=== PATIENT | male | born 1965 | race Caucasian/White ===

== ENCOUNTER → 2022-01-18 | Outpatient (CLI) | payer BC ==
[2022-01-19 09:26] LABS: Anti-Thrombin III Activity 113 % (79-109)
[2022-01-19 10:24] LABS: Protein C (Activity) 133 % (71-138)
== END | disposition home or self-care (01) ==
LOC: LABWHC1 11:45
PROVIDERS: ATTEND Family Medicine
DX: Z00.00 Encounter for general adult medical examination without abnormal findings (principal); I10 Essential (primary) hypertension; Z79.899 Other long term (current) drug therapy
CPT/HCPCS: 36415; 82306; 82607; 82746; 85300; 85303; 85305; 86038; 86225

== ENCOUNTER 2024-06-23 10:46 | Inpatient (IN) | payer OTHER ==
[2024-06-23 11:45] LABS: Basophils # (A) 0.2 k/uL (0-0.2); Basophils % (A) 2 %; Eosinophils # (A) 0.1 k/uL (0-0.7); Eosinophils % (A) 1 %; HCT 35.3 % (39.0-53.0); HGB 12.1 gm/dL (13.0-17.5); Lymphocytes # (A) 0.5 k/uL (1.0-4.8); Lymphocytes % (A) 5 %; MCH 30.5 pg (25.0-35.0); MCHC 34.1 g/dL (31.0-37.0); MCV 89.5 fL (80.0-100.0); Mean Platelet Volume 7.6; Monocytes # (A) 0.5 k/uL (0-1.0); Monocytes % (A) 5 %; Neutrophils # (A) 8.7 k/uL (1.3-7.7); Neutrophils % (A) 86 %; Platelet Count 237 k/uL (150-450); RBC 3.95 m/uL (4.30-5.90); RDW 13.2 % (11.5-15.5); WBC 10.1 k/uL (3.8-10.6)
[2024-06-23] MEDS: KETOROLAC 15 MG/ML 1 ML VIAL IVP STA (11:50)
[2024-06-23] MEDS: HYDROmorphone 0.5 MG/0.5 ML SYRINGE IVP STA (11:51)
[2024-06-23 11:53] LABS: ALT 20 U/L (4-49); AST 29 U/L (17-59); African American GFR (CKD) >90 (>60 ml/min/1.73 sqM); Albumin 3.2 g/dL (3.5-5.0); Alkaline Phosphatase 99 U/L (38-126); Anion Gap 13 mmol/L; Blood Urea Nitrogen 17 mg/dL (9-20); Calcium 8.6 mg/dL (8.4-10.2); Carbon Dioxide 23 mmol/L (22-30); Chloride 97 mmol/L (98-107); Glucose 119 mg/dL (74-99); Magnesium 1.9 mg/dL (1.6-2.3); Non-African American GFR(CKD) >90 (>60 ml/min/1.73 sqM); Potassium 4.3 mmol/L (3.5-5.1); Sodium 133 mmol/L (137-145); Total Bilirubin 0.8 mg/dL (0.2-1.3); Total Protein 5.4 g/dL (6.3-8.2)
--- NOTE | 2024-06-23 11:56 | ED ---
SOB HPI - General Chief Complaint: Shortness of Breath Stated Complaint: SOB Time Seen by Provider: 06/23/24 10:50 Source: patient, EMS, RN notes reviewed Mode of arrival: EMS Limitations: no limitations - History of Present Illness Initial Comments: This is a 59-year-old male who presents to the emergency department for shortness of breath. Patient was discharged from this facility yesterday. He had initially come to the hospital on 06/15 for back pain and was found to have metastatic lesions in his spine causing a pathological fracture. Primary source was thought to be lung cancer. He had surgery here on 06/[address] Vergara. Since the surgery he has been on supplemental oxygen and when he was discharged yesterday he was discharged on home oxygen at 3L. He also continues on doxycycline for suspected tracheobronchitis. States that a couple of days prior to discharge he choked on sausage and is unsure if he may have aspirated. The f inal biopsies are still pending and he is not currently undergoing any cancer treatment, however this is thought to be the most likely diagnosis. Patient states that he continued to have cramping in his lower extremities when he went home yesterday. However when he woke up this morning the pain in his legs got much worse and it took his breath away. States that whenever his leg started hurting he became short of breath. Also states that he started to experience sharp chest pain, prompting him to call EMS. When EMS arrived they advised that when they stood the patient up if he did not have his oxygen on his O2 sats were dropped to the 70s. Patient is taking [place] and Flexeril for his pain, but states that it has not been helpful. MD Complaint: shortness of breath - Related Data Home Medications Medication Instructions Recorded Confirmed HYDROcodone/APAP 7.5-325MG [[place] 1 tab PO BID 06/15/24 06/23/24 7.5-325] Vitamin D3(Unknown Dose) 1 tab PO DAILY 06/15/24 06/23/24 metFORMIN HCL 1,000 mg PO BID 06/15/24 06/23/24 methocarbamoL [Robaxin] 500 mg PO BID 06/15/24 06/23/24 Albuterol Sulfate [Albuterol 1 puff INHALATION RT-Q4H PRN 06/23/24 06/23/24 Sulfate Hfa] Budesonide/Formoterol Fumarate 1 puff INHALATION RT-BID 06/23/24 06/23/24 [Symbicort 160-4.5 Mcg Inhaler] Doxycycline [Vibramycin] 100 mg PO DIRECTED 06/23/24 06/23/24 Sennosides-Docusate Sodium 2 tab PO DAILY PRN 06/23/24 06/23/24 [Senokot-S] Previous Rx's Medication Instructions Recorded Cyclobenzaprine [Flexeril] 10 mg PO TID PRN #30 tab 06/22/24 HYDROcodone/APAP 10-325MG [[place] 1 tab PO Q6HR PRN #28 tab 06/22/24 10-325] Nicotine 21Mg/24Hr Patch [Habitrol] 1 patch TRANSDERM DAILY #30 patch 06/22/24 Tamsulosin [Flomax] 0.4 mg PO BID #60 cap 06/22/24 Allergies Allergy/AdvReac Type Severity Reaction Status Date / Time cephalexin [From Keflex] Allergy Swelling Verified 06/23/24 14:00 cortisone Allergy Swelling Verified 06/23/24 14:00 Influenza Virus Vaccines Allergy Swelling Verified 06/23/24 14:00 Review of Systems ROS Statement: Those systems with pertinent positive or pertinent negative responses have been documented in the HPI. ROS Other: All systems not noted in ROS Statement are negative. Past Medical History Past Medical History: Diabetes Mellitus, Prostate Disorder Additional Past Medical History / Comment(s): Covid 04/2022, developed PE and was on blood thinners, BPH, Dupuytren's contracture History of Any Multi-Drug Resistant Organisms: None Reported Past Surgical History: Hernia Repair Additional Past Surgical History / Comment(s): Back surgery saturday06/19/24 Past Anesthesia/Blood Transfusion Reactions: No Reported Reaction Past Psychological History: No Psychological Hx Reported Smoking Status: Current every day smoker, Former smoker Past Alcohol Use History: Occasional Past Drug Use History: None Reported General Exam Limitations: no limitations General appearance: alert, in no apparent distress Head exam: Present: atraumatic, normocephalic, normal inspection Respiratory exam: Present: wheezes, decreased breath sounds, prolonged expiratory Cardiovascular Exam: Present: regular rate, normal rhythm Neurological exam: Present: alert, oriented X3, CN II-XII intact Psychiatric exam: Present: normal affect, normal mood Skin exam: Present: warm, dry, intact, normal color. Absent: rash Course Vital Signs 06/23/24 06/23/24 06/23/24 10:59 11:37 12:09 Temperature 98.7 F Pulse Rate 95 86 Respiratory 16 18 18 Rate Blood Pressure 130/74 131/85 O2 Sat by Pulse 90 L 95 Oximetry Medical Decision Making - Medical Decision Making This is a 59-year-old male who presents to the emergency department for chest pain and shortness of breath. Was pt. sent in by a medical professional or institution? @ -No Did you speak to anyone other than the patient for history? @ -No Did you review nursing and triage notes? @ -Yes, and I agree, it is accurate with regards to the patient's symptoms. Were old charts reviewed? @ -Discharge summary from 06/22 discussing patient's admission for thoracic spine surgery and suspected lung cancer diagnosis. Differential Diagnosis? @ -Differential Dyspnea: Coronary syndrome, arrhythmia, tamponade, asthma, COPD, pulmonary embolism, pneumonia, pneumothorax, pulmonary effusion, anaphylaxis, diabetic ketoacidosis, flailed chest, pulmonary contusion, diaphragmatic rupture, anemia, neuromuscular, this is not meant to be an all-inclusive list. EKG interpreted by me (3pts min.)? @ -EKG interpreted by me demonstrating the following: Sinus rhythm. Ventricular rate 88 bpm, IN interval 137 ms, QRS duration 79 ms, QTc 401 ms. X-rays interpreted by me (1pt min.)? @ -Chest x-ray obtained. My interpretation identifies pulmonary vascular congestion. CT interpreted by me (1pt min.)? @ -CTA of the chest obtained. My interpretation identifies no evidence of a pulmonary embolus. U/S interpreted by me (1pt. min.)? @ -Duplex ultrasound of the bilateral lower extremities obtained. My interpretation identifies no evidence of a DVT. What testing was considered but not performed? (CT, X-rays, U/S, labs)? Why? @ -None What meds were considered but not given? Why? @ -None Did you discuss the management of the patient with other professionals? @ -Yes, Dr. Donald, who accepts the patient for admission Did you reconcile home meds? @ -Yes Was smoking cessation discussed for >3mins.? @ -No Was critical care preformed (if so, how long)? @ -No Were there social determinants of health that impacted care today? How? (Homelessness, low income, unemployed, alcoholism, drug addiction, transpor tation, low edu. Level, literacy, decrease access to med. care, snf, rehab)? @ -No Was there de-escalation of care discussed even if they declined? (Discuss DNR or withdrawal of care, Hospice)? @ -No What co-morbidities impacted this encounter? (DM, HTN, Smoking, COPD, CAD, Cancer, CVA, Hep., AIDS, mental health diagnosis, sleep apnea, morbid obesity)? @ -Hx of PE, suspected lung cancer Was patient admitted / discharged? @ -Admitted. Lab work demonstrates an elevated D-dimer of 2.86, which is expected given his recent surgery and suspected lung cancer. Lab work otherwise unremarkable. COVID, influenza, and RSV testing negative. Chest x-ray reveals pulmonary vascular congestion with small bilateral pleural effusions. BNP only 527. CTA of the chest obtained revealing interval development of scattered groundglass opacities in the upper lobe, a large right pleural effusion, moderate left pleural effusion, and bibasilar infiltrates. No evidence of a pulmonary embolus is identified. We did also obtain a duplex ultrasound of the bilateral lower extremities given the level of distress in his legs. No evidence of a DVT was identified. Patient was very fixated on the leg pain correlating with his shortness of breath. States that when his pain was controlled his breathing was better. However, he does have notable changes on his CT when compared with prior. Patient subsequently admitted to medicine for further management of the pleural effusions with shortness of breath and suspected lung cancer. Consult placed for pulmonology. Orthopedics consulted as well due to patient being the postoperative period. Case discussed with ED attending Dr. Wood. Undiagnosed new problem with uncertain prognosis? @ -None Drug Therapy requiring intensive monitoring for toxicity (Heparin, Nitro, Insulin, Cardizem)? @ -None Were any procedures done? @ -None Diagnosis/symptom? @ -Bilateral pleural effusions, shortness of breath, lung cancer Acute, or Chronic, or Acute on Chronic? @ -Acute Uncomplicated (without systemic symptoms) or Complicated (systemic symptoms)? @ -Complicated Side effects of treatment? @ -None Exacerbation, Progression, or Severe Exacerbation] @ -Not applicable Poses a threat to life or bodily function? @ -Yes, patient is struggling to function in his current state - Lab Data Result diagrams: 06/23/24 11:29 06/23/24 11:29 Lab Results 06/23/24 06/23/24 06/23/24 Range/Units 11:29 11:29 11:29 WBC 10.1 (3.8-10.6) k/uL RBC 3.95 L (4.30-5.90) m/uL Hgb 12.1 L (13.0-17.5) gm/dL Hct 35.3 L (39.0-53.0) % MCV 89.5 (80.0-100.0) fL MCH 30.5 (25.0-35.0) pg MCHC 34.1 (31.0-37.0) g/dL RDW 13.2 (11.5-15.5) % Plt Count 237 (150-450) k/uL MPV 7.6 Neutrophils % 86 % Lymphocytes % 5 % Monocytes % 5 % Eosinophils % 1 % Basophils % 2 % Neutrophils # 8.7 H (1.3-7.7) k/uL Lymphocytes # 0.5 L (1.0-4.8) k/uL Monocytes # 0.5 (0-1.0) k/uL Eosinophils # 0.1 (0-0.7) k/uL Basophils # 0.2 (0-0.2) k/uL PT 10.8 (10.0-12.5) sec INR 1.0 (<1.2) APTT 24.3 (22.0-30.0) sec D-Dimer 2.86 H (<0.60) mg/L FEU Sodium 133 L (137-145) mmol/L Potassium 4.3 (3.5-5.1) mmol/L Chloride 97 L (98-107) mmol/L Carbon Dioxide 23 (22-30) mmol/L Anion Gap 13 mmol/L BUN 17 (9-20) mg/dL Creatinine 0.66 (0.66-1.25) mg/dL Est GFR (CKD-EPI)AfAm >90 (>60 ml/min/1.73 sqM) Est GFR (CKD-EPI)NonAf >90 (>60 ml/min/1.73 sqM) Glucose 119 H (74-99) mg/dL Plasma Lactic Acid Donal (0.7-2.0) mmol/L Calcium 8.6 (8.4-10.2) mg/dL Magnesium 1.9 (1.6-2.3) mg/dL Total Bilirubin 0.8 (0.2-1.3) mg/dL AST 29 (17-59) U/L ALT 20 (4-49) U/L Alkaline Phosphatase 99 (38-126) U/L Troponin I (0.000-0.034) ng/mL NT-Pro-B Natriuret Pep 527 pg/mL Total Protein 5.4 L (6.3-8.2) g/dL Albumin 3.2 L (3.5-5.0) g/dL Influenza Type A (PCR) (Not Detectd) Influenza Type B (PCR) (Not Detectd) RSV (PCR) (Not Detectd) SARS-CoV-2 (PCR) (Not Detectd) 06/23/24 06/23/24 06/23/24 Range/Units 11:29 11:29 11:34 WBC (3.8-10.6) k/uL RBC (4.30-5.90) m/uL Hgb (13.0-17.5) gm/dL Hct (39.0-53.0) % MCV (80.0-100.0) fL MCH (25.0-35.0) pg MCHC (31.0-37.0) g/dL RDW (11.5-15.5) % Plt Count (150-450) k/uL MPV Neutrophils % % Lymphocytes % % Monocytes % % Eosinophils % % Basophils % % Neutrophils # (1.3-7.7) k/uL Lymphocytes # (1.0-4.8) k/uL Monocytes # (0-1.0) k/uL Eosinophils # (0-0.7) k/uL Basophils # (0-0.2) k/uL PT (10.0-12.5) sec INR (<1.2) APTT (22.0-30.0) sec D-Dimer (<0.60) mg/L FEU Sodium (137-145) mmol/L Potassium (3.5-5.1) mmol/L Chloride (98-107) mmol/L Carbon Dioxide (22-30) mmol/L Anion Gap mmol/L BUN (9-20) mg/dL Creatinine (0.66-1.25) mg/dL Est GFR (CKD-EPI)AfAm (>60 ml/min/1.73 sqM) Est GFR (CKD-EPI)NonAf (>60 ml/min/1.73 sqM) Glucose (74-99) mg/dL Plasma Lactic Acid Donal 1.1 (0.7-2.0) mmol/L Calcium (8.4-10.2) mg/dL Magnesium (1.6-2.3) mg/dL Total Bilirubin (0.2-1.3) mg/dL AST (17-59) U/L ALT (4-49) U/L Alkaline Phosphatase (38-126) U/L Troponin I <0.012 (0.000-0.034) ng/mL NT-Pro-B Natriuret Pep pg/mL Total Protein (6.3-8.2) g/dL Albumin (3.5-5.0) g/dL Influenza Type A (PCR) Not Detected (Not Detectd) Influenza Type B (PCR) Not Detected (Not Detectd) RSV (PCR) Not Detected (Not Detectd) SARS-CoV-2 (PCR) Not Detected (Not Detectd) - Radiology Data Radiology results: report reviewed, image reviewed Disposition Clinical Impression: Bilateral pleural effusion, Shortness of breath, Lung cancer Disposition: ADMITTED IP TO THIS [facility] Referrals: Erick Mancuso MD [Primary Care Provider] - 1-2 days
[2024-06-23 11:58] LABS: Partial Thromboplastin Time 24.3 sec (22.0-30.0); Prothrombin Time 10.8 sec (10.0-12.5)
[2024-06-23 12:02] LABS: NT-Pro-B-Type Natriuretic Pept 527 pg/mL
--- NOTE | 2024-06-23 12:21 | XR ---
EXAMINATION TYPE: XR chest 2V DATE OF EXAM: 06/23/2024 12:11 PM COMPARISON: Chest radiographs from 06/21/2024 TECHNIQUE: XR chest 2V Frontal and lateral views of the chest. CLINICAL INDICATION:Male, 59 years old with history of difficulty breathing; FINDINGS: Lungs/Pleura: Blunting of both costophrenic angles. No focal consolidation or pneumothorax. Pulmonary vascularity: Pulmonary vascular congestion. Heart/mediastinum: Cardiomediastinal silhouette is unremarkable. Musculoskeletal: No acute osseous pathology. Surgical changes from thoracolumbar fixation with security inspector ior skin denilson. IMPRESSION: 1. Pulmonary vascular congestion with small bilateral pleural effusions. 2. Postsurgical changes of the thoracolumbar spine. [facility], , 06/23/2024 12:19 PM
[2024-06-23 12:40] LABS: Influenza A Not Detected (Not Detectd); Influenza B Not Detected (Not Detectd); RSV Not Detected (Not Detectd)
--- NOTE | 2024-06-23 13:37 | CT ---
EXAMINATION TYPE: CT chest angio for PE DATE OF EXAM: 06/23/2024 COMPARISON: 07/15/2024 CLINICAL INDICATION: Male, 59 years old with history of KEYLA, lung cancer, elevated d-dimer; PHH, spin al surgery x 4 days ago, SOB/+dimer, history of PE, SOB or PAIN TECHNIQUE: Ct angiogram of the chest performed with with IV Contrast, patient injected with 60 mL of Isovue 370. MIP images are created and reviewed. 3-D post processing was performed. CT DLP: 330.[address] CTDI: mGy Automated exposure control for dose reduction was used. FINDINGS: There has been interval development of a large right pleural effusion and a moderate left pleural eff usion. There are new partially consolidative lung base infiltrates, right greater than left possibly compressive atelectasis from the pleural effusions with pneumonia not excluded. There is persistent a telectasis in the right middle lobe. There is been interval development of a few scattered ill-defined groundglass opacities in the bilate ral upper lobes consistent with inflammatory process or neoplasm given history of lung cancer. There is diffuse soft tissue thickening around the right hilar vessels but no discrete mass or adenopathy. There are no filling defects within the pulmonary arterial circulation to suggest pulmonary embolism. There is a pathologic fracture of T11 with mild retropulsion. There is postsurgical metallic fusion f rom T9 through L1. There is methylmethacrylate glue in T9, T11, T12 and L1.. IMPRESSION: 1. Interval development of scattered groundglass opacities in the upper lobes, large right pleural ef fusion, moderate left pleural effusion, and bibasilar infiltrates as described above. Findings could be infectious or neoplastic in nature and short-term follow-up is recommended. 2. No evidence of pulmonary embolism. 3. Pathologic compression fracture of T11 and postsurgical changes of fusion in the lower thoracic an d upper lumbar spine as described above. [facility], , 06/23/2024 1:35 PM
--- NOTE | 2024-06-23 13:59 | US ---
EXAMINATION TYPE: US venous doppler duplex LE DATE OF EXAM: 06/23/2024 1:43 PM COMPARISON: NONE CLINICAL INDICATION: Male, 59 years old with history of Leg pain; bilat thigh pain, recent surgery, s mall bilat PEs, Pain TECHNIQUE: The lower extremity deep venous system is examined utilizing real time linear array sonog akbar with graded compression, color doppler sonography, and spectral doppler. SIDE PERFORMED: Bilateral FINDINGS: VESSELS IMAGED: Common Femoral Vein Deep Femoral Vein Greater Saphenous Vein * Femoral Vein Popliteal Vein Small Saphenous Vein * Proximal Calf Veins (* superficial vessels) Right Leg: Negative for DVT, Color Doppler imaging shows patency of the vessels. Spectral waveforms are within normal limits. Left Leg: Negative for DVT, Color Doppler imaging shows patency of the vessels. Spectral waveforms a re within normal limits. rouleaux flow, reversal of flow on spectral doppler IMPRESSION: No visualized deep venous thrombosis of the bilateral lower extremities. [facility], , 06/23/2024 1:56 PM
[2024-06-23] MEDS ORDERED: NALOXONE 0.4 MG/ML 1 ML VIAL IV PRN (14:24)
[2024-06-23] MEDS ORDERED: ACETAMINOPHEN TAB 325 MG TAB PO PRN (14:24)
[2024-06-23] MEDS ORDERED: IPRATROPIUM-ALBUTEROL 3 ML NEB INHALATION PRN (14:26)
[2024-06-23] MEDS ORDERED: SENNOSIDES-DOCUSATE SODIUM 1 EACH TAB PO PRN (14:27)
[2024-06-23] MEDS ORDERED: ALBUTEROL NEBULIZED 2.5 MG/3 ML INHALATION PRN (14:27)
[2024-06-23] MEDS ORDERED: CYCLOBENZAPRINE 10 MG TAB PO PRN (14:27)
[2024-06-23] MEDS: NICOTINE 21MG/24HR PATCH TRANSDERM SCH (15:44)
[2024-06-23] MEDS: IPRATROPIUM-ALBUTEROL 3 ML NEB INHALATION SCH (17:51)
[2024-06-23] MEDS: MORPHINE SULFATE 4 MG/ML SYRINGE IV PRN (18:03)
[2024-06-23] MEDS ORDERED: DEXTROSE 50% SYRINGE 50 ML IVP PRN ×2 (18:20)
--- NOTE | 2024-06-23 18:24 | P.HPIM ---
History of Present Illness H&P Date: 06/23/24 Chief Complaint: Short of breath I am rounding for Erick Mancuso. Patient just discharged from the hospital being in the hospital from June 15 through June 22. That is yesterday Patient initially presented last admission when on May 19 he was pulling a battery from his truck and had intense pain in his mid back. And he was bedridden for nearly 3 days. Subsequently patient went surgical intervention on June 19. He was given doxycycline for acute tracheobronchitis. Time his discharge is doing much better. He did walk over 200 feet on the day of disc harge. Will discharge home with home care. Patient is due to follow-up with Dr. Kennedy from oncology and Dr. CARSON from pulmonary. Patient did have urine retention and dose of Flomax was increased patient declined a [place] catheter. Patient states at home patient thought having increasing cramping in the leg. Also developed increasing shortness of breath. No fever no chills. Finally decided to come in. Appetite is fair. Patient is a smoker but did not smoke upon getting home. Patient sent home with a walker and oxygen as pulse ox is 84%.. Patient is very hard of hearing Review of systems: GEN.: Tired EYES: None HEENT: None NECK: None RESPIRATORY: As above CARDIOVASCULAR: None GASTROINTESTINAL: None GENITOURINARY: None MUSCULOSKELETAL: As above LYMPHATICS: None HEMATOLOGICAL: None PSYCHIATRY: None NEUROLOGICAL: None Social history: Lives alone but her son does check on him. He was discharged home with a walker and oxygen. On examination: VITAL SIGNS: 98.7, 95, 16, 130 x 74, 90% on 3 L GENERAL APPEARANCE: BMI 18.2, reclining in bed, awake HEENT: Normal external appearance of nose and ear. Oral cavity normal. Very hard of hearing EYES: Pupils equal. Conjunctiva normal. NECK: JVD not raised. Mass not palpable. RESPIRATORY: Respiratory effort increased decreased breath sounds CARDIOVASCULAR: First and second sounds normal. No edema. ABDOMEN: Soft. Liver and spleen not palpable. No tenderness. No mass palpable. PSYCHIATRY: Alert and oriented x3. Mood and affect normal. Musculoskeletal: Able to do straight leg raising on both the legs. Was somewhat limited on the right leg. INVESTIGATIONS, reviewed in the clinical context: June 23, 2024: White count 10.1 hemoglobin 12.1 platelets 237 sodium 133 potassium 4.3 creatinine 0.66 Troponin I less than 0.012. proBNP 527 Influenza type A, type B, RSV, SARS-CoV-2: Not detected EKG tracing personally reviewed by me-normal sinus rhythm. Chest CTA: Scattered groundglass opacities upper lobes. Large right pleural effusion moderate left pleural effusion and bibasilar infiltrates.. Negative for PE. Pathological compression fracture of T11 and postsurgical changes of fusion. Chest x-ray film personally reviewed by me-some venous prominence. Right pleural effusion Investigations from last week CT chest thorax with contrast: Right lower lobe neoplasm with mediastinal hilar adenopathy and bone metastatic involving T11 and T12 T11 with compression deformity. Thoracolumbar spine MRI: Moderate right and moderate to severe left foraminal stenosis L5-S1. Several other findings Bone scan whole body: Abnormal focal activity right posterior elements at the lower thoracic spine suggestive of osseous metastatic disease CT abdomen pelvis: Suspicious lesion left axilla T12 throughout T11 vertebral body. Pathological fracture of T11 vertebral body with 50% height loss. Right lower lobe nodule. Cardiomegaly. Gallstones. Assessment plan: -Acute congestive heart failure exacerbation. Patient is developed bilateral pleural effusion right greater than left. IV Lasix 40 mg Q8. Strict I's and O's. Fluid restriction. 2D echocardiogram. -Surgical intervention carried out on June [address] Vergara -T11 pathologic fracture possibly from metastatic disease Postoperative Diagnosis: 1. T11 PATHOLOGICAL BURST FRACTURE WITH SEVERE STENOSIS 2. T12 LYTIC LESION WITH METESTATIC FOCI, C/T/L SPINE 3. SEVERE LOW BACK PAIN AND INABILITY TO AMBULATE 4. LE WEAKNESS 5. COMPLEX MEDICAL PATIENT Procedure(s) Performed: 1. OPEN TREATMENT T11 PATHOLOGICAL BURST FRACTURE 2. T9-L1 POSTEROLATERAL INSTRUMENTED FUSION 3. T9-L1 SEGMENTAL INSTRUMENTATION 4. T10-T12 BILATERAL LAMINECTOMY, FACETECTOMY AND FORAMINOTOMY FOR NEURAL DECOMPRESSION 5. TUMORAL ABLATION T11 AND T12 6. CEMENT AUGMENTATION OF T9, T11, T12 AND L1 VERTEBRAL BODIES 7. USE OF [address] NAVIGATION FOR THE ASSISTANCE IN ACCURATE SCREW PLACEMENT Implants: -RICHAR EVEREST RODS AND SCREWS -RICHAR CEMENT -ALLOGRAFT -Cholelithiasis, asymptomatic -Lung mass with suspected metastatic disease. Oncology following. Biopsy results from T12 pending -BPH, prostatomegaly, with bladder outflow obstruction Flomax increased to twice daily -Recurrent right lower extremity proximal spasms Flexeril 10 mg 3 times daily -Tracheobronchitis from last admission -COPD in a current smoker DuNacho. Symbicort. -Chronic nicotine dependence, cigarette smoker Nicotine patch -Gait dysfunction from above Patient was discharged on walker -Moderate protein calorie malnutrition from decreased oral intake from underlying suspected malignancy Ensure compact 3 times daily -Diabetes mellitus type 2 on oral hypoglycemic Accu-Cheks running bit on the lower side. metformin. Follow sliding scale. -Full code Past Medical History Past Medical History: Diabetes Mellitus, Prostate Disorder Additional Past Medical History / Comment(s): Covid 04/2022, developed PE and was on blood thinners, BPH, Dupuytren's contracture History of Any Multi-Drug Resistant Organisms: None Reported Past Surgical History: Hernia Repair Additional Past Surgical History / Comment(s): Back surgery saturday06/19/24 Past Anesthesia/Blood Transfusion Reactions: No Reported Reaction Past Psychological History: No Psychological Hx Reported Smoking Status: Current every day smoker, Former smoker Past Alcohol Use History: Occasional Past Drug Use History: None Reported Medications and Allergies Home Medications Medication Instructions Recorded Confirmed Type HYDROcodone/APAP 7.5-325MG [[place] 1 tab PO BID 06/15/24 06/23/24 History 7.5-325] Vitamin D3(Unknown Dose) 1 tab PO DAILY 06/15/24 06/23/24 History metFORMIN HCL 1,000 mg PO BID 06/15/24 06/23/24 History methocarbamoL [Robaxin] 500 mg PO BID 06/15/24 06/23/24 History Cyclobenzaprine [Flexeril] 10 mg PO TID PRN #30 tab 06/22/24 06/23/24 Rx HYDROcodone/APAP 10-325MG [[place] 1 tab PO Q6HR PRN #28 tab 06/22/24 06/23/24 Rx 10-325] Nicotine 21Mg/24Hr Patch [Habitrol] 1 patch TRANSDERM DAILY #30 patch 06/22/24 06/23/24 Rx Tamsulosin [Flomax] 0.4 mg PO BID #60 cap 06/22/24 06/23/24 Rx Albuterol Sulfate [Albuterol 1 puff INHALATION RT-Q4H PRN 06/23/24 06/23/24 History Sulfate Hfa] Budesonide/Formoterol Fumarate 1 puff INHALATION RT-BID 06/23/24 06/23/24 History [Symbicort 160-4.5 Mcg Inhaler] Doxycycline [Vibramycin] 100 mg PO DIRECTED 06/23/24 06/23/24 History Sennosides-Docusate Sodium 2 tab PO DAILY PRN 06/23/24 06/23/24 History [Senokot-S] Allergies Allergy/AdvReac Type Severity Reaction Status Date / Time cephalexin [From Keflex] Allergy Swelling Verified 06/23/24 14:00 cortisone Allergy Swelling Verified 06/23/24 14:00 Influenza Virus Vaccines Allergy Swelling Verified 06/23/24 14:00 Physical Exam Vitals: Vital Signs Temp Pulse Resp BP Pulse Ox 06/23/24 15:24 89 16 131/80 95 06/23/24 12:09 86 18 131/85 95 06/23/24 11:37 18 06/23/24 10:59 98.7 F 95 16 130/74 90 L Intake and Output 06/23/24 06/23/24 06/23/24 06:59 14:59 22:59 Other: Weight 54.431 kg Results CBC & Chem 7: 06/23/24 11:29 06/23/24 11:29 Labs: Abnormal Lab Results - Last 24 Hours (Table) 06/23/24 06/23/24 06/23/24 Range/Units 11:29 11:29 11:29 RBC 3.95 L (4.30-5.90) m/uL Hgb 12.1 L (13.0-17.5) gm/dL Hct 35.3 L (39.0-53.0) % Neutrophils # 8.7 H (1.3-7.7) k/uL Lymphocytes # 0.5 L (1.0-4.8) k/uL D-Dimer 2.86 H (<0.60) mg/L FEU Sodium 133 L (137-145) mmol/L Chloride 97 L (98-107) mmol/L Glucose 119 H (74-99) mg/dL Total Protein 5.4 L (6.3-8.2) g/dL Albumin 3.2 L (3.5-5.0) g/dL
[2024-06-23] MEDS: CYCLOBENZAPRINE 10 MG TAB PO SCH (19:47)
[2024-06-23] MEDS: ENOXAPARIN 40 MG/0.4 ML SYRINGE SQ SCH (19:47)
[2024-06-23] MEDS: FUROSEMIDE 10 MG/ML 4 ML VIAL IV SCH (19:47)
[2024-06-23] MEDS: metFORMIN 500 MG TAB PO SCH (20:31)
[2024-06-23] MEDS: HYDROcodone/APAP 10-325MG 1 EACH TAB PO PRN (20:31)
[2024-06-23] MEDS: TAMSULOSIN 0.4 MG CAP.ER.24H PO SCH (20:32)
[2024-06-23] MEDS: DOXYCYCLINE 100 MG CAP PO SCH (20:32)
[2024-06-23] MEDS: HYDROcodone/APAP 7.5-325MG 1 EACH TAB PO SCH (20:32)
[2024-06-23 20:36] LABS: Glucose,Whole Blood 161 mg/dL (70-110)
[2024-06-23] MEDS: INSULIN ASPART (NovoLOG) 100 UNIT/ML VIAL SQ SCH (20:58)
[2024-06-23] MEDS ORDERED: methocarbamoL 500 MG TAB PO SCH (21:00)
[2024-06-23] MEDS: SYMBICORT 160-4.5 MCG INHALER INHALATION SCH (21:11)
[2024-06-23 21:26] LABS: Appearance,Urine Clear (Clear); Bilirubin,Urine Negative (Negative); Blood,Urine Small (Negative); Color,Urine Light Yellow; Glucose,Urine (UA) Negative (Negative); Ketones,Urine 2+ (Negative); Leukocyte Esterase,Urine Negative (Negative); Mucus,Urine Few /hpf; Nitrite,Urine Negative (Negative); PH, Urine 6.5 (5.0-8.0); Protein,Urine Negative (Negative); RBC,Urine 42 /hpf (0-5); Specific Gravity,Urine 1.038 (1.001-1.035); Urobilinogen,Urine <2.0 mg/dL (<2.0); WBC,Urine 4 /hpf (0-5)
[2024-06-23] MEDS: KETOROLAC 15 MG/ML 1 ML VIAL IVP PRN (22:30)
[2024-06-24 05:23] LABS: African American GFR (CKD) >90 (>60 ml/min/1.73 sqM); Anion Gap 8 mmol/L; Blood Urea Nitrogen 19 mg/dL (9-20); Calcium 8.3 mg/dL (8.4-10.2); Carbon Dioxide 32 mmol/L (22-30); Chloride 93 mmol/L (98-107); Glucose 121 mg/dL (74-99); Non-African American GFR(CKD) >90 (>60 ml/min/1.73 sqM); Potassium 4.3 mmol/L (3.5-5.1); Sodium 133 mmol/L (137-145)
--- NOTE | 2024-06-24 05:39 | P.CNPUL ---
History of Present Illness Consult date: 06/24/24 Requesting physician: Jade Christianson Reason for consult: pleural effusion Chief complaint: Shortness of breath, chest pain History of present illness: Patient is a 59-year-old male with past medical history significant for COPD, heavy tobacco use, PE, among other things. His primary care provider is Dr. Erick Mancuso. Of note, patient recently hospitalized on June 15. He was pulling a battery out of his car, and developed severe thoracic level back pain. Abdominal CT demonstrating pathologic fracture of T11 with 50% height loss. Additionally, there was a right lower lobe nodule measuring 2.2 x 1.7 cm. Patient was taken to the OR with Dr. Vergara back on 06/19/2024 and underwent open treatment of T11 pathological burst fracture, tumor ablation of T11 and T12, and stabilization of T9-L1 with posterior-lateral fusion. During this hospitalization, pulmonary was consulted for suspicion of metastatic disease and lung primary. Chest CT did demonstrate a 2.9 cm mass in the posterior right lower lobe highly suspicious for malignancy, trace of small pleural effusion, enlarged subcarinal and right hilar lymph nodes, and previous mentioned osseous lesions. Pathology from thoracic spine surgery still pending. He was discharged home on 06/22/24, and returned to the emergency department less than 24 hours later. States that he developed severe sharp chest pain, and was having trouble catching his breath. This happened while resting in bed. Also, reports "leg spasms". Workup in the emergency department did not show any filling defects consistent with pulmonary embolism. Interval development of bilateral pleural effusions, greater on the right. Few upper lobe groundglass opacities and likely atelectasis. Findings could be infectious versus neoplastic. CBC: WBC count 10.1, hemoglobin 12.1, platelets 237. CMP is unremarkable, electrolytes WDL, creatinine 0.66, glucose 119. Troponin less than 0.012. NT proBNP only 527. Procalcitonin level 0.21. Viral screen negative for influenza, RSV, COVID. Patient currently being evaluated on the medical oncology unit. He is resting comfortably on 3 L/min nasal cannula. Nondistressed. Denies any fever/chills. Denies coughing, sputum production, hemoptysis. Remarks that he choked on breakfast sausage on his previous hospitalization. Chest pain has subsided. Postoperative thoracic level spine, with surgical dressing intact and small shadowing. Reports thoracic level back and leg pain and spasms with movement. Reports bilateral lower extremity weakness. Denies lumbar back pain. Denies saddle anesthesia, loss of bowel or bladder control. Current vital signs: Temperature 98 F, heart rate 94 bpm, blood pressure 111/71 mmHg, nontachypneic, SpO2 reading 98% on 3 L/min nasal cannula. Review of Systems Constitutional: Reports weight loss, Denies chills, Denies fatigue, Denies fever, Denies weight gain Ears, nose, mouth and throat: Denies headache, Denies nasal congestion, Denies nasal discharge, Denies post-nasal drip, Denies sinus pain, Denies sinus pressure, Denies sore throat Cardiovascular: Reports chest pain, Denies leg edema, Denies lightheadedness, Denies orthopnea, Denies palpitations, Denies paroxysmal nocturnal dyspnea, Denies syncope Respiratory: Reports as per HPI Gastrointestinal: Denies abdominal pain, Denies constipation, Denies diarrhea, Denies nausea, Denies vomiting Genitourinary: Denies dysuria Musculoskeletal: Reports muscle cramps, Reports muscle weakness, Denies limitati on of motion Integumentary: Denies rash Neurological: Denies seizures, Denies syncope Psychiatric: Denies anxiety, Denies depression Past Medical History Past Medical History: Diabetes Mellitus, Prostate Disorder Additional Past Medical History / Comment(s): Covid 04/2022, developed PE and was on blood thinners, BPH, Dupuytren's contracture History of Any Multi-Drug Resistant Organisms: None Reported Past Surgical History: Hernia Repair Additional Past Surgical History / Comment(s): Back surgery 06/19/24, Dupuytren's contracture release on R hand Past Anesthesia/Blood Transfusion Reactions: No Reported Reaction Past Psychological History: No Psychological Hx Reported Smoking Status: Former smoker Past Alcohol Use History: Occasional Past Drug Use History: None Reported Medications and Allergies Home Medications Medication Instructions Recorded Confirmed Type HYDROcodone/APAP 7.5-325MG [[place] 1 tab PO BID 06/15/24 06/23/24 History 7.5-325] Vitamin D3(Unknown Dose) 1 tab PO DAILY 06/15/24 06/23/24 History metFORMIN HCL 1,000 mg PO BID 06/15/24 06/23/24 History methocarbamoL [Robaxin] 500 mg PO BID 06/15/24 06/23/24 History Cyclobenzaprine [Flexeril] 10 mg PO TID PRN #30 tab 06/22/24 06/23/24 Rx HYDROcodone/APAP 10-325MG [[place] 1 tab PO Q6HR PRN #28 tab 06/22/24 06/23/24 Rx 10-325] Nicotine 21Mg/24Hr Patch [Habitrol] 1 patch TRANSDERM DAILY #30 patch 06/22/24 06/23/24 Rx Tamsulosin [Flomax] 0.4 mg PO BID #60 cap 06/22/24 06/23/24 Rx Albuterol Sulfate [Albuterol 1 puff INHALATION RT-Q4H PRN 06/23/24 06/23/24 History Sulfate Hfa] Budesonide/Formoterol Fumarate 1 puff INHALATION RT-BID 06/23/24 06/23/24 History [Symbicort 160-4.5 Mcg Inhaler] Doxycycline [Vibramycin] 100 mg PO DIRECTED 06/23/24 06/23/24 History Sennosides-Docusate Sodium 2 tab PO DAILY PRN 06/23/24 06/23/24 History [Senokot-S] Allergies Allergy/AdvReac Type Severity Reaction Status Date / Time cephalexin [From Keflex] Allergy Swelling Verified 06/23/24 14:00 cortisone Allergy Swelling Verified 06/23/24 14:00 Influenza Virus Vaccines Allergy Swelling Verified 06/23/24 14:00 Physical Exam Vitals: Vital Signs Temp Pulse Pulse Resp BP BP Pulse Ox 06/24/24 01:40 98 F 94 16 111/71 98 06/23/24 21:35 97.7 F 98 16 136/79 93 L 06/23/24 21:20 76 18 06/23/24 21:11 74 18 06/23/24 19:41 99 18 135/89 06/23/24 15:24 89 16 131/80 95 06/23/24 12:09 86 18 131/85 95 06/23/24 11:37 18 06/23/24 10:59 98.7 F 95 16 130/74 90 L Intake and Output 06/23/24 06/23/24 06/24/24 14:59 22:59 06:59 Intake Total 240 Balance 240 Intake: Oral 240 Other: Voiding Method Toilet Urinal Weight 54.431 kg 54.431 kg GENERAL EXAM: Alert, 59-year-old male, on 3 L/min nasal cannula, comfortable in no apparent distress. HEAD: Normocephalic and atraumatic EYES: Normal reaction of pupils, equal size. NOSE: Clear with pink turbinates. THROAT: No erythema or exudates. NECK: No masses, no JVD. CHEST: No chest wall deformity. LUNGS: Equal air entry with diminished bibasilar lung sounds. No crackles, wheezes, rhonchi. No conversational dyspnea or accessory muscle use.. CVS: S1 and S2 normal with no audible murmur, regular rhythm. No extra heart sounds ABDOMEN: No hepatosplenomegaly, active bowel sounds, no guarding or rigidity. SPINE: Thoracic level postsurgical dressing intact, with shadowing. SKIN: No rashes CENTRAL NERVOUS SYSTEM: No focal deficits, tone is normal in all 4 extremities. EXTREMITIES: There is no peripheral edema, clubbing, or cyanosis. Peripheral pulses are intact. Results - Laboratory Findings CBC and BMP: 06/23/24 11:29 06/24/24 04:25 PT/INR, D-dimer PT 10.8 sec (10.0-12.5) 06/23/24 11: INR 1.0 (<1.2) 06/23/24 11:29 D-Dimer 2.86 mg/L FEU (<0.60) H 06/23/24 11:29 Abnormal lab findings: Abnormal Labs 06/23/24 06/23/24 06/23/24 11:29 11:29 11:29 RBC 3.95 L Hgb 12.1 L Hct 35.3 L Neutrophils # 8.7 H Lymphocytes # 0.5 L D-Dimer 2.86 H Sodium 133 L Chloride 97 L Glucose 119 H POC Glucose (mg/dL) Total Protein 5.4 L Albumin 3.2 L Ur Specific [place] Urine Ketones Urine Blood Urine RBC Urine Mucus 06/23/24 06/23/24 20:34 20:48 RBC Hgb Hct Neutrophils # Lymphocytes # D-Dimer Sodium Chloride Glucose POC Glucose (mg/dL) 161 H Total Protein Albumin Ur Specific [place] 1.038 H Urine Ketones 2+ H Urine Blood Small H Urine RBC 42 H Urine Mucus Few H - Diagnostic Findings CT scan - chest: image reviewed Assessment and Plan Assessment: Interval development of bilateral pleural effusions, right greater than left Acute hypoxemic respiratory failure, currently on 3 L/min nasal cannula, secondary to above Lung mass measuring 2.9 cm in the posterior right lower lobe highly suspicious for malignancy. There is an 18 mm subcarinal enlarged lymph node and an 18 mm enlarged right hilar lymph node. Also, suspect osseous metastatic disease Pathology burst fracture of T11, status post open treatment of T11 pathological burst fracture, tumor ablation of T11 and T12, stabilization of T9-L1 with po sterior-lateral fusion, T10-T12 bilateral laminectomy, facetectomy and foraminotomy for neural decompression, tumoral ablation T11 and T12, cement augmentation of T9, T11, T12 and L1 1 vertebral bodies. Pathology is still pending Chronic and ongoing tobacco dependence Chronic obstructive pulmonary disease, stable History of pulmonary embolism Diabetes mellitus, type II History of prostate disorder Plan: Patient's medications, labs, chest CTA reviewed No evidence of filling defects consistent with pulmonary embolism. Interval development of bilateral pleural effusions, right greater than left. Associated/compressive atelectasis and upper lobe GGO. Possibility of malignant pleural effusion is not excluded NT proBNP not significantly elevated, 527 Procalcitonin level low at 0.21 Case will be discussed with Dr. Church, Patient may benefit from diagnostic/therapeutic thoracentesis Currently on 3 L/min nasal cannula Pathology from spine biopsy pending If no tissue diagnosis from above, patient may require bronchoscopy with biopsies and EBUS Orthopedic surgery reconsulted We will also continue to follow I have personally seen and examined the patient, performed the documentation and the assessment and plan as written. Number of minutes spent on the visit:20 This is a joint evaluation that was done along with the nurse practitioner. This evaluation was done in 31 minutes. The patient was recent discharge from the hospital to be readmitted for worsening shortness of breath. Comparing the CAT scan of the chest to the 1 done earlier, there is development of bilateral pleural effusion, moderate size on the right. Smaller on the left. There is also some scattered groundglass opacity in the upper lobes and the patient has evidence of mediastinal lymphadenopathy in addition to a right lower lobe opacity and a pathologic fracture of the T11 with mild retropulsion and the patient has postsurgical changes with metal fusion T9-L1. Note that the final pathology is not available yet as the patient is suspected to have metastatic lung cancer. The patient is currently comfortable on 3 L of oxygen by nasal cannula with a pulse ox of 98%. Surgical wound site over the back is dry clean and intact. His electrolytes are all within normal limits. The white cell count is at 10.1 with a hemoglobin 12.1 and a platelet count of 237. Procalcitonin level is at 0.21. The viral screen was negative. Legionella urine antigen was negative. Currently on DuoNeb updrafts, Symbicort and the patient was also given Lasix 40 mg IV every 8 hours. Will obtain ultrasound marking of the right chest. Possible thoracentesis with next 24 to 48 hours. Will continue to follow. Awaiting final pathology. Presentation is consistent with metastatic lung cancer. Mobility is affected and the patient is moving around with the help of a walker. He does have protein calorie malnutrition with ongoing weight loss. Continues to complain of spasms in his lower extremity currently on Flexeril. Time with Patient: Greater than 30
[2024-06-24 07:14] LABS: Glucose,Whole Blood 109 mg/dL (70-110)
[2024-06-24] MEDS: PANTOPRAZOLE 40 MG TABLET PO SCH (08:14)
[2024-06-24] MEDS ORDERED: PANTOPRAZOLE 40 MG/10 ML VIAL IV SCH (09:00)
[2024-06-24] MEDS: CHOLECALCIFEROL 10 MCG (400 IU) TABLET PO SCH (10:06)
--- NOTE | 2024-06-24 11:39 | P.CNOR ---
History of Present Illness - [facility] Consult date: 06/24/24 Consult reason: other (Recent thoracic/lumbar surgery) History of present illness: Patient is a 59-year-old male who is known to our orthopedic service. Patient is postoperative day #5 status post open treatment for T11 fracture, T11/T12 laminectomy and posterior stabilized fusion from T9-L1 due to pathological fractures. Patient was recently discharged home, he reported back to the hospital yesterday due to significant shortness of breath and chest pain. Patient was admitted under internal medicine, he is being followed by both internal medicine and pulmonology at this time. There was high concern for lung cancer with mets at the time of his initial hospitalization, they are waiting biopsy results that were taken during his spine procedure. Our orthopedic team was consulted due to the recent surgery. Patient was evaluated today at bedside, he is resting comfortably in his hospital bed. Patient is having very minimal back pain at this time. While at home he was experiencing some discomfort in the anterior aspect of the bilateral thighs. He seems like it has been positional while in the hospital, when he lies on his sides the pain is relieved. Patient has been utilizing the brace while at home along with a walker for assistance with ambulation. Patient does live alone, he has a son in the area that occasionally checks in on him. Currently has no upper extremity symptoms, this to include hi weakness or numbness or tingling. He denies any loss of sensation in the perineal or genital region. He denies any loss of function of bowel or bladder currently. Review of Systems Constitutional: Reports as per HPI Past Medical History Past Medical History: Diabetes Mellitus, Prostate Disorder Additional Past Medical History / Comment(s): Covid 04/2022, developed PE and was on blood thinners, BPH, Dupuytren's contracture History of Any Multi-Drug Resistant Organisms: None Reported Past Surgical History: Hernia Repair Additional Past Surgical History / Comment(s): Back surgery 06/19/24, Dupuytren's contracture release on R hand Past Anesthesia/Blood Transfusion Reactions: No Reported Reaction Past Psychological History: No Psychological Hx Reported Smoking Status: Former smoker Past Alcohol Use History: Occasional Past Drug Use History: None Reported Medications and Allergies Home Medications Medication Instructions Recorded Confirmed Type HYDROcodone/APAP 7.5-325MG [[place] 1 tab PO BID 06/15/24 06/23/24 History 7.5-325] Vitamin D3(Unknown Dose) 1 tab PO DAILY 06/15/24 06/23/24 History metFORMIN HCL 1,000 mg PO BID 06/15/24 06/23/24 History methocarbamoL [Robaxin] 500 mg PO BID 06/15/24 06/23/24 History Cyclobenzaprine [Flexeril] 10 mg PO TID PRN #30 tab 06/22/24 06/23/24 Rx HYDROcodone/APAP 10-325MG [[place] 1 tab PO Q6HR PRN #28 tab 06/22/24 06/23/24 Rx 10-325] Nicotine 21Mg/24Hr Patch [Habitrol] 1 patch TRANSDERM DAILY #30 patch 06/22/24 06/23/24 Rx Tamsulosin [Flomax] 0.4 mg PO BID #60 cap 06/22/24 06/23/24 Rx Albuterol Sulfate [Albuterol 1 puff INHALATION RT-Q4H PRN 06/23/24 06/23/24 History Sulfate Hfa] Budesonide/Formoterol Fumarate 1 puff INHALATION RT-BID 06/23/24 06/23/24 History [Symbicort 160-4.5 Mcg Inhaler] Doxycycline [Vibramycin] 100 mg PO DIRECTED 06/23/24 06/23/24 History Sennosides-Docusate Sodium 2 tab PO DAILY PRN 06/23/24 06/23/24 History [Senokot-S] Allergies Allergy/AdvReac Type Severity Reaction Status Date / Time cephalexin [From Keflex] Allergy Swelling Verified 06/23/24 14:00 cortisone Allergy Swelling Verified 06/23/24 14:00 Influenza Virus Vaccines Allergy Swelling Verified 06/23/24 14:00 Physical Examination Gen: AOx3, NAD VSS stable at this time Integument: Optifoam dressings were removed today at bedside. Incisions are all well-healing, with good stable position. There is no active drainage, there is no areas of erythema or obvious fluctuance Palpation: Mild tenderness with palpation to the thoracic paraspinal region ROM: Full range of motion in all major muscle groups of the bilateral upper and lower extremities, no focal deficits appreciated Sensory Exam: Senory exam to light touch is intact C5-T1 Senosry exam to light touch is intact L2-S1 Motor: 4/5 strength appreciated bilateral upper extremities with shoulder elevation, shoulder abduction, elbow extension, elbow flexion, wrist extension, wrist flexion, cardiac rn 4/5 strength appreciated bilateral lower extremities with hip flexion, knee extension, knee flexion, plantarflexion, dorsiflexion, EHL, FHL Reflexes: 2/4 in all UE and LE Negative Jason's bilaterally Negative clonus bilaterally Results - Labs Labs: Abnormal Lab Results - Last 24 Hours (Table) 06/23/24 06/23/24 06/23/24 Range/Units 11:29 11:29 11:29 RBC 3.95 L (4.30-5.90) m/uL Hgb 12.1 L (13.0-17.5) gm/dL Hct 35.3 L (39.0-53.0) % Neutrophils # 8.7 H (1.3-7.7) k/uL Lymphocytes # 0.5 L (1.0-4.8) k/uL D-Dimer 2.86 H (<0.60) mg/L FEU Sodium 133 L (137-145) mmol/L Chloride 97 L (98-107) mmol/L Carbon Dioxide (22-30) mmol/L Glucose 119 H (74-99) mg/dL POC Glucose (mg/dL) (70-110) mg/dL Calcium (8.4-10.2) mg/dL Total Protein 5.4 L (6.3-8.2) g/dL Albumin 3.2 L (3.5-5.0) g/dL Ur Specific [place] (1.001-1.035) Urine Ketones (Negative) Urine Blood (Negative) Urine RBC (0-5) /hpf Urine Mucus (None) /hpf 06/23/24 06/23/24 06/24/24 Range/Units 20:34 20:48 04:25 RBC (4.30-5.90) m/uL Hgb (13.0-17.5) gm/dL Hct (39.0-53.0) % Neutrophils # (1.3-7.7) k/uL Lymphocytes # (1.0-4.8) k/uL D-Dimer (<0.60) mg/L FEU Sodium 133 L (137-145) mmol/L Chloride 93 L (98-107) mmol/L Carbon Dioxide 32 H (22-30) mmol/L Glucose 121 H (74-99) mg/dL POC Glucose (mg/dL) 161 H (70-110) mg/dL Calcium 8.3 L (8.4-10.2) mg/dL Total Protein (6.3-8.2) g/dL Albumin (3.5-5.0) g/dL Ur Specific [place] 1.038 H (1.001-1.035) Urine Ketones 2+ H (Negative) Urine Blood Small H (Negative) Urine RBC 42 H (0-5) /hpf Urine Mucus Few H (None) /hpf H & H 06/23/24 Range/Units 11:29 Hgb 12.1 L (13.0-17.5) gm/dL Hct 35.3 L (39.0-53.0) % Coagulation 06/23/24 Range/Units 11:29 INR 1.0 (<1.2) Result Diagrams: 06/23/24 11:29 06/24/24 04:25 Assessment and Plan Assessment: Postoperative day #5 status post open treatment T11 pathological fracture, T10/T12 decompressive laminectomy, T9-L1 posterior stabilized fusion Bilateral pleural effusions Multiple medical comorbidities Plan: Pain control, continue with current medications. Stool softeners have been adjusted to scheduled DVT prophylaxis, patient was started on subcu Lovenox Wound care, monitor surgical dressings. Avoiding Optifoam adhesive dressings at this time to give skin a break. Okay for patient to shower directly over the incisions No bending, lifting or twisting. Depending on how long patient is hospital, would recommend family dropping off his TLSO brace. Patient does not need the brace when ambulating shorter distances with walker while in hospital Encourage incentive spirometer PT/OT Other medical specialty recommendations appreciated Orthopedically patient remained stable at this time, no additional imaging test required at this time. Will be available to evaluate patient if need be, please contact our service does not need further questions. Follow-up will be scheduled for Dr. Vergara in the outpatient setting Time with Patient: Less than 30
[2024-06-24 12:02] LABS: Glucose,Whole Blood 123 mg/dL (70-110)
--- NOTE | 2024-06-24 13:22 | CA ---
Transthoracic Echo Report Name: Dev Phillip Age: 59 Gender: M : 1965 Exam Date: 06/24/2024 11:11 Exam Location: [facility] Ht (in): 68 Wt (lb): 120 Ordering Physician: Bello Donald MD Attending/Referring Phys: Timber Repairer Karime Azar RDCS Procedure CPT: Indications: chf Cardiac Hx: Technical Quality: Good Contrast 1: Total Dose (mL): Contrast 2: Total Dose (mL): MEASUREMENTS (Male / Female) Normal Values 2D ECHO LV Diastolic Diameter PLAX 4.6 cm 4.2 - 5.9 / 3.9 - 5.3 cm LV Systolic Diameter PLAX 3.1 cm IVS Diastolic Thickness 0.8 cm 0.6 - 1.0 / 0.6 - 0.9 cm LVPW Diastolic Thickness 0.7 cm 0.6 - 1.0 / 0.6 - 0.9 cm LV Relative Wall Thickness 0.3 LVOT Diameter 1.8 cm LV Diastolic Volume MOD BP 87.2 cm??? 67 - 155 / 56 - 104 cm??? LV Systolic Volume MOD BP 28.3 cm??? 22 - 58 / 19 - 49 cm??? LV Ejection Fraction MOD BP 67.6 % >= 55 % LV Cardiac Index MOD BP 3487.5 cm???/min???m??? LV Diastolic Volume MOD 4C 82.1 cm??? LV Systolic Volume MOD 4C 25.9 cm??? LV Ejection Fraction MOD 4C 68.4 % LV Cardiac Index MOD 4C 3323.1 cm???/min???m??? LV Diastolic Length 4C 8.5 cm LV Systolic Length 4C 6.9 cm LV Diastolic Volume MOD 2C 84.6 cm??? LV Systolic Volume MOD 2C 29.4 cm??? LV Ejection Fraction MOD 2C 65.2 % LV Cardiac Index MOD 2C 3265.6 cm???/min???m??? LV Diastolic Length 2C 7.7 cm LV Systolic Length 2C 6.6 cm LA Volume 36.3 cm??? 18 - 58 / 22 - 52 cm??? LA Volume Index 22.6 cm???/m??? 16 - 28 cm???/m??? DOPPLER AV Peak Velocity 137.0 cm/s AV Peak Gradient 7.5 mmHg AV Mean Velocity 94.4 cm/s AV Mean Gradient 3.9 mmHg AV Velocity Time Integral 23.0 cm LVOT Peak Velocity 119.4 cm/s LVOT Peak Gradient 5.7 mmHg LVOT Velocity Time Integral 20.4 cm LVOT Stroke Volume 53.3 cm??? LVOT Stroke Volume Index 32.4 ml/m??? LVOT Cardiac Index 3157.7 cm???/min???m??? AV Area Cont Eq vti 2.3 cm??? AV Area Cont Eq pk 2.3 cm??? MV Area PHT 5.5 cm??? Mitral E Point Velocity 65.5 cm/s Mitral A Point Velocity 60.5 cm/s Mitral E to A Ratio 1.1 MV Deceleration Time 137.2 ms TR Peak Velocity 300.5 cm/s TR Peak Gradient 36.1 mmHg Right Atrial Pressure 15.0 mmHg Pulmonary Artery Systolic Pressu 51.1 mmHg Right Ventricular Systolic Press 51.1 mmHg PV Peak Velocity 77.5 cm/s PV Peak Gradient 2.4 mmHg FINDINGS Left Ventricle Left ventricular ejection fraction is estimated at 60-65 %. Left ventricular cavity size normal. Left ventricular wall thickness normal. No obvious regional wall motion abnormalities. Right Ventricle Normal right ventricular size and function. Moderate pulmonary hypertension. Right Atrium Normal right atrial size. Left Atrium Normal left atrial size. Mitral Valve Structurally normal mitral valve. No evidence for mitral valve prolapse. No mitral stenosis. Trace mitral regurgitation. Aortic Valve Trileaflet aortic valve. No aortic valve stenosis or regurgitation. Tricuspid Valve Structurally normal tricuspid valve. No tricuspid stenosis. Mild tricuspid regurgitation. Pulmonic Valve Structurally normal pulmonic valve. No pulmonic stenosis. No pulmonic regurgitation. Pericardium No pericardial effusion. Aorta Normal size aortic root and proximal ascending aorta. CONCLUSIONS Normal biventricular systolic function Moderate pulmonary hypertension. No significant valvular abnormalities noted No pericardial effusion Normal ascending aorta Previewed by: Dr. Vinay Enciso MD (Electronically Signed) Final Date: 24 June 2024 13:21
[2024-06-24 17:30] LABS: Glucose,Whole Blood 144 mg/dL (70-110)
--- NOTE | 2024-06-24 18:09 | P.PN ---
Progress Note - Text Progress Note Date: 06/24/24 Chief Complaint: Short of breath I am rounding for Erick Mancuso. Patient just discharged from the hospital being in the hospital from June 15 through June 22. That is yesterday Patient initially presented last admission when on May 19 he was pulling a battery from his truck and had intense pain in his mid back. And he was bedridden for nearly 3 days. Subsequently patient went surgical intervention on June 19. He was given doxycycline for acute tracheobronchitis. Time his discharge is doing much better. He did walk over 200 feet on the day of discharge. Will discharge home with home care. Patient is due to follow-up with Dr. Kennedy from oncology and Dr. CARSON from pulmonary. Patient did have urine retention and dose of Flomax was increased patient declined a Grimes catheter. Patient states at home patient thought having increasing cramping in the leg. Also developed increasing shortness of breath. No fever no chills. Finally decided to come in. Appetite is fair. Patient is a smoker but did not smoke upon getting home. Patient sent home with a walker and oxygen as pulse ox is 84%.. Patient is very hard of hearing June 24: Laying in bed. Appears comfortable. Does complains of some shortness of breath. Chest ultrasound marked for thoracentesis. Does complain of pain in the right leg with movement of right hip. Seen by Dr. Vergara from orthopedic. Good urine output with IV Lasix 40 mg Q8. Repeat checks x-ray in the morning. Active Medications Acetaminophen (Acetaminophen Tab 325 Mg Tab) 650 mg PO Q6HR PRN PRN Reason: Mild Pain or Fever > 100.5 Hydrocodone Bitart/Acetaminophen (Hydrocodone/Apap 10-325mg 1 Each Tab) 1 each PO Q6HR PRN PRN Reason: Pain Scale 4-10 PO tolerant Last Admin: 06/23/24 20:31 Dose: 1 each Hydrocodone Bitart/Acetaminophen (Hydrocodone/Apap 7.5-325mg 1 Each Tab) 1 each PO BID KRISTEN Last Admin: 06/24/24 08:11 Dose: 1 each Albuterol/Ipratropium (Ipratropium-Albuterol 3 Ml Neb) 3 ml INHALATION RT-Q4H PRN PRN Reason: shortness of breath Albuterol/Ipratropium (Ipratropium-Albuterol 3 Ml Neb) 3 ml INHALATION RT-QID [facility] Last Admin: 06/24/24 15:20 Dose: 3 ml Budesonide/Formoterol Fumarate (Symbicort 160-4.5 Mcg Inhaler) 1 puff INHA LATION RT-BID [facility] Last Admin: 06/24/24 07:28 Dose: 1 puff Cholecalciferol (Cholecalciferol 10 Mcg (400 Iu) Tablet) 10 mcg PO DAILY [facility] Last Admin: 06/24/24 10:06 Dose: 10 mcg Cyclobenzaprine HCl (Cyclobenzaprine 10 Mg Tab) 10 mg PO TID [facility] Last Admin: 06/24/24 16:30 Dose: 10 mg Dextrose/Water (Dextrose 50% Syringe 50 Ml) 25 ml IVP PER PROTOCOL PRN; Protocol PRN Reason: Hypoglycemia Dextrose/Water (Dextrose 50% Syringe 50 Ml) 50 ml IVP PER PROTOCOL PRN; Protocol PRN Reason: Hypoglycemia Doxycycline Monohydrate (Doxycycline 100 Mg Cap) 100 mg PO BID [facility]; Protocol Last Admin: 06/24/24 08:29 Dose: 100 mg Enoxaparin Sodium (Enoxaparin 40 Mg/0.4 Ml Syringe) 40 mg SQ DAILY [facility] Last Admin: 06/24/24 08:12 Dose: 40 mg Furosemide (Furosemide 10 Mg/Ml 4 Ml Vial) 40 mg IV Q8HR [facility] Last Admin: 06/24/24 16:30 Dose: 40 mg Insulin Aspart (Insulin Aspart (Novolog) 100 Unit/Ml Vial) 0 unit SQ ACHS [facility]; Protocol Last Admin: 06/24/24 12:18 Dose: Not Given Ketorolac Tromethamine (Ketorolac 15 Mg/Ml 1 Ml Vial) 15 mg IVP Q6HR PRN PRN Reason: Moderate Pain (Scale 4 to 6) Stop: 06/26/24 14:25 Last Admin: 06/24/24 08:59 Dose: 15 mg Metformin HCl (Metformin 500 Mg Tab) 1,000 mg PO BID-W/MEALS [facility] Last Admin: 06/24/24 16:30 Dose: 1,000 mg Morphine Sulfate (Morphine Sulfate 4 Mg/Ml Syringe) 4 mg IV Q4HR PRN PRN Reason: Severe Pain (Scale 7 to 10) Last Admin: 06/23/24 18:03 Dose: 4 mg Naloxone HCl (Naloxone 0.4 Mg/Ml 1 Ml Vial) 0.2 mg IV Q2M PRN PRN Reason: Opioid Reversal Nicotine (Nicotine 21mg/24hr Patch) 1 patch TRANSDERM DAILY [facility] Last Admin: 06/24/24 08:14 Dose: Not Given Ondansetron HCl (Ondansetron 4 Mg/2 Ml Vial) 4 mg IVP Q8HR PRN PRN Reason: Nausea And Vomiting Pantoprazole Sodium (Pantoprazole 40 Mg Tablet) 40 mg PO DAILY [facility] Last Admin: 06/24/24 08:14 Dose: 40 mg Senna/Docusate Sodium (Sennosides-Docusate Sodium 1 Each Tab) 2 each PO DAILY [facility] Tamsulosin HCl (Tamsulosin 0.4 Mg Cap.Er.24h) 0.4 mg PO BID [facility] Last Admin: 06/24/24 08:18 Dose: 0.4 mg Social history: Lives alone but her son does check on him. He was discharged home with a walker and oxygen. On examination: VITAL SIGNS: 97.7, 68, 17, 125 x 69, 98% on 3 L GENERAL APPEARANCE: BMI 18.2, laying in bed, breathing comfortably e HEENT: Normal external appearance of nose and ear. Oral cavity normal. Very hard of hearing EYES: Pupils equal. Conjunctiva normal. NECK: JVD not raised. Mass not palpable. RESPIRATORY: Respiratory effort normal decreased breath sounds CARDIOVASCULAR: First and second sounds normal. No edema. ABDOMEN: Soft. Liver and spleen not palpable. No tenderness. No mass palpable. PSYCHIATRY: Alert and oriented x3. Mood and affect normal. Musculoskeletal: Able to do straight leg raising on both the legs. Was somewhat limited on the right leg. INVESTIGATIONS, reviewed in the clinical context: 2D echocardiogram: EF 60 to 65%. Moderate pulmonary hypertension. June 24: Sodium 133 potassium 4.3 creatinine 0.86 June 23, 2024: White count 10.1 hemoglobin 12.1 platelets 237 sodium 133 potassium 4.3 creatinine 0.66 Troponin I less than 0.012. proBNP 527 Influenza type A, type B, RSV, SARS-CoV-2: Not detected EKG tracing personally reviewed by me-normal sinus rhythm. Chest CTA: Scattered groundglass opacities upper lobes. Large right pleural effusion moderate left pleural effusion and bibasilar infiltrates.. Negative for PE. Pathological compression fracture of T11 and postsurgical changes of fusion. Chest x-ray film personally reviewed by me-some venous prominence. Right pleural effusion Investigations from last week CT chest thorax with contrast: Right lower lobe neoplasm with mediastinal hilar adenopathy and bone metastatic involving T11 and T12 T11 with compression deformity. Thoracolumbar spine MRI: Moderate right and moderate to severe left foraminal stenosis L5-S1. Several other findings Bone scan whole body: Abnormal focal activity right posterior elements at the lower thoracic spine suggestive of osseous metastatic disease CT abdomen pelvis: Suspicious lesion left axilla T12 throughout T11 vertebral body. Pathological fracture of T11 vertebral body with 50% height loss. Right lower lobe nodule. Cardiomegaly. Gallstones. Assessment plan: -Acute congestive heart failure exacerbation. From s diastolic c dysfunction EF 60 to 65% patient is developed bilateral pleural effusion right greater than left. Decrease IV Lasix 40 mg every 12 strict I's and O's. Fluid restriction. Repeat chest x-ray tomorrow -Surgical intervention carried out on June [address] Vergara -T11 pathologic fracture possibly from metastatic disease Postoperative Diagnosis: 1. T11 PATHOLOGICAL BURST FRACTURE WITH SEVERE STENOSIS 2. T12 LYTIC LESION WITH METESTATIC FOCI, C/T/L SPINE 3. SEVERE LOW BACK PAIN AND INABILITY TO AMBULATE 4. LE WEAKNESS 5. COMPLEX MEDICAL PATIENT Procedure(s) Performed: 1. OPEN TREATMENT T11 PATHOLOGICAL BURST FRACTURE 2. T9-L1 POSTEROLATERAL INSTRUMENTED FUSION 3. T9-L1 SEGMENTAL INSTRUMENTATION 4. T10-T12 BILATERAL LAMINECTOMY, FACETECTOMY AND FORAMINOTOMY FOR NEURAL DECOMPRESSION 5. TUMORAL ABLATION T11 AND T12 6. CEMENT AUGMENTATION OF T9, T11, T12 AND L1 VERTEBRAL BODIES 7. USE OF Downstream NAVIGATION FOR THE ASSISTANCE IN ACCURATE SCREW PLACEMENT Implants: -RICHAR EVEREST RODS AND SCREWS -RICHAR CEMENT -ALLOGRAFT -Cholelithiasis, asymptomatic -Lung mass with suspected metastatic disease. Oncology following. Biopsy results from T12 pending -BPH, prostatomegaly, with bladder outflow obstruction Flomax increased to twice daily -Recurrent right lower extremity proximal spasms Flexeril 10 mg 3 times daily -Tracheobronchitis from last admission -COPD in a current smoker DuoNeb. Symbicort. -Chronic nicotine dependence, cigarette smoker Nicotine patch -Gait dysfunction from above Patient was discharged on walker -Moderate protein calorie malnutrition from decreased oral intake from underlying suspected malignancy Ensure compact 3 times daily -Diabetes mellitus type 2 on oral hypoglycemic Accu-Cheks with sliding scale metformin. -Full code Past Medical History Past Medical History: Diabetes Mellitus, Prostate Disorder Additional Past Medical History / Comment(s): Covid 04/2022, developed PE and was on blood thinners, BPH, Dupuytren's contracture History of Any Multi-Drug Resistant Organisms: None Reported Past Surgical History: Hernia Repair Additional Past Surgical History / Comment(s): Back surgery saturday06/19/24 Past Anesthesia/Blood Transfusion Reactions: No Reported Reaction Past Psychological History: No Psychological Hx Reported Smoking Status: Current every day smoker, Former smoker Past Alcohol Use History: Occasional Past Drug Use History: None Reported
[2024-06-24 20:22] LABS: Glucose,Whole Blood 174 mg/dL (70-110)
--- NOTE | 2024-06-24 21:24 | US ---
EXAMINATION TYPE: US chest DATE OF EXAM: 06/24/2024 COMPARISON: NONE CLINICAL INDICATION: Male, 59 years old with history of Marking fluid rt lung; TECHNIQUE: Grayscale imaging of the chest. Targeted ultrasound of the posterior lower right hemithor ax FINDINGS: EXAM MEASUREMENTS: Right Pleural Effusion pocket size: 2.2 cm Not marked due to not enough fluid before lung tissue Pulmonologists are able to review the images in the patient?s EMR. IMPRESSIONS: 1. Small right pleural effusion [facility], , 06/24/2024 9:22 PM
[2024-06-25 07:36] LABS: Glucose,Whole Blood 123 mg/dL (70-110)
--- NOTE | 2024-06-25 08:19 | XR ---
EXAMINATION TYPE: XR chest 2V DATE OF EXAM: 06/25/2024 7:30 AM COMPARISON: Chest radiographs from 06/23/2024, CTA chest 06/23/2024, ultrasound chest 06/24/2024 TECHNIQUE: XR chest 2V Frontal and lateral views of the chest. CLINICAL INDICATION:Male, 59 years old with history of Follow-up pleural effusion; FINDINGS: Lungs/Pleura: Bilateral interstitial prominence. Trace left and small to moderate right pleural effus ions. Right basilar patchy airspace opacities. No pneumothorax. Heart/mediastinum: Cardiomediastinal silhouette is unremarkable. Musculoskeletal: No acute osseous pathology. 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 IMPRESSION: 1. Similar trace left and increased small to moderate size right pleural effusion with associated at electasis. 2. Diffuse interstitial prominence. Correlate for pulmonary vascular congestion versus atypical infe ction. [facility], , 06/25/2024 8:17 AM
[2024-06-25] MEDS: FUROSEMIDE 10 MG/ML 4 ML VIAL IV SCH (09:27)
[2024-06-25] MEDS: SENNOSIDES-DOCUSATE SODIUM 1 EACH TAB PO SCH (09:51)
[2024-06-25] MEDS: TAMSULOSIN 0.4 MG CAP.ER.24H PO SCH (09:52)
[2024-06-25 12:06] LABS: Glucose,Whole Blood 125 mg/dL (70-110)
[2024-06-25 17:22] LABS: Glucose,Whole Blood 132 mg/dL (70-110)
--- NOTE | 2024-06-25 19:41 | P.PN ---
Subjective Progress Note Date: 06/25/24 Patient is a 59-year-old male with past medical history significant for COPD, heavy tobacco use, PE, among other things. His primary care provider is Dr. Erick Mancuso. Of note, patient recently hospitalized on June 15. He was pulling a battery out of his car, and developed severe thoracic level back pain. Abdominal CT demonstrating pathologic fracture of T11 with 50% height loss. Additionally, there was a right lower lobe nodule measuring 2.2 x 1.7 cm. Patient was taken to the OR with Dr. Vergara back on 06/19/2024 and underwent open treatment of T11 pathological burst fracture, tumor ablation of T11 and T12, and stabilization of T9-L1 with posterior-lateral fusion. During this hos pitalization, pulmonary was consulted for suspicion of metastatic disease and lung primary. Chest CT did demonstrate a 2.9 cm mass in the posterior right lower lobe highly suspicious for malignancy, trace of small pleural effusion, enlarged subcarinal and right hilar lymph nodes, and previous mentioned osseous lesions. Pathology from thoracic spine surgery still pending. He was discharged home on 06/22/24, and returned to the emergency department less than 24 hours later. States that he developed severe sharp chest pain, and was having trouble catching his breath. This happened while resting in bed. Also, reports "leg spasms". Workup in the emergency department did not show any filling defects consistent with pulmonary embolism. Interval development of bilateral pleural effusions, greater on the right. Few upper lobe groundglass opacities and likely atelectasis. Findings could be infectious versus neoplastic. CBC: WBC count 10.1, hemoglobin 12.1, platelets 237. CMP is unrema rkable, electrolytes WDL, creatinine 0.66, glucose 119. Troponin less than 0.012. NT proBNP only 527. Procalcitonin level 0.21. Viral screen negative for influenza, RSV, COVID. Patient currently being evaluated on the medical oncology unit. He is resting comfortably on 3 L/min nasal cannula. Nondistressed. Denies any fever/chills. Denies coughing, sputum production, hemoptysis. Remarks that he choked on breakfast sausage on his previous hospitalization. Chest pain has subsided. Postoperative thoracic level spine, with surgical dressing intact and small shadowing. Reports thoracic level back and leg pain and spasms with movement. Reports bilateral lower extremity weakness. Denies lumbar back pain. Denies saddle anesthesia, loss of bowel or bladder control. Current vital signs: Temperature 98 F, heart rate 94 bpm, blood pressure 111/71 mmHg, nontachypneic, SpO2 reading 98% on 3 L/min nasal cannula. On 06/25/2024, the patient is being seen for a follow-up. Patient is co mfortable. No significant shortness of breath. Pathology from the spine biopsy was consistent with metastatic adenocarcinoma. Noted the patient also has developed bilateral pleural effusion. Ultrasound of the chest with marking was obtained and the pleural fluid on the right was small measuring only 2.2 cm pocket and no markings were done. Clinically, the patient is doing well. He is on 2 L of oxygen by nasal cannula with a pulse ox of 95%. Denies having any chest pain or shortness of breath. Medications remain unchanged. He is currently on Lasix 40 mg IV every 24 hours. He is on DuoNeb nebulized treatments [id number]. He is on Lovenox for DVT prophylaxis. Home medications have been resumed. No new labs are available from today. Objective - Vital Signs Vital signs: Vital Signs Temp 97.8 F 06/25/24 13:36 Pulse 98 06/25/24 13:36 Resp 18 06/25/24 13:36 BP 127/76 06/25/24 13:36 Pulse Ox 97 06/25/24 13:36 FiO2 Intake & Output 06/24/24 06/25/24 06/25/24 18:59 06:59 18:59 Intake Total 480 1320 Balance 480 1320 Weight 55 kg Intake: Oral 480 1320 Other: Voiding Method Toilet Toilet Toilet Urinal Urinal Urinal # Voids 3 3 5 # Bowel Movements 1 1 - Exam GENERAL EXAM: Alert, 59-year-old male, on 3 L/min nasal cannula, comfortable in no apparent distress. HEAD: Normocephalic and atraumatic EYES: Normal reaction of pupils, equal size. NOSE: Clear with pink turbinates. THROAT: No erythema or exudates. NECK: No masses, no JVD. CHEST: No chest wall deformity. LUNGS: Equal air entry with diminished bibasilar lung sounds. No crackles, wheezes, rhonchi. No conversational dyspnea or accessory muscle use.. CVS: S1 and S2 normal with no audible murmur, regular rhythm. No extra heart sounds ABDOMEN: No hepatosplenomegaly, active bowel sounds, no guarding or rigidity. SPINE: Thoracic level postsurgical dressing intact, with shadowing. SKIN: No rashes CENTRAL NERVOUS SYSTEM: No focal deficits, tone is normal in all 4 extremities. EXTREMITIES: There is no peripheral edema, clubbing, or cyanosis. Peripheral pulses are intact. - Labs CBC & Chem 7: 06/23/24 11:29 06/24/24 04:25 Labs: Abnormal Lab Results - Last 24 Hours (Table) 06/24/24 06/24/24 06/25/24 Range/Units 17:27 20:20 07:34 POC Glucose (mg/dL) 144 H 174 H 123 H (70-110) mg/dL 06/25/24 Range/Units 12:05 POC Glucose (mg/dL) 125 H (70-110) mg/dL Microbiology - Last 24 Hours (Table) 06/23/24 15:33 Blood Culture - Preliminary Blood Assessment and Plan Assessment: Metastatic pulm adenocarcinoma with pathologic fracture of T11 spine Bilateral pleural effusion, small, ultrasound the chest was done and the fluid pocket on the right side was smaller 2 cm Acute hypoxemic respiratory failure, currently on 2 L of oxygen by nasal cannula Lung mass measuring 2.9 cm in the posterior right lower lobe highly suspicious for malignancy. There is an 18 mm subcarinal enlarged lymph node and an 18 mm enlarged right hilar lymph node. This is consistent with metastatic pulmonary adenocarcinoma Pathology burst fracture of T11, status post open treatment of T11 pathological burst fracture, tumor ablation of T11 and T12, stabilization of T9-L1 with posterior-lateral fusion, T10-T12 bilateral laminectomy, facetectomy and foraminotomy for neural decompression, tumoral ablation T11 and T12, cement augmentation of T9, T11, T12 and L1 1 vertebral bodies. Pathology is consistent with metastatic adenocarcinoma of the lung Chronic and ongoing tobacco dependence Chronic obstructive pulmonary disease, stable History of pulmonary embolism Diabetes mellitus, type II History of prostate disorder Plan: Right-sided pleural effusion is small and not amenable for thoracentesis at this point Will monitor the right-sided pleural effusion and consider thoracentesis if there is any progression NT proBNP not significantly elevated, 527 Procalcitonin level low at 0.21 Currently on 2 L/min nasal cannula Pathology from spine biopsy is consistent with metastatic adenocarcinoma Orthopedic surgery reconsulted We will also continue to follow c Time with Patient: Greater than 30
--- NOTE | 2024-06-25 20:13 | P.PN ---
Progress Note - Text Progress Note Date: 06/25/24 Chief Complaint: Short of breath I am rounding for Erick Mancuso. Patient just discharged from the hospital being in the hospital from June 15 through June 22. That is yesterday Patient initially presented last admission when on May 19 he was pulling a battery from his truck and had intense pain in his mid back. And he was bedridden for nearly 3 days. Subsequently patient went surgical intervention on June 19. He was given doxycycline for acute tracheobronchitis. Time his discharge is doing much better. He did walk over 200 feet on the day of discharge. Will discharge home with home care. Patient is due to follow-up with Dr. Kennedy from oncology and Dr. CARSON from pulmonary. Patient did have urine retention and dose of Flomax was increased patient declined a Grimes catheter. Patient states at home patient thought having increasing cramping in the leg. Also developed increasing shortness of breath. No fever no chills. Finally decided to come in. Appetite is fair. Patient is a smoker but did not smoke upon getting home. Patient sent home with a walker and oxygen as pulse ox is 84%.. Patient is very hard of hearing June 24: Laying in bed. Appears comfortable. Does complains of some shortness of breath. Chest ultrasound marked for thoracentesis. Does complain of pain in the right leg with movement of right hip. Seen by Dr. Vergara from orthopedic. Good urine output with IV Lasix 40 mg Q8. Repeat checks x-ray in the morning. June 25: Dr. Church reviewed the CAT scan and the ultrasound. Not much fluid. It could be a lung mass. Not enough fluid for thoracentesis. Will DC IV Lasix. Patient's biopsy has come back showing poorly differentiated metastatic pulmonary adenocarcinoma. Patient will follow-up with oncology outpatient. Patient able to get to the bathroom. Also did ambulate. 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 Active Medications Acetaminophen (Acetaminophen Tab 325 Mg Tab) 650 mg PO Q6HR PRN PRN Reason: Mild Pain or Fever > 100.5 Hydrocodone Bitart/Acetaminophen (Hydrocodone/Apap 10-325mg 1 Each Tab) 1 each PO Q6HR PRN PRN Reason: Pain Scale 4-10 PO tolerant Last Admin: 06/23/24 20:31 Dose: 1 each Hydrocodone Bitart/Acetaminophen (Hydrocodone/Apap 7.5-325mg 1 Each Tab) 1 each PO BID [facility] Last Admin: 06/25/24 09:49 Dose: 1 each Albuterol/Ipratropium (Ipratropium-Albuterol 3 Ml Neb) 3 ml INHALATION RT-Q4H PRN PRN Reason: shortness of breath Albuterol/Ipratropium (Ipratropium-Albuterol 3 Ml Neb) 3 ml INHALATION RT-QID [facility] Last Admin: 06/25/24 19:45 Dose: 3 ml Budesonide/Formoterol Fumarate (Symbicort 160-4.5 Mcg Inhaler) 1 puff INHALATION RT-BID [facility] Last Admin: 06/25/24 19:45 Dose: 1 puff Cholecalciferol (Cholecalciferol 10 Mcg (400 Iu) Tablet) 10 mcg PO DAILY [facility] Last Admin: 06/25/24 09:47 Dose: 10 mcg Cyclobenzaprine HCl (Cyclobenzaprine 10 Mg Tab) 10 mg PO TID [facility] Last Admin: 06/25/24 16:41 Dose: 10 mg Dextrose/Water (Dextrose 50% Syringe 50 Ml) 25 ml IVP PER PROTOCOL PRN; Protocol PRN Reason: Hypoglycemia Dextrose/Water (Dextrose 50% Syringe 50 Ml) 50 ml IVP PER PROTOCOL PRN; Protocol PRN Reason: Hypoglycemia Doxycycline Monohydrate (Doxycycline 100 Mg Cap) 100 mg PO BID [facility]; Protocol Last Admin: 06/25/24 09:48 Dose: 100 mg Enoxaparin Sodium (Enoxaparin 40 Mg/0.4 Ml Syringe) 40 mg SQ DAILY [facility] Last Admin: 06/25/24 09:48 Dose: 40 mg Insulin Aspart (Insulin Aspart (Novolog) 100 Unit/Ml Vial) 0 unit SQ ACHS [facility]; Protocol Last Admin: 06/25/24 17:57 Dose: Not Given Ketorolac Tromethamine (Ketorolac 15 Mg/Ml 1 Ml Vial) 15 mg IVP Q6HR PRN PRN Reason: Moderate Pain (Scale 4 to 6) Stop: 06/26/24 14:25 Last Admin: 06/25/24 09:27 Dose: 15 mg Metformin HCl (Metformin 500 Mg Tab) 1,000 mg PO BID-W/MEALS [facility] Last Admin: 06/25/24 16:44 Dose: 1,000 mg Morphine Sulfate (Morphine Sulfate 4 Mg/Ml Syringe) 4 mg IV Q4HR PRN PRN Reason: Severe Pain (Scale 7 to 10) Last Admin: 06/23/24 18:03 Dose: 4 mg Naloxone HCl (Naloxone 0.4 Mg/Ml 1 Ml Vial) 0.2 mg IV Q2M PRN PRN Reason: Opioid Reversal Nicotine (Nicotine 21mg/24hr Patch) 1 patch TRANSDERM DAILY [facility] Last Admin: 06/25/24 09:50 Dose: Not Given Ondansetron HCl (Ondansetron 4 Mg/2 Ml Vial) 4 mg IVP Q8HR PRN PRN Reason: Nausea And Vomiting Pantoprazole Sodium (Pantoprazole 40 Mg Tablet) 40 mg PO DAILY [facility] Last Admin: 06/25/24 09:50 Dose: 40 mg Senna/Docusate Sodium (Sennosides-Docusate Sodium 1 Each Tab) 2 each PO DAILY [facility] Last Admin: 06/25/24 09:51 Dose: 2 each Tamsulosin HCl (Tamsulosin 0.4 Mg Cap.Er.24h) 0.4 mg PO BID [facility] Last Admin: 06/25/24 09:52 Dose: 0.4 mg Social history: Lives alone but her son does check on him. He was discharged home with a walker and oxygen. On examination: VITAL SIGNS: 98.7, 90, 16, 130 x 78, 97% on 2 L GENERAL APPEARANCE: BMI 18.2, laying in bed, breathing comfortably e HEENT: Normal external appearance of nose and ear. Oral cavity normal. Very hard of hearing EYES: Pupils equal. Conjunctiva normal. NECK: JVD not raised. Mass not palpable. RESPIRATORY: Respiratory effort normal decreased breath sound on the right side s CARDIOVASCULAR: First and second sounds normal. No edema. ABDOMEN: Soft. Liver and spleen not palpable. No tenderness. No mass palpable. PSYCHIATRY: Alert and oriented x3. Mood and affect normal. Musculoskeletal: Able to do straight leg raising on both the legs. Was somewhat limited on the right leg. INVESTIGATIONS, reviewed in the clinical context: Bone biopsy: Metastatic poorly differentiated pulmonary adenocarcinoma 2D echocardiogram: EF 60 to 65%. Moderate pulmonary hypertension. June 24: Sodium 133 potassium 4.3 creatinine 0.86 June 23, 2024: White count 10.1 hemoglobin 12.1 platelets 237 sodium 133 potassium 4.3 creatinine 0.66 Troponin I less than 0.012. proBNP 527 Influenza type A, type B, RSV, SARS-CoV-2: Not detected EKG tracing personally reviewed by me-normal sinus rhythm. Chest CTA: Scattered groundglass opacities upper lobes. Large right pleural effusion moderate left pleural effusion and bibasilar infiltrates.. Negative for PE. Pathological compression fracture of T11 and postsurgical changes of fusion. Chest x-ray film personally reviewed by me-some venous prominence. Right pleural effusion Investigations from last week CT chest thorax with contrast: Right lower lobe neoplasm with mediastinal hilar adenopathy and bone metastatic involving T11 and T12 T11 with compression deformity. Thoracolumbar spine MRI: Moderate right and moderate to severe left foraminal stenosis L5-S1. Several other findings Bone scan whole body: Abnormal focal activity right posterior elements at the lower thoracic spine suggestive of osseous metastatic disease CT abdomen pelvis: Suspicious lesion left axilla T12 throughout T11 vertebral body. Pathological fracture of T11 vertebral body with 50% height loss. Right lower lobe nodule. Cardiomegaly. Gallstones. Assessment plan: -Acute congestive heart failure exacerbation. From s diastolic c dysfunction EF 60 to 65% patient is developed bilateral pleural effusion right greater than left. Stable Received IV Lasix. -Surgical intervention carried out on June [address] Vergara -T11 pathologic fracture possibly from metastatic disease Postoperative Diagnosis: 1. T11 PATHOLOGICAL BURST FRACTURE WITH SEVERE STENOSIS 2. T12 LYTIC LESION WITH METESTATIC FOCI, C/T/L SPINE 3. SEVERE LOW BACK PAIN AND INABILITY TO AMBULATE 4. LE WEAKNESS 5. COMPLEX MEDICAL PATIENT Procedure(s) Performed: 1. OPEN TREATMENT T11 PATHOLOGICAL BURST FRACTURE 2. T9-L1 POSTEROLATERAL INSTRUMENTED FUSION 3. T9-L1 SEGMENTAL INSTRUMENTATION 4. T10-T12 BILATERAL LAMINECTOMY, FACETECTOMY AND FORAMINOTOMY FOR NEURAL DECOMPRESSION 5. TUMORAL ABLATION T11 AND T12 6. CEMENT AUGMENTATION OF T9, T11, T12 AND L1 VERTEBRAL BODIES 7. USE OF ONTRAPORT NAVIGATION FOR THE ASSISTANCE IN ACCURATE SCREW PLACEMENT Implants: -RICHAR EVEREST RODS AND SCREWS -RICHAR CEMENT -ALLOGRAFT -Cholelithiasis, asymptomatic -Lung mass with suspected metastatic disease. Oncology following. Biopsy results from T12 showing poorly differentiated metastatic pulmonary a denocarcinoma -BPH, prostatomegaly, with bladder outflow obstruction Flomax increased to twice daily -Recurrent right lower extremity proximal spasms Flexeril 10 mg 3 times daily -Right pleural effusion, small. Not enough for thoracentesis -Tracheobronchitis from last admission -COPD in a current smoker DuNacho. Symbicort. -Chronic nicotine dependence, cigarette smoker Nicotine patch -Gait dysfunction from above Recently discharged on walker -Moderate protein calorie malnutrition from decreased oral intake from underlying suspected malignancy Ensure compact 3 times daily -Diabetes mellitus type 2 on oral hypoglycemic Accu-Cheks with sliding scale metformin. 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 Patient follow-up outpatient with oncology. Past Medical History Past Medical History: Diabetes Mellitus, Prostate Disorder Additional Past Medical History / Comment(s): Covid 04/2022, developed PE and was on blood thinners, BPH, Dupuytren's contracture History of Any Multi-Drug Resistant Organisms: None Reported Past Surgical History: Hernia Repair Additional Past Surgical History / Comment(s): Back surgery saturday06/19/24 Past Anesthesia/Blood Transfusion Reactions: No Reported Reaction Past Psychological History: No Psychological Hx Reported Smoking Status: Current every day smoker, Former smoker Past Alcohol Use History: Occasional Past Drug Use History: None Reported
[2024-06-25 20:18] LABS: Glucose,Whole Blood 161 mg/dL (70-110)
[2024-06-26 06:55] LABS: Glucose,Whole Blood 112 mg/dL (70-110)
[2024-06-26 11:56] LABS: Glucose,Whole Blood 128 mg/dL (70-110)
[2024-06-26] MEDS: ONDANSETRON 4 MG/2 ML VIAL IVP PRN (14:23)
--- NOTE | 2024-06-26 15:36 | MR ---
EXAMINATION TYPE: MR brain wo/w con DATE OF EXAM: 06/26/2024 3:31 PM COMPARISON: None. CLINICAL INDICATION: Male, 59 years old with history of Tumor staging; PHH, Tumor staging TECHNIQUE: Multi planar, multi sequence imaging was performed through the brain including: T1, T2, In version recovery, susceptibility weighted imaging and gradient echo imaging and Diffusion weighted im aging. The patient was then given intravenous contrast and multi planar, T1 fat-saturation images wer e obtained. IV Contrast: 5.5 mL Gadobutrol FINDINGS: T2 shine through in the right parietal region with high DWI and ADC signal. Posterior right skull 12 mm lesion which enhances. No intra-axial enhancing masses The srinivasan-white junctions, ventricular system, basal cisterns appear unremarkable. Diffusion-weighted imaging shows no evidence of restricted diffusion to suggest acute/subacute infarct. Intracranial ar terial flow voids are maintained. Midline structures show no abnormality. Scattered foci of high T2 s ignal intensity are seen within the periventricular white matter. The susceptibility weighted images do not reveal any evidence for micro-hemorrhage. After administration of gadolinium, no abnormal enha ncement is seen. The bone marrow signal is within normal limits. Paranasal sinuses and mastoid air cells: No significant paranasal sinus disease. Visualized orbits: Orbital contents are intact. IMPRESSION: 1. No evidence for for intra-axial mass, there is a right posterior skull lesion suspicious for possi ble metastatic disease. No evidence of intra-axial mass, acute/subacute infarct, or abnormal enhancem ent. 2. Nonspecific white matter changes, likely related to small vessel ischemic disease. [facility], , 06/26/2024 3:34 PM
--- NOTE | 2024-06-26 16:25 | P.PN ---
Subjective Progress Note Date: 06/26/24 Patient is a 59-year-old male with past medical history significant for COPD, heavy tobacco use, PE, among other things. His primary care provider is Dr. Erick Mancuso. Of note, patient recently hospitalized on June 15. He was pulling a battery out of his car, and developed severe thoracic level back pain. Abdominal CT demonstrating pathologic fracture of T11 with 50% height loss. Additionally, there was a right lower lobe nodule measuring 2.2 x 1.7 cm. Patient was taken to the OR with Dr. Vergara back on 06/19/2024 and underwent open treatment of T11 pathological burst fracture, tumor ablation of T11 and T12, and stabilization of T9-L1 with posterior-lateral fusion. During this hos pitalization, pulmonary was consulted for suspicion of metastatic disease and lung primary. Chest CT did demonstrate a 2.9 cm mass in the posterior right lower lobe highly suspicious for malignancy, trace of small pleural effusion, enlarged subcarinal and right hilar lymph nodes, and previous mentioned osseous lesions. Pathology from thoracic spine surgery still pending. He was discharged home on 06/22/24, and returned to the emergency department less than 24 hours later. States that he developed severe sharp chest pain, and was having trouble catching his breath. This happened while resting in bed. Also, reports "leg spasms". Workup in the emergency department did not show any filling defects consistent with pulmonary embolism. Interval development of bilateral pleural effusions, greater on the right. Few upper lobe groundglass opacities and likely atelectasis. Findings could be infectious versus neoplastic. CBC: WBC count 10.1, hemoglobin 12.1, platelets 237. CMP is unrema rkable, electrolytes WDL, creatinine 0.66, glucose 119. Troponin less than 0.012. NT proBNP only 527. Procalcitonin level 0.21. Viral screen negative for influenza, RSV, COVID. Patient currently being evaluated on the medical oncology unit. He is resting comfortably on 3 L/min nasal cannula. Nondistressed. Denies any fever/chills. Denies coughing, sputum production, hemoptysis. Remarks that he choked on breakfast sausage on his previous hospitalization. Chest pain has subsided. Postoperative thoracic level spine, with surgical dressing intact and small shadowing. Reports thoracic level back and leg pain and spasms with movement. Reports bilateral lower extremity weakness. Denies lumbar back pain. Denies saddle anesthesia, loss of bowel or bladder control. Current vital signs: Temperature 98 F, heart rate 94 bpm, blood pressure 111/71 mmHg, nontachypneic, SpO2 reading 98% on 3 L/min nasal cannula. On 06/25/2024, the patient is being seen for a follow-up. Patient is co mfortable. No significant shortness of breath. Pathology from the spine biopsy was consistent with metastatic adenocarcinoma. Noted the patient also has developed bilateral pleural effusion. Ultrasound of the chest with marking was obtained and the pleural fluid on the right was small measuring only 2.2 cm pocket and no markings were done. Clinically, the patient is doing well. He is on 2 L of oxygen by nasal cannula with a pulse ox of 95%. Denies having any chest pain or shortness of breath. Medications remain unchanged. He is currently on Lasix 40 mg IV every 24 hours. He is on DuoNeb nebulized treatments [id number]. He is on Lovenox for DVT prophylaxis. Home medications have been resumed. No new labs are available from today. On 06/26/2024, the patient's condition essentially stable and unchanged. No interval worsening shortness of breath. 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 MRI of the brain was also done and shows no evidence of any GERIATRIC CASE MANAGER metastases. The patient has nonspecific chronic white matter changes. The patient remains on O2 and currently is on 3 L with a pulse ox of 93%. No significant shortness of breath. No new labs are available from today. Pleural effusion was noted on the right and this is small and this needs to be further monitored. Rest of medications remain unchanged. He remains on DuoNeb updrafts. Objective - Vital Signs Vital signs: Vital Signs Temp 99.0 F 06/26/24 12:43 Pulse 109 H 06/26/24 12:43 Resp 16 06/26/24 12:43 BP 135/69 06/26/24 12:43 Pulse Ox 94 L 06/26/24 12:43 FiO2 Intake & Output 06/25/24 06/26/24 06/26/24 18:59 06:59 18:59 Intake Total 1560 240 240 Balance 1560 240 240 Weight 55 kg 54 kg Intake: Oral 1560 240 240 Other: Voiding Method Toilet Toilet Urinal Urinal # Voids 5 3 # Bowel Movements 1 - Exam GENERAL EXAM: Alert, 59-year-old male, on 3 L/min nasal cannula, comfortable in no apparent distress. HEAD: Normocephalic and atraumatic EYES: Normal reaction of pupils, equal size. NOSE: Clear with pink turbinates. THROAT: No erythema or exudates. NECK: No masses, no JVD. CHEST: No chest wall deformity. LUNGS: Equal air entry with diminished bibasilar lung sounds. No crackles, wheezes, rhonchi. No conversational dyspnea or accessory muscle use.. CVS: S1 and S2 normal with no audible murmur, regular rhythm. No extra heart sounds ABDOMEN: No hepatosplenomegaly, active bowel sounds, no guarding or rigidity. SPINE: Thoracic level postsurgical dressing intact, with shadowing. SKIN: No rashes CENTRAL NERVOUS SYSTEM: No focal deficits, tone is normal in all 4 extremities. EXTREMITIES: There is no peripheral edema, clubbing, or cyanosis. Peripheral pulses are intact. - Labs CBC & Chem 7: 06/23/24 11:29 06/24/24 04:25 Labs: Abnormal Lab Results - Last 24 Hours (Table) 06/25/24 06/25/24 06/26/24 Range/Units 17:03 20:14 06:53 POC Glucose (mg/dL) 132 H 161 H 112 H (70-110) mg/dL 06/26/24 Range/Units 11:55 POC Glucose (mg/dL) 128 H (70-110) mg/dL Microbiology - Last 24 Hours (Table) 06/23/24 15:33 Blood Culture - Preliminary Blood Assessment and Plan Assessment: Metastatic pulm adenocarcinoma with pathologic fracture of T11 spine. MRI of the brain was completed and is negative for metastases Bilateral pleural effusion, small, ultrasound the chest was done and the fluid pocket on the right side was smaller 2 cm Acute hypoxemic respiratory failure, currently on 2 L of oxygen by nasal cannula. Oxygenation remained stable and there is no interval worsening shortness of breath Lung mass measuring 2.9 cm in the posterior right lower lobe highly suspicious for malignancy. There is an 18 mm subcarinal enlarged lymph node and an 18 mm enlarged right hilar lymph node. This is consistent with metastatic pulmonary adenocarcinoma Pathology burst fracture of T11, status post open treatment of T11 pathological burst fracture, tumor ablation of T11 and T12, stabilization of T9-L1 with posterior-lateral fusion, T10-T12 bilateral laminectomy, facetectomy and foraminotomy for neural decompression, tumoral ablation T11 and T12, cement augmentation of T9, T11, T12 and L1 1 vertebral bodies. Pathology is consistent with metastatic adenocarcinoma of the lung Chronic and ongoing tobacco dependence Chronic obstructive pulmonary disease, stable History of pulmonary embolism Diabetes mellitus, type II History of prostate disorder Plan: MRI of the brain was negative for mets Right-sided pleural effusion is small and not amenable for thoracentesis at this point. This will be monitored Will monitor the right-sided pleural effusion and consider thoracentesis if there is any progression NT proBNP not significantly elevated, 527 Procalcitonin level low at 0.21 Currently on 2 L/min nasal cannula Pathology from spine biopsy is consistent with metastatic adenocarcinoma Oncology follow-up We will also continue to follow Prognosis remains poor based on above-mentioned comorbidities.
--- NOTE | 2024-06-26 16:36 | P.CONS ---
History of Present Illness - Reason for Consult Consult date: 06/26/24 Metastatic NSCLC, new diagnosis Requesting physician: Bello Donald - Chief Complaint weakness - History of Present Illness From consult dated 06/16 Mr. Phillip is a 59-year-old male we saw in consult 06/16 because of pathological fractures seen on the spine. A RLL lung mass was noted. Patient stated that on May 19 he was pulling the battery out of a car, since then he cannot sit up without lots of pain in the back. His back will spasm. He is also noting some aching in the back of the right arm and the left lateral shoulder. Reported SOB x 1 year. He was diagnosed in the last year with type 2 diabetes. He has had weight loss of about 40lbs pounds in less than a year. He relates most recent weight loss due to his inability to get around because of the pain. He lives alone. He reports smoking since about 13 years old anywhere from a half a pack to greater than 1 pack/day. No other pertinent positives. Chest x-ray repored atelectasis in the right middle lobe causing an elevated right diaphragm CT of the abdomen and pelvis is reported an enlarged prostate, right lower lobe nodule measuring 22 x 17 mm, suspicious lesion in the left aspect of T12 and throughout T11 vertebral bodies. Pathological fracture of T11 with 50% height loss. He had spinal surgery, path was pending when he was DC'd on the . CT of the chest reported 2.9 cm mass right posterior lower lobe, small pleural effusion no other suspicious lung masses. No pneumothorax. 18 mm subcarinal lymph node and an 18 mm right hilar lymph node. Again the lesions in the thoracic spine are noted. NM bone scan reported abnormalities in the T spine and lt scapula. He was seen by Rad Onc with plans for f/u. He had f/u sched with Med Onc too. Pt came back to hospital as he could not care for himself. He is going to rehab. His pathology resulted. We were consulted to discuss diagnosis, prognosis and plan of care. Pt had no acute c/o other then weakness. Review of Systems 10 point ROS is neg except as stated in HPI Past Medical History Past Medical History: Cancer, Diabetes Mellitus, Prostate Disorder Additional Past Medical History / Comment(s): Covid 04/2022, developed PE and was on blood thinners, BPH, Dupuytren's contracture. NSCLC 06/22/24 History of Any Multi-Drug Resistant Organisms: None Reported Past Surgical History: Hernia Repair Additional Past Surgical History / Comment(s): Back surgery 06/19/24, Dupuytren's contracture release on R hand Past Anesthesia/Blood Transfusion Reactions: No Reported Reaction Past Psychological History: No Psychological Hx Reported Smoking Status: Former smoker Past Alcohol Use History: Occasional Past Drug Use History: None Reported Medications and Allergies Home Medications Medication Instructions Recorded Confirmed Type HYDROcodone/APAP 7.5-325MG [[place] 1 tab PO BID 06/15/24 06/23/24 History 7.5-325] Vitamin D3(Unknown Dose) 1 tab PO DAILY 06/15/24 06/23/24 History metFORMIN HCL 1,000 mg PO BID 06/15/24 06/23/24 History methocarbamoL [Robaxin] 500 mg PO BID 06/15/24 06/23/24 History Cyclobenzaprine [Flexeril] 10 mg PO TID PRN #30 tab 06/22/24 06/23/24 Rx HYDROcodone/APAP 10-325MG [[place] 1 tab PO Q6HR PRN #28 tab 06/22/24 06/23/24 Rx 10-325] Nicotine 21Mg/24Hr Patch [Habitrol] 1 patch TRANSDERM DAILY #30 patch 06/22/24 06/23/24 Rx Tamsulosin [Flomax] 0.4 mg PO BID #60 cap 06/22/24 06/23/24 Rx Albuterol Sulfate [Albuterol 1 puff INHALATION RT-Q4H PRN 06/23/24 06/23/24 History Sulfate Hfa] Budesonide/Formoterol Fumarate 1 puff INHALATION RT-BID 06/23/24 06/23/24 History [Symbicort 160-4.5 Mcg Inhaler] Doxycycline [Vibramycin] 100 mg PO DIRECTED 06/23/24 06/23/24 History Sennosides-Docusate Sodium 2 tab PO DAILY PRN 06/23/24 06/23/24 History [Senokot-S] Allergies Allergy/AdvReac Type Severity Reaction Status Date / Time cephalexin [From Keflex] Allergy Swelling Verified 06/23/24 14:00 cortisone Allergy Swelling Verified 06/23/24 14:00 Influenza Virus Vaccines Allergy Swelling Verified 06/23/24 14:00 Physical Exam Vitals: Vital Signs Temp Pulse Pulse Resp BP Pulse Ox 06/26/24 07:57 87 06/26/24 07:44 96 06/26/24 07:43 85 06/26/24 07:30 98.2 F 68 18 131/79 93 L 06/26/24 07:23 98.0 F 110 H 18 129/71 92 L 06/26/24 02:00 98.5 F 84 16 126/71 96 06/25/24 19:56 98.7 F 87 90 16 130/78 97 06/25/24 19:45 85 06/25/24 14:30 95 06/25/24 14:29 85 L 06/25/24 13:36 97.8 F 98 18 127/76 97 06/25/24 13:25 92 L Intake and Output 06/25/24 06/26/24 06/26/24 22:59 06:59 14:59 Intake Total 240 240 240 Balance 240 240 240 Intake: Oral 240 240 240 Other: Voiding Method Toilet Urinal # Voids 3 Weight 55 kg 54 kg - Constitutional General appearance: cooperative, no acute distress, thin - EENT Eyes: anicteric sclerae, EOMI ENT: hearing grossly normal, normal oropharynx - Neck Neck: no lymphadenopathy - Respiratory Respiratory: bilateral: CTA - Cardiovascular Rhythm: regular Heart sounds: normal: S1, S2 Abnormal Heart Sounds: no systolic murmur, no diastolic murmur, no rub, no S3 Gallop, no S4 Gallop, no click, no other leg Peripheral Edema: bilateral: None - Gastrointestinal General gastrointestinal: no absent bowel sounds, no decreased bowel sounds, no distended, no hepatomegaly, no hyperactive bowel sounds, normal bowel sounds, no organomegaly, no rigid, no scaphoid, soft, no splenomegaly, no tenderness, no umbilical hernia, no ventral hernia - Neurologic Neurologic: CNII-XII intact - Musculoskeletal Musculoskeletal: generalized weakness - Psychiatric Psychiatric: A&O x's 3, appropriate affect, intact judgment & insight Results CBC & Chem 7: 06/23/24 11:29 06/24/24 04:25 Labs: Abnormal Lab Results - Last 24 Hours (Table) 06/25/24 06/25/24 06/25/24 Range/Units 12:05 17:03 20:14 POC Glucose (mg/dL) 125 H 132 H 161 H (70-110) mg/dL 06/26/24 Range/Units 06:53 POC Glucose (mg/dL) 112 H (70-110) mg/dL Microbiology - Last 24 Hours (Table) 06/23/24 15:33 Blood Culture - Preliminary Blood Assessment and Plan (1) NSCLC metastatic to bone Current Visit: Yes Status: Acute Priority: High Code(s): C34.90 - MALIGNANT NEOPLASM OF UNSP PART OF UNSP BRONCHUS OR LUNG; C79.51 - SECONDARY MALIGNANT NEOPLASM OF BONE SNOMED Code(s): 787318034 (2) Thoracic spine fracture Current Visit: Yes Status: Acute Priority: High Code(s): S22.009A - UNSP FRACTURE OF UNSP THORACIC VERTEBRA, INIT FOR CLOS FX SNOMED Code(s): 827520874 (3) Weakness Current Visit: Yes Status: Acute Priority: High Code(s): R53.1 - WEAKNESS SNOMED Code(s): 94064725 Plan: Metastatic NCSCL -New diagnosis. Path from resection of T spine mass on 06/22. -Pt has RLL mass and 2 LN on right side of chest. -It was explained to pt he has stage IV NSCLC. Disease is not curable but is treatable for some time with intent of treatment to palliate cancer symptoms and prolong life. Treatment would consist of systemic treatment and radiation. Pt is not a surgical candidate at this time. He does appear to have limited mets so, there is a possibility of curative intent, based on response to initial treatment. Prognosis without any aggressive treatment would be 6 months. With treatment pt are living an average of 2 years, if they have mutated disease in which IO or targeted non-chemo treatments can be used, some of those pt are living longer. All pt questions were answered to his satisfaction at this time. -No treatment would begin until pt is healed from surgery, had radiation to spine and is out of rehab. -Specimen is being requested so it may be sent for NGS and PDL1 testing. -Staging MRI of the brain ordered -D/W IM, pt ok to go from Onc standpoint once MRI completed and he is cleared by Attending and consulting MDs. -F/U appt with Dr. Natalio Kennedy in [place] plan Dr attests: I have seen and examined pt, performed H&P, developed impression and plan of care. Discussed with dictator. Agree with documentation, dictated as a scribe.
[2024-06-26 17:02] LABS: Glucose,Whole Blood 140 mg/dL (70-110)
[2024-06-26 20:33] LABS: Glucose,Whole Blood 159 mg/dL (70-110)
--- NOTE | 2024-06-26 22:39 | P.PN ---
Progress Note - Text Progress Note Date: 06/26/24 Chief Complaint: Short of breath I am rounding for Erick Mancuso. Patient just discharged from the hospital being in the hospital from June 15 through June 22. That is yesterday Patient initially presented last admission when on May 19 he was pulling a battery from his truck and had intense pain in his mid back. And he was bedridden for nearly 3 days. Subsequently patient went surgical intervention on June 19. He was given doxycycline for acute tracheobronchitis. Time his discharge is doing much better. He did walk over 200 feet on the day of discharge. Will discharge home with home care. Patient is due to follow-up with Dr. Kennedy from oncology and Dr. CARSON from pulmonary. Patient did have urine retention and dose of Flomax was increased patient declined a Grimes catheter. Patient states at home patient thought having increasing cramping in the leg. Also developed increasing shortness of breath. No fever no chills. Finally decided to come in. Appetite is fair. Patient is a smoker but did not smoke upon getting home. Patient sent home with a walker and oxygen as pulse ox is 84%.. Patient is very hard of hearing June 24: Laying in bed. Appears comfortable. Does complains of some shortness of breath. Chest ultrasound marked for thoracentesis. Does complain of pain in the right leg with movement of right hip. Seen by Dr. Vergara from orthopedic. Good urine output with IV Lasix 40 mg Q8. Repeat checks x-ray in the morning. June 25: Dr. Church reviewed the CAT scan and the ultrasound. Not much fluid. It could be a lung mass. Not enough fluid for thoracentesis. Will DC IV Lasix. Patient's biopsy has come back showing poorly differentiated metastatic pulmonary adenocarcinoma. Patient will follow-up with oncology outpatient. Patient able to get to the bathroom. Also did ambulate. eligibility worker is looking into rehab. June 26: Spoke with social services assistant. Still pending authorization. Patient is weak to go home.SEEN by oncology. MRI brain was ordered. Right posterior skull lesion suspicious for possible metastatic disease. Not otherwise. Active Medications Acetaminophen (Acetaminophen Tab 325 Mg Tab) 650 mg PO Q6HR PRN PRN Reason: Mild Pain or Fever > 100.5 Hydrocodone Bitart/Acetaminophen (Hydrocodone/Apap 10-325mg 1 Each Tab) 1 each PO Q6HR PRN PRN Reason: Pain Scale 4-10 PO tolerant Last Admin: 06/23/24 20:31 Dose: 1 each Hydrocodone Bitart/Acetaminophen (Hydrocodone/Apap 7.5-325mg 1 Each Tab) 1 each PO BID [facility] Last Admin: 06/26/24 20:28 Dose: 1 each Albuterol/Ipratropium (Ipratropium-Albuterol 3 Ml Neb) 3 ml INHALATION RT-Q4H PRN PRN Reason: shortness of breath Albuterol/Ipratropium (Ipratropium-Albuterol 3 Ml Neb) 3 ml INHALATION RT-QID [facility] Last Admin: 06/26/24 19:39 Dose: 3 ml Budesonide/Formoterol Fumarate (Symbicort 160-4.5 Mcg Inhaler) 1 puff INHALATION RT-BID [facility] Last Admin: 06/26/24 19:39 Dose: 1 puff Cholecalciferol (Cholecalciferol 10 Mcg (400 Iu) Tablet) 10 mcg PO DAILY [facility] Last Admin: 06/26/24 08:38 Dose: 10 mcg Cyclobenzaprine HCl (Cyclobenzaprine 10 Mg Tab) 10 mg PO TID [facility] Last Admin: 06/26/24 21:30 Dose: 10 mg Dextrose/Water (Dextrose 50% Syringe 50 Ml) 25 ml IVP PER PROTOCOL PRN; Protocol PRN Reason: Hypoglycemia Dextrose/Water (Dextrose 50% Syringe 50 Ml) 50 ml IVP PER PROTOCOL PRN; Protocol PRN Reason: Hypoglycemia Doxycycline Monohydrate (Doxycycline 100 Mg Cap) 100 mg PO BID [facility]; Protocol Last Admin: 06/26/24 20:28 Dose: 100 mg Enoxaparin Sodium (Enoxaparin 40 Mg/0.4 Ml Syringe) 40 mg SQ DAILY [facility] Last Admin: 06/26/24 08:38 Dose: 40 mg Insulin Aspart (Insulin Aspart (Novolog) 100 Unit/Ml Vial) 0 unit SQ ACHS [facility]; Protocol Last Admin: 06/26/24 20:48 Dose: 1 unit Metformin HCl (Metformin 500 Mg Tab) 1,000 mg PO BID-W/MEALS [facility] Last Admin: 06/26/24 17:05 Dose: 1,000 mg Morphine Sulfate (Morphine Sulfate 4 Mg/Ml Syringe) 4 mg IV Q4HR PRN PRN Reason: Severe Pain (Scale 7 to 10) Last Admin: 06/26/24 14:23 Dose: 4 mg Naloxone HCl (Naloxone 0.4 Mg/Ml 1 Ml Vial) 0.2 mg IV Q2M PRN PRN Reason: Opioid Reversal Nicotine (Nicotine 21mg/24hr Patch) 1 patch TRANSDERM DAILY [facility] Last Admin: 06/26/24 08:38 Dose: Not Given Ondansetron HCl (Ondansetron 4 Mg/2 Ml Vial) 4 mg IVP Q8HR PRN PRN Reason: Nausea And Vomiting Last Admin: 06/26/24 14:23 Dose: 4 mg Pantoprazole Sodium (Pantoprazole 40 Mg Tablet) 40 mg PO DAILY [facility] Last Admin: 06/26/24 08:38 Dose: 40 mg Senna/Docusate Sodium (Sennosides-Docusate Sodium 1 Each Tab) 2 each PO DAILY [facility] Last Admin: 06/26/24 08:37 Dose: 2 each Tamsulosin HCl (Tamsulosin 0.4 Mg Cap.Er.24h) 0.4 mg PO BID [facility] Last Admin: 06/26/24 20:28 Dose: 0.4 mg Social history: Lives alone but her son does check on him. He was discharged home with a walker and oxygen. On examination: VITAL SIGNS: 98.3, 109, 17, 124 x 70, 97% 3 L GENERAL APPEARANCE: BMI 18.2, laying in bed, breathing comfortably e HEENT: Normal external appearance of nose and ear. Oral cavity normal. Very hard of hearing EYES: Pupils equal. Conjunctiva normal. NECK: JVD not raised. Mass not palpable. RESPIRATORY: Respiratory effort normal decreased breath sound on the right side s CARDIOVASCULAR: First and second sounds normal. No edema. ABDOMEN: Soft. Liver and spleen not palpable. No tenderness. No mass palpable. PSYCHIATRY: Alert and oriented x3. Mood and affect normal. Musculoskeletal: Able to do straight leg raising on both the legs. Was somewhat limited on the right leg. INVESTIGATIONS, reviewed in the clinical context: MRI brain: Right posterior skull lesion suspicious for possible metastatic disease. No evidence of intra-axial max etc. Bone biopsy: Metastatic poorly differentiated pulmonary adenocarcinoma 2D echocardiogram: EF 60 to 65%. Moderate pulmonary hypertension. June 24: Sodium 133 potassium 4.3 creatinine 0.86 June 23, 2024: White count 10.1 hemoglobin 12.1 platelets 237 sodium 133 potassium 4.3 creatinine 0.66 Troponin I less than 0.012. proBNP 527 Influenza type A, type B, RSV, SARS-CoV-2: Not detected EKG tracing personally reviewed by me-normal sinus rhythm. Chest CTA: Scattered groundglass opacities upper lobes. Large right pleural effusion moderate left pleural effusion and bibasilar infiltrates.. Negative for PE. Pathological compression fracture of T11 and postsurgical changes of fusion. Chest x-ray film personally reviewed by me-some venous prominence. Right pleural effusion Investigations from last week CT chest thorax with contrast: Right lower lobe neoplasm with mediastinal hilar adenopathy and bone metastatic involving T11 and T12 T11 with compression deformity. Thoracolumbar spine MRI: Moderate right and moderate to severe left foraminal stenosis L5-S1. Several other findings Bone scan whole body: Abnormal focal activity right posterior elements at the lower thoracic spine suggestive of osseous metastatic disease CT abdomen pelvis: Suspicious lesion left axilla T12 throughout T11 vertebral body. Pathological fracture of T11 vertebral body with 50% height loss. Right lower lobe nodule. Cardiomegaly. Gallstones. Assessment plan: -Acute congestive heart failure exacerbation. From s diastolic c dysfunction EF 60 to 65% patient is developed bilateral pleural effusion right greater than left. Stable Received IV Lasix. -Surgical intervention carried out on June [address] Vergara -T11 pathologic fracture possibly from metastatic disease Postoperative Diagnosis: 1. T11 PATHOLOGICAL BURST FRACTURE WITH SEVERE STENOSIS 2. T12 LYTIC LESION WITH METESTATIC FOCI, C/T/L SPINE 3. SEVERE LOW BACK PAIN AND INABILITY TO AMBULATE 4. LE WEAKNESS 5. COMPLEX MEDICAL PATIENT Procedure(s) Performed: 1. OPEN TREATMENT T11 PATHOLOGICAL BURST FRACTURE 2. T9-L1 POSTEROLATERAL INSTRUMENTED FUSION 3. T9-L1 SEGMENTAL INSTRUMENTATION 4. T10-T12 BILATERAL LAMINECTOMY, FACETECTOMY AND FORAMINOTOMY FOR NEURAL DECOMPRESSION 5. TUMORAL ABLATION T11 AND T12 6. CEMENT AUGMENTATION OF T9, T11, T12 AND L1 VERTEBRAL BODIES 7. USE OF Re-APP NAVIGATION FOR THE ASSISTANCE IN ACCURATE SCREW PLACEMENT Implants: -RICHAR EVEREST RODS AND SCREWS -RICHAR CEMENT -ALLOGRAFT -Cholelithiasis, asymptomatic -L poorly differentiated metastatic pulmonary adenocarcinoma Oncology following. Biopsy results from T12 showing poorly differentiated metastatic pulmonary adenocarcinoma MRI brain possible 1 lesion as above -BPH, prostatomegaly, with bladder outflow obstruction Flomax increased to twice daily -Recurrent right lower extremity proximal spasms Flexeril 10 mg 3 times daily -Right pleural effusion, small. Not enough for thoracentesis -Tracheobronchitis from last admission -COPD in a current smoker DuoNeb. Symbicort. -Chronic nicotine dependence, cigarette smoker Nicotine patch -Gait dysfunction from above Recently discharged on walker -Moderate protein calorie malnutrition from decreased oral intake from underlying suspected malignancy Ensure compact 3 times daily -Diabetes mellitus type 2 on oral hypoglycemic Accu-Cheks with sliding scale metformin. -Full code Past Medical History Past Medical History: Diabetes Mellitus, Prostate Disorder Additional Past Medical History / Comment(s): Covid 04/2022, developed PE and was on blood thinners, BPH, Dupuytren's contracture History of Any Multi-Drug Resistant Organisms: None Reported Past Surgical History: Hernia Repair Additional Past Surgical History / Comment(s): Back surgery saturday06/19/24 Past Anesthesia/Blood Transfusion Reactions: No Reported Reaction Past Psychological History: No Psychological Hx Reported Smoking Status: Current every day smoker, Former smoker Past Alcohol Use History: Occasional Past Drug Use History: None Reported
[2024-06-27 07:17] LABS: Glucose,Whole Blood 121 mg/dL (70-110)
--- NOTE | 2024-06-27 11:18 | P.PN ---
Subjective Progress Note Date: 06/27/24 Patient is symptomatically stable, with overall generalized weakness. Pain is reasonably well-controlled. He denied any change in respiratory symptoms. Objective - Vital Signs Vital signs: Vital Signs Temp 97.7 F 06/27/24 07:13 Pulse 86 06/27/24 08:27 Resp 18 06/27/24 07:13 BP 136/78 06/27/24 07:13 Pulse Ox 95 06/27/24 07:13 FiO2 Intake & Output 06/26/24 06/27/24 06/27/24 18:59 06:59 18:59 Intake Total 990 240 490 Balance 990 240 490 Weight 55 kg Intake: Oral 990 240 490 Other: Voiding Method Toilet Urinal # Voids 4 - Constitutional General appearance: Present: no acute distress - EENT Eyes: Present: EOMI ENT: Present: hearing grossly normal - Respiratory Respiratory: bilateral: CTA - Cardiovascular Rhythm: regular Heart sounds: normal: S1, S2 - Gastrointestinal General gastrointestinal: Present: normal bowel sounds, soft - Integumentary Integumentary: Present: normal - Neurologic Neurologic: Present: CNII-XII intact - Musculoskeletal Musculoskeletal: Present: generalized weakness - Psychiatric Psychiatric: Present: A&O x's 3, appropriate affect - Labs CBC & Chem 7: 06/23/24 11:29 06/24/24 04:25 Labs: Abnormal Lab Results - Last 24 Hours (Table) 06/26/24 06/26/24 06/26/24 Range/Units 11:55 17:01 20:30 POC Glucose (mg/dL) 128 H 140 H 159 H (70-110) mg/dL 06/27/24 Range/Units 07:15 POC Glucose (mg/dL) 121 H (70-110) mg/dL Microbiology - Last 24 Hours (Table) 06/23/24 15:33 Blood Culture - Preliminary Blood Assessment and Plan (1) NSCLC metastatic to bone Narrative/Plan: The patient's MRI of the brain was negative for any parenchymal metastasis. The results were discussed with him. There was a possible finding of a bone met involving the skull. However this area did not light up on the bone scan. The patient will have a PET scan as an outpatient for additional staging. -Treatment plan would be radiation to the surgical site, after which the patient will be assessed for systemic therapy. By that time results of his biomarker testing would be available and appropriate systemic regimen can be recommended. Hopefully his performance status will also improve with physical therapy in the interim. Current Visit: Yes Status: Acute Priority: High Code(s): C34.90 - MALIGNANT NEOPLASM OF UNSP PART OF UNSP BRONCHUS OR LUNG; C79.51 - SECONDARY MALIGNANT NEOPLASM OF BONE SNOMED Code(s): 936293748 (2) Weakness Narrative/Plan: Plan for rehab placement. Patient is set up for outpatient follow-up with radiation oncology and medical oncology. Current Visit: Yes Status: Acute Priority: High Code(s): R53.1 - WEAKNESS SNOMED Code(s): 55289445
[2024-06-27 12:15] LABS: Glucose,Whole Blood 136 mg/dL (70-110)
--- NOTE | 2024-06-27 15:23 | P.PN ---
Subjective Progress Note Date: 06/27/24 Patient is a 59-year-old male with past medical history significant for COPD, heavy tobacco use, PE, among other things. His primary care provider is Dr. Erick Mancuso. Of note, patient recently hospitalized on June 15. He was pulling a battery out of his car, and developed severe thoracic level back pain. Abdominal CT demonstrating pathologic fracture of T11 with 50% height loss. Additionally, there was a right lower lobe nodule measuring 2.2 x 1.7 cm. Patient was taken to the OR with Dr. Vergara back on 06/19/2024 and underwent open treatment of T11 pathological burst fracture, tumor ablation of T11 and T12, and stabilization of T9-L1 with posterior-lateral fusion. During this hos pitalization, pulmonary was consulted for suspicion of metastatic disease and lung primary. Chest CT did demonstrate a 2.9 cm mass in the posterior right lower lobe highly suspicious for malignancy, trace of small pleural effusion, enlarged subcarinal and right hilar lymph nodes, and previous mentioned osseous lesions. Pathology from thoracic spine surgery still pending. He was discharged home on 06/22/24, and returned to the emergency department less than 24 hours later. States that he developed severe sharp chest pain, and was having trouble catching his breath. This happened while resting in bed. Also, reports "leg spasms". Workup in the emergency department did not show any filling defects consistent with pulmonary embolism. Interval development of bilateral pleural effusions, greater on the right. Few upper lobe groundglass opacities and likely atelectasis. Findings could be infectious versus neoplastic. CBC: WBC count 10.1, hemoglobin 12.1, platelets 237. CMP is unrema rkable, electrolytes WDL, creatinine 0.66, glucose 119. Troponin less than 0.012. NT proBNP only 527. Procalcitonin level 0.21. Viral screen negative for influenza, RSV, COVID. Patient currently being evaluated on the medical oncology unit. He is resting comfortably on 3 L/min nasal cannula. Nondistressed. Denies any fever/chills. Denies coughing, sputum production, hemoptysis. Remarks that he choked on breakfast sausage on his previous hospitalization. Chest pain has subsided. Postoperative thoracic level spine, with surgical dressing intact and small shadowing. Reports thoracic level back and leg pain and spasms with movement. Reports bilateral lower extremity weakness. Denies lumbar back pain. Denies saddle anesthesia, loss of bowel or bladder control. Current vital signs: Temperature 98 F, heart rate 94 bpm, blood pressure 111/71 mmHg, nontachypneic, SpO2 reading 98% on 3 L/min nasal cannula. On 06/25/2024, the patient is being seen for a follow-up. Patient is co mfortable. No significant shortness of breath. Pathology from the spine biopsy was consistent with metastatic adenocarcinoma. Noted the patient also has developed bilateral pleural effusion. Ultrasound of the chest with marking was obtained and the pleural fluid on the right was small measuring only 2.2 cm pocket and no markings were done. Clinically, the patient is doing well. He is on 2 L of oxygen by nasal cannula with a pulse ox of 95%. Denies having any chest pain or shortness of breath. Medications remain unchanged. He is currently on Lasix 40 mg IV every 24 hours. He is on DuoNeb nebulized treatments [id number]. He is on Lovenox for DVT prophylaxis. Home medications have been resumed. No new labs are available from today. On 06/26/2024, the patient's condition essentially stable and unchanged. No interval worsening shortness of breath. 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 The patient has nonspecific chronic white matter changes. The patient remains on O2 and currently is on 3 L with a pulse ox of 93%. No significant shortness of breath. No new labs are available from today. Pleural effusion was noted on the right and this is small and this needs to be further monitored. Rest of medications remain unchanged. He remains on DuoNeb updrafts. 06/27/2024, the patient is comfortable on 2 L of oxygen by nasal cannula. No chest pain. No worsening shortness of breath. Condition remains unchanged. No new labs are available from today. Awaiting further recommendations from medical oncology regarding therapy and the patient will likely need systemic therapy regarding his metastatic pulm adenocarcinoma. He needs to undergo fur ther rehabilitation. Medications remain unchanged. Objective - Vital Signs Vital signs: Vital Signs Temp 97.7 F 06/27/24 07:13 Pulse 96 06/27/24 12:03 Resp 18 06/27/24 08:40 BP 136/78 06/27/24 07:13 Pulse Ox 99 06/27/24 11:56 FiO2 Intake & Output 06/26/24 06/27/24 06/27/24 18:59 06:59 18:59 Intake Total 990 240 490 Balance 990 240 490 Weight 55 kg Intake: Oral 990 240 490 Other: Voiding Method Toilet Toilet Urinal Urinal # Voids 4 - Exam GENERAL EXAM: Alert, 59-year-old male, on 2 L/min nasal cannula, comfortable in no apparent distress. HEAD: Normocephalic and atraumatic EYES: Normal reaction of pupils, equal size. NOSE: Clear with pink turbinates. THROAT: No erythema or exudates. NECK: No masses, no JVD. CHEST: No chest wall deformity. LUNGS: Equal air entry with diminished bibasilar lung sounds. No crackles, wheezes, rhonchi. No conversational dyspnea or accessory muscle use.. CVS: S1 and S2 normal with no audible murmur, regular rhythm. No extra heart sounds ABDOMEN: No hepatosplenomegaly, active bowel sounds, no guarding or rigidity. SPINE: Thoracic level postsurgical dressing intact, with shadowing. SKIN: No rashes CENTRAL NERVOUS SYSTEM: No focal deficits, tone is normal in all 4 extremities. EXTREMITIES: There is no peripheral edema, clubbing, or cyanosis. Peripheral pulses are intact. - Labs CBC & Chem 7: 06/23/24 11:29 06/24/24 04:25 Labs: Abnormal Lab Results - Last 24 Hours (Table) 06/26/24 06/26/24 06/27/24 Range/Units 17:01 20:30 07:15 POC Glucose (mg/dL) 140 H 159 H 121 H (70-110) mg/dL 06/27/24 Range/Units 12:13 POC Glucose (mg/dL) 136 H (70-110) mg/dL Microbiology - Last 24 Hours (Table) 06/23/24 15:33 Blood Culture - Preliminary Blood Assessment and Plan Assessment: Metastatic pulm adenocarcinoma with pathologic fracture of T11 spine. MRI of the brain was completed and is negative for metastases Bilateral pleural effusion, small, ultrasound the chest was done and the fluid pocket on the right side was smaller 2 cm Acute hypoxemic respiratory failure, currently on 2 L of oxygen by nasal cannula. Oxygenation remained stable and there is no interval worsening shortness of breath Lung mass measuring 2.9 cm in the posterior right lower lobe highly suspicious for malignancy. There is an 18 mm subcarinal enlarged lymph node and an 18 mm enlarged right hilar lymph node. This is consistent with metastatic pulmonary adenocarcinoma Pathology burst fracture of T11, status post open treatment of T11 pathological burst fracture, tumor ablation of T11 and T12, stabilization of T9-L1 with posterior-lateral fusion, T10-T12 bilateral laminectomy, facetectomy and foraminotomy for neural decompression, tumoral ablation T11 and T12, cement augmentation of T9, T11, T12 and L1 1 vertebral bodies. Pathology is consistent with metastatic adenocarcinoma of the lung Chronic and ongoing tobacco dependence Chronic obstructive pulmonary disease, stable History of pulmonary embolism Diabetes mellitus, type II History of prostate disorder Plan: Wean FiO2 to maintain saturation above 90% MRI of the brain was negative for mets Right-sided pleural effusion is small and not amenable for thoracentesis at this point. This will be monitored Will monitor the right-sided pleural effusion and consider thoracentesis if there is any progression NT proBNP not significantly elevated, 527 Procalcitonin level low at 0.21 Pathology from spine biopsy is consistent with metastatic adenocarcinoma Oncology follow-up, awaiting further recommendations regarding systemic treatment Prognosis remains poor based on above-mentioned comorbidities ECF discharge Pulmonary critical care will sign off
--- NOTE | 2024-06-27 16:44 | P.PN ---
Progress Note - Text Progress Note Date: 06/27/24 Chief Complaint: Short of breath I am rounding for Erick Mancuso. Patient just discharged from the hospital being in the hospital from June 15 through June 22. That is yesterday Patient initially presented last admission when on May 19 he was pulling a battery from his truck and had intense pain in his mid back. And he was bedridden for nearly 3 days. Subsequently patient went surgical intervention on June 19. He was given doxycycline for acute tracheobronchitis. Time his discharge is doing much better. He did walk over 200 feet on the day of discharge. Will discharge home with home care. Patient is due to follow-up with Dr. Kennedy from oncology and Dr. CARSON from pulmonary. Patient did have urine retention and dose of Flomax was increased patient declined a Grimes catheter. Patient states at home patient thought having increasing cramping in the leg. Also developed increasing shortness of breath. No fever no chills. Finally decided to come in. Appetite is fair. Patient is a smoker but did not smoke upon getting home. Patient sent home with a walker and oxygen as pulse ox is 84%.. Patient is very hard of hearing June 24: Laying in bed. Appears comfortable. Does complains of some shortness of breath. Chest ultrasound marked for thoracentesis. Does complain of pain in the right leg with movement of right hip. Seen by Dr. Vergara from orthopedic. Good urine output with IV Lasix 40 mg Q8. Repeat checks x-ray in the morning. June 25: Dr. Church reviewed the CAT scan and the ultrasound. Not much fluid. It could be a lung mass. Not enough fluid for thoracentesis. Will DC IV Lasix. Patient's biopsy has come back showing poorly differentiated metastatic pulmonary adenocarcinoma. Patient will follow-up with oncology outpatient. Patient able to get to the bathroom. Also did ambulate. 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 June 26: Spoke with social media marketing specialist. Still pending authorization. Patient is weak to go home.SEEN by oncology. MRI brain was ordered. Right posterior skull lesion suspicious for possible metastatic disease. Not otherwise. June 27: Resting in bed. Pending authorization go to rehab. Seen by oncology. Outpatient radiation treatment. Biomarkers are pending. Patient need a PET scan as outpatient. Active Medications Acetaminophen (Acetaminophen Tab 325 Mg Tab) 650 mg PO Q6HR PRN PRN Reason: Mild Pain or Fever > 100.5 Hydrocodone Bitart/Acetaminophen (Hydrocodone/Apap 10-325mg 1 Each Tab) 1 each PO Q6HR PRN PRN Reason: Pain Scale 4-10 PO tolerant Last Admin: 06/23/24 20:31 Dose: 1 each Hydrocodone Bitart/Acetaminophen (Hydrocodone/Apap 7.5-325mg 1 Each Tab) 1 each PO BID [facility] Last Admin: 06/27/24 08:54 Dose: 1 each Albuterol/Ipratropium (Ipratropium-Albuterol 3 Ml Neb) 3 ml INHALATION RT-Q4H PRN PRN Reason: shortness of breath Albuterol/Ipratropium (Ipratropium-Albuterol 3 Ml Neb) 3 ml INHALATION RT-QID [facility] Last Admin: 06/27/24 15:29 Dose: 3 ml Budesonide/Formoterol Fumarate (Symbicort 160-4.5 Mcg Inhaler) 1 puff INHALATION RT-BID [facility] Last Admin: 06/27/24 08:10 Dose: 1 puff Cholecalciferol (Cholecalciferol 10 Mcg (400 Iu) Tablet) 10 mcg PO DAILY [facility] Last Admin: 06/27/24 08:53 Dose: 10 mcg Cyclobenzaprine HCl (Cyclobenzaprine 10 Mg Tab) 10 mg PO TID [facility] Last Admin: 06/27/24 08:53 Dose: 10 mg Dextrose/Water (Dextrose 50% Syringe 50 Ml) 25 ml IVP PER PROTOCOL PRN; Protocol PRN Reason: Hypoglycemia Dextrose/Water (Dextrose 50% Syringe 50 Ml) 50 ml IVP PER PROTOCOL PRN; Protocol PRN Reason: Hypoglycemia Doxycycline Monohydrate (Doxycycline 100 Mg Cap) 100 mg PO BID [facility]; Protocol Last Admin: 06/27/24 08:55 Dose: 100 mg Enoxaparin Sodium (Enoxaparin 40 Mg/0.4 Ml Syringe) 40 mg SQ DAILY [facility] Last Admin: 06/27/24 08:55 Dose: 40 mg Insulin Aspart (Insulin Aspart (Novolog) 100 Unit/Ml Vial) 0 unit SQ ACHS [facility]; Protocol Last Admin: 06/27/24 14:18 Dose: Not Given Metformin HCl (Metformin 500 Mg Tab) 1,000 mg PO BID-W/MEALS [facility] Last Admin: 06/27/24 08:53 Dose: 1,000 mg Morphine Sulfate (Morphine Sulfate 4 Mg/Ml Syringe) 4 mg IV Q4HR PRN PRN Reason: Severe Pain (Scale 7 to 10) Last Admin: 06/26/24 14:23 Dose: 4 mg Naloxone HCl (Naloxone 0.4 Mg/Ml 1 Ml Vial) 0.2 mg IV Q2M PRN PRN Reason: Opioid Reversal Nicotine (Nicotine 21mg/24hr Patch) 1 patch TRANSDERM DAILY [facility] Last Admin: 06/27/24 08:55 Dose: Not Given Ondansetron HCl (Ondansetron 4 Mg/2 Ml Vial) 4 mg IVP Q8HR PRN PRN Reason: Nausea And Vomiting Last Admin: 06/26/24 14:23 Dose: 4 mg Pantoprazole Sodium (Pantoprazole 40 Mg Tablet) 40 mg PO DAILY [facility] Last Admin: 06/27/24 08:53 Dose: 40 mg Senna/Docusate Sodium (Sennosides-Docusate Sodium 1 Each Tab) 2 each PO DAILY [facility] Last Admin: 06/27/24 08:55 Dose: 2 each Tamsulosin HCl (Tamsulosin 0.4 Mg Cap.Er.24h) 0.4 mg PO BID [facility] Last Admin: 06/27/24 08:53 Dose: 0.4 mg Social history: Lives alone but her son does check on him. He was discharged home with a walker and oxygen. On examination: VITAL SIGNS: 98.7, 103, 18, 119 x 72, 97% 2 L GENERAL APPEARANCE: BMI 18.2, laying in bed, breathing comfortably HEENT: Normal external appearance of nose and ear. Oral cavity normal. Very hard of hearing EYES: Pupils equal. Conjunctiva normal. NECK: JVD not raised. Mass not palpable. RESPIRATORY: Respiratory effort normal decreased breath sound on the right side s CARDIOVASCULAR: First and second sounds normal. No edema. ABDOMEN: Soft. Liver and spleen not palpable. No tenderness. No mass palpable. PSYCHIATRY: Alert and oriented x3. Mood and affect normal. Musculoskeletal: Able to do straight leg raising on both the legs. Was somewhat limited on the right leg. INVESTIGATIONS, reviewed in the clinical context: MRI brain: Right posterior skull lesion suspicious for possible metastatic disease. No evidence of intra-axial max etc. Bone biopsy: Metastatic poorly differentiated pulmonary adenocarcinoma 2D echocardiogram: EF 60 to 65%. Moderate pulmonary hypertension. June 24: Sodium 133 potassium 4.3 creatinine 0.86 June 23, 2024: White count 10.1 hemoglobin 12.1 platelets 237 sodium 133 potassium 4.3 creatinine 0.66 Troponin I less than 0.012. proBNP 527 Influenza type A, type B, RSV, SARS-CoV-2: Not detected EKG tracing personally reviewed by me-normal sinus rhythm. Chest CTA: Scattered groundglass opacities upper lobes. Large right pleural effusion moderate left pleural effusion and bibasilar infiltrates.. Negative for PE. Pathological compression fracture of T11 and postsurgical changes of fusion. Chest x-ray film personally reviewed by me-some venous prominence. Right pleural effusion Investigations from last week CT chest thorax with contrast: Right lower lobe neoplasm with mediastinal hilar adenopathy and bone metastatic involving T11 and T12 T11 with compression deformity. Thoracolumbar spine MRI: Moderate right and moderate to severe left foraminal stenosis L5-S1. Several other findings Bone scan whole body: Abnormal focal activity right posterior elements at the lower thoracic spine suggestive of osseous metastatic disease CT abdomen pelvis: Suspicious lesion left axilla T12 throughout T11 vertebral body. Pathological fracture of T11 vertebral body with 50% height loss. Right lower lobe nodule. Cardiomegaly. Gallstones. Assessment plan: -Acute congestive heart failure exacerbation. From s diastolic c dysfunction EF 60 to 65% patient is developed bilateral pleural effusion right greater than left. Stable Received IV Lasix. -Surgical intervention carried out on June [address] Vergara -T11 pathologic fracture possibly from metastatic disease Postoperative Diagnosis: 1. T11 PATHOLOGICAL BURST FRACTURE WITH SEVERE STENOSIS 2. T12 LYTIC LESION WITH METESTATIC FOCI, C/T/L SPINE 3. SEVERE LOW BACK PAIN AND INABILITY TO AMBULATE 4. LE WEAKNESS 5. COMPLEX MEDICAL PATIENT Procedure(s) Performed: 1. OPEN TREATMENT T11 PATHOLOGICAL BURST FRACTURE 2. T9-L1 POSTEROLATERAL INSTRUMENTED FUSION 3. T9-L1 SEGMENTAL INSTRUMENTATION 4. T10-T12 BILATERAL LAMINECTOMY, FACETECTOMY AND FORAMINOTOMY FOR NEURAL DECOMPRESSION 5. TUMORAL ABLATION T11 AND T12 6. CEMENT AUGMENTATION OF T9, T11, T12 AND L1 VERTEBRAL BODIES 7. USE OF [employer] NAVIGATION FOR THE ASSISTANCE IN ACCURATE SCREW PLACEMENT Implants: -[employer] EVEREST RODS AND SCREWS -RICHAR CEMENT -ALLOGRAFT -Cholelithiasis, asymptomatic -L poorly differentiated metastatic pulmonary adenocarcinoma Oncology following. Biopsy results from T12 showing poorly differentiated metastatic pulmonary adenocarcinoma MRI brain possible 1 lesion on the skull. Biomarkers pending. Outpatient PET scan. Outpatient radiation treatment to the surgical site. -BPH, prostatomegaly, with bladder outflow obstruction Flomax twice daily -Recurrent right lower extremity proximal spasms Flexeril 10 mg 3 times daily -Right pleural effusion, small. Not enough for thoracentesis -Tracheobronchitis from last admission -COPD in a current smoker DuoNeb. Symbicort. -Chronic nicotine dependence, cigarette smoker Nicotine patch -Gait dysfunction from above Recently discharged on walker -Moderate protein calorie malnutrition from decreased oral intake from underlying suspected malignancy Ensure compact 3 times daily -Diabetes mellitus type 2 on oral hypoglycemic Accu-Cheks with sliding scale metformin. -Full code Pending discharge to rehab Past Medical History Past Medical History: Diabetes Mellitus, Prostate Disorder Additional Past Medical History / Comment(s): Covid 04/2022, developed PE and was on blood thinners, BPH, Dupuytren's contracture History of Any Multi-Drug Resistant Organisms: None Reported Past Surgical History: Hernia Repair Additional Past Surgical History / Comment(s): Back surgery saturday06/19/24 Past Anesthesia/Blood Transfusion Reactions: No Reported Reaction Past Psychological History: No Psychological Hx Reported Smoking Status: Current every day smoker, Former smoker Past Alcohol Use History: Occasional Past Drug Use History: None Reported
[2024-06-27 16:48] LABS: Glucose,Whole Blood 119 mg/dL (70-110)
[2024-06-27 20:26] LABS: Glucose,Whole Blood 187 mg/dL (70-110)
[2024-06-28 07:12] LABS: Glucose,Whole Blood 107 mg/dL (70-110)
[2024-06-28 12:11] LABS: Glucose,Whole Blood 120 mg/dL (70-110)
[2024-06-28] MEDS: MAGNESIUM CITRATE 296 ML BOTTLE PO ONE (13:42)
--- NOTE | 2024-06-28 15:00 | P.PN ---
Progress Note - Text Progress Note Date: 06/28/24 Chief Complaint: Short of breath I am rounding for Erick Mancuso. Patient just discharged from the hospital being in the hospital from June 15 through June 22. That is yesterday Patient initially presented last admission when on May 19 he was pulling a battery from his truck and had intense pain in his mid back. And he was bedridden for nearly 3 days. Subsequently patient went surgical intervention on June 19. He was given doxycycline for acute tracheobronchitis. Time his discharge is doing much better. He did walk over 200 feet on the day of discharge. Will discharge home with home care. Patient is due to follow-up with Dr. Kennedy from oncology and Dr. CARSON from pulmonary. Patient did have urine retention and dose of Flomax was increased patient declined a Grimes catheter. Patient states at home patient thought having increasing cramping in the leg. Also developed increasing shortness of breath. No fever no chills. Finally decided to come in. Appetite is fair. Patient is a smoker but did not smoke upon getting home. Patient sent home with a walker and oxygen as pulse ox is 84%.. Patient is very hard of hearing June 24: Laying in bed. Appears comfortable. Does complains of some shortness of breath. Chest ultrasound marked for thoracentesis. Does complain of pain in the right leg with movement of right hip. Seen by Dr. Vergara from orthopedic. Good urine output with IV Lasix 40 mg Q8. Repeat checks x-ray in the morning. June 25: Dr. Church reviewed the CAT scan and the ultrasound. Not much fluid. It could be a lung mass. Not enough fluid for thoracentesis. Will DC IV Lasix. Patient's biopsy has come back showing poorly differentiated metastatic pulmonary adenocarcinoma. Patient will follow-up with oncology outpatient. Patient able to get to the bathroom. Also did ambulate. 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 June 26: Spoke with social services counselor. Still pending authorization. Patient is weak to go home.SEEN by oncology. MRI brain was ordered. Right posterior skull lesion suspicious for possible metastatic disease. Not otherwise. June 27: Resting in bed. Pending authorization go to rehab. Seen by oncology. Outpatient radiation treatment. Biomarkers are pending. Patient need a PET scan as outpatient. June 28: Patient states has not had a BM for few days. Will give mag citrate. If no results will then give enema. No abdominal pain. Pending to go to rehab. Further outpatient workup per oncology. The Active Medications Acetaminophen (Acetaminophen Tab 325 Mg Tab) 650 mg PO Q6HR PRN PRN Reason: Mild Pain or Fever > 100.5 Hydrocodone Bitart/Acetaminophen (Hydrocodone/Apap 10-325mg 1 Each Tab) 1 each PO Q6HR PRN PRN Reason: Pain Scale 4-10 PO tolerant Last Admin: 06/23/24 20:31 Dose: 1 each Hydrocodone Bitart/Acetaminophen (Hydrocodone/Apap 7.5-325mg 1 Each Tab) 1 each PO BID [facility] Last Admin: 06/28/24 08:40 Dose: 1 each Albuterol/Ipratropium (Ipratropium-Albuterol 3 Ml Neb) 3 ml INHALATION RT-Q4H PRN PRN Reason: shortness of breath Albuterol/Ipratropium (Ipratropium-Albuterol 3 Ml Neb) 3 ml INHALATION RT-QID [facility] Last Admin: 06/28/24 11:51 Dose: 3 ml Budesonide/Formoterol Fumarate (Symbicort 160-4.5 Mcg Inhaler) 1 puff INHALATION RT-BID [facility] Last Admin: 06/28/24 07:47 Dose: 1 puff Cholecalciferol (Cholecalciferol 10 Mcg (400 Iu) Tablet) 10 mcg PO DAILY [facility] Last Admin: 06/28/24 08:39 Dose: 10 mcg Cyclobenzaprine HCl (Cyclobenzaprine 10 Mg Tab) 10 mg PO TID [facility] Last Admin: 06/28/24 08:39 Dose: 10 mg Dextrose/Water (Dextrose 50% Syringe 50 Ml) 25 ml IVP PER PROTOCOL PRN; Protocol PRN Reason: Hypoglycemia Dextrose/Water (Dextrose 50% Syringe 50 Ml) 50 ml IVP PER PROTOCOL PRN; Protocol PRN Reason: Hypoglycemia Doxycycline Monohydrate (Doxycycline 100 Mg Cap) 100 mg PO BID [facility]; Protocol Last Admin: 06/28/24 08:39 Dose: 100 mg Enoxaparin Sodium (Enoxaparin 40 Mg/0.4 Ml Syringe) 40 mg SQ DAILY [facility] Last Admin: 06/28/24 08:39 Dose: 40 mg Insulin Aspart (Insulin Aspart (Novolog) 100 Unit/Ml Vial) 0 unit SQ ACHS [facility]; Protocol Last Admin: 06/28/24 13:43 Dose: Not Given Metformin HCl (Metformin 500 Mg Tab) 1,000 mg PO BID-W/MEALS [facility] Last Admin: 06/28/24 08:40 Dose: 1,000 mg Morphine Sulfate (Morphine Sulfate 4 Mg/Ml Syringe) 4 mg IV Q4HR PRN PRN Reason: Severe Pain (Scale 7 to 10) Last Admin: 06/26/24 14:23 Dose: 4 mg Naloxone HCl (Naloxone 0.4 Mg/Ml 1 Ml Vial) 0.2 mg IV Q2M PRN PRN Reason: Opioid Reversal Nicotine (Nicotine 21mg/24hr Patch) 1 patch TRANSDERM DAILY [facility] Last Admin: 06/28/24 08:11 Dose: Not Given Ondansetron HCl (Ondansetron 4 Mg/2 Ml Vial) 4 mg IVP Q8HR PRN PRN Reason: Nausea And Vomiting Last Admin: 06/28/24 13:43 Dose: 4 mg Pantoprazole Sodium (Pantoprazole 40 Mg Tablet) 40 mg PO DAILY [facility] Last Admin: 06/28/24 08:41 Dose: 40 mg Senna/Docusate Sodium (Sennosides-Docusate Sodium 1 Each Tab) 2 each PO DAILY [facility] Last Admin: 06/28/24 08:41 Dose: 2 each Tamsulosin HCl (Tamsulosin 0.4 Mg Cap.Er.24h) 0.4 mg PO BID [facility] Last Admin: 06/28/24 08:41 Dose: 0.4 mg Social history: Lives alone but her son does check on him. He was discharged home with a walker and oxygen. On examination: VITAL SIGNS: 98.2, 104, 17, 126 x 73, 94% 2 L GENERAL APPEARANCE: BMI 18.2, laying in bed, breathing comfortably HEENT: Normal external appearance of nose and ear. Oral cavity normal. Very hard of hearing EYES: Pupils equal. Conjunctiva normal. NECK: JVD not raised. Mass not palpable. RESPIRATORY: Respiratory effort normal decreased breath sound on the right side s CARDIOVASCULAR: First and second sounds normal. No edema. ABDOMEN: Soft. Liver and spleen not palpable. No tenderness. No mass palpable. PSYCHIATRY: Alert and oriented x3. Mood and affect normal. Musculoskeletal: Able to do straight leg raising on both the legs. Was somewhat limited on the right leg. INVESTIGATIONS, reviewed in the clinical context: MRI brain: Right posterior skull lesion suspicious for possible metastatic disease. No evidence of intra-axial max etc. Bone biopsy: Metastatic poorly differentiated pulmonary adenocarcinoma 2D echocardiogram: EF 60 to 65%. Moderate pulmonary hypertension. June 24: Sodium 133 potassium 4.3 creatinine 0.86 June 23, 2024: White count 10.1 hemoglobin 12.1 platelets 237 sodium 133 potassium 4.3 creatinine 0.66 Troponin I less than 0.012. proBNP 527 Influenza type A, type B, RSV, SARS-CoV-2: Not detected EKG tracing personally reviewed by me-normal sinus rhythm. Chest CTA: Scattered groundglass opacities upper lobes. Large right pleural effusion moderate left pleural effusion and bibasilar infiltrates.. Negative for PE. Pathological compression fracture of T11 and postsurgical changes of fusion. Chest x-ray film personally reviewed by me-some venous prominence. Right pleural effusion Investigations from last week CT chest thorax with contrast: Right lower lobe neoplasm with mediastinal hilar adenopathy and bone metastatic involving T11 and T12 T11 with compression deformity. Thoracolumbar spine MRI: Moderate right and moderate to severe left foraminal stenosis L5-S1. Several other findings Bone scan whole body: Abnormal focal activity right posterior elements at the lower thoracic spine suggestive of osseous metastatic disease CT abdomen pelvis: Suspicious lesion left axilla T12 throughout T11 vertebral body. Pathological fracture of T11 vertebral body with 50% height loss. Right lower lobe nodule. Cardiomegaly. Gallstones. Assessment plan: -Acute congestive heart failure exacerbation. From s diastolic c dysfunction EF 60 to 65% patient is developed bilateral pleural effusion right greater than left. Stable Received IV Lasix. -Surgical intervention carried out on June [address] Vergara -T11 pathologic fracture possibly from metastatic disease Postoperative Diagnosis: 1. T11 PATHOLOGICAL BURST FRACTURE WITH SEVERE STENOSIS 2. T12 LYTIC LESION WITH METESTATIC FOCI, C/T/L SPINE 3. SEVERE LOW BACK PAIN AND INABILITY TO AMBULATE 4. LE WEAKNESS 5. COMPLEX MEDICAL PATIENT Procedure(s) Performed: 1. OPEN TREATMENT T11 PATHOLOGICAL BURST FRACTURE 2. T9-L1 POSTEROLATERAL INSTRUMENTED FUSION 3. T9-L1 SEGMENTAL INSTRUMENTATION 4. T10-T12 BILATERAL LAMINECTOMY, FACETECTOMY AND FORAMINOTOMY FOR NEURAL DECOMPRESSION 5. TUMORAL ABLATION T11 AND T12 6. CEMENT AUGMENTATION OF T9, T11, T12 AND L1 VERTEBRAL BODIES 7. USE OF RICHAR NAVIGATION FOR THE ASSISTANCE IN ACCURATE SCREW PLACEMENT Implants: -RICHAR EVEREST RODS AND SCREWS -RICHAR CEMENT -ALLOGRAFT -Cholelithiasis, asymptomatic -L poorly differentiated metastatic pulmonary adenocarcinoma Oncology following. Biopsy results from T12 showing poorly differentiated metastatic pulmonary adenocarcinoma MRI brain possible 1 lesion on the skull. Biomarkers pending. Outpatient PET scan. Outpatient radiation treatment to the surgical site. -BPH, prostatomegaly, with bladder outflow obstruction Flomax twice daily -Recurrent right lower extremity proximal spasms Flexeril 10 mg 3 times daily -Right pleural effusion, small. Not enough for thoracentesis -Tracheobronchitis from last admission -COPD in a current smoker DuoNeb. Symbicort. -Chronic nicotine dependence, cigarette smoker Nicotine patch -Gait dysfunction from above Recently discharged on walker -Moderate protein calorie malnutrition from decreased oral intake from underlying suspected malignancy Ensure compact 3 times daily -Diabetes mellitus type 2 on oral hypoglycemic Accu-Cheks with sliding scale metformin. -Constipation Mag citrate ordered today. -Full code Past Medical History Past Medical History: Diabetes Mellitus, Prostate Disorder Additional Past Medical History / Comment(s): Covid 04/2022, developed PE and was on blood thinners, BPH, Dupuytren's contracture History of Any Multi-Drug Resistant Organisms: None Reported Past Surgical History: Hernia Repair Additional Past Surgical History / Comment(s): Back surgery saturday06/19/24 Past Anesthesia/Blood Transfusion Reactions: No Reported Reaction Past Psychological History: No Psychological Hx Reported Smoking Status: Current every day smoker, Former smoker Past Alcohol Use History: Occasional Past Drug Use History: None Reported
[2024-06-28 17:29] LABS: Glucose,Whole Blood 127 mg/dL (70-110)
[2024-06-28] MEDS: CALCIUM CARBONATE 500 MG CHEWABLE PO PRN (17:49)
[2024-06-28] MEDS: MAGNESIUM HYDROXIDE 2,400 MG/30 ML CUP PO PRN (18:06)
[2024-06-28 19:59] LABS: Glucose,Whole Blood 123 mg/dL (70-110)
[2024-06-29 07:10] LABS: Glucose,Whole Blood 109 mg/dL (70-110)
[2024-06-29 12:19] LABS: Glucose,Whole Blood 100 mg/dL (70-110)
[2024-06-29 15:33] VITALS: BMI 17.9
[2024-06-29 17:26] LABS: Glucose,Whole Blood 116 mg/dL (70-110)
--- NOTE | 2024-06-29 19:50 | PN ---
PROGRESS NOTE SUBJECTIVE: A 59-year-old. He had a biopsy, came back showing poorly differentiated metastatic pulmonary adenocarcinoma. Oncology has seen him. MRI of his brain is negative; right posterior skull lesion, suspicious for metastatic disease, possibly. Oncology has seen, and we can order PET scan as an outpatient. OBJECTIVE: VITAL SIGNS: He is sating at 97 on 1 L; temp 98.2, respiratory rate 16 to 18, pulse 104. HEENT: Normocephalic, atraumatic. Pupils equal, round, reactive. LUNGS: Decreased breath sounds x4. CARDIOVASCULAR: S1 and S2. ABDOMEN: Soft, nontender. PSYCHIATRIC: Poor mood and affect. NEUROLOGIC: Alert and oriented x3. White count is 10, hemoglobin is 12.1. BNP is 527. Echo was reviewed. Moderate pulmonary hypertension. He has a good ejection fraction. CT of the chest shows scattered ground-glass opacities, acute congestive heart failure, diastolic dysfunction, pulmonary hypertension, bilateral pleural effusions, T11 pathologic fracture, possibly from metastatic disease; surgeries done on June [address] Vergara for burst fracture, severe stenosis. He had laminectomy, facetectomy, foraminotomy, neural compression, poorly differentiated metastatic pulmonary adenocarcinoma. MRI of the brain is negative; chronic nicotine addiction, hypertension; moderate pulmonary hypertension, COPD. Prognosis guarded. Outpatient PET scan. Home soon when cleared by our rafaela. MMODL / IJN: [id number] /
[2024-06-29 20:03] LABS: Glucose,Whole Blood 126 mg/dL (70-110)
[2024-06-29] MEDS: DOXYCYCLINE 50 MG CAP PO SCH (21:17)
[2024-06-30 07:19] LABS: Glucose,Whole Blood 96 mg/dL (70-110)
[2024-06-30 12:01] LABS: Glucose,Whole Blood 135 mg/dL (70-110)
--- NOTE | 2024-06-30 14:07 | P.PN ---
Subjective Progress Note Date: 06/30/24 Pt reporting overall feeling well. Pain controlled on current regimen. Plan was for rehab, but due to insurance reasons he will be discharged home. Objective - Vital Signs Vital signs: Vital Signs Temp 98.3 F 06/30/24 07:52 Pulse 104 H 06/30/24 11:16 Resp 15 06/30/24 07:52 BP 119/72 06/30/24 07:52 Pulse Ox 96 06/30/24 07:55 FiO2 Intake & Output 06/29/24 06/30/24 06/30/24 18:59 06:59 18:59 Intake Total 900 Balance 900 Weight 53.5 kg 56.6 kg Intake: Oral 900 Other: Voiding Method Toilet Toilet Urinal Urinal # Voids 2 2 - Constitutional General appearance: Present: no acute distress - EENT Eyes: Present: anicteric sclerae, EOMI ENT: Present: hearing grossly normal - Respiratory Details: breathing is even and unlabored - Cardiovascular Details: skin warm and dry - Integumentary Integumentary: Absent: cyanotic - Psychiatric Psychiatric: Present: A&O x's 3 - Labs CBC & Chem 7: 06/23/24 11:29 06/24/24 04:25 Labs: Abnormal Lab Results - Last 24 Hours (Table) 06/29/24 06/29/24 06/30/24 Range/Units 17:16 20:02 11:59 POC Glucose (mg/dL) 116 H 126 H 135 H (70-110) mg/dL Assessment and Plan (1) NSCLC metastatic to bone Current Visit: Yes Status: Acute Priority: High Code(s): C34.90 - MALIGNANT NEOPLASM OF UNSP PART OF UNSP BRONCHUS OR LUNG; C79.51 - SECONDARY MALIGNANT NEOPLASM OF BONE SNOMED Code(s): 729256112 (2) Weakness Current Visit: Yes Status: Acute Priority: High Code(s): R53.1 - WEAKNESS SNOMED Code(s): 15525205 Plan: Metastatic NSCLC: The patient's MRI of the brain was negative for any parenchymal metastasis. The results were discussed with him. There was a possible finding of a bone met involving the skull. However this area did not light up on the bone scan. The patient will have a PET scan as an outpatient for additional staging. -Treatment plan would be radiation to the surgical site, after which the patient will be assessed for systemic therapy. By that time results of his biomarker testing would be available and appropriate systemic regimen can be recommended. Hopefully his performance status will also improve with physical therapy in the interim. -Patient is set up for outpatient follow-up with medical oncology. Discussed case with Dr. Sarah, outpt f/u will be scheduled with rad onc dept Weakness Plan was for rehab placement, but was declined by his insurance. Plan now is for discharge home with home health services
[2024-06-30 17:17] LABS: Glucose,Whole Blood 111 mg/dL (70-110)
[2024-06-30 20:19] LABS: Glucose,Whole Blood 136 mg/dL (70-110)
--- NOTE | 2024-07-01 02:11 | PN ---
PROGRESS NOTE A 59-year-old white male with lung cancer, adenocarcinoma, did see Radiation oncologist and chemotherapist for outpatient treatment. Continue with oxygen at home, breathing treatments. Possible discharge home tomorrow. Sugars in the mid 100s. Temp 98.6, pulse low 100s, blood pressure 160/73, O2 of 95% on 2 L. Does have adenocarcinoma. Does have vertebral fracture in the thoracic. Acute hypoxemic respiratory failure. MRI is negative of the patient's surgical site. Outpatient chemotherapy. Prognosis guarded. Please see further orders. MMODL / IJN: [id number] /
[2024-07-01 07:19] LABS: Glucose,Whole Blood 102 mg/dL (70-110)
[2024-07-01] MEDS: DOXYCYCLINE 100 MG TABLET PO SCH (08:17)
[2024-07-01 12:12] LABS: Glucose,Whole Blood 146 mg/dL (70-110)
[2024-07-01 15:22] VITALS: BP 103/69; PULSE 114; RESP 15; TEMP 98.6
== END 2024-07-01 16:42 | disposition home health service (06) | DRG 180 ==
LOC: EC 10:46 → 5NMEDONC 14:23 → OBSVTOIN 14:24 → 5NMEDONC 20:40
PROVIDERS: ADMIT Family Medicine; ATTEND Family Medicine
DX: C34.31 Malignant neoplasm of lower lobe, right bronchus or lung (principal); I50.33 Acute on chronic diastolic (congestive) heart failure; J96.01 Acute respiratory failure with hypoxia; E44.0 Moderate protein-calorie malnutrition; S22.081A Stable burst fracture of T11-T12 vertebra, initial encounter for closed fracture; C79.51 Secondary malignant neoplasm of bone; J44.0 Chronic obstructive pulmonary disease with (acute) lower respiratory infection; I11.0 Hypertensive heart disease with heart failure; E11.9 Type 2 diabetes mellitus without complications; I27.20 Pulmonary hypertension, unspecified; M84.58XA Pathological fracture in neoplastic disease, other specified site, initial encounter for fracture; Z68.1 Body mass index [BMI] 19.9 or less, adult; J98.11 Atelectasis; M48.04 Spinal stenosis, thoracic region; N40.1 Benign prostatic hyperplasia with lower urinary tract symptoms; R33.8 Other retention of urine; N32.0 Bladder-neck obstruction; F17.210 Nicotine dependence, cigarettes, uncomplicated; H91.90 Unspecified hearing loss, unspecified ear; J20.9 Acute bronchitis, unspecified; K80.20 Calculus of gallbladder without cholecystitis without obstruction; M72.0 Palmar fascial fibromatosis [Dupuytren]; R26.9 Unspecified abnormalities of gait and mobility; Z79.51 Long term (current) use of inhaled steroids; Z79.84 Long term (current) use of oral hypoglycemic drugs; Z86.16 Personal history of COVID-19; Z86.711 Personal history of pulmonary embolism; Z88.1 Allergy status to other antibiotic agents; Z88.7 Allergy status to serum and vaccine; Z88.8 Allergy status to other drugs, medicaments and biological substances; Z79.899 Other long term (current) drug therapy
CPT/HCPCS: 36415; 70553; 71046; 71275; 76604; 80048; 80053; 81001; 83605; 83735; 83880; 84145; 84484; 85025; 85379; 85610; 85730; 87040; 87449; 87636; 93005; 93306; 93970; 94640; 94760; 96372; 96374; 96375; 99285

== ENCOUNTER → 2024-09-10 | Outpatient (CLI) | payer OTHER ==
--- NOTE | 2024-09-11 11:08 | PE ---
EXAMINATION TYPE: PET CT fusion skull to thigh DATE OF EXAM: 09/10/2024 COMPARISON: CT 06/23/2024, CT 06/15/2024 Prior PET/CT: No prior PET CTs at this location. CLINICAL INDICATION: Male, 59 years old with history of C78.0 Lung ca, TECHNIQUE: Following the intravenous administration of 12.18 mCi of F-18 FDG, whole body images are performed PET CT fusion skull to thigh. Images are reviewed on the computer in the coronal, axial, a nd sagittal planes. Reconstructed rotating images are created on independent workstation and reviewe d on the computer. A localization and attenuation correction CT is performed in conjunction with e PET scan. DLP: 49.9 mGycm SCAN: Subsequent Blood glucose: 158 mg/dL Average Mediastinum SUV: 1.71 Average Liver SUV: 1.9 FINDINGS: NECK: Some subtle uptake within the posterior left parotid gland may be is small metastatic lymph no de measuring SUV 3.69, image 23. A similar uptake is in the posterior angle of the jaw soft tissues i mage 37, SUV 4.36. THORAX: Uptake is in the right supraclavicular region. There is uptake within the soft tissues of the anterior right upper chest wall. Example image 79, SUV 6.71. Pretracheal, right peribronchial and zamudio bcarinal, right hilar uptake is present. Focus of radiotracer in the posterior medial right lung image 111 has intense uptake of 10.97. There is some uptake along the medial right diaphragm, image 126, SUV 5.67. ABDOMEN: Multiple foci of uptake are within the liver including image 128, SUV 5.14, image 131, SUV 2 .69, image 137, SUV 4.82, image 144, SUV 7.45, image 129, series 7.05 PELVIS: Scattered areas of uptake are within the loops of bowel and colon greater in the pelvis. This can be physiologic. OSSEOUS STRUCTURES: There is extensive osseous metastasis including cervical and thoracic and lumbar spine as well as the sacrum. Right posterior occipital calvarial metastasis in the greater wing of th e sphenoid metastasis on the right are present. Multiple areas of rib uptake and sternal uptake are n oted. There is intense uptake with blooming artifact within the left scapula. Intense uptake is withi n the left iliac wing and within the right lower sacrum. Some right anterior acetabular uptake is pre sent. Smaller areas of uptake are within the pelvis and left femoral neck. LOCALIZATION CT: There is a moderate right pleural effusion with compressive atelectasis. The uptake within the suspected lung cancer is within this region. Ascites is present. COMPARISON: Uptake within the lung correlates with the lung mass on CT. IMPRESSION: 1. Uptake within the right lung mass compatible with neoplasm. 2. PET/CT demonstrates extensive osseous metastasis including axial spine, left iliac wing, left scap chrissie, multiple ribs, sternum, pelvis. 3. Small metastatic lesion suspected within the left and right lobes of the liver. 4. Mediastinal metastasis. 5. Metastatic lesions in the right supraclavicular region and suspected within lymph nodes within the bilateral parotid glands. [facility], , 09/11/2024 11:05 AM
== END | disposition home or self-care (01) ==
LOC: RADPETMAIN 14:26
PROVIDERS: ATTEND Internal Medicine
DX: C78.1 Secondary malignant neoplasm of mediastinum (principal); C78.7 Secondary malignant neoplasm of liver and intrahepatic bile duct; C79.51 Secondary malignant neoplasm of bone; R91.8 Other nonspecific abnormal finding of lung field
CPT/HCPCS: 78815; A9552

== ENCOUNTER 2024-10-17 09:50 | Inpatient (IN) | payer OTHER ==
[2024-10-17] MEDS ORDERED: ACETAMINOPHEN TAB 325 MG TAB PO PRN (13:22)
[2024-10-17] MEDS: PIPERACILLIN-TAZOBACTAM 3.375 GM in SODIUM CHLORIDE 0.9% 100 ML IVPB SCH (16:21)
[2024-10-17] MEDS: IPRATROPIUM-ALBUTEROL 3 ML NEB INHALATION SCH (16:22)
[2024-10-17 16:23] LABS: Glucose,Whole Blood 151 mg/dL (70-110)
--- NOTE | 2024-10-17 17:48 | US ---
EXAMINATION TYPE: US chest DATE OF EXAM: 10/17/2024 COMPARISON: Rt effusion 09/10/24 PET CLINICAL INDICATION: Male, 59 years old with history of pleural effusion; pleural effusion TECHNIQUE: Grayscale imaging of the chest. Targeted ultrasound of the posterior lower bilateral codie thoraces FINDINGS: EXAM MEASUREMENTS: Right Pleural Effusion pocket size: 7 cm Right skin surface to fluid distance: 1.4 cm Left Pleural Effusion pocket size: 1.8 cm Right side marked for possible thoracentesis outside the dept. Pulmonologists are able to review the images in the patient?s EMR. Large right effusion marked for Thora Moderate left effusion not marked due to presence of mobile fabrizio tissue within close proximity of srinivasan st wall Exam limited by patient cooperation IMPRESSIONS: 1. Large pleural effusion. 2. Moderate left pleural effusion. [facility], , 10/17/2024 5:46 PM
[2024-10-17] MEDS: HYDROcodone/APAP 10-325MG 1 EACH TAB PO PRN (17:53)
[2024-10-17 19:51] LABS: Glucose,Whole Blood 132 mg/dL (70-110)
[2024-10-17] MEDS: MORPHINE SULFATE ER 15 MG TABLET PO SCH (20:52)
[2024-10-17] MEDS: FAMOTIDINE 20 MG TAB PO SCH (20:52)
[2024-10-17] MEDS: FUROSEMIDE 10 MG/ML 2 ML VIAL IV SCH (20:53)
[2024-10-17] MEDS: BUDESONIDE 0.5 MG/2 ML NEBU INHALATION SCH (21:09)
--- NOTE | 2024-10-17 23:54 | HP ---
HISTORY AND PHYSICAL HISTORY OF PRESENT ILLNESS: Transferred from [facility] due to his large pleural effusions in the lungs. The patient remains on IV Lasix, breathing treatments, updrafts, inhalers, IV antibiotics for pneumonia. He has had metastatic cancer. PHYSICAL EXAMINATION: CARDIOVASCULAR: S1, S2. LUNGS: Transmitted upper airway sounds. GI: Soft. HEMATOLOGY: Negative Homans. PSYCH: Fair mood and affect. NEUROLOGIC: Alert and orient x3. VASCULAR: Normal dorsalis pedis, posterior tibial and radial pulses 2+. HEENT: Pupils equal, round, reactive. ASSESSMENT AND PLAN: Pleural effusion bilaterally, acute on chronic diastolic heart failure, chronic obstructive pulmonary disease, asthma, acute on chronic diastolic heart failure. Prognosis is guarded. Continue current treatment. Thoracentesis consult is being planned. Pulmonary and Cardiology consult. MMODL / IJN: [id number] /
[2024-10-18 05:53] LABS: Glucose,Whole Blood 114 mg/dL (70-110)
[2024-10-18 07:40] LABS: Basophils # (A) 0.12 10*3/uL (0.00-0.10); Basophils % (A) 0.8 %; Eosinophils # (A) 0.21 10*3/uL (0.04-0.35); Eosinophils % (A) 1.4 %; HCT 25.9 % (39.6-50.0); HGB 8.5 g/dL (13.0-17.0); Lymphocytes # (A) 1.28 10*3/uL (0.90-5.00); Lymphocytes % (A) 8.8 %; MCH 29.1 pg (27.0-32.0); MCHC 32.8 g/dL (32.0-37.0); MCV 88.7 fL (80.0-97.0); Mean Platelet Volume 9.8 fL (9.5-12.2); Monocytes # (A) 0.98 10*3/uL (0.20-1.00); Monocytes % (A) 6.7 %; Neutrophils # (A) 11.83 10*3/uL (1.80-7.70); Neutrophils % (A) 81.5 %; Platelet Count 516 10*3/uL (140-440); RBC 2.92 10*6/uL (4.40-5.60); RDW 14.4 % (11.5-14.5); WBC 14.53 10*3/uL (4.50-10.00)
[2024-10-18] MEDS: CYCLOBENZAPRINE 10 MG TAB PO PRN (07:48)
[2024-10-18 08:09] LABS: ALT 16 U/L (4-49); AST 18 U/L (17-59); African American GFR (CKD) >90 (>60 ml/min/1.73 sqM); Albumin 2.8 g/dL (3.5-5.0); Alkaline Phosphatase 118 U/L (38-126); Anion Gap 10 mmol/L; Blood Urea Nitrogen 25 mg/dL (9-20); Calcium 9.1 mg/dL (8.4-10.2); Carbon Dioxide 26 mmol/L (22-30); Chloride 98 mmol/L (98-107); Glucose 94 mg/dL (74-99); Non-African American GFR(CKD) 82 (>60 ml/min/1.73 sqM); Potassium 3.2 mmol/L (3.5-5.1); Sodium 134 mmol/L (137-145); Total Bilirubin 0.6 mg/dL (0.2-1.3); Total Protein 5.2 g/dL (6.3-8.2)
--- NOTE | 2024-10-18 08:12 | XR ---
EXAMINATION TYPE: XR chest 1V portable DATE OF EXAM: 10/18/2024 7:44 AM COMPARISON: Chest radiographs from 06/25/2024 CLINICAL INDICATION: Male, 59 years old with history of pleural effusion; [facility] TECHNIQUE: XR chest 1V portable Frontal view of the chest. FINDINGS: Lungs/Pleura: Large right pleural effusion has increased in size. Trace left pleural effusion. There is no evidence of focal consolidation, or pneumothorax. Pulmonary vascularity: Unremarkable. Heart/mediastinum: Cardiomediastinal silhouette is unremarkable. Musculoskeletal: No acute osseous pathology. There is lower spine fixation hardware is present. IMPRESSION: New large right pleural effusion obscuring the right hemithorax. [facility], , 10/18/2024 8:10 AM
--- NOTE | 2024-10-18 09:09 | P.CRDCN ---
History of Present Illness History of present illness: HISTORY OF PRESENT ILLNESS: This is a 59-year-old male with a past medical history significant for static lung cancer. Patient does not follow with a ext js developer. We have been asked to see the patient in consultation for pleural effusions. Patient examined at the bedside. Patient initially presented to [facility] with a chief complaint of shortness of breath. Patient was found to have bilateral pleural effusions it was transferred to [facility] for interventional radiology evaluation. Patient reports shortness of breath this morning. He denies chest pain or pressure. DIAGNOSTICS: - EKG not available at the time of this dictation - Chest ultrasound, large pleural effusion. Moderate left pleural effusion. - Laboratory data: No laboratory data available at the time of this dictation - Current home cardiac medications include none. - Most recent echocardiogram obtained in June 2024 revealed ejection fraction 60 to 65%, moderate pulm and hypertension, mild TR, trace MR - Cardiac catheterization history: Patient denies REVIEW OF SYSTEMS: At the time of my exam: CONSTITUTIONAL: Denies fever or chills. HEENT: Denies blurred vision, vision changes, or eye pain. Denies hemoptysis CARDIOVASCULAR: Denies chest pain. Denies orthopnea. Denies PND. Denies palpitations RESPIRATORY: Denies shortness of breath. GASTROINTESTINAL: Denies abdominal pain. Denies nausea or vomiting. HEMATOLOGIC: Denies bleeding disorders. GENITOURINARY: Denies any blood in urine. SKIN: Denies pruitis. Denies rash. PHYSICAL EXAM: VITAL SIGNS: Reviewed. GENERAL: Well-developed in no acute distress. HEENT: Head is normocephalic. Pupils are equal, round. Sclerae anicteric. Mucous membranes of the mouth are moist. Neck supple. No JVD or thyromegaly LUNGS: Respirations even and unlabored. Lungs essentially clear to auscultation bilaterally. HEART: Regular rate and rhythm. S1 and S2 heard. ABDOMEN: Soft. Nondistended. Nontender. EXTREMITIES: Normal range of motion. No clubbing or cyanosis. Peripheral pulses intact. No lower extremity edema NEUROLOGIC: Awake and alert. Oriented x 3. ASSESSMENT: Bilateral pleural effusions, right greater than left Metastatic lung cancer History of COPD Diabetes Former nicotine dependence History of PE PLAN: No need to repeat echocardiogram as this was performed recently at [facility]. Await medical records Increase IV Lasix to 40 mg every 12 hours Obtain EKG Pulmonary and interventional radiology have been consulted. Await evaluation. Patient may benefit from Pleurx catheter due to recurrent pleural effusions. Further recommendations pending patient course Nurse practitioner note has been reviewed by physician. Signing provider agrees with the documented findings, assessment, and plan of care documented by LINE P[facility]OT as a scribe. Past Medical History Past Medical History: Cancer, Diabetes Mellitus, Prostate Disorder Additional Past Medical History / Comment(s): Covid 04/2022, developed PE and was on blood thinners, BPH, Dupuytren's contracture. NSCLC 06/22/24 History of Any Multi-Drug Resistant Organisms: None Reported Past Surgical History: Hernia Repair Additional Past Surgical History / Comment(s): Back surgery 06/19/24, Dupuytren's contracture release on R hand Past Anesthesia/Blood Transfusion Reactions: No Reported Reaction Past Psychological History: No Psychological Hx Reported Smoking Status: Former smoker Past Alcohol Use History: Occasional Past Drug Use History: None Reported Medications and Allergies Home Medications Medication Instructions Recorded Confirmed Type metFORMIN HCL 1,000 mg PO BID 06/15/24 10/17/24 History Sennosides-Docusate Sodium 2 tab PO DAILY PRN 06/23/24 10/17/24 History [Senokot-S] Cyclobenzaprine [Flexeril] 5 mg PO TID PRN 10/17/24 10/17/24 History Gabapentin [Neurontin] 300 mg PO TID 10/17/24 10/17/24 History HYDROcodone/APAP 7.5-325MG [[place] 1 tab PO Q8H 10/17/24 10/17/24 History 7.5-325] Ipratropium-Albuterol Nebulize 3 ml INHALATION RT-TID 10/17/24 10/17/24 History [Duoneb 0.5 mg-3 mg/3 ml Soln] Tamsulosin [Flomax] 0.4 mg PO DAILY 10/17/24 10/17/24 History oxyCODONE-APAP 7.5-325MG [Percocet 1 tab PO Q4H PRN 10/17/24 10/17/24 History 7.5-325 mg] Allergies Allergy/AdvReac Type Severity Reaction Status Date / Time cephalexin [From Keflex] Allergy Swelling Verified 10/17/24 17:33 cortisone Allergy Swelling Verified 10/17/24 17:33 Influenza Virus Vaccines Allergy Swelling Verified 10/17/24 17:33 Physical Exam Vitals: Vital Signs Temp Pulse Pulse Resp BP Pulse Ox 10/18/24 03:50 97.4 F L 111 H 12 134/81 96 10/18/24 00:00 97.8 F 101 H 12 129/78 94 L 10/17/24 20:00 97.8 F 101 H 16 129/81 92 L 10/17/24 16:37 102 H 10/17/24 16:22 98.4 F 104 H 108 H 16 145/90 93 L Intake and Output 10/17/24 10/18/24 10/18/24 22:59 06:59 14:59 Intake Total 10 30 Output Total 650 600 Balance -640 -570 Intake: IV 10 30 Invasive Line 2 10 20 Invasive Line 3 10 Output: Urine 650 600 Other: Voiding Method Indwelling Catheter Indwelling Catheter Weight 61 kg 59 kg Results 10/18/24 06:57 10/18/24 06:57 Current Medications Generic Name Dose Route Start Last Admin Trade Name Freq PRN Reason Stop Dose Admin Acetaminophen 650 mg 10/17/24 13:22 Acetaminophen Tab 325 Mg Tab PO Q6HR PRN Mild Pain or Fever > 100.5 Hydrocodone Bitart/Acetaminophen 1 each 10/17/24 13:22 10/18/24 03:52 Hydrocodone/Apap 10-325mg 1 Each Tab PO 1 each Q6HR PRN Administration Pain Albuterol/Ipratropium 3 ml 10/17/24 16:00 10/17/24 21:09 Ipratropium-Albuterol 3 Ml Neb INHALATION 3 ml RT-QID KRISTEN Administration Budesonide 0.5 mg 10/17/24 20:00 10/17/24 21:09 Budesonide 0.5 Mg/2 Ml Nebu INHALATION 0.5 mg RT-BID KRISTEN Administration Cyclobenzaprine HCl 10 mg 10/17/24 13:22 Cyclobenzaprine 10 Mg Tab PO TID PRN Spasms Famotidine 20 mg 10/17/24 21:00 10/17/24 20:52 Famotidine 20 Mg Tab PO 20 mg BID KRISTEN Administration Furosemide 20 mg 10/17/24 21:00 10/17/24 20:53 Furosemide 10 Mg/Ml 2 Ml Vial IV 20 mg Q12HR KRISTEN Administration Piperacillin Sod/Tazobactam 100 mls @ 25 mls/hr 10/17/24 14:00 10/18/24 06:01 Sod 3.375 gm/ Sodium Chloride IVPB 25 mls/hr Q8H KRISTEN Administration Protocol Morphine Sulfate 15 mg 10/17/24 21:00 10/17/24 20:52 Morphine Sulfate Er 15 Mg Tablet PO 15 mg Q12HR KRISTEN Administration Protocol Intake and Output 10/17/24 10/18/24 10/18/24 22:59 06:59 14:59 Intake Total 10 30 Output Total 650 600 Balance -640 -570 Intake: IV 10 30 Invasive Line 2 10 20 Invasive Line 3 10 Output: Urine 650 600 Other: Voiding Method Indwelling Catheter Indwelling Catheter Weight 61 kg 59 kg
--- NOTE | 2024-10-18 10:13 | CT ---
EXAMINATION TYPE: CT chest wo con DATE OF EXAM: 10/18/2024 9:54 AM COMPARISON: Pet/CT 09/10/2024 ct 06/23/2024 CLINICAL INDICATION: Male, 59 years old with history of pleural effusion; PHH, Pleural effusion. TECHNIQUE: Multiple axial images were obtained through the chest. Sagittal and coronal reformats were created for review. MIP was performed on a separate workstation. Contrast used: mL of (None if empty) Oral contrast used: (None if empty) CT DLP: 339 mGycm, Automated exposure control for dose reduction was used. FINDINGS: LUNGS/ PLEURA: Large right and small left pleural effusion. Right lower lobe mass is less well appre ciated due to atelectasis. The right pleural effusion has increased in size, the left pleural effusio n is new from prior. AIRWAY: Opacified right lower lobe/right main bronchus with secretions. HEART: Size within normal limits. No significant coronary artery calcifications. MEDIASTINUM: Multiple FDG avid mediastinal lymph nodes remain present measuring up to 11 mm in short axis and the right low paratracheal region. VASCULATURE: No aortic aneurysm. MUSCULOSKELETAL: Scattered osseous masses including right rib 2 measuring up to 3.4 cm and scattered throughout the spine. Destructive mass in the left scapula remains present SOFT TISSUES/LYMPH NODES: Right chest wall lymph nodes just deep to the back remain present as well a s right thoracic inlet lymph nodes which are poorly delineated due to lack of IV contrast. LOWER NECK: No significant findings. UPPER ABDOMEN: Metastatic disease in liver is less well appreciated on noncontrast CT. There is at le ast one area measuring up to 30 mm which appears larger from 09/10/2024 previously 13 mm IMPRESSION: Enlarging right pleural effusion with associated atelectasis. Small left pleural effusion associated atelectasis is new. Scattered metastatic disease and enlarging liver lesion suggestive of progression of malignancy. SI opacified right main bronchus bronchus likely secondary to retained secretions. [facility], , 10/18/2024 10:10 AM
[2024-10-18] MEDS: FUROSEMIDE 10 MG/ML 4 ML VIAL IV SCH (10:24)
[2024-10-18 10:55] LABS: Glucose,Whole Blood 135 mg/dL (70-110)
[2024-10-18] MEDS: HYDROmorphone 1 MG/ML 1 ML SYRINGE IVP PRN (11:00)
--- NOTE | 2024-10-18 11:09 | XR ---
EXAMINATION TYPE: XR chest 1V portable DATE OF EXAM: 10/18/2024 10:35 AM COMPARISON: Plain film film/CT CLINICAL INDICATION: Male, 59 years old with history of Post right thoracentesis; [facility] TECHNIQUE: XR chest 1V portable Frontal view of the chest. FINDINGS: Lungs/Pleura: There is a moderate to large right pneumothorax. No evidence of focal consolidation or left pneumothorax. Blunting of the costophrenic angles is present. Pulmonary vascularity: Unremarkable. Heart/mediastinum: Cardiomediastinal silhouette is unremarkable. Musculoskeletal: No acute osseous pathology. Scattered osseous destructive lesions as seen on CT IMPRESSION: Moderate to large right pneumothorax with decrease in right pleural effusion. [facility], , 10/18/2024 11:06 AM
[2024-10-18] MEDS ORDERED: Potassium Replacement Protocol 1 EACH MISC MISCELLANE PRN (11:20)
--- NOTE | 2024-10-18 11:50 | XR ---
EXAMINATION TYPE: XR chest 1V portable, XR chest 1V portable DATE OF EXAM: 10/18/2024 11:13 AM COMPARISON: Chest radiographs from same day CLINICAL INDICATION: Male, 59 years old with history of confirm thoravent placement; [facility] TECHNIQUE: XR chest 1V portable, XR chest 1V portable Frontal view of the chest. Sequential chest radiographs. FINDINGS: Lungs/Pleura: Moderate to large right pneumothorax with small bilateral pleural effusions. Pulmonary vascularity: Unremarkable. Heart/mediastinum: Cardiomediastinal silhouette is unremarkable. Musculoskeletal: No acute osseous pathology. There is lower spine fixation hardware is present. Scatt ered osseous destructive lesions as seen on CT. Other findings: Thoracotomy tube on the first image at 1105 am was within the soft tissues with a sub sequent image 11:29 am shows it within appropriate position. IMPRESSION: Right thoracotomy tube appears to be within the soft tissues which was corrected on the most recent p diane film thoracotomy tube appears in proper position none 11:29:33 AM plain film. There remains mode rate to large right pneumothorax. [facility], , 10/18/2024 11:47 AM
[2024-10-18] MEDS ORDERED: POTASSIUM CHLORIDE ER 20 MEQ TAB.ER PO SCH (12:00)
[2024-10-18] MEDS: POTASSIUM CHLORIDE 10 MEQ in WATER FOR INJECTION 1 100ML.BAG IVPB SCH (12:08)
--- NOTE | 2024-10-18 13:31 | P.CNPUL ---
History of Present Illness Consult date: 10/18/24 Requesting physician: Erick Mancuso Reason for consult: pleural effusion Chief complaint: Shortness of breath History of present illness: This is a 59-year-old white male with history of metastatic adenocarcinoma of the lung, had skeletal metastasis, and he had previous history of pathological fracture of T11. His initial diagnosis was made back in May of 2024, patient presented initially with abnormal CT of the chest showing a 2.2 x 1.7 right lower lobe mass and enlarged subcarinal and right hilar lymphadenopathy. At the same time the patient had pathologic fracture of T11. CT of the chest also showed a 2.9 cm mass in the posterior right lower lobe and significant thoracic spine abnormalities consistent with metastatic disease to the spine. Bone scan confirmed metastatic disease to the spine and 2 other skeletal areas including the left scapula patient did not require bronchoscopy or lung biopsy. Molecular profiling from thoracic spine revealed T p53 mutation and low TMB/PDL L1 was noted to be 50 to 60%. Clearly the patient had a stage IVb lung CA with metastasis. In addition to this, the patient has had history of questionable congestive heart failure, and apparently he has recurrent right-sided pleural effusion supposedly he had a thoracentesis about less than a week ago at [facility], patient was transferred yesterday to [facility] for a very large right-sided pleural effusion with the whole run completely opacified. Apparently no one could do thoracentesis at [facility], and the patient was transferred to be seen here. I saw the patient this morning and I went ahead and drained 2.6 L out of his right pleural space, postoperative chest x-ray showed possibly a trapped lung or possibly a right- sided pneumothorax. I believe it is mostly a trapped lung than a true pneumothorax. Considering the size I went ahead and placed a Thora vent chest tube on the right side, patient's overall status is quite marginal, hence I will transfer the patient to the ICU after his thoracentesis. Fluid was sent for different diagnostic studies. The fluid was not serosanguineous, it was slightly straw-colored fluid. Patient had to be placed on 15 L high flow nasal cannula all along before and after thoracentesis and after Thora vent placement. Remains on 15 L high flow nasal cannula, feels much better after his tho racentesis. Labs were reviewed WBC is 14.5 hemoglobin 8.5 electrolytes are normal except for potassium of 3.2. Symptoms antunez the patient had chronic shortness of breath, chronic back pain. Review of Systems CONSTITUTIONAL: Positive weight loss denies fever or chills. HEENT: Denies blurred vision, vision changes, or eye pain. Denies hemoptysis CARDIOVASCULAR: Denies chest pain orthopnea PND RESPIRATORY: Profound shortness of breath all along. Prior to thoracentesis he was significantly short of breath felt much better after the thoracentesis. GASTROINTESTINAL: Denies abdominal pain. Denies nausea or vomiting. HEMATOLOGIC: Denies bleeding disorders. GENITOURINARY: Denies any blood in urine. SKIN: Denies pruitis. Denies rash. Musculoskeletal severe back pain a Past Medical History Past Medical History: Cancer, Diabetes Mellitus, Prostate Disorder Additional Past Medical History / Comment(s): Covid 04/2022, developed PE and was on blood thinners, BPH, Dupuytren's contracture. NSCLC 06/22/24 History of Any Multi-Drug Resistant Organisms: None Reported Past Surgical History: Hernia Repair Additional Past Surgical History / Comment(s): Back surgery 06/19/24, Dupuytren's contracture release on R hand Past Anesthesia/Blood Transfusion Reactions: No Reported Reaction Past Psychological History: No Psychological Hx Reported Smoking Status: Former smoker Past Alcohol Use History: Occasional Past Drug Use History: None Reported Medications and Allergies Home Medications Medication Instructions Recorded Confirmed Type metFORMIN HCL 1,000 mg PO BID 06/15/24 10/17/24 History Sennosides-Docusate Sodium 2 tab PO DAILY PRN 06/23/24 10/17/24 History [Senokot-S] Cyclobenzaprine [Flexeril] 5 mg PO TID PRN 10/17/24 10/17/24 History Gabapentin [Neurontin] 300 mg PO TID 10/17/24 10/17/24 History HYDROcodone/APAP 7.5-325MG [[place] 1 tab PO Q8H 10/17/24 10/17/24 History 7.5-325] Ipratropium-Albuterol Nebulize 3 ml INHALATION RT-TID 10/17/24 10/17/24 History [Duoneb 0.5 mg-3 mg/3 ml Soln] Tamsulosin [Flomax] 0.4 mg PO DAILY 10/17/24 10/17/24 History oxyCODONE-APAP 7.5-325MG [Percocet 1 tab PO Q4H PRN 10/17/24 10/17/24 History 7.5-325 mg] Allergies Allergy/AdvReac Type Severity Reaction Status Date / Time cephalexin [From Keflex] Allergy Swelling Verified 10/17/24 17:33 cortisone Allergy Swelling Verified 10/17/24 17:33 Influenza Virus Vaccines Allergy Swelling Verified 10/17/24 17:33 Physical Exam Vitals: Vital Signs Temp Pulse Pulse Resp BP BP Pulse Ox 10/18/24 12:21 99 10/18/24 12:12 100 10/18/24 11:10 112 H 116/82 91 L 10/18/24 11:00 97.8 F 112 H 11 L 119/87 95 10/18/24 09:14 114 H 10/18/24 08:57 112 H 95 10/18/24 07:52 97.4 F L 113 H 28 H 150/96 95 10/18/24 03:50 97.4 F L 111 H 12 134/81 96 10/18/24 00:00 97.8 F 101 H 12 129/78 94 L 10/17/24 20:00 97.8 F 101 H 16 129/81 92 L 10/17/24 16:37 102 H 10/17/24 16:22 98.4 F 104 H 108 H 16 145/90 93 L Intake and Output 10/17/24 10/18/24 10/18/24 22:59 06:59 14:59 Intake Total 10 30 440 Output Total 513 532 9781 Balance -031 -910 -846 Intake: IV 10 30 200 Invasive Line 2 10 20 Invasive Line 3 10 Potassium Chloride 10 meq 200 In Water For Injection 1 100ml.bag @ 100 mls/hr IVPB Q1HR [facility] Rx#: [id number] Oral 240 Output: Chest Tube Drainage 198 Thora-Vent Right 198 Urine 155 205 8810 Other: Voiding Method Indwelling Catheter Indwelling Catheter Weight 61 kg 59 kg Physical exam revealed a 59-year-old white male frail looking, cachectic, chronically ill, in moderate severe respiratory distress on 15 L high flow nasal cannula. GENERAL: Frail looking chronically ill cachectic. HEENT: Atraumatic, normocephalic, dry mucous membranes, no neck masses, no JVD. LUNGS: Labored breathing, decreased breath sounds on the right side, with dullness. Left side is diminished. With scattered rhonchi. HEART: Distant S1-S2, no S3 gallop. No murmur.. ABDOMEN: Soft nontender no megaly no rebound no guarding EXTREMITIES: Significant wasting of muscles and muscle atrophy otherwise no deformities or limitation range of motion NEUROLOGIC: Awake and alert. Oriented x 3. Psychiatric: Anxious, complaining of pain all over. Good normal affect, normal mental status examination otherwise. Results - Laboratory Findings CBC and BMP: 10/18/24 06:57 10/18/24 06:57 Abnormal lab findings: Abnormal Labs 10/17/24 10/17/24 10/18/24 16:21 19:49 05:51 WBC RBC Hgb Hct Plt Count Immature Gran # Neutrophils # Basophils # Sodium Potassium BUN POC Glucose (mg/dL) 151 H 132 H 114 H Total Protein Albumin 10/18/24 10/18/24 10/18/24 06:57 06:57 10:54 WBC 14.53 H RBC 2.92 L Hgb 8.5 L Hct 25.9 L Plt Count 516 H Immature Gran # 0.11 H Neutrophils # 11.83 H Basophils # 0.12 H Sodium 134 L Potassium 3.2 L BUN 25 H POC Glucose (mg/dL) 135 H Total Protein 5.2 L Albumin 2.8 L - Diagnostic Findings Chest x-ray: image reviewed (As noted in HPI there was complete opacification of the right lung with tracheal shift to the contralateral side consistent with large right-sided pleural effusion.) Assessment and Plan Assessment: Impression: Large right-sided pleural effusion, felt to be malignant unless proven otherwise. Considering the patient's history of lung cancer and metastasis, and considering the size of the effusion, I believe the effusion is malignant unless proven otherwise, cytology on the pleural effusion is pending. Patient is now status post thoracentesis with her and 2.6 L of fluids were removed from the right pleural space this was followed by Thora vent placement because of what seems to be a trapped lung or possibly a pneumothorax, I believe this is mostly a trapped lung Status post Thora vent placement Metastatic lung cancer History of underlying COPD Type 2 diabetes Former smoker. History of thoracic vertebral fracture/pathological fracture requiring surgery. Recommendation: Continue present supportive care measures Fluid was sent for different diagnostic studies We will monitor the patient in the ICU for the next 24 hours Lasix was ordered by cardiology, awaiting LDH protein on the pleural effusion and determine whether this is an effusion of malignancy or effusion of heart failure. Continue oxygen and titrate accordingly Continue bronchodilators Monitor blood sugar and address accordingly. Prognosis is guarded and CODE STATUS may have to be discussed with the patient preferably by oncology considering his overall clinical picture. Will continue to follow. Time with Patient: Greater than 30
--- NOTE | 2024-10-18 15:30 | OP ---
OPERATIVE REPORT DATE OF SERVICE : OPERATION PERFORMED: Right-sided thoracentesis. PREOPERATIVE DIAGNOSIS: Large pleural effusion with completely opacified right lung with known history of lung cancer and metastasis. POSTOPERATIVE DIAGNOSIS: Large pleural effusion with completely opacified right lung with known history of lung cancer and metastasis. ANESTHESIA USED: 2 mL of 1% lidocaine. DESCRIPTION OF PROCEDURE: The patient was placed in an almost semi-sitting upright position because of his discomfort, could not sit up straight. The area below the right scapula was prepared in a sterile fashion. Drapes were applied. The area at the level of the 8th intercostal space and tip of the scapula was locally anesthetized. Then, a standard 26- gauge needle was inserted at the same site, advanced into the pleural space, and the fluid was localized easily. A small tiny incision was made. A standard thoracentesis catheter and needle were used, advanced into the pleural space, and the fluid was drained. Fluid was ariella, non-bloody. Roughly 2.6 L of fluid was drained from the right pleural space. The patient tolerated the procedure well. He had no complaints. However, followup chest x-ray after thoracentesis showed what seemed to be either a trapped lung or right-sided pneumothorax. It was unclear whether this was a trapped lung because of his underlying malignancy or truly a right-sided pneumothorax. Hence, we proceeded to Thora-Vent placement. Please refer to the operative report on the Thora-Vent placement. MMODL / IJN: [id number] /
--- NOTE | 2024-10-18 16:39 | OP ---
OPERATIVE REPORT DATE OF SERVICE : OPERATIVE PROCEDURE: Placement of right-sided Thora-Vent. PREOPERATIVE DIAGNOSIS: Right-sided pneumothorax/trapped lung. POSTOPERATIVE DIAGNOSIS: Right-sided pneumothorax/trapped lung. ANESTHESIA USED: 10 mL of 1% lidocaine. DESCRIPTION OF PROCEDURE: The patient was placed in an upright position. The area below the right clavicle was prepared in a sterile fashion. Drapes were applied. Between the 2nd and 3rd intercostal space, at the anterior axillary line, the area was locally anesthetized, and the pleural space was entered with a 26-gauge needle. Then, a small tiny incision was made. 13-Irish Thora-Vent trocar and catheter were used and advanced into the pleural space. As the pleural space was entered, the catheter was advanced over the trocar, and the trocar was removed. However, followup chest x-ray showed the catheter was in the subcutaneous tissue, pointing towards the clavicle. Then, the Thora-Vent was removed, and went down 2 spaces below at the level of the 4th and 5th intercostal space. The area was prepared in a sterile fashion, drapes were applied, then the area was locally anesthetized with lidocaine using 10 cc of lidocaine. The needle was inserted into the pleural space and bubbles were noted coming out of the pleural space. A small tiny incision was made, then a 13-Irish Thora-Vent was advanced into the pleural space. Bubbles were noted coming out. The diaphragm of the Thora-Vent was noted to move. The catheter was advanced, and the trocar was removed. This was connected to a Pleur-evac. There was a significant amount of air and some clear fluid coming out of the right pleural space. Procedure was well tolerated, no complications. Chest x-ray showed adequate placement of the Thora-Vent, but the lung remained collapsed, which was most likely this was a trapped lung, not a pneumothorax. We will keep the Thora-Vent in place and repeat chest x-ray in the next 24 hours. MMODL / IJN: [id number] /
--- NOTE | 2024-10-18 16:48 | P.CONS ---
History of Present Illness - Reason for Consult Consult date: 10/18/24 lung cancer Requesting physician: Erick Mancuso - Chief Complaint pleural effusion, SOB - History of Present Illness Patient is a 59-year-old male with a significant history of metastatic adenocarcinoma of the lung who follows with Dr. Lorraine Kennedy. Patient developed acute onset mid to low back pain in May 2024 that was persistent and prompted presentation to [facility] on 06/15/2024. CT abdomen pelvis noted right lower lobe nodule measuring 2.2 x 1.7 cm with enlarged subcarinal and right hilar lymphadenopathy. In addition a noted pathological fracture of T11. CT of the chest on noted 2.9 cm mass in the posterior right lower lobe in addition to findings seen on CT abdomen pelvis. MRI of the thoracic and lumbar spine noted abnormalities in the thoracic spine at T4-5, T7, T10-12. He underwent T10-T12 bilateral laminectomy on with postoperative pathology from T11 revealing poorly differentiated pulmonary adenocarcinoma. Brain MRI revealed no intracranial metastases. Nuclear medicine bone scan noted metastases noted in the thoracic spine as well as lesion in the left scapula suspicious for malignancy. Following surgery patient was discharged home but was readmitted for generalized weakness and was subsequently discharged to [facility]. He did have consultation with radiation oncology with plans to pursue radiation to the thoracic spine and left scapula however patient had canceled appointment due to pain. 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 PDL 1 was noted to be 50 to 60%. He has stage IVb lung cancer with metastases to the bone. He was recently scheduled to start Keytruda but has been delayed due to current hospital admission. Patient was seen on consult on 10/12/2024 at [facility] for frequent falls and weakness. He was found to have elevated calcium on admit at 13.7. Patient was given 2 doses of pamidronate during admit. He also underwent right sided thoracentesis on 10/12/24 with 2.0 L of yellow cloudy fluid removed. Patient was then transferred to [facility] for further evaluation of pleural effusion. Upon admit chest ultrasound showing large pleural effusion and moderate left pleural effusion. Chest x-ray showed new large right pleural effusion obscuring the right hemothorax. CT chest currently pending. At today's visit patient was seen in the ICU. During bedside thoracentesis patient moved during procedure there was concern for pneumothorax versus trapped lung and patient was transferred to ICU. During today's visit thoravent was being placed at bedside. Pulmonology states they were able to remove 2.6 L from right pleural space. Today calcium 9.1, corrected calcium 10.1. WBC 14.5, hemoglobin 8.5, platelets 516,000. Patient is afebrile, SpO2 95% on high flow 12 L. Review of Systems 10 point ROS is negative except as stated in the HPI Past Medical History Past Medical History: Cancer, Diabetes Mellitus, Prostate Disorder Additional Past Medical History / Comment(s): Covid 04/2022, developed PE and was on blood thinners, BPH, Dupuytren's contracture. NSCLC 06/22/24 History of Any Multi-Drug Resistant Organisms: None Reported Past Surgical History: Hernia Repair Additional Past Surgical History / Comment(s): Back surgery 06/19/24, Dupuytren's contracture release on R hand Past Anesthesia/Blood Transfusion Reactions: No Reported Reaction Past Psychological History: No Psychological Hx Reported Smoking Status: Former smoker Past Alcohol Use History: Occasional Past Drug Use History: None Reported Medications and Allergies Home Medications Medication Instructions Recorded Confirmed Type metFORMIN HCL 1,000 mg PO BID 06/15/24 10/17/24 History Sennosides-Docusate Sodium 2 tab PO DAILY PRN 06/23/24 10/17/24 History [Senokot-S] Cyclobenzaprine [Flexeril] 5 mg PO TID PRN 10/17/24 10/17/24 History Gabapentin [Neurontin] 300 mg PO TID 10/17/24 10/17/24 History HYDROcodone/APAP 7.5-325MG [[place] 1 tab PO Q8H 10/17/24 10/17/24 History 7.5-325] Ipratropium-Albuterol Nebulize 3 ml INHALATION RT-TID 10/17/24 10/17/24 History [Duoneb 0.5 mg-3 mg/3 ml Soln] Tamsulosin [Flomax] 0.4 mg PO DAILY 10/17/24 10/17/24 History oxyCODONE-APAP 7.5-325MG [Percocet 1 tab PO Q4H PRN 10/17/24 10/17/24 History 7.5-325 mg] Allergies Allergy/AdvReac Type Severity Reaction Status Date / Time cephalexin [From Keflex] Allergy Swelling Verified 10/17/24 17:33 cortisone Allergy Swelling Verified 10/17/24 17:33 Influenza Virus Vaccines Allergy Swelling Verified 10/17/24 17:33 Physical Exam Vitals: Vital Signs Temp Pulse Pulse Resp BP Pulse Ox 10/18/24 03:50 97.4 F L 111 H 12 134/81 96 10/18/24 00:00 97.8 F 101 H 12 129/78 94 L 10/17/24 20:00 97.8 F 101 H 16 129/81 92 L 10/17/24 16:37 102 H 10/17/24 16:22 98.4 F 104 H 108 H 16 145/90 93 L Intake and Output 10/17/24 10/18/24 10/18/24 22:59 06:59 14:59 Intake Total 10 30 Output Total 650 600 Balance -640 -570 Intake: IV 10 30 Invasive Line 2 10 20 Invasive Line 3 10 Output: Urine 650 600 Other: Voiding Method Indwelling Catheter Indwelling Catheter Weight 61 kg 59 kg - Constitutional General appearance: no acute distress, thin - EENT Eyes: anicteric sclerae, EOMI ENT: hearing grossly normal - Respiratory breathing labored - Cardiovascular tachycardic - Integumentary Integumentary: no cyanotic - Musculoskeletal Musculoskeletal: generalized weakness Results CBC & Chem 7: 10/18/24 06:57 10/18/24 06:57 Labs: Abnormal Lab Results - Last 24 Hours (Table) 10/17/24 10/17/24 10/18/24 Range/Units 16:21 19:49 05:51 WBC (4.50-10.00) 10*3/uL RBC (4.40-5.60) 10*6/uL Hgb (13.0-17.0) g/dL Hct (39.6-50.0) % Plt Count (140-440) 10*3/uL Immature Gran # (0.00-0.04) 10*3/uL Neutrophils # (1.80-7.70) 10*3/uL Basophils # (0.00-0.10) 10*3/uL POC Glucose (mg/dL) 151 H 132 H 114 H (70-110) mg/dL 10/18/24 Range/Units 06:57 WBC 14.53 H (4.50-10.00) 10*3/uL RBC 2.92 L (4.40-5.60) 10*6/uL Hgb 8.5 L (13.0-17.0) g/dL Hct 25.9 L (39.6-50.0) % Plt Count 516 H (140-440) 10*3/uL Immature Gran # 0.11 H (0.00-0.04) 10*3/uL Neutrophils # 11.83 H (1.80-7.70) 10*3/uL Basophils # 0.12 H (0.00-0.10) 10*3/uL POC Glucose (mg/dL) (70-110) mg/dL Comments: chest US Chest x-ray: report reviewed Assessment and Plan (1) Bilateral pleural effusion Current Visit: Yes Status: Acute Code(s): J90 - PLEURAL EFFUSION, NOT ELSEWHERE CLASSIFIED SNOMED Code(s): 005903478 (2) NSCLC metastatic to bone Current Visit: Yes Status: Acute Priority: High Code(s): C34.90 - MALIGNANT NEOPLASM OF UNSP PART OF UNSP BRONCHUS OR LUNG; C79.51 - SECONDARY MALIGNANT NEOPLASM OF BONE SNOMED Code(s): 492041625 Plan: Bilateral pleural effusions: Patient transferred from [facility] for evaluation for pleural effusion. He underwent right sided thoracentesis on 10/12/24 with 2.0 L of yellow cloudy fluid removed. -Upon admit chest ultrasound showing large pleural effusion and moderate left pleural effusion. -Underwent right thoracentesis this morning, with 2.6L removed. Postoperative chest x-ray showed possibly a trapped lung vs possible right-sided pneumothorax. -CT chest pending -Right sided thoravent being placed during todays visit -Patient is afebrile, SpO2 95% on high flow 12 L -Defer management to pulmonology Metastatic NSCLC: -Oncology history as dictated in the HPI -Rad onc consulted for palliative RT to thoracic spine and scapula -He was recently scheduled to start Keytruda but has been delayed due to current hospital admission. -Patient is very weak and has poor PS, will continue to follow course of hospitalization. He may need further rehabilitation upon discharge which would further delay treatment Hypercalcemia of malignancy: He was found to have elevated calcium of 13.7 on admit to [facility] -S/p 2 doses pamidronate -Today calcium 9.1, corrected calcium 10.1 -Continue to monitor Case briefly discussed with pulmonology team
[2024-10-18] MEDS: POTASSIUM CHLORIDE ER 20 MEQ TAB.ER PO SCH (20:44)
--- NOTE | 2024-10-18 22:50 | OP ---
OPERATIVE REPORT DATE OF SERVICE : OPERATIVE PROCEDURE: Placement of a right-sided Thora-Vent/chest tube. PREOPERATIVE DIAGNOSIS: Trapped lung was large area of pneumothorax. POSTOPERATIVE DIAGNOSIS: Possibly trapped lung. ANESTHESIA USED: 10 mL of 1% lidocaine. DESCRIPTION OF PROCEDURE: The patient was placed in the sitting upright position in the ICU, the area below the right clavicle was prepared in a sterile fashion. Drapes were applied. At the level of the 2nd and 3rd intercostal space, and at the level of the anterior axillary line, the area was locally anesthetized, and a 26-gauge needle was inserted into the pleural space and bubbles were noted. Then a small tiny incision was made, and a 13-Ukrainian Thora-Vent was used and advanced at the same site into the pleural space, felt that the pleural space was entered, and the catheter was advanced with the trocar removed. However, followup chest x-ray showed catheter was actually in the subcutaneous tissue pointing upwards. Then the Thora-Vent was completely removed, and the area below that between the 4th and 5th intercostal space was locally anesthetized and this was at the level of the midclavicular line. This was also prepared in a sterile fashion, a 26- gauge needle was inserted into the pleural space, bubbles were noted. Then a small tiny incision was made and another 13-Ukrainian Thora-Vent was used advanced into the pleural space until the pleural space was entered and confirmed by the movement of the diaphragm on the Thora-Vent. The catheter was advanced over the trocar, the trocar was removed, and this was connected to Pleur-evac. Chest x-ray showed adequate placement of the Thora-Vent catheter, the Thora-Vent was taped to the chest wall, and it was connected to a Pleur-evac, no complications. Procedure was well tolerated. MMODL / IJN: [id number] /
--- NOTE | 2024-10-19 00:14 | PN ---
PROGRESS NOTE SUBJECTIVE: Placed right-sided Thora-Vent, status post trapped lung, right-sided pneumothorax, status post thoracentesis, is in the ICU. He has on 8 L of oxygen with metastatic lung cancer and metastases. He was transferred here from the other hospital due to no ability to get a thoracentesis over there. 2.6 L of fluid was taken off in ICU, resting breathing better. OBJECTIVE: VITAL SIGNS: Pulse is 115, blood pressure 90s to 116 over 70s to 60s, O2 sats 96% to 97%, respiratory rate 16 to 18. CARDIOVASCULAR: S1, S2. LUNGS: Decreased breath sounds x4. HEMATOLOGY: Negative Homans. PSYCH: Fair mood and affect. GI: Soft, thin, cachectic. LABORATORY DATA: White count of 14.53, hemoglobin is 8.5, and platelets 516. Sodium 134, potassium 3.4, BUN 25, creatinine 1.01. Sugars total protein 5.2. ASSESSMENT: Metastatic lung cancer, status post thoracentesis and Thora-Vent. Prognosis guarded. Continue on breathing treatments, antibiotics, steroids, updrafts. MMODL / IJN: [id number] /
[2024-10-19 05:42] LABS: Basophils % (A) 0.7 %; Eosinophils # (A) 0.21 10*3/uL (0.04-0.35); Eosinophils % (A) 1.4 %; HCT 26.6 % (39.6-50.0); HGB 8.9 g/dL (13.0-17.0); Lymphocytes % (A) 9.9 %; MCH 29.6 pg (27.0-32.0); MCHC 33.5 g/dL (32.0-37.0); MCV 88.4 fL (80.0-97.0); Mean Platelet Volume 9.7 fL (9.5-12.2); Monocytes # (A) 0.88 10*3/uL (0.20-1.00); Monocytes % (A) 5.8 %; Neutrophils # (A) 12.36 10*3/uL (1.80-7.70); Neutrophils % (A) 81.4 %; Platelet Count 545 10*3/uL (140-440); RBC 3.01 10*6/uL (4.40-5.60); RDW 14.6 % (11.5-14.5); WBC 15.17 10*3/uL (4.50-10.00)
[2024-10-19 06:04] LABS: ALT 14 U/L (4-49); AST 16 U/L (17-59); African American GFR (CKD) >90 (>60 ml/min/1.73 sqM); Albumin 2.8 g/dL (3.5-5.0); Alkaline Phosphatase 118 U/L (38-126); Blood Urea Nitrogen 22 mg/dL (9-20); Calcium 8.4 mg/dL (8.4-10.2); Carbon Dioxide 29 mmol/L (22-30); Chloride 98 mmol/L (98-107); Glucose 171 mg/dL (74-99); Non-African American GFR(CKD) >90 (>60 ml/min/1.73 sqM); Potassium 3.4 mmol/L (3.5-5.1); Total Bilirubin 0.5 mg/dL (0.2-1.3); Total Protein 5.2 g/dL (6.3-8.2)
[2024-10-19 06:11] LABS: Anion Gap 8 mmol/L; Sodium 135 mmol/L (137-145)
[2024-10-19] MEDS: POTASSIUM BICARBONATE/CIT AC 20 MEQ TABLET.EFF NG-TUBE SCH (07:14)
--- NOTE | 2024-10-19 08:22 | XR ---
EXAMINATION TYPE: XR chest 1V portable DATE OF EXAM: 10/19/2024 5:24 AM COMPARISON: Chest radiograph from one day prior. CLINICAL INDICATION: Male, 59 years old with history of right pneumothorax s/p Thoravent; [facility] TECHNIQUE: XR chest 1V portable Frontal view of the chest. FINDINGS: Lungs/Pleura: Trace or pneumothorax small bilateral pleural effusions prominent interstitial lung mar kings. Pulmonary vascularity: Unremarkable. Heart/mediastinum: Cardiomediastinal silhouette is unremarkable. Musculoskeletal: No acute osseous pathology. There is lower spine fixation hardware is present. Scatt ered osseous destructive lesions as seen on CT. Other findings: Right thoracotomy tube with trace pneumothorax on the right. IMPRESSION: 1. Right thoracotomy tube appears to be within appropriate position with small pneumothorax 2. Diffuse interstitial opacities correlate for atypical pneumonia versus pulmonary edema. 3. Trace bilateral pleural effusions. [facility], , 10/19/2024 8:20 AM
--- NOTE | 2024-10-19 11:14 | PN ---
PROGRESS NOTE FOLLOWUP NOTE SUBJECTIVE: Dev is a 59-year-old gentleman who is at [facility] and large recurrent right-sided pleural effusion secondary to underlying lung cancer, was in respiratory distress yesterday and had a chest tube placement following, which his symptoms have improved significantly. OBJECTIVE: VITAL SIGNS: Heart rate is 100 beats per minute. Blood pressure is 112/75, respiratory rate 18. CHEST: Reveals diminished air entry at the bases. HEART: Reveals first and second heart sounds. Systolic murmur at the apex. ABDOMEN: Soft. EXTREMITIES: Did not reveal any edema. Peripheral pulses are felt. ASSESSMENT: 1. Pleural effusion. 2. Lung cancer. 3. Moderate pulmonary hypertension. PLAN: The patient is status post chest tube placement with significant improvement in his symptoms. MMODL / IJN: [id number] /
--- NOTE | 2024-10-19 12:34 | XR ---
EXAMINATION TYPE: XR chest 1V portable DATE OF EXAM: 10/19/2024 12:29 PM COMPARISON: Chest radiograph from one day prior. CLINICAL INDICATION: Male, 59 years old with history of Pneumothorax; [facility] TECHNIQUE: XR chest 1V portable Frontal view of the chest. FINDINGS: Lungs/Pleura: Trace or pneumothorax small bilateral pleural effusions prominent interstitial lung mar kings. Pulmonary vascularity: Unremarkable. Heart/mediastinum: Cardiomediastinal silhouette is unremarkable. Musculoskeletal: No acute osseous pathology. There is lower spine fixation hardware is present. Scatt ered osseous destructive lesions as seen on CT. Other findings: Right thoracotomy tube with trace pneumothorax on the right. IMPRESSION: 1. Right thoracotomy tube appears to be within appropriate position with small pneumothorax 2. Diffuse interstitial opacities correlate for atypical pneumonia versus pulmonary edema. 3. Trace bilateral pleural effusions. [facility], , 10/19/2024 12:31 PM
[2024-10-19] MEDS: MORPHINE SULFATE 2 MG/ML SYRINGE IVP PRN (12:42)
[2024-10-19 14:13] VITALS: BMI 21.4
--- NOTE | 2024-10-19 14:42 | P.PN ---
Subjective Progress Note Date: 10/19/24 This is a 59-year-old white male with history of metastatic adenocarcinoma of the lung, had skeletal metastasis, and he had previous history of pathological fracture of T11. His initial diagnosis was made back in May of 2024, patient presented initially with abnormal CT of the chest showing a 2.2 x 1.7 right lower lobe mass and enlarged subcarinal and right hilar lymphadenopathy. At the same time the patient had pathologic fracture of T11. CT of the chest also showed a 2.9 cm mass in the posterior right lower lobe and significant thoracic spine abnormalities consistent with metastatic disease to the spine. Bone scan confirmed metastatic disease to the spine and 2 other skeletal areas including the left scapula patient did not require bronchoscopy or lung biopsy. Molecular profiling from thoracic spine revealed T p53 mutation and low TMB/PDL L1 was noted to be 50 to 60%. Clearly the patient had a stage IVb lung CA with metastasis. In addition to this, the patient has had history of questionable congestive heart failure, and apparently he has recurrent right-sided pleural effusion supposedly he had a thoracentesis about less than a week ago at [facility], patient was transferred yesterday to [facility] for a very large right-sided pleural effusion with the whole run completely opacified. Apparently no one could do thoracentesis at [facility], and the patient was transferred to be seen here. I saw the patient this morning and I went ahead and drained 2.6 L out of his right pleural space, postoperative chest x-ray showed possibly a trapped lung or possibly a right- sided pneumothorax. I believe it is mostly a trapped lung than a true pneumothorax. Considering the size I went ahead and placed a Thora vent chest tube on the right side, patient's overall status is quite marginal, hence I will transfer the patient to the ICU after his thoracentesis. Fluid was sent for different diagnostic studies. The fluid was not serosanguineous, it was slightly straw-colored fluid. Patient had to be placed on 15 L high flow nasal cannula all along before and after thoracentesis and after Thora vent placement. Remains on 15 L high flow nasal cannula, feels much better after his thoracentesis. Labs were reviewed WBC is 14.5 hemoglobin 8.5 electrolytes are normal except for potassium of 3.2. Symptoms antunez the patient had chronic shortness of breath, chronic back pain. The patient is seen today October 19, 2024 in follow-up in the intensive care unit. He is currently resting in bed. Awake and alert in no acute distress. Elda ntaining good O2 saturations in the mid 90s on 2 L/min per nasal cannula. He is afebrile. Hemodynamically stable. Chest x-ray reveals right thoracotomy tube in appropriate position. There is a small pneumothorax. Diffuse interstitial opacities. Trace bilateral pleural effusions. Thora vent is to a Pleur-evac to wall suction. No leak noted. White count 15.1. Hemoglobin 8.9. Platelets 545 . Sodium 135. Potassium 3.4. Bicarb 29. BUN 22. Creatinine 0.92. He is continued on DuoNeb inhalations. Continued on IV diuretics. Remains on Zosyn. Pain is well-controlled with morphine. Lovenox for DVT prophylaxis. Pepcid for GI prophylaxis. Objective - Vital Signs Vital signs: Vital Signs Temp 97.8 F 10/19/24 08:00 Pulse 109 H 10/19/24 12:00 Resp 12 10/19/24 12:00 BP 106/76 10/19/24 12:00 Pulse Ox 95 10/19/24 12:00 FiO2 Intake & Output 10/18/24 10/19/24 10/19/24 18:59 06:59 18:59 Intake Total 750 440 120 Output Total 2130 2215 880 Balance -0760 -1780 -838 Weight 62 kg 62 kg Intake: IV 510 440 120 0.9 KVO 10 240 120 Piperacillin-Tazobactam 3 100 200 .375 gm In Sodium Chloride 0.9% 100 ml @ 25 mls/hr IVPB Q8H KRISTEN Rx#: [id number] Potassium Chloride 10 meq 400 In Water For Injection 1 100ml.bag @ 100 mls/hr IVPB Q1HR KRISTEN Rx#: [id number] Oral 240 Output: Chest Tube Drainage 390 310 200 Thora-Vent Right 390 310 200 Urine 1745 1905 680 Other: Voiding Method Indwelling Catheter Indwelling Catheter Indwelling Catheter - Exam GENERAL EXAM: Alert, very thin, weak 59-year-old male, on 2 L nasal cannula, fa irly comfortable in no apparent distress. HEAD: Normocephalic. EYES: Normal reaction of pupils, equal size. NOSE: Clear with pink turbinates. THROAT: No erythema or exudates. NECK: No masses, no JVD. CHEST: No chest wall deformity. Right chest Thora vent catheter in place to Pleur-evac and wall suction LUNGS: Equal air entry with crackles in the bilateral bases. CVS: S1 and S2 normal with no audible murmur, regular rhythm. ABDOMEN: No hepatosplenomegaly, normal bowel sounds, no guarding or rigidity. SPINE: No scoliosis or deformity SKIN: No rashes CENTRAL NERVOUS SYSTEM: No focal deficits, tone is normal in all 4 extremities. EXTREMITIES: There is no peripheral edema. No clubbing, no cyanosis. Peripheral pulses are intact. - Labs CBC & Chem 7: 10/19/24 05:05 10/19/24 12:23 Labs: Abnormal Lab Results - Last 24 Hours (Table) 10/18/24 10/19/24 10/19/24 Range/Units 19:26 05:05 05:05 WBC 15.17 H (4.50-10.00) 10*3/uL RBC 3.01 L (4.40-5.60) 10*6/uL Hgb 8.9 L (13.0-17.0) g/dL Hct 26.6 L (39.6-50.0) % Plt Count 545 H (140-440) 10*3/uL Immature Gran # 0.12 H (0.00-0.04) 10*3/uL Neutrophils # 12.36 H (1.80-7.70) 10*3/uL Sodium 135 L (137-145) mmol/L Potassium 3.4 L 3.4 L (3.5-5.1) mmol/L BUN 22 H (9-20) mg/dL Glucose 171 H (74-99) mg/dL AST 16 L (17-59) U/L Total Protein 5.2 L (6.3-8.2) g/dL Albumin 2.8 L (3.5-5.0) g/dL 10/19/24 Range/Units 12:23 WBC (4.50-10.00) 10*3/uL RBC (4.40-5.60) 10*6/uL Hgb (13.0-17.0) g/dL Hct (39.6-50.0) % Plt Count (140-440) 10*3/uL Immature Gran # (0.00-0.04) 10*3/uL Neutrophils # (1.80-7.70) 10*3/uL Sodium (137-145) mmol/L Potassium 3.4 L (3.5-5.1) mmol/L BUN (9-20) mg/dL Glucose (74-99) mg/dL AST (17-59) U/L Total Protein (6.3-8.2) g/dL Albumin (3.5-5.0) g/dL Assessment and Plan Assessment: Large right-sided pleural effusion, felt to be malignant unless proven otherwise. Considering the patient's history of lung cancer and metastasis, cytology on the pleural effusion is pending. 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 Positive pathology from bone biopsy June 2024. PET scan from September 11, 2024 revealed uptake within the right lung mass compatible with neoplasm. Extensive osseous metastasis including axial spine, left iliac wing, left scapula, multiple ribs, sternum, pelvis. Small metastatic lesions suspected within the left and right lobes of the liver. Mediastinal metastasis. Metastatic lesions in the right supra clavicular region and suspected within lymph nodes within the bilateral parotid glands. Plan was for Keytruda however the patient has had several hospitalizations History of underlying COPD Type 2 diabetes Former smoker History of thoracic vertebral fracture/pathological fracture requiring surgery Failure to thrive Poor overall functional performance based on the above-mentioned multiple comorbidities Plan: The patient was seen and evaluated Chest x-ray, labs and medications reviewed Placed the chest tube to waterseal Follow-up chest x-ray in 1 hour Continue bronchodilators Continue diuretics Currently in a negative balance Lovenox for DVT prophylaxis Pepcid for GI prophylaxis Titrate the FiO2 as tolerated Assure adequate pain control Plan of care discussed with oncology Plan was possibly for Keytruda DNR CODE STATUS May need to consider hospice We will continue to follow I have personally seen and examined the patient, performed the documentation and the assessment and plan as written. Number of minutes spent on the visit: 10 Dictation was produced using [employer] software. Please excuse any grammatical, word or spelling errors.
[2024-10-19] MEDS: MORPHINE SULFATE ER 30 MG TABLET PO SCH (14:44)
[2024-10-19] MEDS: SENNOSIDES-DOCUSATE SODIUM 1 EACH TAB PO SCH (14:44)
--- NOTE | 2024-10-19 15:39 | P.PN ---
Subjective Progress Note Date: 10/19/24 Principal diagnosis: Admit with pain, recurrent pleural effusion. Sq cell NSCLC, metastatic In f/u today pt is seen in ICU. His pain is still not controlled-shoulders and left upper chest, 7/10, constant, worse with movement. He is breathing much better post thoracentesis, thoravent chest tube in place. Objective - Vital Signs Vital signs: Vital Signs Temp 97.8 F 10/19/24 08:00 Pulse 108 H 10/19/24 11:56 Resp 15 10/19/24 11:00 BP 113/77 10/19/24 11:00 Pulse Ox 92 L 10/19/24 11:00 FiO2 Intake & Output 10/18/24 10/19/24 10/19/24 18:59 06:59 18:59 Intake Total 750 440 100 Output Total 2135 2215 530 Balance -1385 -1775 -430 Weight 62 kg Intake: IV 510 440 100 0.9 KVO 10 240 100 Piperacillin-Tazobactam 3 100 200 .375 gm In Sodium Chloride 0.9% 100 ml @ 25 mls/hr IVPB Q8H KRISTEN Rx#: [id number] Potassium Chloride 10 meq 400 In Water For Injection 1 100ml.bag @ 100 mls/hr IVPB Q1HR KRISTEN Rx#: [id number] Oral 240 Output: Chest Tube Drainage 390 310 150 Thora-Vent Right 390 310 150 Urine 1745 1905 380 Other: Voiding Method Indwelling Catheter Indwelling Catheter Indwelling Catheter - Constitutional General appearance: Present: cooperative, no acute distress, thin - EENT Eyes: Present: anicteric sclerae, EOMI ENT: Present: hard of hearing - Respiratory Respiratory: bilateral: diminished (R>L) - Cardiovascular Rhythm: regular Heart sounds: normal: S1, S2 Abnormal Heart Sounds: Absent: systolic murmur, diastolic murmur, rub, S3 Gallop, S4 Gallop, click, other - Peripheral edema leg Peripheral Edema: bilateral: None - Gastrointestinal General gastrointestinal: Present: normal bowel sounds, soft. Absent: absent bowel sounds, decreased bowel sounds, distended, hepatomegaly, hyperactive bowel sounds, organomegaly, rigid, scaphoid, splenomegaly, tenderness, umbilical hernia, ventral hernia - Neurologic Neurologic: Present: CNII-XII intact (grossly) - Musculoskeletal Musculoskeletal: Present: generalized weakness - Psychiatric Psychiatric: Present: A&O x's 3, appropriate affect, intact judgment & insight - Labs CBC & Chem 7: 10/21/24 05:42 10/21/24 05:42 Labs: Abnormal Lab Results - Last 24 Hours (Table) 10/18/24 10/19/24 10/19/24 Range/Units 19:26 05:05 05:05 WBC 15.17 H (4.50-10.00) 10*3/uL RBC 3.01 L (4.40-5.60) 10*6/uL Hgb 8.9 L (13.0-17.0) g/dL Hct 26.6 L (39.6-50.0) % Plt Count 545 H (140-440) 10*3/uL Immature Gran # 0.12 H (0.00-0.04) 10*3/uL Neutrophils # 12.36 H (1.80-7.70) 10*3/uL Sodium 135 L (137-145) mmol/L Potassium 3.4 L 3.4 L (3.5-5.1) mmol/L BUN 22 H (9-20) mg/dL Glucose 171 H (74-99) mg/dL AST 16 L (17-59) U/L Total Protein 5.2 L (6.3-8.2) g/dL Albumin 2.8 L (3.5-5.0) g/dL - Imaging and Cardiology Chest x-ray: report reviewed CT scan - chest: report reviewed, image reviewed Assessment and Plan (1) Pain of metastatic malignancy Current Visit: Yes Status: Acute Priority: High Code(s): G89.3 - NEOPLASM RELATED PAIN (ACUTE) (CHRONIC) SNOMED Code(s): 593603168 (2) Bilateral pleural effusion Current Visit: Yes Status: Acute Priority: High Code(s): J90 - PLEURAL EFFUSION, NOT ELSEWHERE CLASSIFIED SNOMED Code(s): 219741038 (3) NSCLC metastatic to bone Current Visit: Yes Status: Acute Priority: High Code(s): C34.90 - MALIGNANT NEOPLASM OF UNSP PART OF UNSP BRONCHUS OR LUNG; C79.51 - SECONDARY MALIGNANT NEOPLASM OF BONE SNOMED Code(s): 922706900 Plan: Bilateral pleural effusions -S/P right thoracentesis on 10/12/24 at [facility] with 2 L removed. Pt was needing repeat thora has fluid re-accumulated rapidly. Services were not available at [facility] so, pt was transferred to [facility] -Chest US on admit reporting large rt pleural effusion and moderate lt pleural effusion. -Rt thoracentesis this yesterday with 2.6 L removed. Postoperative chest x-ray showed possibly a trapped lung vs possible right-sided pneumothorax. -Right sided thoravent placed, fluid continuously draining. Metastatic Sq cell NSCLC -Oncology history as dictated in the consult. Pt has yet to start any treatment -Rad onc consulted for palliative RT-pt cancelled all outpt appt due to pain. -He was scheduled to start Keytruda but, treatment has been delayed due in part to pt having difficulty with getting around (pain) and hospital admission. -Pain medications adjusted. Meds for prevention of narcotic induced constipation ordered -It was discussed with patient concerns that his disease is progressing. The pleural effusion is of new onset. Patient seems to understand but, his hearing is a barrier to communication at times. -Patient is very weak and has poor PS. He may need rehabilitation prior to starting any treatment. Not sure if he will able to rehabilitate. Will see how pt does with control of pleural fluid, pain medication titration for better pain control and consult with Rad Onc to maybe begin previously recommended radiation for palliation of pain. Will see how pt does over the next few days. Hypercalcemia of malignancy -S/p 2 doses pamidronate at [facility] -Today corrected calcium is 9.36 Dr. Kennedy discuss code status with pt. He would like to talk with his son 1st then he will update staff. Dr. Kennedy and Dr. Ledesma discussed case Patient seen with [employer] and agree with A&P above. We had a long discussion with Dev with regards to code status as noted above as well as the possibility of hospice given his poor performance status. When discussed, he was not amenable to hospice. If his overall clinical condition fails to significantly improve, this will be discussed again. Lorraine Kennedy MD
[2024-10-19] MEDS ORDERED: Potassium Replacement Protocol 1 EACH MISC MISCELLANE PRN (17:14)
[2024-10-19] MEDS: POTASSIUM CHLORIDE ER 20 MEQ TAB.ER PO SCH (18:13)
[2024-10-19] MEDS: ENOXAPARIN 40 MG/0.4 ML SYRINGE SQ SCH (22:34)
--- NOTE | 2024-10-20 03:06 | PN ---
PROGRESS NOTE SUBJECTIVE: A 59-year-old gentleman with pleural effusion with chest tube in, is breathing better and oxygen needs are decreased since yesterday and transferred to a regular floor. OBJECTIVE: VITAL SIGNS: Blood pressure is still low at 90s-100s/60s-70s. Saturating 96% on 4 L, much better than 8 L yesterday. Pulse is 111. Chest tube is in place. His pain is under better control. LUNGS: Scattered rhonchi and wheeze. HEMATOLOGY: Negative Homans. LABORATORY DATA: Chest x-ray showed trace pneumothorax. Small bilateral pleural effusion. Prominent interstitial lung markings, lower spine fixation hardware, right thoracotomy tube in appropriate position with no pneumothorax. Diffuse interstitial opacities for pneumonia and Unasyn. Trace bilateral pleural effusions. Continue with current treatments, antibiotics, breathing treatments, chest tube, pending pleural fluid report. Prognosis guarded. MMODL / IJN: [id number] /
[2024-10-20] MEDS ORDERED: Magnesium Replacement Protocol 1 EACH MISC MISCELLANE PRN (08:02)
--- NOTE | 2024-10-20 08:35 | XR ---
EXAMINATION TYPE: XR chest 1V portable DATE OF EXAM: 10/20/2024 7:07 AM COMPARISON: Chest radiograph from one day prior. CLINICAL INDICATION: Male, 59 years old with history of pneumothorax f/u; [facility] TECHNIQUE: XR chest 1V portable Frontal view of the chest. FINDINGS: Lungs/Pleura: Trace right pneumothorax, moderate small left pleural effusions prominent interstitial lung markings. Pulmonary vascularity: Unremarkable. Heart/mediastinum: Cardiomediastinal silhouette is unremarkable. Musculoskeletal: No acute osseous pathology. There is lower spine fixation hardware is present. Scatt ered osseous destructive lesions as seen on CT. Other findings: Right thoracotomy tube with trace pneumothorax on the right. IMPRESSION: 1. Right thoracotomy tube appears to be within appropriate position with small pneumothorax and mode rate pleural effusion 2. Diffuse interstitial opacities correlate for atypical pneumonia versus pulmonary edema. 3. Trace bilateral pleural effusions. [facility], , 10/20/2024 8:32 AM
[2024-10-20] MEDS: MAGNESIUM SULFATE-D5W PMX 1 GM in DEXTROSE/WATER 1 100ML.BAG IVPB SCH (09:30)
--- NOTE | 2024-10-20 12:56 | P.CONS ---
History of Present Illness - Reason for Consult Consult date: 10/20/24 Metastatic adenocarcinoma of lung, osseous metastases Requesting physician: Lorraine Kennedy - Chief Complaint "I have pain all over" - History of Present Illness Mr. Phillip is a 59-year-old with diffusely metastatic adenocarcinoma of the lung. He underwent T9 decompression in 07/2024, and was planned for palliative postoperative radiation therapy, but this was not ultimately completed. He presents with pleural effusion and diffuse pains. The patient was known to Dr. Sarah, and CT simulation was previously attempted to the thoracic spine. He now presents with diffuse pains and shortness of breath. CT chest on 10/18/2024 demonstrated enlarging right pleural effusion. PET/CT in 09/2024 had demonstrated diffuse metastatic disease. He underwent thoracentesis with Thoravent placement. Today, he notes diffuse pains. There is not one specific area that is causing him the most distress. He notes the morphine is controlling his pain for the most part. He has never had radiation therapy and does not have a pacemaker. He is DNR. Review of Systems as per HPI Past Medical History Past Medical History: Cancer, Diabetes Mellitus, Prostate Disorder Additional Past Medical History / Comment(s): Covid 04/2022, developed PE and was on blood thinners, BPH, Dupuytren's contracture. NSCLC 06/22/24 History of Any Multi-Drug Resistant Organisms: None Reported Past Surgical History: Hernia Repair Additional Past Surgical History / Comment(s): Back surgery 06/19/24, Dupuytren's contracture release on R hand Past Anesthesia/Blood Transfusion Reactions: No Reported Reaction Past Psychological History: No Psychological Hx Reported Smoking Status: Former smoker Past Alcohol Use History: Occasional Past Drug Use History: None Reported Medications and Allergies Home Medications Medication Instructions Recorded Confirmed Type metFORMIN HCL 1,000 mg PO BID 06/15/24 10/17/24 History Sennosides-Docusate Sodium 2 tab PO DAILY PRN 06/23/24 10/17/24 History [Senokot-S] Cyclobenzaprine [Flexeril] 5 mg PO TID PRN 10/17/24 10/17/24 History Gabapentin [Neurontin] 300 mg PO TID 10/17/24 10/17/24 History Ipratropium-Albuterol Nebulize 3 ml INHALATION RT-TID 10/17/24 10/17/24 History [Duoneb 0.5 mg-3 mg/3 ml Soln] Tamsulosin [Flomax] 0.4 mg PO DAILY 10/17/24 10/17/24 History oxyCODONE-APAP 7.5-325MG [Percocet 1 tab PO Q4H PRN 10/17/24 10/17/24 History 7.5-325 mg] Allergies Allergy/AdvReac Type Severity Reaction Status Date / Time cephalexin [From Keflex] Allergy Swelling Verified 10/17/24 17:33 cortisone Allergy Swelling Verified 10/17/24 17:33 Influenza Virus Vaccines Allergy Swelling Verified 10/17/24 17:33 Physical Exam Vitals: Vital Signs Temp Pulse Pulse Pulse Resp BP BP 10/20/24 12:17 102 H 10/20/24 12:05 101 H 10/20/24 09:19 84 10/20/24 09:04 81 10/20/24 08:00 98.0 F 83 16 159/91 10/20/24 01:10 98.2 F 107 H 16 108/71 10/20/24 00:02 111 H 96/61 10/19/24 19:28 97.5 F L 106 H 18 100/67 10/19/24 18:39 111 H 20 10/19/24 18:29 111 H 18 10/19/24 15:15 111 H 18 10/19/24 15:05 111 H 20 Pulse Ox 10/20/24 12:17 10/20/24 12:05 10/20/24 09:19 10/20/24 09:04 99 10/20/24 08:00 94 L 10/20/24 01:10 98 10/20/24 00:02 96 10/19/24 19:28 99 10/19/24 18:39 10/19/24 18:29 10/19/24 15:15 10/19/24 15:05 Intake and Output 10/19/24 10/20/24 10/20/24 22:59 06:59 14:59 Intake Total 240 Output Total 200 600 Balance -200 -600 240 Intake: Oral 240 Output: Chest Tube Drainage 200 Thora-Vent Right 200 Urine 600 Other: Voiding Method Indwelling Catheter - Constitutional General appearance: no acute distress - Musculoskeletal no specific localization of pain Results CBC & Chem 7: 10/19/24 05:05 10/20/24 03:02 Labs: Abnormal Lab Results - Last 24 Hours (Table) 10/20/24 Range/Units 03:02 Magnesium 1.4 L (1.6-2.3) mg/dL Assessment and Plan Assessment: Mr. Phillip is a 59-year-old with diffusely metastatic adenocarcinoma of the lung. He underwent T9 decompression in 07/2024, and was planned for palliative postoperative radiation therapy, but this was not ultimately completed. He presents with pleural effusion and diffuse pains. Plan: The patient presents with diffuse osseous metastatic disease. He is a DNR. His prognosis is quite poor and he appears hospice appropriate. He complains of diffuse pains without specific localization. Thus, I do not recommend palliative radiation therapy at this time. Sergo Andrade MD Radiation Oncology Time with Patient: Greater than 30
--- NOTE | 2024-10-20 12:56 | P.PN ---
Subjective Progress Note Date: 10/20/24 This is a 59-year-old white male with history of metastatic adenocarcinoma of the lung, had skeletal metastasis, and he had previous history of pathological fracture of T11. His initial diagnosis was made back in May of 2024, patient presented initially with abnormal CT of the chest showing a 2.2 x 1.7 right lower lobe mass and enlarged subcarinal and right hilar lymphadenopathy. At the same time the patient had pathologic fracture of T11. CT of the chest also showed a 2.9 cm mass in the posterior right lower lobe and significant thoracic spine abnormalities consistent with metastatic disease to the spine. Bone scan confirmed metastatic disease to the spine and 2 other skeletal areas including the left scapula patient did not require bronchoscopy or lung biopsy. Molecular profiling from thoracic spine revealed T p53 mutation and low TMB/PDL L1 was noted to be 50 to 60%. Clearly the patient had a stage IVb lung CA with metastasis. In addition to this, the patient has had history of questionable congestive heart failure, and apparently he has recurrent right-sided pleural effusion supposedly he had a thoracentesis about less than a week ago at [facility], patient was transferred yesterday to [facility] for a very large right-sided pleural effusion with the whole run completely opacified. Apparently no one could do thoracentesis at [facility], and the patient was transferred to be seen here. I saw the patient this morning and I went ahead and drained 2.6 L out of his right pleural space, postoperative chest x-ray showed possibly a trapped lung or possibly a right- sided pneumothorax. I believe it is mostly a trapped lung than a true pneumothorax. Considering the size I went ahead and placed a Thora vent chest tube on the right side, patient's overall status is quite marginal, hence I will transfer the patient to the ICU after his thoracentesis. Fluid was sent for different diagnostic studies. The fluid was not serosanguineous, it was slightly straw-colored fluid. Patient had to be placed on 15 L high flow nasal cannula all along before and after thoracentesis and after Thora vent placement. Remains on 15 L high flow nasal cannula, feels much better after his thoracentesis. Labs were reviewed WBC is 14.5 hemoglobin 8.5 electrolytes are normal except for potassium of 3.2. Symptoms antunez the patient had chronic shortness of breath, chronic back pain. The patient is seen today October 19, 2024 in follow-up in the intensive care unit. He is currently resting in bed. Awake and alert in no acute distress. Elda ntaining good O2 saturations in the mid 90s on 2 L/min per nasal cannula. He is afebrile. Hemodynamically stable. Chest x-ray reveals right thoracotomy tube in appropriate position. There is a small pneumothorax. Diffuse interstitial opacities. Trace bilateral pleural effusions. Thora vent is to a Pleur-evac to wall suction. No leak noted. White count 15.1. Hemoglobin 8.9. Platelets 545 . Sodium 135. Potassium 3.4. Bicarb 29. BUN 22. Creatinine 0.92. He is continued on DuoNeb inhalations. Continued on IV diuretics. Remains on Zosyn. Pain is well-controlled with morphine. Lovenox for DVT prophylaxis. Pepcid for GI prophylaxis. The patient is seen today October 20, 2024 in follow-up on the oncology unit. He was transferred out of the ICU yesterday. He is currently resting in bed. Awake and alert in no acute distress. His pain is currently well-managed. He is maintaining O2 saturations in the 90s on 4 L/min per nasal cannula. He has normal saline at KVO. Right sided Thora vent remains in place to Pleur-evac and waterseal. Chest x-ray this morning continues to show a right apical pneumothorax. Pleural fluid cytology still pending. Potassium 3.9. Magnesium 1.4. He remains on DuoNeb inhalations, Pulmicort inhalations. Lovenox for DVT prophylaxis. Objective - Vital Signs Vital signs: Vital Signs Temp 98.0 F 10/20/24 08:00 Pulse 102 H 10/20/24 12:17 Resp 16 10/20/24 08:00 BP 159/91 10/20/24 08:00 Pulse Ox 99 10/20/24 09:04 FiO2 Intake & Output 10/19/24 10/20/24 10/20/24 18:59 06:59 18:59 Intake Total 120 240 Output Total 1080 600 Balance -960 -600 240 Weight 62 kg Intake: IV 120 0.9 KVO 120 Oral 240 Output: Chest Tube Drainage 400 Thora-Vent Right 400 Urine 680 600 Other: Voiding Method Indwelling Catheter Indwelling Catheter - Exam GENERAL EXAM: Alert, very thin, weak 59-year-old male, on 2 L nasal cannula, fairly comfortable in no apparent distress. HEAD: Normocephalic. EYES: Normal reaction of pupils, equal size. NOSE: Clear with pink turbinates. THROAT: No erythema or exudates. NECK: No masses, no JVD. CHEST: No chest wall deformity. Right chest Thora vent catheter in place to Pleur-evac and wall suction LUNGS: Equal air entry with crackles in the bilateral bases. CVS: S1 and S2 normal with no audible murmur, regular rhythm. ABDOMEN: No hepatosplenomegaly, normal bowel sounds, no guarding or rigidity. SPINE: No scoliosis or deformity SKIN: No rashes CENTRAL NERVOUS SYSTEM: No focal deficits, tone is normal in all 4 extremities. EXTREMITIES: There is no peripheral edema. No clubbing, no cyanosis. Peripheral pulses are intact. - Labs CBC & Chem 7: 10/19/24 05:05 10/20/24 03:02 Labs: Abnormal Lab Results - Last 24 Hours (Table) 10/20/24 Range/Units 03:02 Magnesium 1.4 L (1.6-2.3) mg/dL Assessment and Plan Assessment: Large right-sided pleural effusion, felt to be malignant unless proven otherwise. Considering the patient's history of lung cancer and metastasis, cytology on the pleural effusion is pending. 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 Positive pathology from bone biopsy June 2024. PET scan from September 11, 2024 revealed uptake within the right lung mass compatible with neoplasm. Extensive osseous metastasis including axial spine, left iliac wing, left scapula, multiple ribs, sternum, pelvis. Small metastatic lesions suspected within the left and right lobes of the liver. Mediastinal metastasis. Metastatic lesions in the right supra clavicular region and suspected within lymph nodes within the bilateral parotid glands. Plan was for Keytruda however the patient has had several hospitalizations and difficulty getting to appointments History of underlying COPD Type 2 diabetes Former smoker History of thoracic vertebral fracture/pathological fracture requiring surgery Failure to thrive Poor overall functional performance based on the above-mentioned multiple comorbidities Plan: The patient was seen and evaluated Chest x-ray, labs and medications reviewed Still with a right apical pneumothorax Placed the chest tube back to suction Follow-up chest x-ray in a.m. Continue bronchodilators Continue diuretics Lovenox for DVT prophylaxis Pepcid for GI prophylaxis Titrate the FiO2 as tolerated Assure adequate pain control Plan of care discussed with oncology Plan was possibly for Keytruda DNR CODE STATUS May need to consider hospice The patient will talk with his son This patient was seen independently by the pulmonary nurse practitioner abbe sing pulmonary issues I have personally seen and examined the patient, performed the documentation and the assessment and plan as written. Number of minutes spent on the visit: 24 Dictation was produced using [employer] dictation software. Please excuse any grammatical, word or spelling errors.
--- NOTE | 2024-10-20 14:47 | P.PN ---
Subjective HISTORY OF PRESENT ILLNESS: This is a 59-year-old male with a past medical history significant for static lung cancer. 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 We have been asked to see the patient in consultation for pleural effusions. Patient examined at the bedside. Patient initially presented to [facility] with a chief complaint of shortness of breath. Patient was found to have bilateral pleural effusions it was transferred to [facility] for interventional radiology evaluation. Patient reports shortness of breath this morning. He denies chest pain or pressure. DIAGNOSTICS: - EKG not available at the time of this dictation - Chest ultrasound, large pleural effusion. Moderate left pleural effusion. - Laboratory data: No laboratory data available at the time of this dictation - Current home cardiac medications include none. - Most recent echocardiogram obtained in June 2024 revealed ejection fr action 60 to 65%, moderate pulm and hypertension, mild TR, trace MR - Cardiac catheterization history: Patient denies 10/20/2024 Patient examined this morning at bedside. Patients family present. Patient complains of pain at the chest tube site. He remains on IV lasix. PHYSICAL EXAM: VITAL SIGNS: Reviewed. GENERAL: Well-developed in no acute distress. HEENT: Head is normocephalic. Pupils are equal, round. Sclerae anicteric. Mucous membranes of the mouth are moist. Neck supple. No JVD or thyromegaly LUNGS: Respirations even and unlabored. Lungs essentially clear to auscultation bilaterally. HEART: Regular rate and rhythm. S1 and S2 heard. ABDOMEN: Soft. Nondistended. Nontender. EXTREMITIES: Normal range of motion. No clubbing or cyanosis. Peripheral pulses intact. No lower extremity edema NEUROLOGIC: Awake and alert. Oriented x 3. ASSESSMENT: Bilateral pleural effusions, right greater than left, status post thoracentesis and subsequent pneumothorax with chest tube placement Metastatic lung cancer History of COPD Diabetes Former nicotine dependence History of PE PLAN: Continue IV diuretics per pulmonary medicine Patient is currently stable from a cardiac standpoint with no further inpatient recommendations We will sign off. Please reconsult if needed. Nurse practitioner note has been reviewed by physician. Signing provider agrees with the documented findings, assessment, and plan of care documented by [facility] RADAR OPERATOR/NAVIGATOR as a scribe. Objective - Vital Signs Vital signs: Vital Signs Temp 98.2 F 10/20/24 01:10 Pulse 107 H 10/20/24 01:10 Resp 16 10/20/24 01:10 BP 108/71 10/20/24 01:10 Pulse Ox 98 10/20/24 01:10 FiO2 Intake & Output 10/19/24 10/20/24 10/20/24 18:59 06:59 18:59 Intake Total 120 Output Total 1080 600 Balance -960 -600 Weight 62 kg Intake: IV 120 0.9 KVO 120 Output: Chest Tube Drainage 400 Thora-Vent Right 400 Urine 680 600 Other: Voiding Method Indwelling Catheter Indwelling Catheter - Labs CBC & Chem 7: 10/19/24 05:05 10/20/24 03:02 Labs: Abnormal Lab Results - Last 24 Hours (Table) 10/19/24 10/20/24 Range/Units 12:23 03:02 Potassium 3.4 L (3.5-5.1) mmol/L Magnesium 1.4 L (1.6-2.3) mg/dL
[2024-10-20] MEDS ORDERED: MAGNESIUM SULFATE-D5W PMX 1 GM in DEXTROSE/WATER 1 100ML.BAG IVPB SCH (20:00)
[2024-10-21 08:14] LABS: Basophils # (A) 0.12 X 10*3/uL (0.00-0.10); Basophils % (A) 0.9 %; Eosinophils # (A) 0.21 X 10*3/uL (0.04-0.35); Eosinophils % (A) 1.6 %; HCT 27.8 % (39.6-50.0); HGB 8.6 g/dL (13.0-17.0); Lymphocytes # (A) 1.67 X 10*3/uL (0.90-5.00); Lymphocytes % (A) 12.4 %; MCH 28.7 pg (27.0-32.0); MCHC 30.9 g/dL (32.0-37.0); MCV 92.7 FL (80.0-97.0); Mean Platelet Volume 9.7 FL (9.5-12.2); Monocytes % (A) 6.7 %; NRBC Per 100 WBC 0 X 10*3/uL (0.00-0.01); Neutrophils # (A) 10.41 X 10*3/uL (1.80-7.70); Neutrophils % (A) 77.3 %; Platelet Count 507 X 10*3/uL (140-440); RDW 15.3 % (11.5-14.5); WBC 13.46 X 10*3/uL (4.50-10.00)
[2024-10-21 08:20] LABS: Blood Urea Nitrogen 17.2 mg/dL (9.0-27.0); Carbon Dioxide 29.7 mmol/L (21.6-31.8); Chloride 99 mmol/L (96-109); Glucose 118 mg/dL (70-110); Magnesium 1.9 mg/dL (1.5-2.4); Potassium 4.2 mmol/L (3.5-5.5); Sodium 140 mmol/L (135-145)
[2024-10-21 08:21] LABS: ALT 12 U/L (10-49); AST 19 U/L (14-35); Albumin 2.8 g/dL (3.8-4.9); Albumin/Globulin Ratio 1.33 Ratio (1.60-3.17); Alkaline Phosphatase 123 U/L (41-126); Calcium 7.9 mg/dL (8.7-10.3); Globulin 2.1 g/dL (1.6-3.3); Total Bilirubin <0.2 mg/dL (0.3-1.2); Total Protein 4.9 g/dL (6.2-8.2)
[2024-10-21 09:51] LABS: Basophils % (A) 0.7 %; Eosinophils # (A) 0.26 10*3/uL (0.04-0.35); Eosinophils % (A) 1.7 %; HCT 29.3 % (39.6-50.0); HGB 9.6 g/dL (13.0-17.0); Lymphocytes # (A) 2.07 10*3/uL (0.90-5.00); Lymphocytes % (A) 13.7 %; MCH 29.8 pg (27.0-32.0); MCHC 32.8 g/dL (32.0-37.0); Monocytes # (A) 1.03 10*3/uL (0.20-1.00); Monocytes % (A) 6.8 %; Platelet Count 512 10*3/uL (140-440); RBC 3.22 10*6/uL (4.40-5.60); RDW 15.1 % (11.5-14.5); WBC 15.13 10*3/uL (4.50-10.00)
[2024-10-21 10:03] LABS: African American GFR (CKD) >90 (>60 ml/min/1.73 sqM); Anion Gap 7 mmol/L; Blood Urea Nitrogen 18 mg/dL (9-20); Calcium 8.6 mg/dL (8.4-10.2); Carbon Dioxide 35 mmol/L (22-30); Chloride 94 mmol/L (98-107); Glucose 132 mg/dL (74-99); Magnesium 1.9 mg/dL (1.6-2.3); Non-African American GFR(CKD) 89 (>60 ml/min/1.73 sqM); Potassium 3.5 mmol/L (3.5-5.1); Sodium 136 mmol/L (137-145)
[2024-10-21 10:05] LABS: ABG Base Excess 10.3 mmol/L; ABG HCO3 35 mmol/L (21-25); ABG Oxygen Saturation 90.5 % (94-97); ABG PCO2 46 mmHg (35-45); ABG PH 7.49 (7.35-7.45); ABG TCO2 36 mmol/L (19-24); Allen Test Performed? Yes
[2024-10-21 10:10] LABS: ABG PO2 55 mmHg (83-108)
--- NOTE | 2024-10-21 10:16 | XR ---
EXAMINATION TYPE: XR chest 1V portable DATE OF EXAM: 10/21/2024 8:55 AM COMPARISON: Chest radiographs from 09/19/2024. CLINICAL INDICATION: Male, 59 years old with history of Pneumothorax; [facility] TECHNIQUE: XR chest 1V portable Frontal view of the chest. FINDINGS: Lungs/Pleura: Trace right pneumothorax, moderate small left pleural effusions prominent interstitial lung markings. Pulmonary vascularity: Unremarkable. Heart/mediastinum: Cardiomediastinal silhouette is unremarkable. Musculoskeletal: No acute osseous pathology. There is lower spine fixation hardware is present. Scatt ered osseous destructive lesions as seen on CT. Other findings: Right thoracotomy tube with trace pneumothorax on the right. IMPRESSION: 1. Right thoracotomy tube appears to be within appropriate position without pneumothorax visualized on today's exam. Moderate right pleural effusion 2. Diffuse interstitial opacities correlate for atypical pneumonia versus pulmonary edema. 3. Trace left pleural effusion. [facility], , 10/21/2024 10:14 AM
--- NOTE | 2024-10-21 10:39 | XR ---
EXAMINATION TYPE: XR chest 1V portable DATE OF EXAM: 10/21/2024 10:06 AM COMPARISON: Chest radiographs from 10/21/2024. CLINICAL INDICATION: Male, 59 years old with history of Thoravent out; [facility] TECHNIQUE: XR chest 1V portable Frontal view of the chest. FINDINGS: FINDINGS: Lungs/Pleura: No pneumothorax identified moderate to large right pleural effusion and small left pleu ral effusion. Diffuse interstitial prominence in the lung. Pulmonary vascularity: Unremarkable. Heart/mediastinum: Cardiomediastinal silhouette is unremarkable. Musculoskeletal: No acute osseous pathology. There is lower spine fixation hardware is present. Scatt ered osseous destructive lesions as seen on CT. Other findings: Right thoracotomy tube with trace pneumothorax on the right. IMPRESSION: 1. Removal of right thoracotomy tube with persistent moderate 2 large pleural fusion. No pneumothora x. 2. Diffuse interstitial opacities correlate for atypical pneumonia versus pulmonary edema. 3. Trace left pleural effusion. 4. [facility], , 10/21/2024 10:37 AM
--- NOTE | 2024-10-21 14:33 | PN ---
PROGRESS NOTE SUBJECTIVE: Dev Phillip is a 59-year-old with some metastatic cancer of the lung. I talked to him and he does not want to go into hospice care. He wants to keep fighting, go home with some physical therapy, and will try to get radiation oncology to be considered, giving him palliative radiation, because he does not want to go into hospice at this time. He is still in respiratory distress. He has chest tube in and he is on . OBJECTIVE: CARDIOVASCULAR: S1 and S2. LUNGS: Scattered rhonchi and wheeze. GI: Soft. HEMATOLOGY: Negative Homans. ASSESSMENT/PLAN: Palliative radiation, get off chest tube to go home. Outpatient chemo and radiation. Hopefully he gets some radiation while he is here. Nutrition, hydration, oxygen needs . Prognosis is extremely guarded. ELI / PEREZ: [id number] /
--- NOTE | 2024-10-21 20:02 | P.PN ---
Subjective Progress Note Date: 10/21/24 Patient reporting appetite has been slowly improving. C/o generalized weakness and diffuse pain, but pain is being controlled on current regimen. Chest tube removed today Objective - Vital Signs Vital signs: Vital Signs Temp 98.6 F 10/21/24 14:00 Pulse 112 H 10/21/24 15:43 Resp 18 10/21/24 14:00 BP 112/73 10/21/24 14:00 Pulse Ox 97 10/21/24 14:00 FiO2 Intake & Output 10/20/24 10/21/24 10/21/24 18:59 06:59 18:59 Intake Total 1560 340 Output Total 2400 700 1050 Balance -840 -360 -1050 Intake: Oral 1560 340 Output: Chest Tube Drainage 100 Thora-Vent Right 100 Urine 2300 700 1050 Other: Voiding Method Indwelling Catheter Indwelling Catheter Indwelling Catheter - Constitutional General appearance: Present: thin - EENT Eyes: Present: anicteric sclerae, EOMI ENT: Present: hearing grossly normal - Respiratory Details: breathing is even and unlabored - Cardiovascular Details: skin warm and dry - Integumentary Integumentary: Absent: cyanotic, jaundiced - Musculoskeletal Musculoskeletal: Present: generalized weakness - Psychiatric Psychiatric: Present: A&O x's 3 - Labs CBC & Chem 7: 10/21/24 09:38 10/21/24 09:38 Labs: Abnormal Lab Results - Last 24 Hours (Table) 10/21/24 10/21/24 10/21/24 Range/Units 05:42 05:42 09:38 WBC 13.46 H 15.13 H (4.50-10.00) X 10*3/uL RBC 3.00 L 3.22 L (4.40-5.60) X 10*6/uL Hgb 8.6 L 9.6 L (13.0-17.0) g/dL Hct 27.8 L 29.3 L (39.6-50.0) % MCHC 30.9 L (32.0-37.0) g/dL RDW 15.3 H 15.1 H (11.5-14.5) % Plt Count 507 H 512 H (140-440) X 10*3/uL MPV 9.0 L (9.5-12.2) fL Immature Gran # 0.15 H 0.17 H (0.00-0.04) X 10*3/uL Neutrophils # 10.41 H 11.50 H (1.80-7.70) X 10*3/uL Monocytes # 1.03 H (0.20-1.00) 10*3/uL Basophils # 0.12 H (0.00-0.10) X 10*3/uL ABG pH (7.35-7.45) ABG pCO2 (35-45) mmHg ABG pO2 (83-108) mmHg ABG HCO3 (21-25) mmol/L ABG Total CO2 (19-24) mmol/L ABG O2 Saturation (94-97) % Hemoglobin (13.0-17.5) gm/dL Sodium (137-145) mmol/L Chloride (98-107) mmol/L Carbon Dioxide (22-30) mmol/L BUN/Creatinine Ratio 21.50 H (12.00-20.00) Ratio Glucose 118 H (70-110) mg/dL Calcium 7.9 L (8.7-10.3) mg/dL Total Bilirubin <0.2 L (0.3-1.2) mg/dL Total Protein 4.9 L (6.2-8.2) g/dL Albumin 2.8 L (3.8-4.9) g/dL Albumin/Globulin Ratio 1.33 L (1.60-3.17) Ratio 10/21/24 10/21/24 Range/Units 09:38 09:57 WBC (4.50-10.00) X 10*3/uL RBC (4.40-5.60) X 10*6/uL Hgb (13.0-17.0) g/dL Hct (39.6-50.0) % MCHC (32.0-37.0) g/dL RDW (11.5-14.5) % Plt Count (140-440) X 10*3/uL MPV (9.5-12.2) fL Immature Gran # (0.00-0.04) X 10*3/uL Neutrophils # (1.80-7.70) X 10*3/uL Monocytes # (0.20-1.00) 10*3/uL Basophils # (0.00-0.10) X 10*3/uL ABG pH 7.49 H (7.35-7.45) ABG pCO2 46 H (35-45) mmHg ABG pO2 55 L* (83-108) mmHg ABG HCO3 35 H (21-25) mmol/L ABG Total CO2 36 H (19-24) mmol/L ABG O2 Saturation 90.5 L (94-97) % Hemoglobin 9.8 L (13.0-17.5) gm/dL Sodium 136 L (137-145) mmol/L Chloride 94 L (98-107) mmol/L Carbon Dioxide 35 H (22-30) mmol/L BUN/Creatinine Ratio (12.00-20.00) Ratio Glucose 132 H (70-110) mg/dL Calcium (8.7-10.3) mg/dL Total Bilirubin (0.3-1.2) mg/dL Total Protein (6.2-8.2) g/dL Albumin (3.8-4.9) g/dL Albumin/Globulin Ratio (1.60-3.17) Ratio Assessment and Plan (1) Bilateral pleural effusion Current Visit: Yes Status: Acute Priority: High Code(s): J90 - PLEURAL EFFUSION, NOT ELSEWHERE CLASSIFIED SNOMED Code(s): 155176342 (2) NSCLC metastatic to bone Current Visit: Yes Status: Acute Priority: High Code(s): C34.90 - MALIGNANT NEOPLASM OF UNSP PART OF UNSP BRONCHUS OR LUNG; C79.51 - SECONDARY MALIGNANT NEOPLASM OF BONE SNOMED Code(s): 322238396 Plan: Bilateral pleural effusions -S/P right thoracentesis on 10/12/24 at [facility] with 2 L removed. Pt was needing repeat thora has fluid re-accumulated rapidly. Services were not available at [facility] so, pt was transferred to [facility] -Chest US on admit reporting large rt pleural effusion and moderate lt pleural effusion. -Rt thoracentesis this yesterday with 2.6 L removed. Postoperative chest x-ray showed possibly a trapped lung vs possible right-sided pneumothorax. -Right sided thoravent placed. Chest tube removed today. -Cytology pending Metastatic Sq cell NSCLC -Oncology history as dictated in the consult. Pt has yet to start any treatment -Rad onc consulted for palliative RT-pt cancelled all outpt appt due to pain. -He was scheduled to start Keytruda but, treatment has been delayed due in part to pt having difficulty with getting around (pain) and hospital admission. -Pain medications adjusted. Meds for prevention of narcotic induced constipation ordered -It was discussed with patient concerns that his disease is progressing. The pleural effusion is of new onset. Patient seems to understand but, his hearing is a barrier to communication at times. -Patient is very weak and has poor PS. He may need rehabilitation prior to starting any treatment. Not sure if he will able to rehabilitate. Will see how pt does with control of pleural fluid, pain medication titration for better pain control and consult with Rad Onc to maybe begin previously recommended radiation for palliation of pain. -Rad onc evaluated pt, due to diffuse nature of pain, not recommending RT at this time -Reports pain is being controlled on current regimen Hypercalcemia of malignancy -S/p 2 doses pamidronate at [facility] -Resolved We had a long discussion with Dev with regards to code status as noted above as well as the possibility of hospice given his poor performance status. Code status has been updated to No code. Comfort care measures were again discussed today. Patient is not amendable to hospice and would like to try to get to treatment. PT consulted to evaluate needs, will likely need rehab upon discharge. Concern for recurrent pleural effusions. If effusions begin to worsen, may to consider pleurx drain. Encouraged pt to increase oral intake as tolerated. Protein supplements added with meals
--- NOTE | 2024-10-22 04:39 | PN ---
PROGRESS NOTE DATE OF SERVICE: 10/21/2024 SUBJECTIVE: This is a pleasant 59-year-old male patient with a known history of metastatic lung cancer with pleural effusion. He has undergone a thoracentesis and subsequent pneumothorax with Thora-Vent placement. Chest x-ray was reviewed today. No evidence of pneumothorax and the plan is for the Thora-Vent to be removed today. OBJECTIVE: GENERAL: This is a pleasant 59-year-old, very thin, cachectic male patient, currently on 3 L nasal cannula, in no acute distress. HEENT: Normocephalic, sclerae anicteric. NECK: Supple. No JVD. HEART: Regular S1, S2. LUNGS: Clear left lung. Right lung is diminished in the base. SKIN: No rash. EXTREMITIES: No peripheral edema. No clubbing. No cyanosis. ASSESSMENT: 1. Recurrent right-sided pleural effusion, status post thoracentesis. 2. Right-sided pneumothorax, status post Thora-Vent placement. 3. Metastatic cancer. PLAN: 1. The patient was seen and evaluated. 2. Chest x-ray, labs, and medications reviewed. 3. Stable on oxygen at 3 L/minute. 4. Right-sided Thora-Vent catheter removed. 5. Followup chest x-ray pending. 6. May require PleurX catheter placement if recurrent effusion. This patient was seen independently by the pulmonary nurse practitioner addressing pulmonary issues. TIME STATEMENT: The patient was seen and evaluated. HPI, physical exam, assessment and plan dictated by Jen montgomery NP. Time spent, 24 minutes. MMODL / IJN: [id number] /
--- NOTE | 2024-10-22 05:39 | PN ---
PROGRESS NOTE SUBJECTIVE: Status post chest tube removal. He is feeling better today. His oxygen was increased to 4 L. He has had magnesium supplementation x2 and he is on IV Lasix q.12 hours. He is breathing better. He has had better pain relief. He can get rehab consult with Dr. Reed from [facility]. He is DNR, but he is outpatient. OBJECTIVE: VITAL SIGNS: Temperature 98.6, pulse 110, respiratory rate 16 to 18, blood pressure 103/71, and O2 is 99% on high flow. NECK: Supple. CARDIOVASCULAR: S1 and S2. LUNGS: Transmitted breath sounds. GASTROINTESTINAL: Soft. HEMATOLOGY: Negative Homans. NEUROLOGIC: He is giving appropriate answers. Alert and oriented x3. ASSESSMENT AND PLAN: He will possibly get a consult with Dr. Reed for rehab. PROGNOSIS: Guarded. Please see further orders. MMODL / IJN: [id number] /
[2024-10-22 08:53] LABS: BUN/Creat Ratio 25.71 Ratio (12.00-20.00); Calcium 8.1 mg/dL (8.7-10.3); Carbon Dioxide 30.4 mmol/L (21.6-31.8); Chloride 97 mmol/L (96-109); Glucose 119 mg/dL (70-110); Potassium 3.9 mmol/L (3.5-5.5); Sodium 141 mmol/L (135-145)
--- NOTE | 2024-10-22 09:36 | P.GSCN ---
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 He presented to [facility] for generalized weakness and frequent falls. He was seen there by oncology with notes that the patient had not yet seen radiation oncology due to pain, also had not started Keytruda due to hospitalization. While at [facility] he underwent right sided thoracentesis with removal of 2 L of fluid. Subsequently he was transferred to [facility] for further evaluation regarding his pleural effusion. He underwent a second thoracentesis on October 18 with removal of 2.6 L of fluid, unfortunately he developed a right-sided pneumothorax and a Thora vent was placed by Dr. Hernandes which was removed yesterday. Checks x-ray revealed recurrent pleural effusion and consultation was placed to cardiothoracic surgery for Pleurx catheter placement. Review of Systems Review of systems was completed and was negative except as noted - Constitutional Reports chronic pain, Reports weakness Past Medical History Past Medical History: Cancer, Diabetes Mellitus, Prostate Disorder Additional Past Medical History / Comment(s): Covid 04/2022, developed PE and was on blood thinners, BPH, Dupuytren's contracture. NSCLC 06/22/24 History of Any Multi-Drug Resistant Organisms: None Reported Past Surgical History: Hernia Repair Additional Past Surgical History / Comment(s): Back surgery 06/19/24, Dupuytren's contracture release on R hand Past Anesthesia/Blood Transfusion Reactions: No Reported Reaction Past Psychological History: No Psychological Hx Reported Smoking Status: Former smoker Past Alcohol Use History: Occasional Past Drug Use History: None Reported Medications and Allergies Home Medications Medication Instructions Recorded Confirmed Type metFORMIN HCL 1,000 mg PO BID 06/15/24 10/17/24 History Sennosides-Docusate Sodium 2 tab PO DAILY PRN 06/23/24 10/17/24 History [Senokot-S] Cyclobenzaprine [Flexeril] 5 mg PO TID PRN 10/17/24 10/17/24 History Gabapentin [Neurontin] 300 mg PO TID 10/17/24 10/17/24 History Ipratropium-Albuterol Nebulize 3 ml INHALATION RT-TID 10/17/24 10/17/24 History [Duoneb 0.5 mg-3 mg/3 ml Soln] Tamsulosin [Flomax] 0.4 mg PO DAILY 10/17/24 10/17/24 History oxyCODONE-APAP 7.5-325MG [Percocet 1 tab PO Q4H PRN 10/17/24 10/17/24 History 7.5-325 mg] Allergies Allergy/AdvReac Type Severity Reaction Status Date / Time cephalexin [From Keflex] Allergy Swelling Verified 10/17/24 17:33 cortisone Allergy Swelling Verified 10/17/24 17:33 Influenza Virus Vaccines Allergy Swelling Verified 10/17/24 17:33 Surgical - Exam Vital Signs Temp Pulse Resp BP Pulse Ox 98.4 F 104 H 16 145/90 98 10/17/24 16:22 10/17/24 16:22 10/17/24 16:22 10/17/24 16:22 10/17/24 16:22 CONSTITUTIONAL: Awake and alert, appears comfortable, cooperative, muscle wasting present, no acute distress EYES: Pupils equal, round, reactive to light, normal ocular movement ENT: Moist mucous membranes without oral lesions present NECK: No masses, no bruits, trachea midline RESPIRATORY: Lungs sounds diminished to absent on the right side. Respirations even, nonlabored. Currently on 3 L nasal cannula with oxygen saturation 95% CARDIOVASCULAR: S1, S2 present. Regular rate and rhythm. Palpable peripheral pulses bilaterally. No edema present. No calf pain or tenderness noted GASTROINTESTINAL: Abdomen soft, nontender, nondistended without masses or organomegaly noted. There is no rebound or guarding present. Active bowel sounds present 4 quadrants. GENITOURINARY: Deferred INTEGUMENTARY: Skin is warm and dry NEUROLOGIC: Cranial nerves II through XII intact MUSKULOSKELETAL: Able to move all extremities, strength equal bilaterally but generalized weakness present PSYCHIATRIC: Alert and oriented to person place and time, periods of confusion per nursing Results - Labs 10/21/24 09:38 10/22/24 06:19 Abnormal Lab Results - Last 24 Hours (Table) 10/21/24 10/21/24 10/21/24 Range/Units 09:38 09:38 09:57 WBC 15.13 H (4.50-10.00) 10*3/uL RBC 3.22 L (4.40-5.60) 10*6/uL Hgb 9.6 L (13.0-17.0) g/dL Hct 29.3 L (39.6-50.0) % RDW 15.1 H (11.5-14.5) % Plt Count 512 H (140-440) 10*3/uL MPV 9.0 L (9.5-12.2) fL Immature Gran # 0.17 H (0.00-0.04) 10*3/uL Neutrophils # 11.50 H (1.80-7.70) 10*3/uL Monocytes # 1.03 H (0.20-1.00) 10*3/uL ABG pH 7.49 H (7.35-7.45) ABG pCO2 46 H (35-45) mmHg ABG pO2 55 L* (83-108) mmHg ABG HCO3 35 H (21-25) mmol/L ABG Total CO2 36 H (19-24) mmol/L ABG O2 Saturation 90.5 L (94-97) % Hemoglobin 9.8 L (13.0-17.5) gm/dL Sodium 136 L (137-145) mmol/L Chloride 94 L (98-107) mmol/L Carbon Dioxide 35 H (22-30) mmol/L Anion Gap (4.00-12.00) mmol/L BUN/Creatinine Ratio (12.00-20.00) Ratio Glucose 132 H (74-99) mg/dL Calcium (8.7-10.3) mg/dL 10/22/24 Range/Units 06:19 WBC (4.50-10.00) 10*3/uL RBC (4.40-5.60) 10*6/uL Hgb (13.0-17.0) g/dL Hct (39.6-50.0) % RDW (11.5-14.5) % Plt Count (140-440) 10*3/uL MPV (9.5-12.2) fL Immature Gran # (0.00-0.04) 10*3/uL Neutrophils # (1.80-7.70) 10*3/uL Monocytes # (0.20-1.00) 10*3/uL ABG pH (7.35-7.45) ABG pCO2 (35-45) mmHg ABG pO2 (83-108) mmHg ABG HCO3 (21-25) mmol/L ABG Total CO2 (19-24) mmol/L ABG O2 Saturation (94-97) % Hemoglobin (13.0-17.5) gm/dL Sodium (137-145) mmol/L Chloride (98-107) mmol/L Carbon Dioxide (22-30) mmol/L Anion Gap 13.60 H (4.00-12.00) mmol/L BUN/Creatinine Ratio 25.71 H (12.00-20.00) Ratio Glucose 119 H (74-99) mg/dL Calcium 8.1 L (8.7-10.3) mg/dL Diabetes panel 10/21/24 10/22/24 Range/Units 09:38 06:19 Sodium 136 L 141 (137-145) mmol/L Potassium 3.5 3.9 (3.5-5.1) mmol/L Chloride 94 L 97 (98-107) mmol/L Carbon Dioxide 35 H 30.4 (22-30) mmol/L BUN 18 18.0 (9-20) mg/dL Creatinine 0.94 0.7 (0.66-1.25) mg/dL Glucose 132 H 119 H (74-99) mg/dL Calcium 8.6 8.1 L (8.4-10.2) mg/dL Calcium panel 10/21/24 10/22/24 Range/Units 09:38 06:19 Calcium 8.6 8.1 L (8.4-10.2) mg/dL Pituitary panel 10/21/24 10/22/24 Range/Units 09:38 06:19 Sodium 136 L 141 (137-145) mmol/L Potassium 3.5 3.9 (3.5-5.1) mmol/L Chloride 94 L 97 (98-107) mmol/L Carbon Dioxide 35 H 30.4 (22-30) mmol/L BUN 18 18.0 (9-20) mg/dL Creatinine 0.94 0.7 (0.66-1.25) mg/dL Glucose 132 H 119 H (74-99) mg/dL Calcium 8.6 8.1 L (8.4-10.2) mg/dL Adrenal panel 10/21/24 10/22/24 Range/Units 09:38 06:19 Sodium 136 L 141 (137-145) mmol/L Potassium 3.5 3.9 (3.5-5.1) mmol/L Chloride 94 L 97 (98-107) mmol/L Carbon Dioxide 35 H 30.4 (22-30) mmol/L BUN 18 18.0 (9-20) mg/dL Creatinine 0.94 0.7 (0.66-1.25) mg/dL Glucose 132 H 119 H (74-99) mg/dL Calcium 8.6 8.1 L (8.4-10.2) mg/dL - Imaging Chest x-ray: report reviewed, image reviewed Assessment and Plan Assessment: Large right-sided recurrent pleural effusion, status post thoracentesis October 12 and October 18 Generalized weakness, frequent falls Pain History of 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 States pain is controlled currently, denies significant shortness of breath at this time. Chart/diagnostics reviewed with Dr. Daigle. Discussed Pleurx catheter placement with the patient due to recurrent pleural effusion, he is agreeable. Will place right sided Pleurx catheter tomorrow October 31, [address] Daigle. N.p.o. after midnight. If patient goes to rehab at discharge Pleurx catheter can be drained at rehab. If the patient goes home then home care should be ordered for Pleurx catheter drainage. Pleurx catheter placement/drainage is appropriate as a palliative measure, this was discussed with the patient. Attempted to call the son to update as well, no answer, will attempt again. Discharge instructions regarding Pleurx catheter care will be placed in the patient's discharge plan. From our standpoint patient can be discharged after Pleurx catheter placement whenever okay with internal medicine and other services. Thank you Dr. Ayala for this consult, please call us with any further questions. I have personally seen and examined the patient, performed the documentation and the assessment and plan as written. Number of minutes spent on the visit: 30. RC RomeroC
[2024-10-22] MEDS: MAGNESIUM HYDROXIDE 2,400 MG/30 ML CUP PO PRN (12:14)
--- NOTE | 2024-10-22 12:30 | P.PN ---
Subjective Progress Note Date: 10/22/24 This is a 59-year-old white male with history of metastatic adenocarcinoma of the lung, had skeletal metastasis, and he had previous history of pathological fracture of T11. His initial diagnosis was made back in May of 2024, patient presented initially with abnormal CT of the chest showing a 2.2 x 1.7 right lower lobe mass and enlarged subcarinal and right hilar lymphadenopathy. At the same time the patient had pathologic fracture of T11. CT of the chest also showed a 2.9 cm mass in the posterior right lower lobe and significant thoracic spine abnormalities consistent with metastatic disease to the spine. Bone scan confirmed metastatic disease to the spine and 2 other skeletal areas including the left scapula patient did not require bronchoscopy or lung biopsy. Molecular profiling from thoracic spine revealed T p53 mutation and low TMB/PDL L1 was noted to be 50 to 60%. Clearly the patient had a stage IVb lung CA with metastasis. In addition to this, the patient has had history of questionable congestive heart failure, and apparently he has recurrent right-sided pleural effusion supposedly he had a thoracentesis about less than a week ago at [facility], patient was transferred yesterday to [facility] for a very large right-sided pleural effusion with the whole run completely opacified. Apparently no one could do thoracentesis at [facility], and the patient was transferred to be seen here. I saw the patient this morning and I went ahead and drained 2.6 L out of his right pleural space, postoperative chest x-ray showed possibly a trapped lung or possibly a right- sided pneumothorax. I believe it is mostly a trapped lung than a true pneumothorax. Considering the size I went ahead and placed a Thora vent chest tube on the right side, patient's overall status is quite marginal, hence I will transfer the patient to the ICU after his thoracentesis. Fluid was sent for different diagnostic studies. The fluid was not serosanguineous, it was slightly straw-colored fluid. Patient had to be placed on 15 L high flow nasal cannula all along before and after thoracentesis and after Thora vent placement. Remains on 15 L high flow nasal cannula, feels much better after his thoracentesis. Labs were reviewed WBC is 14.5 hemoglobin 8.5 electrolytes are normal except for potassium of 3.2. Symptoms antunez the patient had chronic shortness of breath, chronic back pain. The patient is seen today October 19, 2024 in follow-up in the intensive care unit. He is currently resting in bed. Awake and alert in no acute distress. Elda ntaining good O2 saturations in the mid 90s on 2 L/min per nasal cannula. He is afebrile. Hemodynamically stable. Chest x-ray reveals right thoracotomy tube in appropriate position. There is a small pneumothorax. Diffuse interstitial opacities. Trace bilateral pleural effusions. Thora vent is to a Pleur-evac to wall suction. No leak noted. White count 15.1. Hemoglobin 8.9. Platelets 545 . Sodium 135. Potassium 3.4. Bicarb 29. BUN 22. Creatinine 0.92. He is continued on DuoNeb inhalations. Continued on IV diuretics. Remains on Zosyn. Pain is well-controlled with morphine. Lovenox for DVT prophylaxis. Pepcid for GI prophylaxis. The patient is seen today October 20, 2024 in follow-up on the oncology unit. He was transferred out of the ICU yesterday. He is currently resting in bed. Awake and alert in no acute distress. His pain is currently well-managed. He is maintaining O2 saturations in the 90s on 4 L/min per nasal cannula. He has normal saline at KVO. Right sided Thora vent remains in place to Pleur-evac and waterseal. Chest x-ray this morning continues to show a right apical pneumothorax. Pleural fluid cytology still pending. Potassium 3.9. Magnesium 1.4. He remains on DuoNeb inhalations, Pulmicort inhalations. Lovenox for DVT prophylaxis. The patient is seen today October 22, 2024 in follow-up on the oncology unit. He is currently sitting up in bed. Awake and alert in no acute distress. Maintaining good O2 saturations in the 90s on 3 L/min per nasal cannula. His biopsy from [facility] was positive for small cell lung cancer with metastasis, stage IV. He is having recurrent right sided pleural effusion. His Thora vent for the pneumothorax was removed yesterday. Cardiothoracic surgery consulted for possible Pleurx catheter placement. He is continued on DuoNeb inhalations, Symbicort. Lovenox for DVT prophylaxis. Remains on IV diuretics. Currently in a -5.6 L balance. Sodium 141. Potassium 3.9. Bicarb 30. BUN 18. Creatinine 0.7. Glucose 119. Objective - Vital Signs Vital signs: Vital Signs Temp 97.8 F 10/22/24 11:30 Pulse 112 H 10/22/24 11:35 Resp 20 10/22/24 11:30 BP 107/76 10/22/24 11:30 Pulse Ox 100 10/22/24 11:30 FiO2 Intake & Output 10/21/24 10/22/24 10/22/24 18:59 06:59 18:59 Output Total 20490 875 Balance -2049 - Output: Urine 2049 3599 875 Uretheral (Grimes) 875 Other: Voiding Method Indwelling Catheter Indwelling Catheter - Exam GENERAL EXAM: Alert, very thin, weak 59-year-old male, on 3 L nasal cannula, anne marie rly comfortable in no apparent distress. HEAD: Normocephalic. EYES: Normal reaction of pupils, equal size. NOSE: Clear with pink turbinates. THROAT: No erythema or exudates. NECK: No masses, no JVD. CHEST: No chest wall deformity. Right chest Thora vent catheter removed LUNGS: Equal air entry with crackles in the bilateral bases. CVS: S1 and S2 normal with no audible murmur, regular rhythm. ABDOMEN: No hepatosplenomegaly, normal bowel sounds, no guarding or rigidity. SPINE: No scoliosis or deformity SKIN: No rashes CENTRAL NERVOUS SYSTEM: No focal deficits, tone is normal in all 4 extremities. EXTREMITIES: There is no peripheral edema. No clubbing, no cyanosis. Peripheral pulses are intact. - Labs CBC & Chem 7: 10/21/24 09:38 10/22/24 06:19 Labs: Abnormal Lab Results - Last 24 Hours (Table) 10/22/24 Range/Units 06:19 Anion Gap 13.60 H (4.00-12.00) mmol/L BUN/Creatinine Ratio 25.71 H (12.00-20.00) Ratio Glucose 119 H (70-110) mg/dL Calcium 8.1 L (8.7-10.3) mg/dL Assessment and Plan Assessment: Large right-sided pleural effusion, felt to be malignant unless proven otherwise considering the patient's history of lung cancer and metastasis. Patient is now status post thoracentesis with 2.6 L of fluid was removed from the right pleural space this was followed by Thora vent placement because of a subsequent pneumothorax. Thora vent was removed on 10/21/2024. 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 Positive pathology from bone biopsy June 2024. PET scan from September 11, 2024 revealed uptake within the right lung mass compatible with neoplasm. Extensive osseous metastasis including axial spine, left iliac wing, left scapula, multiple ribs, sternum, pelvis. Small metastatic lesions suspected within the left and right lobes of the liver. Mediastinal metastasis. Metastatic lesions in the right supra clavicular region and suspected within lymph nodes within the bilateral parotid glands. Plan was for Keytruda however the patient has had several hospitalizations and difficulty getting to appointments History of underlying COPD Type 2 diabetes Former smoker History of thoracic vertebral fracture/pathological fracture requiring surgery Failure to thrive Poor overall functional performance based on the above-mentioned multiple comorbidities Plan: The patient was seen and evaluated Chest x-ray, labs and medications reviewed Thora vent removed yesterday Continue with large right sided pleural effusion Consult to cardiothoracic surgery May require Pleurx catheter placement Continue bronchodilators Continue diuretics Lovenox for DVT prophylaxis Pepcid for GI prophylaxis Titrate the FiO2 as tolerated Assure adequate pain control Plan of care discussed with oncology Plan was possibly for Keytruda DNR CODE STATUS Patient reluctant to consider hospice Prognosis remains quite poor Will need subacute rehab at discharge This patient was seen independently by the pulmonary nurse practitioner addressing pulmonary issues I have personally seen and examined the patient, performed the documentation and the assessment and plan as written. Number of minutes spent on the visit: 25 Dictation was produced using [employer] dictation software. Please excuse any grammatical, word or spelling errors.
--- NOTE | 2024-10-22 15:17 | XR ---
EXAMINATION TYPE: XR chest 1V portable DATE OF EXAM: 10/22/2024 2:29 PM COMPARISON: Chest radiograph from one day prior. CLINICAL INDICATION: Male, 59 years old with history of Right pleural effusion; [facility] TECHNIQUE: XR chest 1V portable Frontal view of the chest. FINDINGS: Lungs/Pleura: No pneumothorax identified. Large right and small left pleural effusion. Diffuse inters titial prominence. Pulmonary vascularity: Unremarkable. Heart/mediastinum: Cardiomediastinal silhouette is unremarkable. Musculoskeletal: No acute osseous pathology. There is lower spine fixation hardware is present. Scatt ered osseous destructive lesions as seen on CT. Other findings: Right thoracotomy tube with trace pneumothorax on the right. IMPRESSION: 1. Large right pleural fusion. No pneumothorax. 2. Diffuse interstitial opacities correlate for atypical pneumonia versus pulmonary edema. 3. Small left pleural effusion. [facility], , 10/22/2024 3:15 PM
--- NOTE | 2024-10-22 17:12 | P.CONS ---
History of Present Illness - Reason for Consult Consult date: 10/22/24 rehab recommendations - Chief Complaint debility - History of Present Illness Mr Dev Phillip is a 59 y/o right handed single male who lives alone in a single story home, 4-5 atul. Patient's son stops in to help 2-3 times a week. He has a cane and a 2ww walker for ambulation. He reports he was struggling with ADLs recently. He does not drive, gets help from son or his sisters. 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 On 10/18/24 patient was transferred from [facility] due to pleural effusions with possible IR intervention. Patient had 2L removed via thoracentesis while at [facility]. Per imaging patient with large right pleural effusion and left moderate pleural effusion. He was given lasix. Patient underwent right sided thoracentesis while at [facility], 2.6 L removed on 10/18. Patient developed subsequent pneumothorax and thoraven was placed and removed on 10/21/24. Cardiothoracic sx consulted for recurrent pleural effusion and possible pleurx catheter placement. He agreed to the procedure which will be done on 10/23/24. Patient had previously has been offered ECF, hospice, or HHC. PM&R consulted for rehab recommendations. Therapy evaluations pending. 10/22: DW patient and he states he has been doing "alot of thinking" and does not feel that he could currently go home and be successful. He is agreeable to rehab and would like [facility]. He reports LBM approx 1 week, has history of constipation,took laxative today. He has a valenzuela catheter. He is currently on O2 via NC which is new for him. He takes Morphine for chronic pain. Review of Systems reviewed, and noted above in HPI Past Medical History Past Medical History: Cancer, Diabetes Mellitus, Prostate Disorder Additional Past Medical History / Comment(s): Covid 04/2022, developed PE and was on blood thinners, BPH, Dupuytren's contracture. NSCLC 06/22/24 History of Any Multi-Drug Resistant Organisms: None Reported Past Surgical History: Hernia Repair Additional Past Surgical History / Comment(s): Back surgery 06/19/24, Dupuytren's contracture release on R hand Past Anesthesia/Blood Transfusion Reactions: No Reported Reaction Past Psychological History: No Psychological Hx Reported Smoking Status: Former smoker Past Alcohol Use History: Occasional Past Drug Use History: None Reported Medications and Allergies Home Medications Medication Instructions Recorded Confirmed Type metFORMIN HCL 1,000 mg PO BID 06/15/24 10/17/24 History Sennosides-Docusate Sodium 2 tab PO DAILY PRN 06/23/24 10/17/24 History [Senokot-S] Cyclobenzaprine [Flexeril] 5 mg PO TID PRN 10/17/24 10/17/24 History Gabapentin [Neurontin] 300 mg PO TID 10/17/24 10/17/24 History Ipratropium-Albuterol Nebulize 3 ml INHALATION RT-TID 10/17/24 10/17/24 History [Duoneb 0.5 mg-3 mg/3 ml Soln] Tamsulosin [Flomax] 0.4 mg PO DAILY 10/17/24 10/17/24 History oxyCODONE-APAP 7.5-325MG [Percocet 1 tab PO Q4H PRN 10/17/24 10/17/24 History 7.5-325 mg] Allergies Allergy/AdvReac Type Severity Reaction Status Date / Time cephalexin [From Keflex] Allergy Swelling Verified 10/17/24 17:33 cortisone Allergy Swelling Verified 10/17/24 17:33 Influenza Virus Vaccines Allergy Swelling Verified 10/17/24 17:33 Physical Exam Vitals: Vital Signs Temp Pulse Pulse Resp BP Pulse Ox 10/22/24 15:15 112 H 10/22/24 15:04 116 H 10/22/24 13:17 98.4 F 118 H 18 112/79 97 10/22/24 11:35 112 H 10/22/24 11:30 97.8 F 112 H 20 107/76 100 10/22/24 11:25 112 H 10/22/24 08:15 108 H 10/22/24 07:59 112 H 10/22/24 07:28 98.7 F 110 H 16 124/84 95 10/22/24 02:00 98.6 F 102 H 16 117/82 99 10/21/24 20:00 98.6 F 110 H 16 103/71 99 Intake and Output 10/22/24 10/22/24 10/22/24 06:59 14:59 22:59 Output Total 2400 875 Balance -2400 -875 Output: Urine 2400 875 Uretheral (Valenzuela) 875 Other: Voiding Method Indwelling Catheter Weight 62 kg General: WD cachectic male, laying in bed, appears fatigued HEENT: head normocephalic, atraumatic; moist mucous membranes, [place] CV: No acute cardiac distress, monitor tech on Lungs: Even, unlabored respirations on 3L NC Abdomen: soft, NT, ND MSK: full ROM bilateral UE and LEs, generalized weakness, decreased muscle bulk MMT: B/L SABD/EF/EE/HG 4-4+/5, B/L HF/KE 4/5, DF 4+/5 Neuro: Alert, conversational MSR: Symmetric bilateral biceps, triceps, brachioradialis, patella, Achilles CN 2-12 grossly intact Sensation intact to light touch bilateral UE and LEs Psych: mood calm, affect appropriate, A&O x 4, flat affect Extremities: calves supple, non tender, no LE edema Skin: intact where exposed Results CBC & Chem 7: 10/21/24 09:38 10/22/24 06:19 Labs: Abnormal Lab Results - Last 24 Hours (Table) 10/22/24 Range/Units 06:19 Anion Gap 13.60 H (4.00-12.00) mmol/L BUN/Creatinine Ratio 25.71 H (12.00-20.00) Ratio Glucose 119 H (70-110) mg/dL Calcium 8.1 L (8.7-10.3) mg/dL Assessment and Plan Assessment: # Debility with hypoxic respiratory failure secondary to bilateral pleural effusion s/p thoracentesis with resultant pneumothorax -s/p theravent -patient is planned for pleurx drain placement on 10/23 #Metastatic lung cancer #Recent pathological fracture of T11 -metastatic related, May 2024 #History of PE #Failure to thrive -on marinol #Constipation -medications per JUL #Pain Management -Morphine IV prn, MS Contin 30 mg Q 12 hrs, Flexeril 10 mg TID prn, Tylenol orn #DVT Proph -Lovenox #Comorbidities: COPD, Diabetes Mellitus #Your medical dx and management Dispo: Patient is pending pleurx drain placement and therapy evaluations, patient likely to need IPR, he is motivated and willing to participate with rehab. He will need prior authorization from insurance. Per DW Liaison, Patient has OON coverage for [facility] IPR that pays 60% of benefit but would need to meet his deductible and out of pocket. Thank you for consulting our services. Patient seen in collaboration with Dr Barron
[2024-10-22] MEDS: droNABinol 2.5 MG CAP PO SCH (18:05)
[2024-10-22] MEDS: SYMBICORT 160-4.5 MCG INHALER INHALATION SCH (19:07)
--- NOTE | 2024-10-23 01:12 | PN ---
PROGRESS NOTE SUBJECTIVE: A 59-year-old white male pleural effusion, metastatic lung cancer, COPD. OBJECTIVE: CARDIOVASCULAR: S1-S2. LUNGS: Scattered wheeze, rhonchi. HEMATOLOGY: Negative Homans. PSYCH: Fair mood and affect. ASSESSMENT AND PLAN: Pleural effusion, metastatic lung cancer. Acute hypoxic hypoxemic respiratory failure, so biopsy tomorrow versus chest tube for increased pleural effusion. Prognosis is guarded. He wants to be full code. Also, continue to be aggressive with his treatment with physical therapy and with cancer treatment. MMODL / IJN: [id number] /
[2024-10-23] MEDS: BUDESONIDE 1 MG/2 ML NEBU INHALATION SCH (08:20)
[2024-10-23 10:10] LABS: Basophils # (A) 0.17 X 10*3/uL (0.00-0.10); Eosinophils # (A) 0.17 X 10*3/uL (0.04-0.35); HCT 30.6 % (39.6-50.0); HGB 9.5 g/dL (13.0-17.0); Lymphocytes # (A) 1.95 X 10*3/uL (0.90-5.00); Lymphocytes % (A) 10.9 %; MCH 28.9 pg (27.0-32.0); Mean Platelet Volume 9.6 FL (9.5-12.2); Monocytes # (A) 1.07 X 10*3/uL (0.20-1.00); NRBC Per 100 WBC 0 X 10*3/uL (0.00-0.01); Neutrophils # (A) 14.34 X 10*3/uL (1.80-7.70); Neutrophils % (A) 80.3 %; Platelet Count 511 X 10*3/uL (140-440); RBC 3.29 X 10*6/uL (4.40-5.60); RDW 15.6 % (11.5-14.5); WBC 17.85 X 10*3/uL (4.50-10.00)
[2024-10-23 10:38] LABS: ALT 14 U/L (10-49); AST 19 U/L (14-35); Albumin 3.1 g/dL (3.8-4.9); Albumin/Globulin Ratio 1.29 Ratio (1.60-3.17); Alkaline Phosphatase 139 U/L (41-126); BUN/Creat Ratio 21.75 Ratio (12.00-20.00); Blood Urea Nitrogen 17.4 mg/dL (9.0-27.0); Calcium 8.4 mg/dL (8.7-10.3); Carbon Dioxide 31.9 mmol/L (21.6-31.8); Chloride 95 mmol/L (96-109); Globulin 2.4 g/dL (1.6-3.3); Glucose 127 mg/dL (70-110); Potassium 3.7 mmol/L (3.5-5.5); Sodium 140 mmol/L (135-145); Total Bilirubin 0.2 mg/dL (0.3-1.2); Total Protein 5.5 g/dL (6.2-8.2)
--- NOTE | 2024-10-23 13:07 | P.PN ---
Subjective Progress Note Date: 10/23/24 This is a 59-year-old white male with history of metastatic adenocarcinoma of the lung, had skeletal metastasis, and he had previous history of pathological fracture of T11. His initial diagnosis was made back in May of 2024, patient presented initially with abnormal CT of the chest showing a 2.2 x 1.7 right lower lobe mass and enlarged subcarinal and right hilar lymphadenopathy. At the same time the patient had pathologic fracture of T11. CT of the chest also showed a 2.9 cm mass in the posterior right lower lobe and significant thoracic spine abnormalities consistent with metastatic disease to the spine. Bone scan confirmed metastatic disease to the spine and 2 other skeletal areas including the left scapula patient did not require bronchoscopy or lung biopsy. Molecular profiling from thoracic spine revealed T p53 mutation and low TMB/PDL L1 was noted to be 50 to 60%. Clearly the patient had a stage IVb lung CA with metastasis. In addition to this, the patient has had history of questionable congestive heart failure, and apparently he has recurrent right-sided pleural effusion supposedly he had a thoracentesis about less than a week ago at [facility], patient was transferred yesterday to [facility] for a very large right-sided pleural effusion with the whole run completely opacified. Apparently no one could do thoracentesis at [facility], and the patient was transferred to be seen here. I saw the patient this morning and I went ahead and drained 2.6 L out of his right pleural space, postoperative chest x-ray showed possibly a trapped lung or possibly a right- sided pneumothorax. I believe it is mostly a trapped lung than a true pneumothorax. Considering the size I went ahead and placed a Thora vent chest tube on the right side, patient's overall status is quite marginal, hence I will transfer the patient to the ICU after his thoracentesis. Fluid was sent for different diagnostic studies. The fluid was not serosanguineous, it was slightly straw-colored fluid. Patient had to be placed on 15 L high flow nasal cannula all along before and after thoracentesis and after Thora vent placement. Remains on 15 L high flow nasal cannula, feels much better after his thoracentesis. Labs were reviewed WBC is 14.5 hemoglobin 8.5 electrolytes are normal except for potassium of 3.2. Symptoms antunez the patient had chronic shortness of breath, chronic back pain. The patient is seen today October 19, 2024 in follow-up in the intensive care unit. He is currently resting in bed. Awake and alert in no acute distress. Elda ntaining good O2 saturations in the mid 90s on 2 L/min per nasal cannula. He is afebrile. Hemodynamically stable. Chest x-ray reveals right thoracotomy tube in appropriate position. There is a small pneumothorax. Diffuse interstitial opacities. Trace bilateral pleural effusions. Thora vent is to a Pleur-evac to wall suction. No leak noted. White count 15.1. Hemoglobin 8.9. Platelets 545 . Sodium 135. Potassium 3.4. Bicarb 29. BUN 22. Creatinine 0.92. He is continued on DuoNeb inhalations. Continued on IV diuretics. Remains on Zosyn. Pain is well-controlled with morphine. Lovenox for DVT prophylaxis. Pepcid for GI prophylaxis. The patient is seen today October 20, 2024 in follow-up on the oncology unit. He was transferred out of the ICU yesterday. He is currently resting in bed. Awake and alert in no acute distress. His pain is currently well-managed. He is maintaining O2 saturations in the 90s on 4 L/min per nasal cannula. He has normal saline at KVO. Right sided Thora vent remains in place to Pleur-evac and waterseal. Chest x-ray this morning continues to show a right apical pneumothorax. Pleural fluid cytology still pending. Potassium 3.9. Magnesium 1.4. He remains on DuoNeb inhalations, Pulmicort inhalations. Lovenox for DVT prophylaxis. The patient is seen today October 22, 2024 in follow-up on the oncology unit. He is currently sitting up in bed. Awake and alert in no acute distress. Maintaining good O2 saturations in the 90s on 3 L/min per nasal cannula. His biopsy from [facility] was positive for small cell lung cancer with metastasis, stage IV. He is having recurrent right sided pleural effusion. His Thora vent for the pneumothorax was removed yesterday. Cardiothoracic surgery consulted for possible Pleurx catheter placement. He is continued on DuoNeb inhalations, Symbicort. Lovenox for DVT prophylaxis. Remains on IV diuretics. Currently in a -5.6 L balance. Sodium 141. Potassium 3.9. Bicarb 30. BUN 18. Creatinine 0.7. Glucose 119. The patient is seen today October 23, 2024 in follow-up on the oncology unit. He is awake and alert in no acute distress. Sitting up at the bedside. He is maintaining good O2 saturations in the mid 90s on 3 L/min per nasal cannula. White count 17.8. Hemoglobin 9.5. Platelets 511. Sodium 140. Potassium 3.7. Bicarb 32. BUN 17. Creatinine 0.8. Glucose 127. He is continued on DuoNeb inhalations, Symbicort. Lovenox for DVT prophylaxis. Continued on IV diu retics. Plan is for Pleurx catheter placement today. Objective - Vital Signs Vital signs: Vital Signs Temp 98.3 F 10/23/24 07:47 Pulse 113 H 10/23/24 12:09 Resp 18 10/23/24 07:47 BP 129/83 10/23/24 07:47 Pulse Ox 95 10/23/24 08:24 FiO2 Intake & Output 10/22/24 10/23/24 10/23/24 18:59 06:59 18:59 Intake Total 1020 Output Total 1225 1400 400 Balance -205 -1400 -400 Weight 62 kg Intake: Oral 1020 Output: Urine 1225 1400 400 Uretheral (Grimes) 1225 Other: Voiding Method Indwelling Catheter Indwelling Catheter Indwelling Catheter - Exam GENERAL EXAM: Alert, thin, cachectic 59-year-old male, on 3 L nasal cannula, fairly comfortable in no apparent distress. HEAD: Normocephalic. EYES: Normal reaction of pupils, equal size. NOSE: Clear with pink turbinates. THROAT: No erythema or exudates. NECK: No masses, no JVD. CHEST: No chest wall deformity. LUNGS: Equal air entry with crackles in the bilateral bases. CVS: S1 and S2 normal with no audible murmur, regular rhythm. ABDOMEN: No hepatosplenomegaly, normal bowel sounds, no guarding or rigidity. SPINE: No scoliosis or deformity SKIN: No rashes CENTRAL NERVOUS SYSTEM: No focal deficits, tone is normal in all 4 extremities. EXTREMITIES: There is no peripheral edema. No clubbing, no cyanosis. Peripheral pulses are intact. - Labs CBC & Chem 7: 10/23/24 06:33 10/23/24 06:33 Labs: Abnormal Lab Results - Last 24 Hours (Table) 10/23/24 10/23/24 Range/Units 06:33 06:33 WBC 17.85 H (4.50-10.00) X 10*3/uL RBC 3.29 L (4.40-5.60) X 10*6/uL Hgb 9.5 L (13.0-17.0) g/dL Hct 30.6 L (39.6-50.0) % MCHC 31.0 L (32.0-37.0) g/dL RDW 15.6 H (11.5-14.5) % Plt Count 511 H (140-440) X 10*3/uL Immature Gran # 0.15 H (0.00-0.04) X 10*3/uL Neutrophils # 14.34 H (1.80-7.70) X 10*3/uL Monocytes # 1.07 H (0.20-1.00) X 10*3/uL Basophils # 0.17 H (0.00-0.10) X 10*3/uL Chloride 95 L (96-109) mmol/L Carbon Dioxide 31.9 H (21.6-31.8) mmol/L Anion Gap 13.10 H (4.00-12.00) mmol/L BUN/Creatinine Ratio 21.75 H (12.00-20.00) Ratio Glucose 127 H (70-110) mg/dL Calcium 8.4 L (8.7-10.3) mg/dL Total Bilirubin 0.2 L (0.3-1.2) mg/dL Alkaline Phosphatase 139 H (41-126) U/L Total Protein 5.5 L (6.2-8.2) g/dL Albumin 3.1 L (3.8-4.9) g/dL Albumin/Globulin Ratio 1.29 L (1.60-3.17) Ratio Assessment and Plan Assessment: Large right-sided pleural effusion, felt to be malignant unless proven otherwise considering the patient's history of lung cancer and metastasis. Patient is now status post thoracentesis with 2.6 L of fluid was removed from the right pleural space this was followed by Thora vent placement because of a subsequent pneumothorax. Thora vent was removed on 10/21/2024. Chest x-ray continues to show increasing right sided pleural effusion. 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 Positive pathology from bone biopsy June 2024. PET scan from September 11, 2024 revealed uptake within the right lung mass compatible with neoplasm. Extensive osseous metastasis including axial spine, left iliac wing, left scapula, multiple ribs, sternum, pelvis. Small metastatic lesions suspected within the left and right lobes of the liver. Mediastinal metastasis. Metastatic lesions in the right supra clavicular region and suspected within lymph nodes within the bilateral parotid glands. Plan was for Keytruda however the patient has had several hospitaliza tions and difficulty getting to appointments History of underlying COPD Type 2 diabetes Former smoker History of thoracic vertebral fracture/pathological fracture requiring surgery Failure to thrive Poor overall functional performance based on the above-mentioned multiple comorbidities Plan: The patient was seen and evaluated Labs and medications reviewed Continues with large right sided pleural effusion Plan is for Pleurx catheter placement today Continue DuoNeb inhalations Continue Symbicort Continue diuretics Lovenox for DVT prophylaxis Pepcid for GI prophylaxis Titrate the FiO2 as tolerated Assure adequate pain control DNR CODE STATUS Patient reluctant to consider hospice Prognosis remains quite poor Will need subacute rehab at discharge This patient was seen independently by the pulmonary nurse practitioner addressing pulmonary issues I have personally seen and examined the patient, performed the documentation and the assessment and plan as written. Number of minutes spent on the visit: 24 Dictation was produced using [employer] dictation software. Please excuse any gra mmatical, word or spelling errors.
[2024-10-23] MEDS: IV FLUID CONTINUATION 1,000 ML IV ONE (13:16)
[2024-10-23 13:22] LABS: Glucose,Whole Blood 123 mg/dL (70-110)
[2024-10-23] MEDS: LACTATED RINGERS 1,000 ML IV SCH (13:24)
[2024-10-23] MEDS: ONDANSETRON 4 MG/2 ML VIAL IVP STA (13:41)
[2024-10-23] MEDS ORDERED: PROPOFOL 10 MG/ML 20 ML VIAL IV ONE (14:32)
[2024-10-23] MEDS ORDERED: KETAMINE HCL IN 0.9 % NACL 50 MG/5 ML SYRINGE ONE (14:32)
[2024-10-23] MEDS ORDERED: fentaNYL (PF) 50 MCG/ML 2 ML AMP ONE (14:32)
[2024-10-23] MEDS ORDERED: MIDAZOLAM 2 MG/2 ML VIAL ONE (14:32)
[2024-10-23] MEDS: LIDOCAINE 1%-EPI 1:100,000 20 ML VIAL SQ ONE ×2 (14:34→14:37)
[2024-10-23] MEDS: SODIUM CHLORIDE 0.9% 50 ML with ceFAZolin 1,000 MG IV ONE (14:50)
--- NOTE | 2024-10-23 15:35 | FL ---
Fluoroscopy History: PleurX Catheter Placement 8.6 seconds of fluoroscopic time and 1 films are submited for PleurX Catheter Placement . [facility], , 10/23/2024 3:32 PM
--- NOTE | 2024-10-23 16:17 | P.OP ---
Date of Procedure: 10/23/24 Preoperative Diagnosis: Recurrent malignant right pleural effusion Postoperative Diagnosis: Same Procedure(s) Performed: Right Pleurx catheter placement Implants: Right Pleurx catheter Anesthesia: MAC Surgeon: Erick Daigle Estimated Blood Loss (ml): 5 Pathology: none sent Condition: stable Disposition: PACU Indications for Procedure: Patient has a known malignant right pleural effusion and has been drained before but has recurred and is short of breath. He is referred for Pleurx catheter placement. Operative Findings: Dependent placement into the inferior posterior right chest. Description of Procedure: After consent was obtained, the patient was brought to the operating room where he was positioned in supine position with a bump under the right chest. Conscious sedation was induced and he was marked and then prepped and draped in sterile fashion. We then used 1% lidocaine with epinephrine x 20 cc to anesthetize the exit site, the insertion site in the tunnel for the procedure. We then used an 11 blade knife included in the kit to make a small incision in the skin approximately 5 mm just above the eighth rib. I then used the anesthesia needle to withdraw what appeared to be fairly bloody fluid. We then went through the seventh interspace with the needle and passed the wire. The wire appeared to have some resistance and we looked on fluoroscopy. We used live fluoroscopy to determine that the wire would not go towards the apex and suspected that we were subdiaphragmatic. I then withdrew the wire and the needle and through the same skin incision moved up 1 rib space to the sixth intercostal space posteriorly. We then accessed more serous fluid then before and proceeded to insert the wire which went toward the apex. We were then able to insert the peel-away sheath and with some difficulty we threaded the Pleurx catheter into the chest cavity given that we had a significant subcutaneous tunnel prior to the sixth interspace. We were able to feed the catheter in and we checked it on fluoroscopy. The catheter tip did not go to the apex but stayed posterior and went to the inferior sulcus. We then tested the drainage and it was clearly draining mostly serous fluid. We were able to attach the Pleurx catheter to suction while we secured the cuff immediately below the skin level with the included 3-0 silk suture. We then closed the skin over the top of the insertion site with a 40. Interrupted Monocryl. He was dressed with skin glue at the insertion site and we used the included dressing for the catheter after draining 750 cc which we stopped because the patient was complaining of discomfort. He was then allowed to awaken and taken to PACU in good condition.
--- NOTE | 2024-10-23 16:24 | XR ---
EXAMINATION TYPE: XR chest 1V portable DATE OF EXAM: 10/23/2024 4:16 PM COMPARISON: None. CLINICAL INDICATION: Male, 59 years old with history of Post Pleurx catheter placement, TECHNIQUE: XR chest 1V portable views of the chest are obtained. FINDINGS: Post Pleurx catheter placement right lower lobe. There is right-sided pneumothorax seen with apical p leural distance of 1.4 cm. There appears to be a rib resection of posterior right rib #2. Consolidati on remaining right lung. The left lung is hyperexpanded. Mild left to right shift. There is no evidence for focal infiltrate. The heart is stable. Hilar and mediastinal structures are within normal limits. Degenerative changes are seen of the dorsal spine. IMPRESSION: 1. Postoperative changes as discussed [facility], , 10/23/2024 4:22 PM
--- NOTE | 2024-10-24 07:48 | XR ---
EXAMINATION TYPE: XR chest 1V portable DATE OF EXAM: 10/24/2024 COMPARISON: 10/23/2024 CLINICAL INDICATION: Male, 59 years old with history of Post Pleurx catheter placement; TECHNIQUE: Single frontal view of the chest is obtained. FINDINGS: There is no change in the right-sided Pleurx catheter in the right lung base. There is no change in t he right pneumothorax. There is increasing, consolidation of the right lung consistent with atelectas is and volume loss on the right. There is no change in the small retrocardiac opacity and small left pleural effusion. Pulmonary vasculature does not appear congested within the left lung. There is postsurgical change of spinal fusion in the lower thoracic and upper lumbar spine. There are no focal osseous lesions. IMPRESSION: 1. No change in the position of the right lung base pleuritis catheter. 2. No change in the right pneumothorax. 3. Interval increase in the collapse of the right lung with volume loss on the right. 4. No change in the small retrocardiac opacity and small left pleural effusion. [facility], , 10/24/2024 7:45 AM
--- NOTE | 2024-10-24 08:45 | P.PN ---
Subjective Progress Note Date: 10/24/24 Principal diagnosis: Recurrent right-sided pleural effusion, need for Pleurx catheter. Past medical history significant for stage IVb metastatic adenocarcinoma of the lung with sk eletal metastasis and pathological fracture of T11 with diagnosis and May 2024, previous tobacco dependence, diabetes, pulmonary embolism with previous anticoagulation although not currently on any anticoagulation, BPH, COVID in 2021. POD #1 right Pleurx catheter placement The patient was seen and examined in follow-up today October 24, 2024 on the fifth floor medical oncology unit. He is currently laying in bed, is awake, and alert. He denies any complaints of shortness of breath at this time, although is complaining of some pain 10 out of 10 to his right chest. His Pleurx catheter was drained this morning for 250 mL of thin serosanguineous drainage. Oxygen saturations are 98% on 3 L nasal cannula. Chest x-ray results reviewed. Pleurx catheter teaching has been completed with the patient. Objective - Vital Signs Vital signs: Vital Signs Temp 98.2 F 10/24/24 08:00 Pulse 105 H 10/24/24 08:00 Resp 15 10/24/24 08:00 BP 120/74 10/24/24 08:00 Pulse Ox 99 10/24/24 08:00 FiO2 Intake & Output 10/23/24 10/24/24 10/24/24 18:59 06:59 18:59 Intake Total 950 590 Output Total 1801 350 Balance -851 240 Intake: IV 950 Oral 0 590 Output: Urine 1050 350 Uretheral (Grimes) 650 Pleural Fluid 750 Estimated Blood Loss 1 Other: Voiding Method Indwelling Catheter Indwelling Catheter - Exam CONSTITUTIONAL: Appears comfortable, cooperative, no acute distress RESPIRATORY: Lungs sounds diminished bilaterally. Respirations even, nonlabored. Currently on 3 L nasal cannula with oxygen saturation 98%. Strong cough. CARDIOVASCULAR: S1, S2 present. Regular rate and rhythm, sinus rhythm on telemetry. Palpable peripheral pulses bilaterally. No edema present. No calf pain or tenderness noted. SCDs present. GASTROINTESTINAL: Abdomen soft, nontender, nondistended. Active bowel sounds present 4 quadrants. Tolerating diet. INTEGUMENTARY: Skin is warm and dry with evidence of good perfusion. Pleurx catheter dressing is clean, dry and intact. NEUROLOGIC: No focal deficits. MUSKULOSKELETAL: Able to move all extremities, strength equal bilaterally, generalized weakness. PSYCHIATRIC: Alert and oriented to person place and time, appropriate affect, intact judgment and insight. INVASIVE LINES AND TUBES: Right chest Pleurx catheter in place, catheter drained for 250 mL of thin serosanguineous drainage. - Labs CBC & Chem 7: 10/23/24 06:33 10/23/24 06:33 Labs: Abnormal Lab Results - Last 24 Hours (Table) 10/23/24 10/23/24 10/23/24 Range/Units 06:33 06:33 13:20 WBC 17.85 H (4.50-10.00) X 10*3/uL RBC 3.29 L (4.40-5.60) X 10*6/uL Hgb 9.5 L (13.0-17.0) g/dL Hct 30.6 L (39.6-50.0) % MCHC 31.0 L (32.0-37.0) g/dL RDW 15.6 H (11.5-14.5) % Plt Count 511 H (140-440) X 10*3/uL Immature Gran # 0.15 H (0.00-0.04) X 10*3/uL Neutrophils # 14.34 H (1.80-7.70) X 10*3/uL Monocytes # 1.07 H (0.20-1.00) X 10*3/uL Basophils # 0.17 H (0.00-0.10) X 10*3/uL Chloride 95 L (96-109) mmol/L Carbon Dioxide 31.9 H (21.6-31.8) mmol/L Anion Gap 13.10 H (4.00-12.00) mmol/L BUN/Creatinine Ratio 21.75 H (12.00-20.00) Ratio Glucose 127 H (70-110) mg/dL POC Glucose (mg/dL) 123 H (70-110) mg/dL Calcium 8.4 L (8.7-10.3) mg/dL Total Bilirubin 0.2 L (0.3-1.2) mg/dL Alkaline Phosphatase 139 H (41-126) U/L Total Protein 5.5 L (6.2-8.2) g/dL Albumin 3.1 L (3.8-4.9) g/dL Albumin/Globulin Ratio 1.29 L (1.60-3.17) Ratio - Imaging and Cardiology Chest x-ray: report reviewed, image reviewed Assessment and Plan Assessment: Large right-sided recurrent pleural effusion, status post thoracentesis October 12 and October 18, 2024, status post right Pleurx catheter placement Generalized weakness, frequent falls Pain History of stage IVb metastatic adenocarcinoma of the lung with skeletal metastasis and pathological fracture of T11 with diagnosis and May 2024 Previous tobacco dependence COPD Diabetes Pulmonary embolism with previous anticoagulation although not currently on any a nticoagulation BPH COVID in 2021 Plan: Pleurx catheter teaching completed with patient. We will continue to follow the patient on an as needed basis. Please reconsult for any further questions regarding the Pleurx catheter. Time with Patient: Greater than 30
--- NOTE | 2024-10-24 10:41 | P.PN ---
Subjective Progress Note Date: 10/24/24 This is a 59-year-old white male with history of metastatic adenocarcinoma of the lung, had skeletal metastasis, and he had previous history of pathological fracture of T11. His initial diagnosis was made back in May of 2024, patient presented initially with abnormal CT of the chest showing a 2.2 x 1.7 right lower lobe mass and enlarged subcarinal and right hilar lymphadenopathy. At the same time the patient had pathologic fracture of T11. CT of the chest also showed a 2.9 cm mass in the posterior right lower lobe and significant thoracic spine abnormalities consistent with metastatic disease to the spine. Bone scan confirmed metastatic disease to the spine and 2 other skeletal areas including the left scapula patient did not require bronchoscopy or lung biopsy. Molecular profiling from thoracic spine revealed T p53 mutation and low TMB/PDL L1 was noted to be 50 to 60%. Clearly the patient had a stage IVb lung CA with metastasis. In addition to this, the patient has had history of questionable congestive heart failure, and apparently he has recurrent right-sided pleural effusion supposedly he had a thoracentesis about less than a week ago at [facility], patient was transferred yesterday to [facility] for a very large right-sided pleural effusion with the whole run completely opacified. Apparently no one could do thoracentesis at [facility], and the patient was transferred to be seen here. I saw the patient this morning and I went ahead and drained 2.6 L out of his right pleural space, postoperative chest x-ray showed possibly a trapped lung or possibly a right- sided pneumothorax. I believe it is mostly a trapped lung than a true pneumothorax. Considering the size I went ahead and placed a Thora vent chest tube on the right side, patient's overall status is quite marginal, hence I will transfer the patient to the ICU after his thoracentesis. Fluid was sent for different diagnostic studies. The fluid was not serosanguineous, it was slightly straw-colored fluid. Patient had to be placed on 15 L high flow nasal cannula all along before and after thoracentesis and after Thora vent placement. Remains on 15 L high flow nasal cannula, feels much better after his thoracentesis. Labs were reviewed WBC is 14.5 hemoglobin 8.5 electrolytes are normal except for potassium of 3.2. Symptoms antunez the patient had chronic shortness of breath, chronic back pain. The patient is seen today October 19, 2024 in follow-up in the intensive care unit. He is currently resting in bed. Awake and alert in no acute distress. Elda ntaining good O2 saturations in the mid 90s on 2 L/min per nasal cannula. He is afebrile. Hemodynamically stable. Chest x-ray reveals right thoracotomy tube in appropriate position. There is a small pneumothorax. Diffuse interstitial opacities. Trace bilateral pleural effusions. Thora vent is to a Pleur-evac to wall suction. No leak noted. White count 15.1. Hemoglobin 8.9. Platelets 545 . Sodium 135. Potassium 3.4. Bicarb 29. BUN 22. Creatinine 0.92. He is continued on DuoNeb inhalations. Continued on IV diuretics. Remains on Zosyn. Pain is well-controlled with morphine. Lovenox for DVT prophylaxis. Pepcid for GI prophylaxis. The patient is seen today October 20, 2024 in follow-up on the oncology unit. He was transferred out of the ICU yesterday. He is currently resting in bed. Awake and alert in no acute distress. His pain is currently well-managed. He is maintaining O2 saturations in the 90s on 4 L/min per nasal cannula. He has normal saline at KVO. Right sided Thora vent remains in place to Pleur-evac and waterseal. Chest x-ray this morning continues to show a right apical pneumothorax. Pleural fluid cytology still pending. Potassium 3.9. Magnesium 1.4. He remains on DuoNeb inhalations, Pulmicort inhalations. Lovenox for DVT prophylaxis. The patient is seen today October 22, 2024 in follow-up on the oncology unit. He is currently sitting up in bed. Awake and alert in no acute distress. Maintaining good O2 saturations in the 90s on 3 L/min per nasal cannula. His biopsy from [facility] was positive for small cell lung cancer with metastasis, stage IV. He is having recurrent right sided pleural effusion. His Thora vent for the pneumothorax was removed yesterday. Cardiothoracic surgery consulted for possible Pleurx catheter placement. He is continued on DuoNeb inhalations, Symbicort. Lovenox for DVT prophylaxis. Remains on IV diuretics. Currently in a -5.6 L balance. Sodium 141. Potassium 3.9. Bicarb 30. BUN 18. Creatinine 0.7. Glucose 119. The patient is seen today October 23, 2024 in follow-up on the oncology unit. He is awake and alert in no acute distress. Sitting up at the bedside. He is maintaining good O2 saturations in the mid 90s on 3 L/min per nasal cannula. White count 17.8. Hemoglobin 9.5. Platelets 511. Sodium 140. Potassium 3.7. Bicarb 32. BUN 17. Creatinine 0.8. Glucose 127. He is continued on DuoNeb inhalations, Symbicort. Lovenox for DVT prophylaxis. Continued on IV diu retics. Plan is for Pleurx catheter placement today. The patient is seen today October 24, 2024 in follow-up on the oncology unit. He is currently sitting up in bed. Awake and alert in no acute distress. He denies any worsening shortness of breath, cough or congestion. He is maintaining O2 saturations up to 99% on 3 L/min per nasal cannula. Has been afebrile. Hemodynamically stable. Still having quite a bit of discomfort in his shoulders. He did undergo Pleurx catheter placement yesterday to the right chest with 750 mL removed. Another 250 mL were removed today. Chest x-ray continues to show increase in the collapse of the right lung with volume loss on the right. No evidence of pneumothorax. No new labs today. He remains on DuoNeb inhalations, Symbicort. Lactated Ringer's at 20 mL/h. Remains on IV diuretics. Lovenox for DVT prophylaxis. Currently in a -600 mL balance. Objective - Vital Signs Vital signs: Vital Signs Temp 98.2 F 10/24/24 08:00 Pulse 105 H 10/24/24 08:46 Resp 15 10/24/24 08:00 BP 120/74 10/24/24 08:00 Pulse Ox 98 10/24/24 08:34 FiO2 Intake & Output 10/23/24 10/24/24 10/24/24 18:59 06:59 18:59 Intake Total 950 590 Output Total 1801 350 Balance -851 240 Intake: IV 950 Oral 0 590 Output: Urine 1050 350 Uretheral (Grimes) 650 Pleural Fluid 750 Estimated Blood Loss 1 Other: Voiding Method Indwelling Catheter Indwelling Catheter - Exam GENERAL EXAM: Alert, cachectic 59-year-old male, on 3 L nasal cannula, fairly comfortable in no apparent distress. HEAD: Normocephalic. EYES: Normal reaction of pupils, equal size. NOSE: Clear with pink turbinates. THROAT: No erythema or exudates. NECK: No masses, no JVD. CHEST: No chest wall deformity. LUNGS: Equal air entry with crackles in the bilateral bases. CVS: S1 and S2 normal with no audible murmur, regular rhythm. ABDOMEN: No hepatosplenomegaly, normal bowel sounds, no guarding or rigidity. SPINE: No scoliosis or deformity SKIN: No rashes CENTRAL NERVOUS SYSTEM: No focal deficits, tone is normal in all 4 extremities. EXTREMITIES: There is no peripheral edema. No clubbing, no cyanosis. Perip heral pulses are intact. - Labs CBC & Chem 7: 10/23/24 06:33 10/23/24 06:33 Labs: Abnormal Lab Results - Last 24 Hours (Table) 10/23/24 10/23/24 Range/Units 06:33 13:20 Chloride 95 L (96-109) mmol/L Carbon Dioxide 31.9 H (21.6-31.8) mmol/L Anion Gap 13.10 H (4.00-12.00) mmol/L BUN/Creatinine Ratio 21.75 H (12.00-20.00) Ratio Glucose 127 H (70-110) mg/dL POC Glucose (mg/dL) 123 H (70-110) mg/dL Calcium 8.4 L (8.7-10.3) mg/dL Total Bilirubin 0.2 L (0.3-1.2) mg/dL Alkaline Phosphatase 139 H (41-126) U/L Total Protein 5.5 L (6.2-8.2) g/dL Albumin 3.1 L (3.8-4.9) g/dL Albumin/Globulin Ratio 1.29 L (1.60-3.17) Ratio Assessment and Plan Assessment: Large right-sided pleural effusion, felt to be malignant unless proven otherwise considering the patient's history of lung cancer and metastasis. Patient is now status post thoracentesis with 2.6 L of fluid was removed from the right pleural space this was followed by Thora vent placement because of a subsequent pneumothorax. Thora vent was removed on 10/21/2024. Chest x-ray continues to show increasing right sided pleural effusion. Pleurx catheter placed October 23, 2024. 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 Positive pathology from bone biopsy June 2024. PET scan from September 11, 2024 revealed uptake within the right lung mass compatible with neoplasm. Extensive osseous metastasis including axial spine, left iliac wing, left scapula, multiple ribs, sternum, pelvis. Small metastatic lesions suspected within the left and right lobes of the liver. Mediastinal metastasis. Metastatic lesions in the right supra clavicular region and suspected within lymph nodes within the bilateral parotid glands. Plan was for Keytruda however the patient has had several hospitalizations and difficulty getting to appointments History of underlying COPD Type 2 diabetes Former smoker History of thoracic vertebral fracture/pathological fracture requiring surgery Failure to thrive Poor overall functional performance based on the above-mentioned multiple comorbidities Plan: The patient was seen and evaluated Chest x-ray, labs and medications reviewed Pleurx catheter placed yesterday 750 mL of fluid was drained Another 250 mL drained today Continue DuoNeb inhalations Continue Symbicort Discontinue diuretics Lovenox for DVT prophylaxis Pepcid for GI prophylaxis Titrate the FiO2 as tolerated Assure adequate pain control DNR CODE STATUS Patient reluctant to consider hospice Prognosis remains quite poor Will need subacute rehab at discharge This patient was seen independently by the pulmonary nurse practitioner addressing pulmonary issues I have personally seen and examined the patient, performed the documentation and the assessment and plan as written. Number of minutes spent on the visit: 25 Dictation was produced using [employer] dictation software. Please excuse any grammatical, word or spelling errors.
--- NOTE | 2024-10-24 20:54 | PN ---
PROGRESS NOTE SUBJECTIVE: A 59-year-old white male COPD, current pleural effusion. Thoracostomy tube was placed, was placed, but now he is not sure if it is still in or not. He has a little bit of fluid taken out of his lungs. OBJECTIVE: CARDIOVASCULAR: S1-S2. LUNGS: Scattered rhonchi and wheeze. HEMATOLOGY: Negative Homans. GI: Soft. ASSESSMENT AND PLAN: Metastatic lung cancer, pleural effusion, [id number] pleural effusion. Prognosis guarded. Continue oxygen is 3 L at 98. Prognosis guarded. Outpatient radiation, chemo for rehab. MMODL / IJN: [id number] /
--- NOTE | 2024-10-25 11:07 | P.PN ---
Subjective Progress Note Date: 10/25/24 This is a 59-year-old white male with history of metastatic adenocarcinoma of the lung, had skeletal metastasis, and he had previous history of pathological fracture of T11. His initial diagnosis was made back in May of 2024, patient presented initially with abnormal CT of the chest showing a 2.2 x 1.7 right lower lobe mass and enlarged subcarinal and right hilar lymphadenopathy. At the same time the patient had pathologic fracture of T11. CT of the chest also showed a 2.9 cm mass in the posterior right lower lobe and significant thoracic spine abnormalities consistent with metastatic disease to the spine. Bone scan confirmed metastatic disease to the spine and 2 other skeletal areas including the left scapula patient did not require bronchoscopy or lung biopsy. Molecular profiling from thoracic spine revealed T p53 mutation and low TMB/PDL L1 was noted to be 50 to 60%. Clearly the patient had a stage IVb lung CA with metastasis. In addition to this, the patient has had history of questionable congestive heart failure, and apparently he has recurrent right-sided pleural effusion supposedly he had a thoracentesis about less than a week ago at [facility], patient was transferred yesterday to [facility] for a very large right-sided pleural effusion with the whole run completely opacified. Apparently no one could do thoracentesis at [facility], and the patient was transferred to be seen here. I saw the patient this morning and I went ahead and drained 2.6 L out of his right pleural space, postoperative chest x-ray showed possibly a trapped lung or possibly a right- sided pneumothorax. I believe it is mostly a trapped lung than a true pneumothorax. Considering the size I went ahead and placed a Thora vent chest tube on the right side, patient's overall status is quite marginal, hence I will transfer the patient to the ICU after his thoracentesis. Fluid was sent for different diagnostic studies. The fluid was not serosanguineous, it was slightly straw-colored fluid. Patient had to be placed on 15 L high flow nasal cannula all along before and after thoracentesis and after Thora vent placement. Remains on 15 L high flow nasal cannula, feels much better after his thoracentesis. Labs were reviewed WBC is 14.5 hemoglobin 8.5 electrolytes are normal except for potassium of 3.2. Symptoms antunez the patient had chronic shortness of breath, chronic back pain. The patient is seen today October 19, 2024 in follow-up in the intensive care unit. He is currently resting in bed. Awake and alert in no acute distress. Elda ntaining good O2 saturations in the mid 90s on 2 L/min per nasal cannula. He is afebrile. Hemodynamically stable. Chest x-ray reveals right thoracotomy tube in appropriate position. There is a small pneumothorax. Diffuse interstitial opacities. Trace bilateral pleural effusions. Thora vent is to a Pleur-evac to wall suction. No leak noted. White count 15.1. Hemoglobin 8.9. Platelets 545 . Sodium 135. Potassium 3.4. Bicarb 29. BUN 22. Creatinine 0.92. He is continued on DuoNeb inhalations. Continued on IV diuretics. Remains on Zosyn. Pain is well-controlled with morphine. Lovenox for DVT prophylaxis. Pepcid for GI prophylaxis. The patient is seen today October 20, 2024 in follow-up on the oncology unit. He was transferred out of the ICU yesterday. He is currently resting in bed. Awake and alert in no acute distress. His pain is currently well-managed. He is maintaining O2 saturations in the 90s on 4 L/min per nasal cannula. He has normal saline at KVO. Right sided Thora vent remains in place to Pleur-evac and waterseal. Chest x-ray this morning continues to show a right apical pneumothorax. Pleural fluid cytology still pending. Potassium 3.9. Magnesium 1.4. He remains on DuoNeb inhalations, Pulmicort inhalations. Lovenox for DVT prophylaxis. The patient is seen today October 22, 2024 in follow-up on the oncology unit. He is currently sitting up in bed. Awake and alert in no acute distress. Maintaining good O2 saturations in the 90s on 3 L/min per nasal cannula. His biopsy from [facility] was positive for small cell lung cancer with metastasis, stage IV. He is having recurrent right sided pleural effusion. His Thora vent for the pneumothorax was removed yesterday. Cardiothoracic surgery consulted for possible Pleurx catheter placement. He is continued on DuoNeb inhalations, Symbicort. Lovenox for DVT prophylaxis. Remains on IV diuretics. Currently in a -5.6 L balance. Sodium 141. Potassium 3.9. Bicarb 30. BUN 18. Creatinine 0.7. Glucose 119. The patient is seen today October 23, 2024 in follow-up on the oncology unit. He is awake and alert in no acute distress. Sitting up at the bedside. He is maintaining good O2 saturations in the mid 90s on 3 L/min per nasal cannula. White count 17.8. Hemoglobin 9.5. Platelets 511. Sodium 140. Potassium 3.7. Bicarb 32. BUN 17. Creatinine 0.8. Glucose 127. He is continued on DuoNeb inhalations, Symbicort. Lovenox for DVT prophylaxis. Continued on IV diu retics. Plan is for Pleurx catheter placement today. The patient is seen today October 24, 2024 in follow-up on the oncology unit. He is currently sitting up in bed. Awake and alert in no acute distress. He denies any worsening shortness of breath, cough or congestion. He is maintaining O2 saturations up to 99% on 3 L/min per nasal cannula. Has been afebrile. Hemodynamically stable. Still having quite a bit of discomfort in his shoulders. He did undergo Pleurx catheter placement yesterday to the right chest with 750 mL removed. Another 250 mL were removed today. Chest x-ray continues to show increase in the collapse of the right lung with volume loss on the right. No evidence of pneumothorax. No new labs today. He remains on DuoNeb inhalations, Symbicort. Lactated Ringer's at 20 mL/h. Remains on IV diuretics. Lovenox for DVT prophylaxis. Currently in a -600 mL balance. The patient is seen today October 25, 2024 in follow-up on the oncology unit. He is currently awake and alert in no acute distress. Resting fairly comfortably in bed. His pain is well-managed currently. He denies any worsening shortness of breath, cough or congestion. Maintaining good O2 saturations up to 100% on 3 L/min per nasal cannula. He has been afebrile. Hemodynamically stable. Right sided Pleurx catheter remains in place. No new labs today. He is continued on DuoNeb inhalations, Symbicort. Remains on Lovenox for DVT prophylaxis. Pepcid for GI prophylaxis. Morphine for pain control. Marinol for appetite. Objective - Vital Signs Vital signs: Vital Signs Temp 98.1 F 10/25/24 08:00 Pulse 106 H 10/25/24 08:09 Resp 15 10/25/24 08:00 BP 118/77 10/25/24 08:00 Pulse Ox 98 10/25/24 08:00 FiO2 Intake & Output 10/24/24 10/25/24 10/25/24 18:59 06:59 18:59 Intake Total 820 590 Output Total 250 350 Balance 570 240 Intake: Oral 820 590 Output: Chest Tube Drainage 250 Pleural Catheter Right 250 Urine 350 Other: Voiding Method Indwelling Catheter Indwelling Catheter Indwelling Catheter - Exam GENERAL EXAM: Alert, cachectic 59-year-old male, sitting up in bed, on 3 L nasal cannula, comfortable in no apparent distress. HEAD: Normocephalic. EYES: Normal reaction of pupils, equal size. NOSE: Clear with pink turbinates. THROAT: No erythema or exudates. NECK: No masses, no JVD. CHEST: No chest wall deformity. Right sided Pleurx catheter in place. LUNGS: Equal air entry with crackles in the bilateral bases. CVS: S1 and S2 normal with no audible murmur, regular rhythm. ABDOMEN: No hepatosplenomegaly, normal bowel sounds, no guarding or rigidity. SPINE: No scoliosis or deformity SKIN: No rashes CENTRAL NERVOUS SYSTEM: No focal deficits, tone is normal in all 4 extremities. EXTREMITIES: There is no peripheral edema. No clubbing, no cyanosis. Peripheral pulses are intact. - Labs CBC & Chem 7: 10/23/24 06:33 10/23/24 06:33 Assessment and Plan Assessment: Large right-sided pleural effusion, felt to be malignant unless proven otherwise considering the patient's history of lung cancer and metastasis. Patient is now status post thoracentesis with 2.6 L of fluid was removed from the right pleural space this was followed by Thora vent placement because of a subsequent pneumothorax. Thora vent was removed on 10/21/2024. Chest x-ray continues to show increasing right sided pleural effusion. Pleurx catheter placed October 23, 2024. 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 Positive pathology from bone biopsy June 2024. PET scan from September 11, 2024 revealed uptake within the right lung mass compatible with neoplasm. Extensive osseous metastasis including axial spine, left iliac wing, left scapula, multiple ribs, sternum, pelvis. Small metastatic lesions suspected within the left and right lobes of the liver. Mediastinal metastasis. Metastatic lesions in the right supra cl avicular region and suspected within lymph nodes within the bilateral parotid glands. Plan was for Keytruda however the patient has had several hospitalizations and difficulty getting to appointments History of underlying COPD Type 2 diabetes Former smoker History of thoracic vertebral fracture/pathological fracture requiring surgery Failure to thrive Poor overall functional performance based on the above-mentioned multiple comorbidities Plan: The patient was seen and evaluated Medications reviewed Pleurx catheter placed 10/23/2024 750 mL of fluid was drained Another 250 mL drained yesterday Continue DuoNeb inhalations Continue Symbicort Lovenox for DVT prophylaxis Pepcid for GI prophylaxis Titrate down the FiO2 as tolerated Assure adequate pain control DNR CODE STATUS Patient reluctant to consider hospice Prognosis remains quite poor Increase his activity as tolerated Will need subacute rehab at discharge This patient was seen independently by the pulmonary nurse practitioner addressing pulmonary issues I have personally seen and examined the patient, performed the documentation and the assessment and plan as written. Number of minutes spent on the visit: 24 Dictation was produced using [employer] dictation software. Please excuse any grammatical, word or spelling errors.
--- NOTE | 2024-10-26 20:23 | P.PN ---
Subjective Progress Note Date: 10/26/24 On 10/26/2024, the patient is being seen for a follow-up. The patient remains on 3 Suboxone by nasal cannula with a pulse ox of 97%. No new labs are available from today. The pleural fluid cytology from 10/19/2024 was hypocellular specimen with rare mesothelial cells and no evidence of any malignant cells identified. Most recent chest x-ray from 10/24/2024 shows a Pleurx catheter on the right. The right lung is atelectatic and there is a small left-sided pleural effusion. No evidence of any pneumothorax. The patient continues to have periodic drainage of the right hemithorax via Pleurx catheter. The Pleurx catheter was inserted on 10/23/2024. 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 The patient also underwent a T9 decompression on July 2024 and he was planned to undergo operative post operative radiation therapy and this has not been completed. PET scan from September 2024 demonstrated diffuse metastatic disease and the patient continues to have diffuse skeletal body aches. He is a DNR/DNI CODE STATUS. Radiation oncology is on the case. Medical oncology is also on the case. No new labs are avai lable from today. Despite the pleural fluid drainage via Pleurx catheter and thoracentesis, the patient has not achieved adequate expansion of the right lung. The right lung is trapped and the patient endobronchial tumor involving the distal right mainstem bronchus. Please refer to the CAT scan of the chest that was done during this current hospitalization. Objective - Vital Signs Vital signs: Vital Signs Temp 98.0 F 10/26/24 19:11 Pulse 119 H 10/26/24 19:11 Resp 18 10/26/24 19:11 BP 116/78 10/26/24 19:11 Pulse Ox 97 10/26/24 19:11 FiO2 Intake & Output 10/26/24 10/26/24 10/27/24 06:59 18:59 06:59 Intake Total 540 1080 Output Total 550 850 Balance -10 230 Intake: Oral 540 1080 Output: Urine 550 850 Other: Voiding Method Indwelling Catheter Indwelling Catheter Indwelling Catheter - Exam GENERAL EXAM: Alert, cachectic 59-year-old male, sitting up in bed, on 3 L nasal cannula, comfortable in no apparent distress. HEAD: Normocephalic. EYES: Normal reaction of pupils, equal size. NOSE: Clear with pink turbinates. THROAT: No erythema or exudates. NECK: No masses, no JVD. CHEST: No chest wall deformity. Right sided Pleurx catheter in place. LUNGS: Equal air entry with crackles in the bilateral bases. CVS: S1 and S2 normal with no audible murmur, regular rhythm. ABDOMEN: No hepatosplenomegaly, normal bowel sounds, no guarding or rigidity. SPINE: No scoliosis or deformity SKIN: No rashes CENTRAL NERVOUS SYSTEM: No focal deficits, tone is normal in all 4 extremities. EXTREMITIES: There is no peripheral edema. No clubbing, no cyanosis. Peripheral pulses are intact. - Labs CBC & Chem 7: 10/23/24 06:33 10/23/24 06:33 Assessment and Plan Plan: Large right-sided pleural effusion, felt to be malignant unless proven otherwise considering the patient's history of lung cancer and metastasis. Patient is now status post thoracentesis with 2.6 L of fluid was removed from the right pleural space this was followed by Thora vent placement because of a subsequent pneumothorax. Thora vent was removed on 10/21/2024. Chest x-ray continues to show increasing right sided pleural effusion. Pleurx catheter placed October 23, 2024. 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 Positive pathology from bone biopsy June 2024. PET scan from September 11, 2024 revealed uptake within the right lung mass compatible with neoplasm. Extensive osseous metastasis including axial spine, left iliac wing, left scapula, multiple ribs, sternum, pelvis. Small metastatic lesions suspected within the left and right lobes of the liver. Mediastinal metastasis. Metastatic lesions in the right supra clavicular region and suspected within lymph nodes within the bilateral parotid glands. Plan was for Keytruda however the patient has had several hospitalizations and difficulty getting to appointments Endobronchial tumor complete obstructing the right mainstem bronchus with complete collapse of the right lung, no reexpansion post drainage. History of underlying COPD Type 2 diabetes Former smoker History of thoracic vertebral fracture/pathological fracture requiring surgery Failure to thrive Poor overall functional performance based on the above-mentioned multiple comorbidities Plan: Pleurx catheter placed 10/23/2024 750 mL of fluid was drained Another 250 mL drained on 10/25/2024 Pleural fluid cytology was negative for malignancy Continue DuoNeb inhalations Continue Symbicort Lovenox for DVT prophylaxis Pepcid for GI prophylaxis Titrate down the FiO2 as tolerated Assure adequate pain control DNR CODE STATUS Patient reluctant to consider hospice Prognosis remains quite poor Increase his activity as tolerated
--- NOTE | 2024-10-27 15:39 | P.PN ---
Subjective Progress Note Date: 10/27/24 On 10/26/2024, the patient is being seen for a follow-up. The patient remains on 3 Suboxone by nasal cannula with a pulse ox of 97%. No new labs are available from today. The pleural fluid cytology from 10/19/2024 was hypocellular specimen with rare mesothelial cells and no evidence of any malignant cells identified. Most recent chest x-ray from 10/24/2024 shows a Pleurx catheter on the right. The right lung is atelectatic and there is a small left-sided pleural effusion. No evidence of any pneumothorax. The patient continues to have periodic drainage of the right hemithorax via Pleurx catheter. The Pleurx catheter was inserted on 10/23/2024. 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 The patient also underwent a T9 decompression on July 2024 and he was planned to undergo operative post operative radiation therapy and this has not been completed. PET scan from September 2024 demonstrated diffuse metastatic disease and the patient continues to have diffuse skeletal body aches. He is a DNR/DNI CODE STATUS. Radiation oncology is on the case. Medical oncology is also on the case. No new labs are avai lable from today. Despite the pleural fluid drainage via Pleurx catheter and thoracentesis, the patient has not achieved adequate expansion of the right lung. The right lung is trapped and the patient endobronchial tumor involving the distal right mainstem bronchus. Please refer to the CAT scan of the chest that was done during this current hospitalization. On 10/27/2024, the patient is clinically unchanged. Resting comfortably in bed. His last drainage was done few days back and the patient denies having any clinical improvement post drainage of the pleural fluid. The patient is looking into rehabilitation. He remains on 3 days of oxygen by nasal cannula. Pulse ox is 96% on 3 L of oxygen by nasal cannula. No new labs are available from today. Remains on DuoNeb nebulizer treatments [id number]. Remains on Symbicort. He is on morphine for pain control on an estimate basis and the patient is also receiving Lovenox for DVT prophylaxis Objective - Vital Signs Vital signs: Vital Signs Temp 98.4 F 10/27/24 13:51 Pulse 96 10/27/24 13:51 Resp 20 10/27/24 13:51 BP 106/69 10/27/24 13:51 Pulse Ox 96 10/27/24 13:51 FiO2 Intake & Output 10/26/24 10/27/24 10/27/24 18:59 06:59 18:59 Intake Total 1080 250 Output Total 850 350 Balance 230 -100 Weight 62 kg Intake: Oral 1080 250 Output: Urine 850 350 Other: Voiding Method Indwelling Catheter Indwelling Catheter Indwelling Catheter - Exam GENERAL EXAM: Alert, cachectic 59-year-old male, sitting up in bed, on 3 L nasal cannula, comfortable in no apparent distress. HEAD: Normocephalic. EYES: Normal reaction of pupils, equal size. NOSE: Clear with pink turbinates. THROAT: No erythema or exudates. NECK: No masses, no JVD. CHEST: No chest wall deformity. Right sided Pleurx catheter in place. LUNGS: Equal air entry with crackles in the bilateral bases. CVS: S1 and S2 normal with no audible murmur, regular rhythm. ABDOMEN: No hepatosplenomegaly, normal bowel sounds, no guarding or rigidity. SPINE: No scoliosis or deformity SKIN: No rashes CENTRAL NERVOUS SYSTEM: No focal deficits, tone is normal in all 4 extremities. EXTREMITIES: There is no peripheral edema. No clubbing, no cyanosis. Peripheral pulses are intact. - Labs CBC & Chem 7: 10/23/24 06:33 10/23/24 06:33 Assessment and Plan Plan: Large right-sided pleural effusion, felt to be malignant unless proven otherwise considering the patient's history of lung cancer and metastasis. Patient is now status post thoracentesis with 2.6 L of fluid was removed from the right pleural space this was followed by Thora vent placement because of a subsequent pneumothorax. Thora vent was removed on 10/21/2024. Chest x-ray continues to show increasing right sided pleural effusion. Pleurx catheter placed October 23, 2024. 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 Positive pathology from bone biopsy June 2024. PET scan from September 11, 2024 revealed uptake within the right lung mass compatible with neoplasm. Extensive osseous metastasis including axial spine, left iliac wing, left scapula, multiple ribs, sternum, pelvis. Small metastatic lesions suspected within the left and right lobes of the liver. Mediastinal metastasis. Metastatic lesions in the right supra clavicular region and suspected within lymph nodes within the bilateral parotid glands. Plan was for Keytruda however the patient has had several hospitalizations and difficulty getting to appointments Endobronchial tumor complete obstructing the right mainstem bronchus with compl ete collapse of the right lung, no reexpansion post drainage. History of underlying COPD Type 2 diabetes Former smoker History of thoracic vertebral fracture/pathological fracture requiring surgery Failure to thrive Poor overall functional performance based on the above-mentioned multiple chanelle rbidities Plan: Clinically unchanged and the patient remains on 3 L of oxygen by nasal cannula Pleurx catheter placed 10/23/2024 750 mL of fluid was drained Another 250 mL drained on 10/25/2024, no significant clinical improvement as the patient is right lung is completely trapped and collapsed with endobronchial tumor and extrinsic compression. Pleural fluid cytology was negative for malignancy Continue DuoNeb inhalations Continue Symbicort Lovenox for DVT prophylaxis Pepcid for GI prophylaxis Titrate down the FiO2 as tolerated Assure adequate pain control DNR CODE STATUS Patient reluctant to consider hospice Prognosis remains quite poor Increase his activity as tolerated Consider immunotherapy once the patient is in a better condition. He is seeking rehabilitation. Adequate pain control Poor prognosis based on the above.
[2024-10-27 20:09] LABS: Glucose,Whole Blood 159 mg/dL (70-110)
--- NOTE | 2024-10-28 04:15 | PN ---
PROGRESS NOTE SUBJECTIVE: Dev Phillip is a 59-year-old white male with metastatic lung cancer, pleural effusion, seen by Pulmonology. He has had pleural effusion strains. Fluid cytology, hypocellular with no evidence of malignant cells seen. X-ray shows a few days ago. Denies any clinical improvement post drainage of the pleural fluid. He has been tried to go to rehab. He is on 3 L oxygen, high 90s pulse ox. He is on DuoNeb, Symbicort, morphine for pain control, and Lovenox for DVT. OBJECTIVE: VITAL SIGNS: Reviewed. Blood pressure 106/69, temperature 98.4, pulse 96, respiratory rate 18 to 20, and O2 of 96%. CARDIOVASCULAR: S1 and S2. No scattered rhonchi or wheeze. HEMATOLOGY: Negative Homans. PSYCH: Fair mood and affect. LABORATORY DATA: White count is 17.8, hemoglobin is 19.5. Large right-sided pleural effusion, felt to be malignant unless proven, otherwise. Lung cancer with metastasis, fluids 1.6 L removed to the right lung plus catheter placed in October 23. There is metastatic adenocarcinoma to the lung and to the bones. He had brain tumor I guess. ASSESSMENT: History of COPD, diabetes mellitus, nicotine addiction, history of thoracic vertebral fracture, failure to thrive, nasal cannula, mL drains. Fluid cytology is negative for malignancy, inhalers, Symbicort. DVT prophylaxis tested hospice. PROGNOSIS: Guarded. Please see further orders. MMODL / IJN: [id number] /
[2024-10-28] MEDS: MAGNESIUM OXIDE 400 MG TAB PO SCH (11:05)
[2024-10-28 11:08] LABS: Basophils # (A) 0.13 10*3/uL (0.00-0.10); Basophils % (A) 0.7 %; Eosinophils # (A) 0.14 10*3/uL (0.04-0.35); Eosinophils % (A) 0.8 %; HCT 28.9 % (39.6-50.0); HGB 9.4 g/dL (13.0-17.0); Lymphocytes % (A) 9.7 %; MCH 29.7 pg (27.0-32.0); MCHC 32.5 g/dL (32.0-37.0); MCV 91.5 fL (80.0-97.0); Mean Platelet Volume 9.7 fL (9.5-12.2); Monocytes # (A) 1.12 10*3/uL (0.20-1.00); Monocytes % (A) 6.4 %; Neutrophils % (A) 81.8 %; Platelet Count 428 10*3/uL (140-440); RBC 3.16 10*6/uL (4.40-5.60); RDW 15.1 % (11.5-14.5)
[2024-10-28 11:20] LABS: ALT 16 U/L (4-49); AST 25 U/L (17-59); African American GFR (CKD) >90 (>60 ml/min/1.73 sqM); Albumin/Globulin Ratio 1.2; Alkaline Phosphatase 159 U/L (38-126); Anion Gap 6 mmol/L; Blood Urea Nitrogen 21 mg/dL (9-20); Calcium 10.9 mg/dL (8.4-10.2); Carbon Dioxide 34 mmol/L (22-30); Chloride 92 mmol/L (98-107); Globulin 2.6 g/dL; Glucose 155 mg/dL (74-99); Non-African American GFR(CKD) >90 (>60 ml/min/1.73 sqM); Potassium 4.1 mmol/L (3.5-5.1); Sodium 132 mmol/L (137-145); Total Bilirubin 0.5 mg/dL (0.2-1.3); Total Protein 5.6 g/dL (6.3-8.2)
--- NOTE | 2024-10-28 11:24 | DS ---
DISCHARGE SUMMARY DISCHARGE DIAGNOSES: 1. Bilateral pleural effusion. 2. Non-small cell lung cancer metastatic to bone, pain, metastatic malignancy. 3. Dehydration. 4. Chronic obstructive pulmonary disease exacerbation. 5. Community-acquired pneumonia. 6. Severe malnutrition. 7. Recent thoracic fracture. 8. Hypomagnesemia. 9. Hypokalemia. 10.Gastroesophageal reflux disease. 11.Severe pain secondary to metastatic bone cancer. MEDICATIONS: Include: 1. Oxygen 2-3 L 24 hours a day. 2. DuoNeb q.i.d. scheduled. 3. Flexeril 10 mg every 8 hours p.r.n. for muscle spasms. 4. Mag oxide 400 mg daily. 5. Marinol 2.5 mg b.i.d. for appetite stimulation. 6. Tylenol 650 every 6 hours p.r.n. for pain. 7. K-Dur 20 mEq daily for hypokalemia. 8. MS Contin 30 mg b.i.d. for metastatic bone cancer. 9. Pepcid 20 b.i.d. 10.Senna b.i.d. p.r.n. for constipation. CONDITION: Guarded. PROGNOSIS: Fair to poor. HOSPITAL COURSE: The patient was admitted with metastatic bilateral pleural effusions needing chest tube and PleurX catheter which was placed with multiple drainages of the lungs to recurrent pleural effusions to the non-small cell lung cancer seen by Pulmonary while in the hospital. The patient stabilized with his breathing after having thoracentesis done by Pulmonary, who had cleared him for rehab, he needs rehab to get moving better before going home with strength. He was given morphine for pain from pain clinic. Has breathing treatment. Prognosis guarded. Treat him for possibly pneumonia if his white count is elevated or check for urine culture. antibiotics. Prognosis is guarded. Follow up as an outpatient. Diet as tolerated. Continue oxygen 24 hours a day. Breathing treatments 24 hours a day. Please see further orders. MMODL / IJN: [id number] /
--- NOTE | 2024-10-29 06:44 | P.GSCN ---
History of Present Illness Consult date: 10/28/24 History of present illness: 59 yo male in the hospital for several days with sob due to metastatic lung cancer. THe patient has a pleural effusion. He has gone into urine retention and we were asked to see the patient. The patient was voiding but had a catheter placed yesterday when his pvr was > 600ml urine. He does have metastatic disease to t11.. He is weak and sob due to his disease. He is not oin an alpha maximiliano. He however has been taking alpha blockers for sometime at home. He is going to rehab upon leaving [facility]. Review of Systems All systems: negative - Constitutional Denies fever, Denies weight loss - EENT Eyes: denies blurred vision Ears, nose, mouth and throat: Denies dysphagia - Cardiovascular Denies chest pain, Denies shortness of breath - Respiratory Denies cough, Denies 7 - Gastrointestinal Reports as per HPI - Genitourinary Denies dysuria, Denies hematuria - Integumentary Denies rash, Denies unusual bruising - Neurological Denies headaches, Denies syncope - Hematologic/Lymphatic Denies easy bleeding, Denies easy bruising Past Medical History Past Medical History: Cancer, Diabetes Mellitus, Prostate Disorder Additional Past Medical History / Comment(s): Covid 04/2022, developed PE and was on blood thinners, BPH, Dupuytren's contracture. NSCLC 06/22/24 History of Any Multi-Drug Resistant Organisms: None Reported Past Surgical History: Hernia Repair Additional Past Surgical History / Comment(s): Back surgery 06/19/24, Dupuytren's contracture release on R hand Past Anesthesia/Blood Transfusion Reactions: No Reported Reaction Past Psychological History: No Psychological Hx Reported Smoking Status: Former smoker Past Alcohol Use History: Occasional Past Drug Use History: None Reported Medications and Allergies Home Medications Medication Instructions Recorded Confirmed Type metFORMIN HCL 1,000 mg PO BID 06/15/24 10/17/24 History Sennosides-Docusate Sodium 2 tab PO DAILY PRN 06/23/24 10/17/24 History [Senokot-S] Acetaminophen Tab [Tylenol] 650 mg PO Q6HR PRN tab 10/28/24 Rx Cyclobenzaprine [Flexeril] 10 mg PO TID PRN tab 10/28/24 Rx Famotidine [Pepcid] 20 mg PO BID tab 10/28/24 Rx Ipratropium-Albuterol Nebulize 3 ml INHALATION RT-QID each 10/28/24 Rx [Duoneb 0.5 mg-3 mg/3 ml Soln] Magnesium Oxide [Mag-Ox] 400 mg PO DAILY tab 10/28/24 Rx Morphine Sulfate ER [Ms Contin] 30 mg PO Q12HR tab 10/28/24 Rx Potassium Chloride ER [K-Dur 20] 20 meq PO DAILY tab 10/28/24 Rx Sennosides-Docusate Sodium 1 each PO BID tab 10/28/24 Rx [Senokot-S] droNABinol [Marinol] 2.5 mg PO AC-BID cap 10/28/24 Rx Allergies Allergy/AdvReac Type Severity Reaction Status Date / Time cephalexin [From Keflex] Allergy Swelling Verified 10/23/24 13:03 cortisone Allergy Swelling Verified 10/23/24 13:03 Influenza Virus Vaccines Allergy Swelling Verified 10/23/24 13:03 Surgical - Exam Vital Signs Temp Pulse Resp BP Pulse Ox 98.4 F 104 H 16 145/90 98 10/17/24 16:22 10/17/24 16:22 10/17/24 16:22 10/17/24 16:22 10/17/24 16:22 - General well developed, well nourished, no distress - Eyes normal ocular movement, no icteric - ENT no hearing loss, no congestion - Neck no masses, trachea midline - Respiratory normal respiratory effort, clear to auscultation - Abdomen Abdomen: soft, non tender, no guarding, no rigid, no rebound - Genitourinary indwelling catheter - Integumentary no rash, no abnormal pigmentation - Neurologic no disoriented, no combative - Psychiatric oriented to time, oriented to person, oriented to place, speech is normal, memory intact Results - Labs 10/28/24 10:40 10/28/24 10:40 Abnormal Lab Results - Last 24 Hours (Table) 10/27/24 10/28/24 10/28/24 Range/Units 20:06 10:40 10:40 WBC 17.50 H (4.50-10.00) 10*3/uL RBC 3.16 L (4.40-5.60) 10*6/uL Hgb 9.4 L (13.0-17.0) g/dL Hct 28.9 L (39.6-50.0) % RDW 15.1 H (11.5-14.5) % Immature Gran # 0.11 H (0.00-0.04) 10*3/uL Neutrophils # 14.30 H (1.80-7.70) 10*3/uL Monocytes # 1.12 H (0.20-1.00) 10*3/uL Basophils # 0.13 H (0.00-0.10) 10*3/uL Sodium 132 L (137-145) mmol/L Chloride 92 L (98-107) mmol/L Carbon Dioxide 34 H (22-30) mmol/L BUN 21 H (9-20) mg/dL Creatinine 0.64 L (0.66-1.25) mg/dL Glucose 155 H (74-99) mg/dL POC Glucose (mg/dL) 159 H (70-110) mg/dL Calcium 10.9 H (8.4-10.2) mg/dL Alkaline Phosphatase 159 H (38-126) U/L Total Protein 5.6 L (6.3-8.2) g/dL Albumin 3.0 L (3.5-5.0) g/dL Diabetes panel 10/28/24 Range/Units 10:40 Sodium 132 L (137-145) mmol/L Potassium 4.1 (3.5-5.1) mmol/L Chloride 92 L (98-107) mmol/L Carbon Dioxide 34 H (22-30) mmol/L BUN 21 H (9-20) mg/dL Creatinine 0.64 L (0.66-1.25) mg/dL Glucose 155 H (74-99) mg/dL Calcium 10.9 H (8.4-10.2) mg/dL AST 25 (17-59) U/L ALT 16 (4-49) U/L Alkaline Phosphatase 159 H (38-126) U/L Total Protein 5.6 L (6.3-8.2) g/dL Albumin 3.0 L (3.5-5.0) g/dL Calcium panel 10/28/24 Range/Units 10:40 Calcium 10.9 H (8.4-10.2) mg/dL Albumin 3.0 L (3.5-5.0) g/dL Pituitary panel 10/28/24 Range/Units 10:40 Sodium 132 L (137-145) mmol/L Potassium 4.1 (3.5-5.1) mmol/L Chloride 92 L (98-107) mmol/L Carbon Dioxide 34 H (22-30) mmol/L BUN 21 H (9-20) mg/dL Creatinine 0.64 L (0.66-1.25) mg/dL Glucose 155 H (74-99) mg/dL Calcium 10.9 H (8.4-10.2) mg/dL Adrenal panel 10/28/24 Range/Units 10:40 Sodium 132 L (137-145) mmol/L Potassium 4.1 (3.5-5.1) mmol/L Chloride 92 L (98-107) mmol/L Carbon Dioxide 34 H (22-30) mmol/L BUN 21 H (9-20) mg/dL Creatinine 0.64 L (0.66-1.25) mg/dL Glucose 155 H (74-99) mg/dL Calcium 10.9 H (8.4-10.2) mg/dL Total Bilirubin 0.5 (0.2-1.3) mg/dL AST 25 (17-59) U/L ALT 16 (4-49) U/L Alkaline Phosphatase 159 H (38-126) U/L Total Protein 5.6 L (6.3-8.2) g/dL Albumin 3.0 L (3.5-5.0) g/dL Assessment and Plan Assessment: Impression: urine retention, bph with obstruction, chf cad Recommendations: The patients catheter should remain in place for several days. His tamsulosin should be resumed. The catheter can be pulled at the rehab facility or in our office in follow up. From a urologic standpoint he can be discharged and fu in our office in 1-2 momo.
[2024-10-29] MEDS: TAMSULOSIN 0.4 MG CAP.ER.24H PO SCH (08:46)
[2024-10-29] MEDS: POTASSIUM CHLORIDE ER 20 MEQ TAB.ER PO SCH (08:46)
[2024-10-29 10:16] LABS: Basophils # (A) 0.09 X 10*3/uL (0.00-0.10); Basophils % (A) 0.6 %; Eosinophils # (A) 0.21 X 10*3/uL (0.04-0.35); Eosinophils % (A) 1.4 %; HCT 28.2 % (39.6-50.0); Lymphocytes # (A) 1.72 X 10*3/uL (0.90-5.00); Lymphocytes % (A) 11.3 %; MCH 29.3 pg (27.0-32.0); MCHC 31.9 g/dL (32.0-37.0); MCV 91.9 FL (80.0-97.0); Mean Platelet Volume 10.1 FL (9.5-12.2); Monocytes # (A) 1.21 X 10*3/uL (0.20-1.00); NRBC Per 100 WBC 0 X 10*3/uL (0.00-0.01); Neutrophils # (A) 11.84 X 10*3/uL (1.80-7.70); Platelet Count 385 X 10*3/uL (140-440); RBC 3.07 X 10*6/uL (4.40-5.60); RDW 15.1 % (11.5-14.5); WBC 15.17 X 10*3/uL (4.50-10.00)
[2024-10-29 10:34] LABS: ALT 17 U/L (10-49); AST 23 U/L (14-35); Albumin 3.2 g/dL (3.8-4.9); Albumin/Globulin Ratio 1.28 Ratio (1.60-3.17); Alkaline Phosphatase 153 U/L (41-126); Blood Urea Nitrogen 16.5 mg/dL (9.0-27.0); Calcium 10.7 mg/dL (8.7-10.3); Carbon Dioxide 28.9 mmol/L (21.6-31.8); Chloride 96 mmol/L (96-109); Globulin 2.5 g/dL (1.6-3.3); Glucose 130 mg/dL (70-110); Potassium 4.5 mmol/L (3.5-5.5); Sodium 138 mmol/L (135-145); Total Bilirubin 0.3 mg/dL (0.3-1.2); Total Protein 5.7 g/dL (6.2-8.2)
[2024-10-29 12:30] VITALS: BP 150/94; RESP 18; TEMP 98.1
[2024-10-29 12:57] VITALS: PULSE 95
== END 2024-10-29 17:02 | DRG 166 ==
LOC: 3SCARD 09:50 → 2SICU 10-18 10:43 → 5NMEDONC 10-19 13:42
PROVIDERS: ADMIT Family Medicine; ATTEND Family Medicine
PROC: 0W9930Z Drainage of Right Pleural Cavity with Drainage Device, Percutaneous Approach (ICD-10-PCS; 2024-10-18)
PROC: 0W993ZZ Drainage of Right Pleural Cavity, Percutaneous Approach (ICD-10-PCS; 2024-10-18)
PROC: 0B9K30Z Drainage of Right Lung with Drainage Device, Percutaneous Approach (ICD-10-PCS; principal; 2024-10-23 14:00)
DX: C34.91 Malignant neoplasm of unspecified part of right bronchus or lung (principal); E43 Unspecified severe protein-calorie malnutrition; J96.01 Acute respiratory failure with hypoxia; I50.33 Acute on chronic diastolic (congestive) heart failure; J18.9 Pneumonia, unspecified organism; J94.2 Hemothorax; C78.1 Secondary malignant neoplasm of mediastinum; C79.51 Secondary malignant neoplasm of bone; J91.0 Malignant pleural effusion; J44.0 Chronic obstructive pulmonary disease with (acute) lower respiratory infection; I27.20 Pulmonary hypertension, unspecified; E11.9 Type 2 diabetes mellitus without complications; J44.1 Chronic obstructive pulmonary disease with (acute) exacerbation; M84.58XA Pathological fracture in neoplastic disease, other specified site, initial encounter for fracture; N13.8 Other obstructive and reflux uropathy; J98.19 Other pulmonary collapse; Z66 Do not resuscitate; R62.7 Adult failure to thrive; E86.0 Dehydration; G89.3 Neoplasm related pain (acute) (chronic); K21.9 Gastro-esophageal reflux disease without esophagitis; R33.8 Other retention of urine; N40.1 Benign prostatic hyperplasia with lower urinary tract symptoms; R29.6 Repeated falls; K59.00 Constipation, unspecified; R53.81 Other malaise; E87.6 Hypokalemia; E83.42 Hypomagnesemia; I25.10 Atherosclerotic heart disease of native coronary artery without angina pectoris; E83.52 Hypercalcemia; H91.90 Unspecified hearing loss, unspecified ear; Z87.891 Personal history of nicotine dependence; Z86.711 Personal history of pulmonary embolism; Z79.84 Long term (current) use of oral hypoglycemic drugs; Z79.891 Long term (current) use of opiate analgesic; Z79.899 Other long term (current) drug therapy; Z91.81 History of falling; Z68.21 Body mass index [BMI] 21.0-21.9, adult
CPT/HCPCS: 36600; 71045; 71250; 76604; 77001; 80048; 80053; 82805; 83735; 84132; 84145; 85025; 87086; 88108; 88305; 88341; 88342; 94640; 94760

== ENCOUNTER 2024-11-03 19:22 | Inpatient (IN) | payer OTHER ==
[2024-11-03] MEDS: SODIUM CHLORIDE 0.9% 1,000 ML IV ONE (20:18)
[2024-11-03 20:24] LABS: Basophils # (A) 0.11 10*3/uL (0.00-0.10); Basophils % (A) 0.6 %; Eosinophils # (A) 0.24 10*3/uL (0.04-0.35); Eosinophils % (A) 1.4 %; HCT 28.7 % (39.6-50.0); HGB 9.3 g/dL (13.0-17.0); Lymphocytes # (A) 1.59 10*3/uL (0.90-5.00); Lymphocytes % (A) 9.4 %; MCH 29.5 pg (27.0-32.0); MCHC 32.4 g/dL (32.0-37.0); MCV 91.1 fL (80.0-97.0); Monocytes # (A) 1.54 10*3/uL (0.20-1.00); Monocytes % (A) 9.1 %; Neutrophils # (A) 13.34 10*3/uL (1.80-7.70); Neutrophils % (A) 78.9 %; Platelet Count 426 10*3/uL (140-440); RBC 3.15 10*6/uL (4.40-5.60); RDW 15.0 % (11.5-14.5); WBC 16.93 10*3/uL (4.50-10.00)
[2024-11-03 20:42] LABS: Bilirubin,Urine Negative (Negative); Blood,Urine Moderate (Negative); Color,Urine Light Yellow; Glucose,Urine (UA) Negative (Negative); INR 1.0 (<1.2); Ketones,Urine Negative (Negative); Leukocyte Esterase,Urine Small (Negative); Mucus,Urine Rare /hpf; Nitrite,Urine Negative (Negative); PH, Urine 5.5 (5.0-8.0); Partial Thromboplastin Time 20.5 sec (22.0-30.0); Protein,Urine Negative (Negative); Prothrombin Time 11.3 sec (10.0-12.5); RBC,Urine 106 /hpf (0-5); Specific Gravity,Urine 1.012 (1.001-1.035); Urobilinogen,Urine <2.0 mg/dL (<2.0); WBC,Urine 15 /hpf (0-5)
[2024-11-03 20:43] LABS: ALT 14 U/L (4-49); AST 25 U/L (17-59); Acetaminophen <10.0 ug/mL; African American GFR (CKD) >90 (>60 ml/min/1.73 sqM); Albumin 3.2 g/dL (3.5-5.0); Alkaline Phosphatase 136 U/L (38-126); Anion Gap 7 mmol/L; Blood Urea Nitrogen 41 mg/dL (9-20); Carbon Dioxide 31 mmol/L (22-30); Chloride 99 mmol/L (98-107); Glucose 126 mg/dL (74-99); Magnesium 2.4 mg/dL (1.6-2.3); Non-African American GFR(CKD) 84 (>60 ml/min/1.73 sqM); Potassium 4.8 mmol/L (3.5-5.1); Salicylate <1.0 mg/dL; Sodium 137 mmol/L (137-145); Total Protein 5.8 g/dL (6.3-8.2)
[2024-11-03 20:52] LABS: Calcium 15.4 mg/dL (8.4-10.2)
[2024-11-03 20:53] LABS: Lactic Acid, Venous 2.2 mmol/L (0.7-2.0)
[2024-11-03 21:02] LABS: RSV Not Detected (Not Detectd)
--- NOTE | 2024-11-03 21:19 | CT ---
EXAMINATION TYPE: CT brain wo con CT DLP: 1198.4 mGycm, Automated exposure control for dose reduction was used. DATE OF EXAM: 11/03/2024 9:08 PM COMPARISON: MRI brain 06/26/2024, PET/CT 09/10/2024 CLINICAL INDICATION:Male, 59 years old with history of weakness, altered mental status, history of marquis ng cancer TECHNIQUE: Brain: Multiple axial CT images of the brain were obtained without IV contrast. . Coronal and sagitta l reformats reviewed. FINDINGS: Brain: Extra-axial spaces: No abnormal extra-axial fluid collections. Ventricular system: Within normal limits Cerebral parenchyma: No acute intraparenchymal hemorrhage or mass effect. The srinivasan-white junction is well differentiated. Cerebellum: Unremarkable. Mass effect: No evidence of midline shift. Intracranial vasculature: unremarkable Soft tissues: Normal. Calvarium/osseous structures: No depressed skull fracture. Expansile soft tissue lesion within the ri ght occipital bone with destruction of the inner and outer table. This lesion measures approximately 3.4 x 1.8 cm (series 2033, image 19). Previously seen on PET/CT as it demonstrate FDG activity. No ot her suspicious osseous lesions identified. Paranasal sinuses and mastoid air cells: The left mastoid air cells are clear. Opacification of the r ight mastoid air cells. Minimal opacification of the right ethmoid sinus and right maxillary sinus. T he remaining visualized paranasal sinuses are clear. Tiny subcentimeter probable osteoma within the r ight frontal sinus. Visualized orbits: Orbital contents are intact. IMPRESSION: 1. No acute intracranial process. 2. Redemonstration of extensive destructive right occipital bone and soft tissue osseous metastasis from prior PET/CT. This is mildly increased in size from prior exam. 3. Right mastoid effusion possibly related to #2. [facility], , 11/03/2024 9:17 PM
[2024-11-03] MEDS: SODIUM CHLORIDE 0.9% 1,000 ML IV STA (21:22)
--- NOTE | 2024-11-03 21:24 | XR ---
EXAMINATION TYPE: XR chest 2V DATE OF EXAM: 11/03/2024 9:11 PM COMPARISON: Multiple radiographs, with the most recent on 10/24/2024, CT chest 10/18/2024, PET/CT 025 TECHNIQUE: XR chest 2V Frontal and lateral views of the chest. CLINICAL INDICATION:Male, 59 years old with history of Weakness; FINDINGS: Lungs/Pleura: Small left pleural effusion redemonstrated. The remaining left lung is clear. No pneumo thorax. Complete opacification of the right hemithorax with pleural catheter in place. Pulmonary vascularity: Unremarkable. Heart/mediastinum: Cardiomediastinal silhouette is partially obscured due to overlying and adjacent o pacities. Musculoskeletal: No acute osseous pathology. Partial visualization of thoracolumbar fixation hardware . Redemonstration of anterior right first rib destructive osseous metastasis with additional involvem ent of the inferior left scapula. Other known osseous metastasis are better appreciated on prior CT. IMPRESSION: 1. Complete opacification of the hemithorax with pleural catheter in place. Likely represents a comb ination of pleural effusion, atelectasis and known malignancy. 2. Small left pleural effusion redemonstrated. 3. Redemonstration of osseous metastasis. [facility], , 11/03/2024 9:22 PM
[2024-11-03] MEDS ORDERED: NALOXONE 0.4 MG/ML 1 ML VIAL IV PRN (22:17)
[2024-11-03] MEDS ORDERED: ACETAMINOPHEN TAB 325 MG TAB PO PRN (22:17)
[2024-11-03] MEDS ORDERED: ONDANSETRON 4 MG/2 ML VIAL IVP PRN (22:17)
--- NOTE | 2024-11-03 22:30 | ED ---
General Adult HPI - General Chief complaint: Weakness Stated complaint: weakness Time Seen by Provider: 11/03/24 19:45 Source: patient, EMS, RN notes reviewed, old records reviewed Mode of arrival: EMS Limitations: no limitations - History of Present Illness Initial comments: 59-year-old male who presents emergency department complaining of altered mentation. Presents from his nursing facility. Has a history of metastatic cancer, with right Pleurx catheter in place. Also has diabetes. Apparently has not been eating or drinking. Concern for failure to thrive. Questionable what his baseline mental status is. Currently is ANO x 1-2 with some conversational confusion. Does need a Irma lift for lifting at his nursing facility per p aperwork. Patient cannot provide any history but denies any pain at this time. He is cooperative with exam. Presents for further evaluation. - Related Data Home Medications Medication Instructions Recorded Confirmed metFORMIN HCL 1,000 mg PO BID 06/15/24 10/17/24 Sennosides-Docusate Sodium 2 tab PO DAILY PRN 06/23/24 10/17/24 [Senokot-S] Previous Rx's Medication Instructions Recorded Acetaminophen Tab [Tylenol] 650 mg PO Q6HR PRN tab 10/28/24 Cyclobenzaprine [Flexeril] 10 mg PO TID PRN tab 10/28/24 Famotidine [Pepcid] 20 mg PO BID tab 10/28/24 Ipratropium-Albuterol Nebulize 3 ml INHALATION RT-QID each 10/28/24 [Duoneb 0.5 mg-3 mg/3 ml Soln] Magnesium Oxide [Mag-Ox] 400 mg PO DAILY tab 10/28/24 Morphine Sulfate ER [Ms Contin] 30 mg PO Q12HR tab 10/28/24 Potassium Chloride ER [K-Dur 20] 20 meq PO DAILY tab 10/28/24 Sennosides-Docusate Sodium 1 each PO BID tab 10/28/24 [Senokot-S] droNABinol [Marinol] 2.5 mg PO AC-BID cap 10/28/24 Allergies Allergy/AdvReac Type Severity Reaction Status Date / Time cephalexin [From Keflex] Allergy Swelling Verified 10/23/24 13:03 cortisone Allergy Swelling Verified 10/23/24 13:03 Influenza Virus Vaccines Allergy Swelling Verified 10/23/24 13:03 Review of Systems ROS Statement: Those systems with pertinent positive or pertinent negative responses have been documented in the HPI. ROS Other: All systems not noted in ROS Statement are negative. Past Medical History Past Medical History: Cancer, Diabetes Mellitus, Prostate Disorder, Pulmonary Embolus (PE) Additional Past Medical History / Comment(s): Covid 04/2022, developed PE and was on blood thinners, BPH, Dupuytren's contracture. NSCLC 06/22/24, respiratory failure, unstagable wounds on thoracic spine and sacrum History of Any Multi-Drug Resistant Organisms: None Reported Past Surgical History: Hernia Repair Additional Past Surgical History / Comment(s): Back surgery 06/19/24, Dupuytren's contracture release on R hand Past Anesthesia/Blood Transfusion Reactions: No Reported Reaction Past Psychological History: No Psychological Hx Reported Smoking Status: Former smoker Past Alcohol Use History: Occasional Past Drug Use History: None Reported General Exam - General Exam Comments Initial Comments: General: Appears in no acute distress. Cachectic. HEAD: Normal with no signs of head trauma. EYES: PERRLA, EOMI, conjunctiva normal, no discharge. Pupils are 3 mm and equal bilaterally. ENT: Hearing grossly intact, normal oropharynx. RESPIRATORY: Reduced breath sounds over the right lung field. No respiratory distress. No significant hypoxia. C/V: Regular rate and rhythm. S1 and S2 auscultated, no edema, peripheral pulses 2+ and intact throughout ABD: Abd is soft, nontender, nondistended EXT: Normal range of motion, no obvious deformity SKIN: No rashes or lesions observed on exposed skin. NEURO: Alert and oriented x 1-2. Difficult to obtain an accurate neurological exam secondary to patient's mental status. Has conversational confusion. Seems to be chronically weak in all 4 extremities. Limitations: no limitations Course Vital Signs 11/03/24 19:25 Pulse Rate 105 H Respiratory 18 Rate Blood Pressure 118/72 O2 Sat by Pulse 98 Oximetry Medical Decision Making - Medical Decision Making Was pt. sent in by a medical professional or institution (, PA, PHLEBOTOMIST PRN, urgent care, hospital, or correction...) When possible be specific @ -No Did you speak to anyone other than the patient for history (EMS, parent, family, police, friend...)? What history was obtained from this source @ -No Did you review nursing and triage notes (agree or disagree)? Why? @ -I reviewed and agree with nursing and triage notes Were old charts reviewed (outside hosp., previous admission, EMS record, old EKG, old radiological studies, urgent care reports/EKG's, correction records)? Report findings @ -Reviewed old chart showing patient did have Pleurx catheter placed and has a history of what appears to be metastatic cancer with lesions in the lung as well as in the skull in the occipital bone Differential Diagnosis (chest pain, altered mental status, abdominal pain women, abdominal pain men, vaginal bleeding, weakness, fever, dyspnea, syncope, headache, dizziness, GI bleed, back pain, seizure, CVA, palpatations, mental health, musculoskeletal)? @ -Differential Altered Mental Status: Hypoglycemia, DKA, hypercapnia, ETOH, overdose, CO poisoning, trauma, myxedema coma, HTN encephalopathy, infection, encephalitis, psychosis, intercranial hemorrhage, hepatic encephalopathy, meningitis, CVA, this is not meant to be an all-inclusive list EKG interpreted by me (3pts min.). @ -As above X-rays interpreted by me (1pt min.). @ -Chest x-ray shows whiteout of the right lung likely secondary to cancer, atelectasis, pleural effusion with the known Pleurx catheter in place. CT interpreted by me (1pt min.). @ -CT brain shows no obvious acute intracranial process but the redemonstration of extensive destructive lesion of the right occipital bone secondary to metastasis. U/S interpreted by me (1pt. min.). @ -None done What testing was considered but not performed or refused? (CT, X-rays, U/S, labs)? Why? @ -None What meds were considered but not given or refused? Why? @ -None Did you discuss the management of the patient with other professionals (professionals i.e. , PA, PHLEBOTOMIST PRN, lab, RT, psych nurse, social worker psychiatric, utility locator, teacher, business development officer, welfare case worker)? Give summary @ -Discussed with admitting provider, Dr. Ybarra who accepted the admission. Was smoking cessation discussed for >3mins.? @ -No Was critical care preformed (if so, how long)? @ -No Were there social determinants of health that impacted care today? How? (Homelessness, low income, unemployed, alcoholism, drug addiction, transportation, low edu. Level, literacy, decrease access to med. care, senior care, rehab)? @ -No Was there de-escalation of care discussed even if they declined (Discuss DNR or withdrawal of care, Hospice)? DNR status @ -No What co-morbidities impacted this encounter? (DM, HTN, Smoking, COPD, CAD, Cancer, CVA, ARF, Chemo, Hep., AIDS, mental health diagnosis, sleep apnea, morbid obesity)? @ -Metastatic cancer Was patient admitted / discharged? Hospital course, mention meds given and route, prescriptions, significant lab abnormalities, going to OR and other pertinent info. @ -Patient presents for failure to thrive not eating or drinking. Appears clinically dehydrated. We will obtain general altered mental status workup. Vitals within acceptable limits. Patient agreement this plan. May be near baseline mental status but difficult to ascertain baseline. Nursing staff attempted multiple times to contact nursing facility to obtain baseline and were unsuccessful. Based on paperwork, patient may be at baseline as he is ANO x 1-2 with some conversational confusion. Requires a Irma lift at baseline. Vitals are within acceptable limits. Chest x-ray shows the known right sided oral effusion, mass, atelectasis with the Pleurx catheter in place. 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 Labs remarkable for leukocytosis of 16 which could be reactive or secondary to dehydration. Patient is hypercalcemic to 15.4 which could be secondary to dehydration as well as possibly secondary to metastatic disease. Lactic acid is 2.2. Urinalysis scar rning for possible UTI and patient empirically given a dose of antibiotics and urine and blood cultures sent. Remainder the workup unremarkable. EKG shows no signs of acute ischemia. I discussed the results with the patient and he will be admitted. I spoke with the admitting provider, Dr. Ybarra who accepted the admission. Consults placed to urology, pulmonology, oncology. Undiagnosed new problem with uncertain prognosis? @ -No Drug Therapy requiring intensive monitoring for toxicity (Heparin, Nitro, Insulin, Cardizem)? @ -No Were any procedures done? @ -No Diagnosis/symptom? @ -Hypercalcemia, dehydration, failure to thrive, metastatic malignancy, dural effusion, altered mental status Acute, or Chronic, or Acute on Chronic? @ -Acute Uncomplicated (without systemic symptoms) or Complicated (systemic symptoms)? @ -Complicated Side effects of treatment? @ -No Exacerbation, Progression, or Severe Exacerbation? @ -No Poses a threat to life or bodily function? How? (Chest pain, [place], [place], pneumonia, PE, COPD, DKA, ARF, appy, cholecystitis, CVA, Diverticulitis, Homicidal, Suici armando, threat to staff... and all critical care pts) @ -Potentially, yes - Lab Data Result diagrams: 11/03/24 20:15 11/03/24 20:15 Lab Results 11/03/24 11/03/24 11/03/24 Range/Units 20:15 20:15 20:15 WBC 16.93 H (4.50-10.00) 10*3/uL RBC 3.15 L (4.40-5.60) 10*6/uL Hgb 9.3 L (13.0-17.0) g/dL Hct 28.7 L (39.6-50.0) % MCV 91.1 (80.0-97.0) fL MCH 29.5 (27.0-32.0) pg MCHC 32.4 (32.0-37.0) g/dL Plt Count 426 (140-440) 10*3/uL MPV 9.4 L (9.5-12.2) fL Immature Gran % (Auto) 0.6 % Neutrophils % 78.9 % Lymphocytes % 9.4 % Monocytes % 9.1 % Eosinophils % 1.4 % Basophils % 0.6 % Immature Gran # 0.11 H (0.00-0.04) 10*3/uL Neutrophils # 13.34 H (1.80-7.70) 10*3/uL Lymphocytes # 1.59 (0.90-5.00) 10*3/uL Monocytes # 1.54 H (0.20-1.00) 10*3/uL Eosinophils # 0.24 (0.04-0.35) 10*3/uL Basophils # 0.11 H (0.00-0.10) 10*3/uL PT 11.3 (10.0-12.5) sec INR 1.0 (<1.2) APTT 20.5 L (22.0-30.0) sec Sodium (137-145) mmol/L Potassium (3.5-5.1) mmol/L Chloride (98-107) mmol/L Carbon Dioxide (22-30) mmol/L Anion Gap mmol/L BUN (9-20) mg/dL Creatinine (0.66-1.25) mg/dL Est GFR (CKD-EPI)AfAm (>60 ml/min/1.73 sqM) Est GFR (CKD-EPI)NonAf (>60 ml/min/1.73 sqM) Glucose (74-99) mg/dL Lactic Ac Sepsis Rflx Plasma Lactic Acid Donal (0.7-2.0) mmol/L Calcium (8.4-10.2) mg/dL Magnesium (1.6-2.3) mg/dL Total Bilirubin (0.2-1.3) mg/dL AST (17-59) U/L ALT (4-49) U/L Alkaline Phosphatase (38-126) U/L Ammonia (<30) umol/L Total Protein (6.3-8.2) g/dL Albumin (3.5-5.0) g/dL Urine Color Light Yellow Urine Appearance Clear (Clear) Urine pH 5.5 (5.0-8.0) Ur Specific [place] 1.012 (1.001-1.035) Urine Protein Negative (Negative) Urine Glucose (UA) Negative (Negative) Urine Ketones Negative (Negative) Urine Blood Moderate H (Negative) Urine Nitrite Negative (Negative) Urine Bilirubin Negative (Negative) Urine Urobilinogen <2.0 (<2.0) mg/dL Ur Leukocyte Esterase Small H (Negative) Urine RBC 106 H (0-5) /hpf Urine WBC 15 H (0-5) /hpf Urine Mucus Rare H (None) /hpf Salicylates mg/dL Acetaminophen ug/mL Serum Alcohol mg/dL Influenza Type A (PCR) (Not Detectd) Influenza Type B (PCR) (Not Detectd) RSV (PCR) (Not Detectd) SARS-CoV-2 (PCR) (Not Detectd) 11/03/24 11/03/24 11/03/24 Range/Units 20:15 20:15 20:15 WBC (4.50-10.00) 10*3/uL RBC (4.40-5.60) 10*6/uL Hgb (13.0-17.0) g/dL Hct (39.6-50.0) % MCV (80.0-97.0) fL MCH (27.0-32.0) pg MCHC (32.0-37.0) g/dL Plt Count (140-440) 10*3/uL MPV (9.5-12.2) fL Immature Gran % (Auto) % Neutrophils % % Lymphocytes % % Monocytes % % Eosinophils % % Basophils % % Immature Gran # (0.00-0.04) 10*3/uL Neutrophils # (1.80-7.70) 10*3/uL Lymphocytes # (0.90-5.00) 10*3/uL Monocytes # (0.20-1.00) 10*3/uL Eosinophils # (0.04-0.35) 10*3/uL Basophils # (0.00-0.10) 10*3/uL PT (10.0-12.5) sec INR (<1.2) APTT (22.0-30.0) sec Sodium 137 (137-145) mmol/L Potassium 4.8 (3.5-5.1) mmol/L Chloride 99 (98-107) mmol/L Carbon Dioxide 31 H (22-30) mmol/L Anion Gap 7 mmol/L BUN 41 H (9-20) mg/dL Creatinine 0.99 (0.66-1.25) mg/dL Est GFR (CKD-EPI)AfAm >90 (>60 ml/min/1.73 sqM) Est GFR (CKD-EPI)NonAf 84 (>60 ml/min/1.73 sqM) Glucose 126 H (74-99) mg/dL Lactic Ac Sepsis Rflx Plasma Lactic Acid Donal 2.2 H* (0.7-2.0) mmol/L Calcium 15.4 H* (8.4-10.2) mg/dL Magnesium 2.4 H (1.6-2.3) mg/dL Total Bilirubin 0.6 (0.2-1.3) mg/dL AST 25 (17-59) U/L ALT 14 (4-49) U/L Alkaline Phosphatase 136 H (38-126) U/L Ammonia 19 (<30) umol/L Total Protein 5.8 L (6.3-8.2) g/dL Albumin 3.2 L (3.5-5.0) g/dL Urine Color Urine Appearance (Clear) Urine pH (5.0-8.0) Ur Specific [place] (1.001-1.035) Urine Protein (Negative) Urine Glucose (UA) (Negative) Urine Ketones (Negative) Urine Blood (Negative) Urine Nitrite (Negative) Urine Bilirubin (Negative) Urine Urobilinogen (<2.0) mg/dL Ur Leukocyte Esterase (Negative) Urine RBC (0-5) /hpf Urine WBC (0-5) /hpf Urine Mucus (None) /hpf Salicylates <1.0 mg/dL Acetaminophen <10.0 ug/mL Serum Alcohol <10 mg/dL Influenza Type A (PCR) Not Detected (Not Detectd) Influenza Type B (PCR) Not Detected (Not Detectd) RSV (PCR) Not Detected (Not Detectd) SARS-CoV-2 (PCR) Not Detected (Not Detectd) 11/03/24 Range/Units 20:53 WBC (4.50-10.00) 10*3/uL RBC (4.40-5.60) 10*6/uL Hgb (13.0-17.0) g/dL Hct (39.6-50.0) % MCV (80.0-97.0) fL MCH (27.0-32.0) pg MCHC (32.0-37.0) g/dL Plt Count (140-440) 10*3/uL MPV (9.5-12.2) fL Immature Gran % (Auto) % Neutrophils % % Lymphocytes % % Monocytes % % Eosinophils % % Basophils % % Immature Gran # (0.00-0.04) 10*3/uL Neutrophils # (1.80-7.70) 10*3/uL Lymphocytes # (0.90-5.00) 10*3/uL Monocytes # (0.20-1.00) 10*3/uL Eosinophils # (0.04-0.35) 10*3/uL Basophils # (0.00-0.10) 10*3/uL PT (10.0-12.5) sec INR (<1.2) APTT (22.0-30.0) sec Sodium (137-145) mmol/L Potassium (3.5-5.1) mmol/L Chloride (98-107) mmol/L Carbon Dioxide (22-30) mmol/L Anion Gap mmol/L BUN (9-20) mg/dL Creatinine (0.66-1.25) mg/dL Est GFR (CKD-EPI)AfAm (>60 ml/min/1.73 sqM) Est GFR (CKD-EPI)NonAf (>60 ml/min/1.73 sqM) Glucose (74-99) mg/dL Lactic Ac Sepsis Rflx Y Plasma Lactic Acid Donal (0.7-2.0) mmol/L Calcium (8.4-10.2) mg/dL Magnesium (1.6-2.3) mg/dL Total Bilirubin (0.2-1.3) mg/dL AST (17-59) U/L ALT (4-49) U/L Alkaline Phosphatase (38-126) U/L Ammonia (<30) umol/L Total Protein (6.3-8.2) g/dL Albumin (3.5-5.0) g/dL Urine Color Urine Appearance (Clear) Urine pH (5.0-8.0) Ur Specific [place] (1.001-1.035) Urine Protein (Negative) Urine Glucose (UA) (Negative) Urine Ketones (Negative) Urine Blood (Negative) Urine Nitrite (Negative) Urine Bilirubin (Negative) Urine Urobilinogen (<2.0) mg/dL Ur Leukocyte Esterase (Negative) Urine RBC (0-5) /hpf Urine WBC (0-5) /hpf Urine Mucus (None) /hpf Salicylates mg/dL Acetaminophen ug/mL Serum Alcohol mg/dL Influenza Type A (PCR) (Not Detectd) Influenza Type B (PCR) (Not Detectd) RSV (PCR) (Not Detectd) SARS-CoV-2 (PCR) (Not Detectd) - EKG Data -: EKG Interpreted by Me EKG Comments: 12-lead Electrocardiogram Interpretation Note EKG was reviewed and interpreted by myself. 12-lead ECG performed at 1931 is interpreted by me as revealing sinus tachycardia at a rate of 104 beats per minute. Petroleum is normal. MI interval is 129 ms, QRS durations 80 ms, QTc is 359 ms.. There were no ST or T wave abnormalities to suggest myocardial ischemia or injury. R wave progression across the precordium was satisfactory. By my interpretation this EKG is non-diagnostic for acute ischemia. Disposition Clinical Impression: Pleural effusion, Altered mental status, Hypercalcemia, Dehydration, Failure to thrive, Metastatic cancer Disposition: ADMITTED IP TO THIS [facility] Condition: Stable Referrals: None,Stated [Primary Care Provider] - 1-2 days Time of Disposition: 22:17
[2024-11-03] MEDS: LEVOFLOXACIN 500MG-D5W PMX 500 MG in DEXTROSE/WATER 1 100ML.BAG IVPB STA (22:58)
[2024-11-03] MEDS: SODIUM CHLORIDE 0.9% 1,000 ML IV SCH (23:19)
[2024-11-03] MEDS: CALCITONIN INJ 200 UNIT/ML (MDV) VIAL IM ONE (23:50)
[2024-11-04] MEDS: ZOLEDRONIC ACID 4 MG in SODIUM CHLORIDE 0.9% 100 ML IV ONE
[2024-11-04] MEDS: HYDROmorphone 1 MG/ML 1 ML SYRINGE IVP PRN (01:14)
[2024-11-04] MEDS ORDERED: RX INFO: IV CONTRAST WAS GIVEN 1 EACH MISC MISCELLANE PRN (01:28)
--- NOTE | 2024-11-04 02:59 | XR ---
EXAM: XR Chest, 1 View CLINICAL HISTORY: ITS.REASON XR Reason: KEYLA TECHNIQUE: Frontal view of the chest. COMPARISON: No relevant prior studies available. FINDINGS: Lungs: Extensive right lower lobe pneumonia. Small bilateral pleural effusions. Pleural space: See above. Heart: Cardiomegaly. Mediastinum: Unremarkable. Bones/joints: Multilevel thoracolumbar fusion hardware. IMPRESSION: Extensive right lower lobe pneumonia. Small bilateral pleural effusions.
--- NOTE | 2024-11-04 03:18 | CT ---
EXAM: CT Chest With Intravenous Contrast CLINICAL HISTORY: ITS.REASON CT Reason: chest pain, malignant pleural effusion, pleurx cat TECHNIQUE: Axial computed tomography images of the chest with intravenous contrast. CTDI is 6.2 mGy and DLP is 287 mGy-cm. This CT exam was performed using one or more of the following dose reduction techniques: automated exposure control, adjustment of the mA and/or kV according to patient size, and/or use of iterative reconstruction technique. COMPARISON: No relevant prior studies available. FINDINGS: Lungs: Extensive bilateral airspace consolidations, preferentially and severely involving the lower lobes. Pleural space: See below. Heart: Unremarkable. No cardiomegaly. No significant pericardial effusion. No significant coronary artery calcifications. Bones/joints: Osseous metastasis, preferentially involving the left scapula, spine, and right posterior 2nd and 4th ribs. No acute fracture. Multilevel posterior fusion hardware and cement kyphoplasty. Soft tissues: Unremarkable. Vasculature: There is narrowing of the right main pulmonary artery, which may be from underlying malignancy. Correlate with oncology history. No thoracic aortic aneurysm. No pulmonary embolism. Lymph nodes: Unremarkable. No enlarged lymph nodes. Tubes, lines and devices: Right chest tube catheter. Small bilateral pleural effusions. IMPRESSION: 1. No pulmonary embolism. 2. Extensive bilateral airspace consolidations, preferentially and severely involving the lower lobes. 3. There is narrowing of the right main pulmonary artery, which may be from underlying malignancy. Correlate with oncology history. 4. Osseous metastasis, preferentially involving the left scapula, spine, and right posterior 2nd and 4th ribs. 5. Right chest tube catheter. Small bilateral pleural effusions.
--- NOTE | 2024-11-04 03:29 | P.HPIM ---
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 R Pleurex cathetar in place. He has not been eating or drinking and half-way staff is concerned about failure to thrive as well. Patient is a very poor historian and is unaware of where he is. Baseline mental status questionable. Cooperative with exam and does not endorse any pain. He needs a adrianna lift to move around at the nursing facility. Review of Systems ROS unobtainable: due to mental status Constitutional: Reports as per HPI Past Medical History Past Medical History: Cancer, Diabetes Mellitus, Prostate Disorder, Pulmonary Embolus (PE) Additional Past Medical History / Comment(s): Covid 04/2022, developed PE and was on blood thinners, BPH, Dupuytren's contracture. NSCLC 06/22/24, respiratory failure, unstagable wounds on thoracic spine and sacrum History of Any Multi-Drug Resistant Organisms: None Reported Past Surgical History: Hernia Repair Additional Past Surgical History / Comment(s): Back surgery 06/19/24, Dupuytren's contracture release on R hand Past Anesthesia/Blood Transfusion Reactions: No Reported Reaction Past Psychological History: No Psychological Hx Reported Smoking Status: Former smoker Past Alcohol Use History: Occasional Past Drug Use History: None Reported Medications and Allergies Home Medications Medication Instructions Recorded Confirmed Type metFORMIN HCL 1,000 mg PO BID 06/15/24 10/17/24 History Sennosides-Docusate Sodium 2 tab PO DAILY PRN 06/23/24 10/17/24 History [Senokot-S] Acetaminophen Tab [Tylenol] 650 mg PO Q6HR PRN tab 10/28/24 Rx Cyclobenzaprine [Flexeril] 10 mg PO TID PRN tab 10/28/24 Rx Famotidine [Pepcid] 20 mg PO BID tab 10/28/24 Rx Ipratropium-Albuterol Nebulize 3 ml INHALATION RT-QID each 10/28/24 Rx [Duoneb 0.5 mg-3 mg/3 ml Soln] Magnesium Oxide [Mag-Ox] 400 mg PO DAILY tab 10/28/24 Rx Morphine Sulfate ER [Ms Contin] 30 mg PO Q12HR tab 10/28/24 Rx Potassium Chloride ER [K-Dur 20] 20 meq PO DAILY tab 10/28/24 Rx Sennosides-Docusate Sodium 1 each PO BID tab 10/28/24 Rx [Senokot-S] droNABinol [Marinol] 2.5 mg PO AC-BID cap 10/28/24 Rx Allergies Allergy/AdvReac Type Severity Reaction Status Date / Time cephalexin [From Keflex] Allergy Swelling Verified 10/23/24 13:03 cortisone Allergy Swelling Verified 10/23/24 13:03 Influenza Virus Vaccines Allergy Swelling Verified 10/23/24 13:03 Physical Exam Vitals: Vital Signs Pulse Resp BP Pulse Ox 11/04/24 01:37 94 L 11/04/24 00:50 116 H 18 131/96 93 L 11/03/24 19:25 105 H 18 118/72 98 Intake and Output 11/03/24 11/03/24 11/04/24 14:59 22:59 06:59 Other: Weight 63.503 kg - Constitutional General appearance: cooperative, no acute distress, thin - EENT Eyes: EOMI, PERRLA, normal appearance ENT: NA/AT - Neck Neck: normal ROM, no rigidity - Respiratory Respiratory: right: diminished, left: CTA, negative: wheezing - Cardiovascular Rhythm: regular Heart sounds: normal: S1, S2 - Gastrointestinal General gastrointestinal: normal bowel sounds, soft - Psychiatric Psychiatric: no A&O x's 3 (AOx1) Results CBC & Chem 7: 11/03/24 20:15 11/03/24 20:15 Labs: Abnormal Lab Results - Last 24 Hours (Table) 11/03/24 11/03/24 11/03/24 Range/Units 20:15 20:15 20:15 WBC 16.93 H (4.50-10.00) 10*3/uL RBC 3.15 L (4.40-5.60) 10*6/uL Hgb 9.3 L (13.0-17.0) g/dL Hct 28.7 L (39.6-50.0) % MPV 9.4 L (9.5-12.2) fL Immature Gran # 0.11 H (0.00-0.04) 10*3/uL Neutrophils # 13.34 H (1.80-7.70) 10*3/uL Monocytes # 1.54 H (0.20-1.00) 10*3/uL Basophils # 0.11 H (0.00-0.10) 10*3/uL APTT 20.5 L (22.0-30.0) sec Carbon Dioxide (22-30) mmol/L BUN (9-20) mg/dL Glucose (74-99) mg/dL Plasma Lactic Acid Donal (0.7-2.0) mmol/L Calcium (8.4-10.2) mg/dL Ionized Calcium Felisha (4.5-5.3) mg/dL Magnesium (1.6-2.3) mg/dL Alkaline Phosphatase (38-126) U/L Total Protein (6.3-8.2) g/dL Albumin (3.5-5.0) g/dL Urine Blood Moderate H (Negative) Ur Leukocyte Esterase Small H (Negative) Urine RBC 106 H (0-5) /hpf Urine WBC 15 H (0-5) /hpf Urine Mucus Rare H (None) /hpf 11/03/24 11/03/24 11/03/24 Range/Units 20:15 20:15 23:12 WBC (4.50-10.00) 10*3/uL RBC (4.40-5.60) 10*6/uL Hgb (13.0-17.0) g/dL Hct (39.6-50.0) % MPV (9.5-12.2) fL Immature Gran # (0.00-0.04) 10*3/uL Neutrophils # (1.80-7.70) 10*3/uL Monocytes # (0.20-1.00) 10*3/uL Basophils # (0.00-0.10) 10*3/uL APTT (22.0-30.0) sec Carbon Dioxide 31 H (22-30) mmol/L BUN 41 H (9-20) mg/dL Glucose 126 H (74-99) mg/dL Plasma Lactic Acid Donal 2.2 H* (0.7-2.0) mmol/L Calcium 15.4 H* (8.4-10.2) mg/dL Ionized Calcium Felisha 8.0 H* (4.5-5.3) mg/dL Magnesium 2.4 H (1.6-2.3) mg/dL Alkaline Phosphatase 136 H (38-126) U/L Total Protein 5.8 L (6.3-8.2) g/dL Albumin 3.2 L (3.5-5.0) g/dL Urine Blood (Negative) Ur Leukocyte Esterase (Negative) Urine RBC (0-5) /hpf Urine WBC (0-5) /hpf Urine Mucus (None) /hpf Chest x-ray: report reviewed, image reviewed CT Scan - head: report reviewed, image reviewed Assessment and Plan (1) Encephalopathy Current Visit: Yes Status: Acute Priority: High Code(s): G93.40 - ENCEPHALOPATHY, UNSPECIFIED SNOMED Code(s): 41987129 (2) Hypercalcemia Current Visit: Yes Status: Acute Code(s): E83.52 - HYPERCALCEMIA SNOMED Code(s): 73379498 (3) Stage IV adenocarcinoma of lung Current Visit: Yes Status: Chronic Code(s): C34.90 - MALIGNANT NEOPLASM OF UNSP PART OF UNSP BRONCHUS OR LUNG SNOMED Code(s): 693663626 (4) Failure to thrive Current Visit: Yes Status: Chronic Code(s): IPL1089 - SNOMED Code(s): 86391107 Plan: #Encephalopathy 2/2 metabolic cause vs hypercalcemia Patient has significant bone mets in the spine and skull which could be contributing to hypercalcemia Patient's hypercalcemia could also be 2/2 paraneoplastic syndrome but less likely as he has an adenocarcinoma Plan: -Admit patient and monitor #Hypercalcemia Rule out hyperparathyroid disorder Patient's baseline mental status unable to be established Plan: Zoledronic acid, calcitonin, trend calcium levels #Stage IV NSLC Adenocarcinoma causing recurrent pleural effusion 1.3L drained in ER Plan: MRI Brain in morning #Failure to thrive Potentially weight loss d/t increased metabolic demand from cancer Plan: Supplement diet as needed. Dredge Runner consult. I have personally reviewed this note, the patient's clinical data, and the resident's assessment/plan. I have discussed the case with the resident, agree with the documented medical decision-making, and confirm that the care provided meets the standard for our service Time with Patient: Greater than 30
--- NOTE | 2024-11-04 06:00 | P.CNPUL ---
History of Present Illness Consult date: 11/04/24 Requesting physician: Ernst Chambers Reason for consult: pleural effusion Chief complaint: Weakness History of present illness: This is a 59-year-old white male with history of metastatic adenocarcinoma of the lung with osseous metastasis, and he had previous history of pathological fracture of T11. His initial diagnosis was made back in May of 2024, patient presented initially with abnormal CT of the chest showing a 2.2 x 1.7 right lower lobe mass and enlarged subcarinal and right hilar lymphadenopathy. At the same time the patient had pathologic fracture of T11. CT of the chest also showed a 2.9 cm mass in the posterior right lower lobe and significant thoracic spine abnormalities consistent with metastatic disease to the spine. Bone scan confirmed metastatic disease to the spine and 2 other skeletal areas including the left scapula. Biopsy of T12 positive for metastatic poorly differentiated pulmonary adenocarcinoma. Patient did not require bronchoscopy or lung biopsy. He has recurrent right-sided pleural effusion. Previously underwent right-sided thoracentesis on 10/18/2024 developed pneumothorax, thought to be trapped lung. Patient did have a Thoravent placed. Subsequently, developed a recurrent right-sided pleural effusion and a Pleurx catheter was placed by the cardiothoracic surgery team on 10/23/2024. Pleural fluid cytology was transudate based on Lights criteria. Pleural fluid pathology nondiagnostic for malignancy. Sent in by EMS from his [facility]CF last night. He was noted to be confused at the outside facility. Apparently, not eating or drinking at the outside facility. Workup in the emergency department including chest x-ray showing complete op acification of the right hemithorax with a Pleurx catheter in place. Also, small left pleural effusion was redemonstrated. ICU nurse did go down to the ER and drained his Pleurx catheter with a total of 1.1 L removed. I believe the fluid was discarded. Subsequently, developed respiratory distress and chest pain. I sent the patient for a chest CT with contrast which did not show any evidence of pulmonary embolism. Extensive bilateral airspace consolidation preferentially and severely involving the lower lobes. There is narrowing of the right main pulmonary artery likely from patient's underlying lung mass. Osseous metastasis preferentially involving the left scapula, spine, right post erior 2nd and 4th ribs. Right chest tube catheter was in place. Labs including a CBC with a WBC count of 16.9, hemoglobin 9.3, platelets 426. CMP: Sodium 137, potassium 4.8, chloride 99, serum bicarb 31, BUN 41, creatinine 0.99, glucose 126. Lactic 2.2 and down to 1.8. Ionized calcium 8 the setting of known malignancy with osseous mets. Magnesium 2.4. ALP 136, ALT 14, AST 25. Total bilirubin 0.6. Ammonia 19. Urinalysis positive for leukocytes. Viral 4 Plex negative for influenza A/B, RSV, COVID. Patient being evaluated in the emergency department. He is alert. Poor historian, and confused, likely exacerbated by his severe hearing loss. He is frail, cachectic, and lethargic. Currently on 8 L high flow nasal cannula. SpO2 is reading 99% on bedside monitor. This is actively being weaned. Patient does not appear in any respiratory distress. Review of Systems ROS unobtainable: due to mental status Past Medical History Past Medical History: Cancer, Diabetes Mellitus, Prostate Disorder, Pulmonary Embolus (PE) Additional Past Medical History / Comment(s): Covid 04/2022, developed PE and was on blood thinners, BPH, Dupuytren's contracture. NSCLC 06/22/24, respiratory failure, unstagable wounds on thoracic spine and sacrum History of Any Multi-Drug Resistant Organisms: None Reported Past Surgical History: Hernia Repair Additional Past Surgical History / Comment(s): Back surgery 06/19/24, Dupuytren's contracture release on R hand Past Anesthesia/Blood Transfusion Reactions: No Reported Reaction Past Psychological History: No Psychological Hx Reported Smoking Status: Former smoker Past Alcohol Use History: Occasional Past Drug Use History: None Reported Medications and Allergies Home Medications Medication Instructions Recorded Confirmed Type metFORMIN HCL 1,000 mg PO BID 06/15/24 10/17/24 History Sennosides-Docusate Sodium 2 tab PO DAILY PRN 06/23/24 10/17/24 History [Senokot-S] Acetaminophen Tab [Tylenol] 650 mg PO Q6HR PRN tab 10/28/24 Rx Cyclobenzaprine [Flexeril] 10 mg PO TID PRN tab 10/28/24 Rx Famotidine [Pepcid] 20 mg PO BID tab 10/28/24 Rx Ipratropium-Albuterol Nebulize 3 ml INHALATION RT-QID each 10/28/24 Rx [Duoneb 0.5 mg-3 mg/3 ml Soln] Magnesium Oxide [Mag-Ox] 400 mg PO DAILY tab 10/28/24 Rx Morphine Sulfate ER [Ms Contin] 30 mg PO Q12HR tab 10/28/24 Rx Potassium Chloride ER [K-Dur 20] 20 meq PO DAILY tab 10/28/24 Rx Sennosides-Docusate Sodium 1 each PO BID tab 10/28/24 Rx [Senokot-S] droNABinol [Marinol] 2.5 mg PO AC-BID cap 10/28/24 Rx Allergies Allergy/AdvReac Type Severity Reaction Status Date / Time cephalexin [From Keflex] Allergy Swelling Verified 10/23/24 13:03 cortisone Allergy Swelling Verified 10/23/24 13:03 Influenza Virus Vaccines Allergy Swelling Verified 10/23/24 13:03 Physical Exam Vitals: Vital Signs Pulse Resp BP Pulse Ox 11/04/24 01:37 94 L 11/04/24 00:50 116 H 18 131/96 93 L 11/03/24 19:25 105 H 18 118/72 98 Intake and Output 11/03/24 11/03/24 11/04/24 14:59 22:59 06:59 Other: Weight 63.503 kg GENERAL EXAM: Alert, 59-year-old male, frail/cachectic appearance, on 8 L high flow nasal cannula, no respiratory distress noted. HEAD: Normocephalic and atraumatic EYES: Normal reaction of pupils, equal size. NOSE: Clear with pink turbinates. THROAT: No erythema or exudates. NECK: No masses, no JVD. CHEST: No chest wall deformity. LUNGS: Equal air entry with diminished right lung sounds. On 8 L high flow nasal cannula. SpO2 reading 99% on bedside monitor. No conversational dyspnea or accessory muscle use.. CVS: S1 and S2 normal with no audible murmur, regular rhythm. No extra heart sounds ABDOMEN: No hepatosplenomegaly, active bowel sounds, no guarding or rigidity. SPINE: No scoliosis or deformity SKIN: No rashes CENTRAL NERVOUS SYSTEM: No focal deficits, tone is normal in all 4 extremities. EXTREMITIES: There is no peripheral edema, clubbing, or cyanosis. Peripheral pulses are intact. Results - Laboratory Findings CBC and BMP: 11/03/24 20:15 11/03/24 20:15 PT/INR, D-dimer PT 11.3 sec (10.0-12.5) 11/03/24 20:15 INR 1.0 (<1.2) 11/03/24 20:15 Abnormal lab findings: Abnormal Labs 11/03/24 11/03/24 11/03/24 20:15 20:15 20:15 WBC 16.93 H RBC 3.15 L Hgb 9.3 L Hct 28.7 L MPV 9.4 L Immature Gran # 0.11 H Neutrophils # 13.34 H Monocytes # 1.54 H Basophils # 0.11 H APTT 20.5 L Carbon Dioxide BUN Glucose Plasma Lactic Acid Donal Calcium Ionized Calcium Felisha Magnesium Alkaline Phosphatase Total Protein Albumin Urine Blood Moderate H Ur Leukocyte Esterase Small H Urine RBC 106 H Urine WBC 15 H Urine Mucus Rare H 11/03/24 11/03/24 11/03/24 20:15 20:15 23:12 WBC RBC Hgb Hct MPV Immature Gran # Neutrophils # Monocytes # Basophils # APTT Carbon Dioxide 31 H BUN 41 H Glucose 126 H Plasma Lactic Acid Donal 2.2 H* Calcium 15.4 H* Ionized Calcium Felisha 8.0 H* Magnesium 2.4 H Alkaline Phosphatase 136 H Total Protein 5.8 L Albumin 3.2 L Urine Blood Ur Leukocyte Esterase Urine RBC Urine WBC Urine Mucus - Diagnostic Findings Chest x-ray: image reviewed CT scan - chest: image reviewed Assessment and Plan Assessment: Bilateral pleural effusion with recurrent large right-sided pleural effusion, status post Pleurx catheter insertion Acute hypoxemic respiratory failure, currently on 8 L high flow nasal cannula, secondary to above History of recurrent right-sided pleural effusion and multiple previous thoracen tesis most recently developing right-sided pneumothorax on October 18, did have previous Thora vent placement which was removed on October 21. Did have increased right-sided pleural effusion and a Pleurx catheter was placed on October 23. Pleural fluid cytology was transudate based on Lights criteria. Pleural fluid pathology previously nondiagnostic for malignancy. Metastatic pulmonary adenocarcinoma with osseous metastasis, confirmed with bone biopsy June 2024. PET scan from September 11, 2024 revealed uptake within the right lung mass compatible with neoplasm. Extensive osseous metastasis inc luding axial spine, left iliac wing, left scapula, multiple ribs, sternum, pelvis. Small metastatic lesions suspected within the left and right lobes of the liver. Mediastinal metastasis. Metastatic lesions in the right supra clavicular region and suspected within lymph nodes within the bilateral parotid glands. Plan was for Keytruda however the patient has had several hospitalizations and difficulty getting to appointments Acute leukocytosis Chronic anemia, hemoglobin stable at 9.3 g/dL Severe hypercalcemia, with ionized calcium of 8, in the setting of dehydration and known malignancy with osseous metastasis Chronic obstructive pulmonary disease Type 2 diabetes Former smoker History of thoracic vertebral fracture/pathological fracture requiring surgery Failure to thrive Cachexia Plan: Continue supplemental oxygen, wean FiO2 as tolerated Pleurx catheter was drained in the emergency department, and a total of 1.1 L was removed Subsequently, developed chest pain and respiratory distress. Follow-up chest CT with contrast which did not show any evidence of pulmonary embolism. Extensive bilateral airspace consolidation preferentially and severely involving the lower lobes. There is narrowing of the right main pulmonary artery likely from patient's underlying lung mass. Osseous metastasis preferentially involving the left scapula, spine, right posterior 2nd and 4th ribs. Right chest tube catheter was in place. Small pleural effusions. No pneumothorax. Continue empiric antibiotics Check procalcitonin level Continue IV maintenance fluids. Previously received a dose of calcitonin and biphosphonate Prognosis is poor considering above-mentioned comorbidities I have personally seen and examined the patient, performed the documentation and the assessment and plan as written. Number of minutes spent on the visit:20 Time with Patient: Greater than 30
[2024-11-04 07:40] LABS: Basophils # (A) 0.06 10*3/uL (0.00-0.10); Basophils % (A) 0.4 %; Eosinophils # (A) 0.03 10*3/uL (0.04-0.35); Eosinophils % (A) 0.2 %; HCT 29.3 % (39.6-50.0); HGB 9.2 g/dL (13.0-17.0); Lymphocytes # (A) 0.93 10*3/uL (0.90-5.00); Lymphocytes % (A) 6.0 %; MCH 29.4 pg (27.0-32.0); MCHC 31.4 g/dL (32.0-37.0); MCV 93.6 fL (80.0-97.0); Monocytes # (A) 0.63 10*3/uL (0.20-1.00); Monocytes % (A) 4.1 %; Neutrophils # (A) 13.66 10*3/uL (1.80-7.70); Neutrophils % (A) 88.6 %; Platelet Count 401 10*3/uL (140-440); RBC 3.13 10*6/uL (4.40-5.60); RDW 14.9 % (11.5-14.5); WBC 15.42 10*3/uL (4.50-10.00)
[2024-11-04 08:03] LABS: ALT 12 U/L (4-49); AST 22 U/L (17-59); African American GFR (CKD) >90 (>60 ml/min/1.73 sqM); Albumin 3.0 g/dL (3.5-5.0); Alkaline Phosphatase 124 U/L (38-126); Anion Gap 8 mmol/L; Blood Urea Nitrogen 40 mg/dL (9-20); Carbon Dioxide 26 mmol/L (22-30); Chloride 105 mmol/L (98-107); Glucose 129 mg/dL (74-99); Non-African American GFR(CKD) >90 (>60 ml/min/1.73 sqM); Potassium 4.8 mmol/L (3.5-5.1); Sodium 139 mmol/L (137-145); Total Protein 5.5 g/dL (6.3-8.2)
--- NOTE | 2024-11-04 08:13 | XR ---
EXAMINATION TYPE: XR chest 1V DATE OF EXAM: 11/04/2024 5:38 AM COMPARISON: 11/04/2024 CLINICAL INDICATION: Male, 59 years old with history of evaluate R pleural effusion, TECHNIQUE: XR chest 1V views of the chest are obtained. FINDINGS: Demonstrated are scattered senescent parenchymal change. Patchy infiltrate throughout the right lung as well as probable right basilar effusion or collection. Right basilar pleural catheter. No pneumothorax. Overall stable chest. The heart is stable. Hilar and mediastinal structures are within normal limits. Degenerative changes are seen of the dorsal spine. IMPRESSION: 1. Patchy infiltrate throughout the right lung as well as probable right basilar effusion or collect ion. Right basilar pleural catheter. No pneumothorax. Overall stable chest. [facility], , 11/04/2024 8:11 AM
[2024-11-04 08:40] LABS: Calcium 13.7 mg/dL (8.4-10.2)
[2024-11-04] MEDS ORDERED: metFORMIN 500 MG TAB PO SCH (09:00)
[2024-11-04] MEDS: PIPERACILLIN-TAZOBACTAM 3.375 GM in SODIUM CHLORIDE 0.9% 100 ML IVPB SCH (09:47)
[2024-11-04] MEDS: IPRATROPIUM-ALBUTEROL 3 ML NEB INHALATION SCH (09:52)
[2024-11-04] MEDS: FAMOTIDINE 20 MG TAB PO SCH (10:31)
[2024-11-04] MEDS: MAGNESIUM OXIDE 400 MG TAB PO SCH (10:32)
[2024-11-04] MEDS: SENNOSIDES-DOCUSATE SODIUM 1 EACH TAB PO SCH (10:32)
[2024-11-04] MEDS: ENOXAPARIN 30 MG/0.3 ML SYRINGE SQ SCH (10:32)
--- NOTE | 2024-11-04 12:53 | P.CONS ---
History of Present Illness - Reason for Consult Consult date: 11/04/24 - History of Present Illness Patient is a 59-year-old male with a significant history of metastatic adenocarcinoma of the lung who follows with Dr. Lorraine Kennedy. Patient developed acute onset mid to low back pain in May 2024 that was persistent and prompted presentation to [facility] on 06/15/2024. CT abdomen pelvis noted right lower lobe nodule measuring 2.2 x 1.7 cm with enlarged subcarinal and right hilar lymphadenopathy. In addition a noted pathological fracture of T11. CT of the chest on noted 2.9 cm mass in the posterior right lower lobe in addition to findings seen on CT abdomen pelvis. MRI of the thoracic and lumbar spine noted abnormalities in the thoracic spine at T4-5, T7, T10-12. He underwent T10-T12 bilateral laminectomy on with postoperative pathology from T11 revealing poorly differentiated pulmonary adenocarcinoma. Previous brain MRI revealed no intracranial metastases. Nuclear medicine bone scan noted metastases noted in the thoracic spine as well as lesion in the left scapula suspicious for malignancy. Following surgery patient was discharged home but was readmitted for generalized weakness and was subsequently discharged to [facility]. He did have consultation with radiation oncology with plans to pursue radiation to the thoracic spine and left scapula however patient had canceled appointment due to pain. 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 PDL 1 was noted to be 50 to 60%. He has stage IVb lung cancer with metastases to the bone. He was recently scheduled to start Keytruda but has been delayed due to current hospital admission. Patient was seen on consult on 10/12/2024 at [facility] for frequent falls and weakness. He was found to have elevated calcium on admit at 13.7. Patient was given 2 doses of pamidronate during admit. He also underwent right sided thoracentesis on 10/12/24 with 2.0 L of yellow cloudy fluid removed. Patient was then transferred to [facility] for further evaluation of pleural effusion. Today patient was seen in the ED, transferred from his rehab facility, with chief complaint of altered mental status. Patient states he is not been eating or drinking. Denies any vomiting or pain. Patient is poor historian and hard of hearing. Has difficulty walking and needs a Irma lift to move around the his nursing facility. At this point he has been unsuccessful in starting his treatment due to him being in rehab. Once out of rehab we we will discuss starting treatment with Keytruda for him. Calcium on admission was 15.8, ionized calcium 8.0. Today's calcium 13.7. Pleurx catheter was drained in ED with 1.1 L of fluid removed. Past Medical History Past Medical History: Cancer, Diabetes Mellitus, Prostate Disorder, Pulmonary Embolus (PE) Additional Past Medical History / Comment(s): Covid 04/2022, developed PE and was on blood thinners, BPH, Dupuytren's contracture. NSCLC 06/22/24, respiratory failure, unstagable wounds on thoracic spine and sacrum History of Any Multi-Drug Resistant Organisms: None Reported Past Surgical History: Hernia Repair Additional Past Surgical History / Comment(s): Back surgery 06/19/24, Dupuytren's contracture release on R hand Past Anesthesia/Blood Transfusion Reactions: No Reported Reaction Past Psychological History: No Psychological Hx Reported Smoking Status: Former smoker Past Alcohol Use History: Occasional Past Drug Use History: None Reported - Past Family History Father History Unknown: Yes Mother History Unknown: Yes Medications and Allergies Home Medications Medication Instructions Recorded Confirmed Type metFORMIN HCL 1,000 mg PO BID 06/15/24 11/04/24 History Acetaminophen Tab [Tylenol] 650 mg PO Q6HR PRN tab 10/28/24 11/04/24 Rx Cyclobenzaprine [Flexeril] 10 mg PO TID PRN tab 10/28/24 11/04/24 Rx Famotidine [Pepcid] 20 mg PO BID tab 10/28/24 11/04/24 Rx Magnesium Oxide [Mag-Ox] 400 mg PO DAILY tab 10/28/24 11/04/24 Rx Morphine Sulfate ER [Ms Contin] 30 mg PO Q12HR tab 10/28/24 11/04/24 Rx Potassium Chloride ER [K-Dur 20] 20 meq PO DAILY tab 10/28/24 11/04/24 Rx droNABinol [Marinol] 2.5 mg PO AC-BID cap 10/28/24 11/04/24 Rx Ipratropium-Albuterol Nebulize 3 ml INHALATION RT-TID 11/04/24 11/04/24 History [Duoneb 0.5 mg-3 mg/3 ml Soln] Naloxone HCl 1 spray NASAL ONCE PRN 11/04/24 11/04/24 History Sennosides [Senokot] 17.2 mg PO BID 11/04/24 11/04/24 History Allergies Allergy/AdvReac Type Severity Reaction Status Date / Time cephalexin [From Keflex] Allergy Swelling Verified 11/04/24 09:14 cortisone Allergy Swelling Verified 11/04/24 09:14 Influenza Virus Vaccines Allergy Swelling Verified 11/04/24 09:14 Physical Exam Vitals: Vital Signs Temp Pulse Resp BP Pulse Ox 11/04/24 09:52 99 100 11/04/24 09:00 96 20 108/76 100 11/04/24 08:00 97.7 F 103 H 18 113/78 100 11/04/24 05:41 104 H 19 123/81 99 11/04/24 03:28 110 H 18 117/74 97 11/04/24 01:37 94 L 11/04/24 00:50 116 H 18 131/96 93 L 11/03/24 19:25 105 H 18 118/72 98 Intake and Output 11/03/24 11/04/24 11/04/24 22:59 06:59 14:59 Output Total 1100 1000 Balance -1100 -1000 Output: Urine 1000 Other 1100 Other: Weight 63.503 kg Physical Exam: General: Cachectic appearance, no respiratory distress, on 4 L nasal cannula Cardiovascular: S1 S2 reg, no murmur, rubs, or gallops Lungs: Sounds diminished bilaterally, no rhonchi, no rales Abdominal: soft, non-tender to palpataion, no appreciable organomegaly Extremities: no gross muscle atrophy, no edema, no contractures Neuro: Alert Psych: appropriate affect Results CBC & Chem 7: 11/07/24 05:45 11/07/24 05:45 Labs: Abnormal Lab Results - Last 24 Hours (Table) 11/03/24 11/03/24 11/03/24 Range/Units 20:15 20:15 20:15 WBC 16.93 H (4.50-10.00) 10*3/uL RBC 3.15 L (4.40-5.60) 10*6/uL Hgb 9.3 L (13.0-17.0) g/dL Hct 28.7 L (39.6-50.0) % MCHC (32.0-37.0) g/dL MPV 9.4 L (9.5-12.2) fL Immature Gran # 0.11 H (0.00-0.04) 10*3/uL Neutrophils # 13.34 H (1.80-7.70) 10*3/uL Monocytes # 1.54 H (0.20-1.00) 10*3/uL Eosinophils # (0.04-0.35) 10*3/uL Basophils # 0.11 H (0.00-0.10) 10*3/uL APTT 20.5 L (22.0-30.0) sec Carbon Dioxide (22-30) mmol/L BUN (9-20) mg/dL Glucose (74-99) mg/dL Plasma Lactic Acid Donal (0.7-2.0) mmol/L Calcium (8.4-10.2) mg/dL Ionized Calcium Felisha (4.5-5.3) mg/dL Magnesium (1.6-2.3) mg/dL Alkaline Phosphatase (38-126) U/L Total Protein (6.3-8.2) g/dL Albumin (3.5-5.0) g/dL Vitamin D 25-Hydroxy (30.0-100.0) ng/mL PTH Intact (14.0-72.0) pg/mL Urine Blood Moderate H (Negative) Ur Leukocyte Esterase Small H (Negative) Urine RBC 106 H (0-5) /hpf Urine WBC 15 H (0-5) /hpf Urine Mucus Rare H (None) /hpf Ur Random Calcium (100.0-300.0) mg/dL 11/03/24 11/03/24 11/03/24 Range/Units 20:15 20:15 23:12 WBC (4.50-10.00) 10*3/uL RBC (4.40-5.60) 10*6/uL Hgb (13.0-17.0) g/dL Hct (39.6-50.0) % MCHC (32.0-37.0) g/dL MPV (9.5-12.2) fL Immature Gran # (0.00-0.04) 10*3/uL Neutrophils # (1.80-7.70) 10*3/uL Monocytes # (0.20-1.00) 10*3/uL Eosinophils # (0.04-0.35) 10*3/uL Basophils # (0.00-0.10) 10*3/uL APTT (22.0-30.0) sec Carbon Dioxide 31 H (22-30) mmol/L BUN 41 H (9-20) mg/dL Glucose 126 H (74-99) mg/dL Plasma Lactic Acid Donal 2.2 H* (0.7-2.0) mmol/L Calcium 15.4 H* (8.4-10.2) mg/dL Ionized Calcium Felisha 8.0 H* (4.5-5.3) mg/dL Magnesium 2.4 H (1.6-2.3) mg/dL Alkaline Phosphatase 136 H (38-126) U/L Total Protein 5.8 L (6.3-8.2) g/dL Albumin 3.2 L (3.5-5.0) g/dL Vitamin D 25-Hydroxy (30.0-100.0) ng/mL PTH Intact (14.0-72.0) pg/mL Urine Blood (Negative) Ur Leukocyte Esterase (Negative) Urine RBC (0-5) /hpf Urine WBC (0-5) /hpf Urine Mucus (None) /hpf Ur Random Calcium (100.0-300.0) mg/dL 11/03/24 11/03/24 11/04/24 Range/Units 23:33 23:33 03:19 WBC (4.50-10.00) 10*3/uL RBC (4.40-5.60) 10*6/uL Hgb (13.0-17.0) g/dL Hct (39.6-50.0) % MCHC (32.0-37.0) g/dL MPV (9.5-12.2) fL Immature Gran # (0.00-0.04) 10*3/uL Neutrophils # (1.80-7.70) 10*3/uL Monocytes # (0.20-1.00) 10*3/uL Eosinophils # (0.04-0.35) 10*3/uL Basophils # (0.00-0.10) 10*3/uL APTT (22.0-30.0) sec Carbon Dioxide (22-30) mmol/L BUN (9-20) mg/dL Glucose (74-99) mg/dL Plasma Lactic Acid Donal (0.7-2.0) mmol/L Calcium (8.4-10.2) mg/dL Ionized Calcium Felisha (4.5-5.3) mg/dL Magnesium (1.6-2.3) mg/dL Alkaline Phosphatase (38-126) U/L Total Protein (6.3-8.2) g/dL Albumin (3.5-5.0) g/dL Vitamin D 25-Hydroxy 19.4 L (30.0-100.0) ng/mL PTH Intact 3.4 L (14.0-72.0) pg/mL Urine Blood (Negative) Ur Leukocyte Esterase (Negative) Urine RBC (0-5) /hpf Urine WBC (0-5) /hpf Urine Mucus (None) /hpf Ur Random Calcium 21.5 L (100.0-300.0) mg/dL 11/04/24 11/04/24 Range/Units 07:13 07:13 WBC 15.42 H (4.50-10.00) 10*3/uL RBC 3.13 L (4.40-5.60) 10*6/uL Hgb 9.2 L (13.0-17.0) g/dL Hct 29.3 L (39.6-50.0) % MCHC 31.4 L (32.0-37.0) g/dL MPV (9.5-12.2) fL Immature Gran # 0.11 H (0.00-0.04) 10*3/uL Neutrophils # 13.66 H (1.80-7.70) 10*3/uL Monocytes # (0.20-1.00) 10*3/uL Eosinophils # 0.03 L (0.04-0.35) 10*3/uL Basophils # (0.00-0.10) 10*3/uL APTT (22.0-30.0) sec Carbon Dioxide (22-30) mmol/L BUN 40 H (9-20) mg/dL Glucose 129 H (74-99) mg/dL Plasma Lactic Acid Donal (0.7-2.0) mmol/L Calcium 13.7 H* (8.4-10.2) mg/dL Ionized Calcium Felisha 7.7 H* (4.5-5.3) mg/dL Magnesium (1.6-2.3) mg/dL Alkaline Phosphatase (38-126) U/L Total Protein 5.5 L (6.3-8.2) g/dL Albumin 3.0 L (3.5-5.0) g/dL Vitamin D 25-Hydroxy (30.0-100.0) ng/mL PTH Intact (14.0-72.0) pg/mL Urine Blood (Negative) Ur Leukocyte Esterase (Negative) Urine RBC (0-5) /hpf Urine WBC (0-5) /hpf Urine Mucus (None) /hpf Ur Random Calcium (100.0-300.0) mg/dL Assessment and Plan Assessment: #. Severe hypercalcemia of malignancy likely secondary to bone metastasis #. History of bilateral pleural effusion, currently with right Pleurx catheter #. Metastatic NSCLC #. Acute encephalopathy in the setting of hypercalcemia versus metabolic etiology #. Acute hypoxic respiratory failure #. Failure to thrive Pleurx catheter was drained in ED with 1.1 L of fluid removed Status post zoledronic acid 4mg IV once, calcitonin x1 Maintain normal saline at 150 cc/hr PTH ordered Continue to trend calcium levels Comfort care measures were discussed last admission, and patient was not amenable and wanted to try rehab. He is currently not receiving any treatment due to being in long-term rehab. Will discuss treatment options with patient once he is cleared from rehab post-discharge. Thank you for this consultation. We will continue to follow the patient throughout admission. Please not hesitate to ask any further questions. Plan: Patient personally seen, examined, and management plan formulated, with the resident History and physical exam as above Patient with metastatic non-small cell cancer, with very poor performance status. Admitted with recurrent hypercalcemia, From ECF The patient does not appear to have made much progress with rehab. At this time it appears to be highly unlikely that his performance status would improve significantly to where he would be able to initiate active treatment. Comfort care has been discussed with the patient, but he wants to try rehab to see if his performance status can improve. Treat acute problems supportively, with IV hydration, IV bisphosphonate, and calcitonin as needed to improve calcium. Assuming that the patient's acute issue improves, he can potentially be transferred back to [facility] to continue rehab efforts and follow-up with us in the outpatient setting. If his performance status does not improve further, then comfort care measures will again be addressed. In addition, if the patient declines during this hospitalization, then again comfort care would be very reasonable.
--- NOTE | 2024-11-04 13:45 | P.PN ---
Subjective Progress Note Date: 11/04/24 Hospital Course: A 59-year-old male with past medical history of stage IV lung adenocarcinoma, diagnosed in May 2024, unable to start chemotherapy due to recurrent hospitalizations, history of PE, type II DM, who presented to the ER on 11/03 from rehab for altered mental status, decreased oral intake. Patient is a poor historian, was confused on admission, no further history available, of note, patient is very hard of hearing, has not his glasses with him and thus cannot read written or typed text. He underwent extensive workup in the ER, while he was afebrile and tachycardic in 100s, blood pressure stable 118/72, was placed on high flow nasal cannula for hypoxia Blood work revealed leukocytosis 16.9, unchanged from end of October, stable hemoglobin at 9.2, normal platelet count, sodium and potassium normal, bicarb 31, creatinine normal, glucose controlled, calcium severely elevated 15.4, ionized calcium 8.0, ammonia level was normal, intact PTH level 3.4, TSH normal 4.3, procalcitonin 0.35. UA showed hematuria, pyuria WBC 15, viral panel negative. CT chest showed no PE, extensive bilateral airspace consolidation, preferentially and severely involving the lower lobes, narrowing of the right main pulmonary artery, osseous mets involving left Lung, spine, right posterior 2nd and 4th ribs, right chest tube catheter. His Pleurx catheter was drained in the ER with 1.1 L removed.. He received 1 dose of calcitonin, zoledronic acid. Patient was admitted for further management of hypercalcemia, altered mental status, decreased oral intake, pulmonology, oncology, neurology, RD consulted. 11/04: Patient was seen and examined at bedside, he is alert, confused, hard of hearing, cannot provide any history, does not appear to be in acute distress. Verbalized aches through the body, no other complaints. He is afebrile tachycardic in 90s, SpO2 100 on 3 L, BP 115/77. Lab work shows persistent leukocytosis but improved 15.4, stable hemoglobin 9.2, platelet count normal, sodium and potassium normal, creatinine stays normal, glucose controlled, calcium improved 13.7, ionized calcium 7.7. Patient is continued on IV hydration with normal saline at 50 cc/h. Continue on Zosyn, pending blood and urine cultures. Review of pulmonology and oncology notes. Patient's son was at bedside, all questions answered. Confirmed patient's CODE STATUS is as DNR/DNI Pertinent positives and negatives as discussed above, a complete review of systems was performed and all other systems are negative. Vitals Signs Reviewed. General: [Chronically ill-appearing, cachectic Derm: [warm], [dry] Head: [atraumatic], [normocephalic], [symmetric] Eyes: [EOMI], [no lid lag], [anicteric sclera] Mouth: [no lip lesion], [mucus membranes moist] Cardiovascular: [S1S2 reg], [no murmur] Lungs: [Decreased bibasilar breath sounds mild bilateral rhonchi] , [no accessory muscle use] Abdominal: [soft], [ nontender to palpation], [no guarding], [no appreciable organomegaly] Ext: [no gross muscle atrophy], [no edema], [no contractures] Neuro: [ CN II-XI grossly intact], [no focal neuro deficits] Psych: [Alert], Assessment and Plan: Altered mental status, likely secondary to severe hypercalcemia Severe humoral hypercalcemia of malignancy Recurrent malignant bilateral pleural effusion with Pleurx catheter in place Stage IV lung adenocarcinoma Failure to thrive secondary to above -Oncology following, patient is status post zoledronic acid and calcitonin, continue with NS at 150 cc/h -PTH as above -BMP and CBC daily, ordered calcium level every 8 hours -Nutrition consulted - Overall prognosis is poor, patient is hospice appropriate, per oncology, currently not interested in [employer]. Acute hypoxic respiratory failure -Possible pneumonia, continue Zosyn empirically at 3.375 every 8 hours, follow- up urine and blood cultures, procalcitonin as above -Pulmonology following DVT ppx: Lovenox Code status: DNR/DNI Anticipated discharge place: Rehab Anticipated discharge time: Pending clinical stability Objective - Vital Signs Vital signs: Vital Signs Temp 97.7 F 11/04/24 08:00 Pulse 96 11/04/24 13:02 Resp 20 11/04/24 11:00 BP 115/77 11/04/24 11:00 Pulse Ox 100 11/04/24 12:54 FiO2 Intake & Output 11/03/24 11/04/24 11/04/24 18:59 06:59 18:59 Output Total 1100 1000 Balance -1100 -1000 Weight 63.503 kg Output: Urine 1000 Other 1100 - Labs CBC & Chem 7: 11/04/24 07:13 11/04/24 07:13 Labs: Abnormal Lab Results - Last 24 Hours (Table) 11/03/24 11/03/24 11/03/24 Range/Units 20:15 20:15 20:15 WBC 16.93 H (4.50-10.00) 10*3/uL RBC 3.15 L (4.40-5.60) 10*6/uL Hgb 9.3 L (13.0-17.0) g/dL Hct 28.7 L (39.6-50.0) % MCHC (32.0-37.0) g/dL MPV 9.4 L (9.5-12.2) fL Immature Gran # 0.11 H (0.00-0.04) 10*3/uL Neutrophils # 13.34 H (1.80-7.70) 10*3/uL Monocytes # 1.54 H (0.20-1.00) 10*3/uL Eosinophils # (0.04-0.35) 10*3/uL Basophils # 0.11 H (0.00-0.10) 10*3/uL APTT 20.5 L (22.0-30.0) sec Carbon Dioxide (22-30) mmol/L BUN (9-20) mg/dL Glucose (74-99) mg/dL Plasma Lactic Acid Donal (0.7-2.0) mmol/L Calcium (8.4-10.2) mg/dL Ionized Calcium Felisha (4.5-5.3) mg/dL Magnesium (1.6-2.3) mg/dL Alkaline Phosphatase (38-126) U/L Total Protein (6.3-8.2) g/dL Albumin (3.5-5.0) g/dL Vitamin D 25-Hydroxy (30.0-100.0) ng/mL Vit D 1,25-Dihydroxy (19.9-79.3) pg/mL PTH Intact (14.0-72.0) pg/mL Urine Blood Moderate H (Negative) Ur Leukocyte Esterase Small H (Negative) Urine RBC 106 H (0-5) /hpf Urine WBC 15 H (0-5) /hpf Urine Mucus Rare H (None) /hpf Ur Random Calcium (100.0-300.0) mg/dL Free [place] LC, Quant (0.33-1.94) mg/dL 11/03/24 11/03/24 11/03/24 Range/Units 20:15 20:15 23:12 WBC (4.50-10.00) 10*3/uL RBC (4.40-5.60) 10*6/uL Hgb (13.0-17.0) g/dL Hct (39.6-50.0) % MCHC (32.0-37.0) g/dL MPV (9.5-12.2) fL Immature Gran # (0.00-0.04) 10*3/uL Neutrophils # (1.80-7.70) 10*3/uL Monocytes # (0.20-1.00) 10*3/uL Eosinophils # (0.04-0.35) 10*3/uL Basophils # (0.00-0.10) 10*3/uL APTT (22.0-30.0) sec Carbon Dioxide 31 H (22-30) mmol/L BUN 41 H (9-20) mg/dL Glucose 126 H (74-99) mg/dL Plasma Lactic Acid Donal 2.2 H* (0.7-2.0) mmol/L Calcium 15.4 H* (8.4-10.2) mg/dL Ionized Calcium Felisha 8.0 H* (4.5-5.3) mg/dL Magnesium 2.4 H (1.6-2.3) mg/dL Alkaline Phosphatase 136 H (38-126) U/L Total Protein 5.8 L (6.3-8.2) g/dL Albumin 3.2 L (3.5-5.0) g/dL Vitamin D 25-Hydroxy (30.0-100.0) ng/mL Vit D 1,25-Dihydroxy (19.9-79.3) pg/mL PTH Intact (14.0-72.0) pg/mL Urine Blood (Negative) Ur Leukocyte Esterase (Negative) Urine RBC (0-5) /hpf Urine WBC (0-5) /hpf Urine Mucus (None) /hpf Ur Random Calcium (100.0-300.0) mg/dL Free [place] LC, Quant (0.33-1.94) mg/dL 11/03/24 11/03/24 11/03/24 Range/Units 23:33 23:33 23:33 WBC (4.50-10.00) 10*3/uL RBC (4.40-5.60) 10*6/uL Hgb (13.0-17.0) g/dL Hct (39.6-50.0) % MCHC (32.0-37.0) g/dL MPV (9.5-12.2) fL Immature Gran # (0.00-0.04) 10*3/uL Neutrophils # (1.80-7.70) 10*3/uL Monocytes # (0.20-1.00) 10*3/uL Eosinophils # (0.04-0.35) 10*3/uL Basophils # (0.00-0.10) 10*3/uL APTT (22.0-30.0) sec Carbon Dioxide (22-30) mmol/L BUN (9-20) mg/dL Glucose (74-99) mg/dL Plasma Lactic Acid Donal (0.7-2.0) mmol/L Calcium (8.4-10.2) mg/dL Ionized Calcium Felisha (4.5-5.3) mg/dL Magnesium (1.6-2.3) mg/dL Alkaline Phosphatase (38-126) U/L Total Protein (6.3-8.2) g/dL Albumin (3.5-5.0) g/dL Vitamin D 25-Hydroxy 19.4 L (30.0-100.0) ng/mL Vit D 1,25-Dihydroxy 5.8 L (19.9-79.3) pg/mL PTH Intact 3.4 L (14.0-72.0) pg/mL Urine Blood (Negative) Ur Leukocyte Esterase (Negative) Urine RBC (0-5) /hpf Urine WBC (0-5) /hpf Urine Mucus (None) /hpf Ur Random Calcium (100.0-300.0) mg/dL Free [place] LC, Quant (0.33-1.94) mg/dL 07/02/25 07/02/25 07/02/25 Range/Units 03:19 07:13 07:13 WBC 15.42 H (4.50-10.00) 10*3/uL RBC 3.13 L (4.40-5.60) 10*6/uL Hgb 9.2 L (13.0-17.0) g/dL Hct 29.3 L (39.6-50.0) % MCHC 31.4 L (32.0-37.0) g/dL MPV (9.5-12.2) fL Immature Gran # 0.11 H (0.00-0.04) 10*3/uL Neutrophils # 13.66 H (1.80-7.70) 10*3/uL Monocytes # (0.20-1.00) 10*3/uL Eosinophils # 0.03 L (0.04-0.35) 10*3/uL Basophils # (0.00-0.10) 10*3/uL APTT (22.0-30.0) sec Carbon Dioxide (22-30) mmol/L BUN 40 H (9-20) mg/dL Glucose 129 H (74-99) mg/dL Plasma Lactic Acid Donal (0.7-2.0) mmol/L Calcium 13.7 H* (8.4-10.2) mg/dL Ionized Calcium Felisha 7.7 H* (4.5-5.3) mg/dL Magnesium (1.6-2.3) mg/dL Alkaline Phosphatase (38-126) U/L Total Protein 5.5 L (6.3-8.2) g/dL Albumin 3.0 L (3.5-5.0) g/dL Vitamin D 25-Hydroxy (30.0-100.0) ng/mL Vit D 1,25-Dihydroxy (19.9-79.3) pg/mL PTH Intact (14.0-72.0) pg/mL Urine Blood (Negative) Ur Leukocyte Esterase (Negative) Urine RBC (0-5) /hpf Urine WBC (0-5) /hpf Urine Mucus (None) /hpf Ur Random Calcium 21.5 L (100.0-300.0) mg/dL Free [place] LC, Quant (0.33-1.94) mg/dL 11/04/24 Range/Units 07:13 WBC (4.50-10.00) 10*3/uL RBC (4.40-5.60) 10*6/uL Hgb (13.0-17.0) g/dL Hct (39.6-50.0) % MCHC (32.0-37.0) g/dL MPV (9.5-12.2) fL Immature Gran # (0.00-0.04) 10*3/uL Neutrophils # (1.80-7.70) 10*3/uL Monocytes # (0.20-1.00) 10*3/uL Eosinophils # (0.04-0.35) 10*3/uL Basophils # (0.00-0.10) 10*3/uL APTT (22.0-30.0) sec Carbon Dioxide (22-30) mmol/L BUN (9-20) mg/dL Glucose (74-99) mg/dL Plasma Lactic Acid Donal (0.7-2.0) mmol/L Calcium (8.4-10.2) mg/dL Ionized Calcium Felisha (4.5-5.3) mg/dL Magnesium (1.6-2.3) mg/dL Alkaline Phosphatase (38-126) U/L Total Protein (6.3-8.2) g/dL Albumin (3.5-5.0) g/dL Vitamin D 25-Hydroxy (30.0-100.0) ng/mL Vit D 1,25-Dihydroxy (19.9-79.3) pg/mL PTH Intact (14.0-72.0) pg/mL Urine Blood (Negative) Ur Leukocyte Esterase (Negative) Urine RBC (0-5) /hpf Urine WBC (0-5) /hpf Urine Mucus (None) /hpf Ur Random Calcium (100.0-300.0) mg/dL Free [place] LC, Quant 3.57 H (0.33-1.94) mg/dL
--- NOTE | 2024-11-04 14:58 | P.CNNES ---
<Nieves Goncalves - Last Filed: 11/04/24 14:41> History of Present Illness Consult date: 11/04/24 Requesting physician: Ernst Chambers Reason for Consult: Altered mental status History of Present Illness: Patient is a 59-year-old male with metastatic adenocarcinoma of the lung, diabetes mellitus was sent to the ED from rehab for altered mental status. Patient seen today under neurological consultation. The patient was just discharged 3 days ago and was sent to the rehab. Reportedly the patient was not eating and drinking well since he went to the rehab. Previous brain MRI revealed no intracranial metastases. Patient is poor historian and hard of hearing. Has difficulty walking and needs a Irma lift to move around the his nursing fac ility. Vitals, pulse 105 bpm, WBC 15.42, hemoglobin 9.0, calcium 13.7, ionized calcium 7.7, vitamin D 25-hydroxy 19.4, vitamin D 125 dihydroxy 5.8, TSH 4.37, PTH 3.4, Pro-Cornelius 0.35 UA shows moderate blood and small leukocyte esterase, 6 RBC and [address] shows no acute intracranial process, redemonstration of extensive destructive right occipital bone and soft tissue osseous metastasis from prior PET CT which is mildly increased in size from prior exam, right mastoid effusion Past Medical History Past Medical History: Cancer, Diabetes Mellitus, Prostate Disorder, Pulmonary Embolus (PE) Additional Past Medical History / Comment(s): Covid 04/2022, developed PE and was on blood thinners, BPH, Dupuytren's contracture. NSCLC 06/22/24, respiratory failure, unstagable wounds on thoracic spine and sacrum History of Any Multi-Drug Resistant Organisms: None Reported Past Surgical History: Hernia Repair Additional Past Surgical History / Comment(s): Back surgery 06/19/24, Dupuytren's contracture release on R hand Past Anesthesia/Blood Transfusion Reactions: No Reported Reaction Past Psychological History: No Psychological Hx Reported Smoking Status: Former smoker Past Alcohol Use History: Occasional Past Drug Use History: None Reported Medications and Allergies Home Medications Medication Instructions Recorded Confirmed Type metFORMIN HCL 1,000 mg PO BID 06/15/24 11/04/24 History Acetaminophen Tab [Tylenol] 650 mg PO Q6HR PRN tab 10/28/24 11/04/24 Rx Cyclobenzaprine [Flexeril] 10 mg PO TID PRN tab 10/28/24 11/04/24 Rx Famotidine [Pepcid] 20 mg PO BID tab 10/28/24 11/04/24 Rx Magnesium Oxide [Mag-Ox] 400 mg PO DAILY tab 10/28/24 11/04/24 Rx Morphine Sulfate ER [Ms Contin] 30 mg PO Q12HR tab 10/28/24 11/04/24 Rx Potassium Chloride ER [K-Dur 20] 20 meq PO DAILY tab 10/28/24 11/04/24 Rx droNABinol [Marinol] 2.5 mg PO AC-BID cap 10/28/24 11/04/24 Rx Ipratropium-Albuterol Nebulize 3 ml INHALATION RT-TID 11/04/24 11/04/24 History [Duoneb 0.5 mg-3 mg/3 ml Soln] Naloxone HCl 1 spray NASAL ONCE PRN 11/04/24 11/04/24 History Sennosides [Senokot] 17.2 mg PO BID 11/04/24 11/04/24 History Allergies Allergy/AdvReac Type Severity Reaction Status Date / Time cephalexin [From Keflex] Allergy Swelling Verified 11/04/24 09:14 cortisone Allergy Swelling Verified 11/04/24 09:14 Influenza Virus Vaccines Allergy Swelling Verified 11/04/24 09:14 Physical Examination - Vital Signs Vital Signs: Vital Signs Temp Pulse Resp BP Pulse Ox 11/04/24 14:00 105 H 18 125/84 99 11/04/24 13:02 96 11/04/24 13:00 101 H 20 116/77 98 11/04/24 12:54 98 100 11/04/24 11:00 103 H 20 115/77 97 11/04/24 09:52 99 100 11/04/24 09:00 96 20 108/76 100 11/04/24 08:00 97.7 F 103 H 18 113/78 100 11/04/24 05:41 104 H 19 123/81 99 11/04/24 03:28 110 H 18 117/74 97 11/04/24 01:37 94 L 11/04/24 00:50 116 H 18 131/96 93 L 11/03/24 19:25 105 H 18 118/72 98 Intake and Output 11/03/24 11/04/24 11/04/24 22:59 06:59 14:59 Output Total 1100 1000 Balance -1100 -1000 Output: Urine 1000 Other 1100 Other: Weight 63.503 kg General: no distress, lying in bed comfortably. Neuro: Awake, Alert, and oriented Extraocular movements intact no nystagmus,face is symmetrical, facial sensation normal. On muscle strength testing, there is 3/5 in b/l LE , 4/5 in b/l UE Deep tendon reflexes are symmetric 1 at biceps, 1 at brachioradialis, 1 at the knees and plantars indeterminate Sensory to touch is equal Results - Laboratory Findings CBC and BMP: 11/04/24 07:13 11/04/24 07:13 Abnormal Lab Findings: Abnormal Labs 11/03/24 11/03/24 11/03/24 20:15 20:15 20:15 WBC 16.93 H RBC 3.15 L Hgb 9.3 L Hct 28.7 L MCHC MPV 9.4 L Immature Gran # 0.11 H Neutrophils # 13.34 H Monocytes # 1.54 H Eosinophils # Basophils # 0.11 H APTT 20.5 L Carbon Dioxide BUN Glucose Plasma Lactic Acid Donal Calcium Ionized Calcium Felisha Magnesium Alkaline Phosphatase Total Protein Albumin Vitamin D 25-Hydroxy Vit D 1,25-Dihydroxy PTH Intact Urine Blood Moderate H Ur Leukocyte Esterase Small H Urine RBC 106 H Urine WBC 15 H Urine Mucus Rare H Ur Random Calcium Free [place] LC, Quant 11/03/24 11/03/24 11/03/24 20:15 20:15 23:12 WBC RBC Hgb Hct MCHC MPV Immature Gran # Neutrophils # Monocytes # Eosinophils # Basophils # APTT Carbon Dioxide 31 H BUN 41 H Glucose 126 H Plasma Lactic Acid Donal 2.2 H* Calcium 15.4 H* Ionized Calcium Felisha 8.0 H* Magnesium 2.4 H Alkaline Phosphatase 136 H Total Protein 5.8 L Albumin 3.2 L Vitamin D 25-Hydroxy Vit D 1,25-Dihydroxy PTH Intact Urine Blood Ur Leukocyte Esterase Urine RBC Urine WBC Urine Mucus Ur Random Calcium Free [place] LC, Quant 11/03/24 11/03/24 11/03/24 23:33 23:33 23:33 WBC RBC Hgb Hct MCHC MPV Immature Gran # Neutrophils # Monocytes # Eosinophils # Basophils # APTT Carbon Dioxide BUN Glucose Plasma Lactic Acid Donal Calcium Ionized Calcium Felisha Magnesium Alkaline Phosphatase Total Protein Albumin Vitamin D 25-Hydroxy 19.4 L Vit D 1,25-Dihydroxy 5.8 L PTH Intact 3.4 L Urine Blood Ur Leukocyte Esterase Urine RBC Urine WBC Urine Mucus Ur Random Calcium Free [place] LC, Quant 11/04/24 11/04/24 11/04/24 03:19 07:13 07:13 WBC 15.42 H RBC 3.13 L Hgb 9.2 L Hct 29.3 L MCHC 31.4 L MPV Immature Gran # 0.11 H Neutrophils # 13.66 H Monocytes # Eosinophils # 0.03 L Basophils # APTT Carbon Dioxide BUN 40 H Glucose 129 H Plasma Lactic Acid Donal Calcium 13.7 H* Ionized Calcium Felisha 7.7 H* Magnesium Alkaline Phosphatase Total Protein 5.5 L Albumin 3.0 L Vitamin D 25-Hydroxy Vit D 1,25-Dihydroxy PTH Intact Urine Blood Ur Leukocyte Esterase Urine RBC Urine WBC Urine Mucus Ur Random Calcium 21.5 L Free [place] LC, Quant 11/04/24 07:13 WBC RBC Hgb Hct MCHC MPV Immature Gran # Neutrophils # Monocytes # Eosinophils # Basophils # APTT Carbon Dioxide BUN Glucose Plasma Lactic Acid Donal Calcium Ionized Calcium Felisha Magnesium Alkaline Phosphatase Total Protein Albumin Vitamin D 25-Hydroxy Vit D 1,25-Dihydroxy PTH Intact Urine Blood Ur Leukocyte Esterase Urine RBC Urine WBC Urine Mucus Ur Random Calcium Free [place] LC, Quant 3.57 H Assessment and Plan Assessment: Delirium due to metabolic derangement, electrolyte imbalance Severe hypercalcemia of malignancy Stage IV lung adenocarcinoma Failure to thrive secondary to above Acute hypoxic respiratory failure Plan: Brain CT shows no acute intracranial process, redemonstration of extensive destructive right occipital bone and soft tissue osseous metastasis from prior PET CT which is mildly increased in size from prior exam, right mastoid effusion Brain MRI in June 2024 that showed no evidence for intra-axial mass, right posterior skull lesion suspicious for possible metastatic disease, no evidence of intra-axial mass, acute/subacute infarct or abnormal enhancement. Nonspecific white matter changes likely related to small ischemic disease Consider repeat brain MRI to rule out brain mets. Patient's son refused No indication for EEG Patient is status post zoledronic acid and calcitonin Currently on NS at 150 cc/h Pulmonology and Oncology on board Dictation was produced using [employer] dictation software. please excuse any grammatical, word or spelling errors. Nieves Goncalves MD PGY-2 IM <Lamont Ledesma - Last Filed: 11/04/24 17:37> Physical Examination - Vital Signs Vital Signs: Vital Signs Temp Pulse Resp BP Pulse Ox 11/04/24 17:02 92 11/04/24 16:52 94 11/04/24 16:25 99 11/04/24 16:00 96 18 109/71 100 11/04/24 14:00 105 H 18 125/84 99 11/04/24 13:02 96 11/04/24 13:00 101 H 20 116/77 98 11/04/24 12:54 98 100 11/04/24 11:00 103 H 20 115/77 97 11/04/24 09:52 99 100 11/04/24 09:00 96 20 108/76 100 11/04/24 08:00 97.7 F 103 H 18 113/78 100 11/04/24 05:41 104 H 19 123/81 99 11/04/24 03:28 110 H 18 117/74 97 11/04/24 01:37 94 L 11/04/24 00:50 116 H 18 131/96 93 L 11/03/24 19:25 105 H 18 118/72 98 Intake and Output 11/04/24 11/04/24 11/04/24 06:59 14:59 22:59 Output Total 1100 1000 Balance -1100 -1000 Output: Urine 1000 Other 1100 Results - Laboratory Findings CBC and BMP: 11/04/24 07:13 11/04/24 07:13 Abnormal Lab Findings: Abnormal Labs 11/03/24 11/03/24 11/03/24 20:15 20:15 20:15 WBC 16.93 H RBC 3.15 L Hgb 9.3 L Hct 28.7 L MCHC MPV 9.4 L Immature Gran # 0.11 H Neutrophils # 13.34 H Monocytes # 1.54 H Eosinophils # Basophils # 0.11 H APTT 20.5 L Carbon Dioxide BUN Glucose Plasma Lactic Acid Donal Calcium Ionized Calcium Felisha Magnesium Alkaline Phosphatase Total Protein Albumin Vitamin D 25-Hydroxy Vit D 1,25-Dihydroxy PTH Intact Urine Blood Moderate H Ur Leukocyte Esterase Small H Urine RBC 106 H Urine WBC 15 H Urine Mucus Rare H Ur Random Calcium Free [place]brook LC, Quant 11/03/24 11/03/24 11/03/24 20:15 20:15 23:12 WBC RBC Hgb Hct MCHC MPV Immature Gran # Neutrophils # Monocytes # Eosinophils # Basophils # APTT Carbon Dioxide 31 H BUN 41 H Glucose 126 H Plasma Lactic Acid Donal 2.2 H* Calcium 15.4 H* Ionized Calcium Felisha 8.0 H* Magnesium 2.4 H Alkaline Phosphatase 136 H Total Protein 5.8 L Albumin 3.2 L Vitamin D 25-Hydroxy Vit D 1,25-Dihydroxy PTH Intact Urine Blood Ur Leukocyte Esterase Urine RBC Urine WBC Urine Mucus Ur Random Calcium Free [place]brook LC, Quant 11/03/24 11/03/24 11/03/24 23:33 23:33 23:33 WBC RBC Hgb Hct MCHC MPV Immature Gran # Neutrophils # Monocytes # Eosinophils # Basophils # APTT Carbon Dioxide BUN Glucose Plasma Lactic Acid Donal Calcium Ionized Calcium Felisha Magnesium Alkaline Phosphatase Total Protein Albumin Vitamin D 25-Hydroxy 19.4 L Vit D 1,25-Dihydroxy 5.8 L PTH Intact 3.4 L Urine Blood Ur Leukocyte Esterase Urine RBC Urine WBC Urine Mucus Ur Random Calcium Free [place]brook LC, Quant 11/04/24 11/04/24 11/04/24 03:19 07:13 07:13 WBC 15.42 H RBC 3.13 L Hgb 9.2 L Hct 29.3 L MCHC 31.4 L MPV Immature Gran # 0.11 H Neutrophils # 13.66 H Monocytes # Eosinophils # 0.03 L Basophils # APTT Carbon Dioxide BUN 40 H Glucose 129 H Plasma Lactic Acid Donal Calcium 13.7 H* Ionized Calcium Felisha 7.7 H* Magnesium Alkaline Phosphatase Total Protein 5.5 L Albumin 3.0 L Vitamin D 25-Hydroxy Vit D 1,25-Dihydroxy PTH Intact Urine Blood Ur Leukocyte Esterase Urine RBC Urine WBC Urine Mucus Ur Random Calcium 21.5 L Free [place] LC, Quant 11/04/24 11/04/24 07:13 15:52 WBC RBC Hgb Hct MCHC MPV Immature Gran # Neutrophils # Monocytes # Eosinophils # Basophils # APTT Carbon Dioxide BUN Glucose Plasma Lactic Acid Donal Calcium 12.7 H Ionized Calcium Felisha Magnesium Alkaline Phosphatase Total Protein Albumin Vitamin D 25-Hydroxy Vit D 1,25-Dihydroxy PTH Intact Urine Blood Ur Leukocyte Esterase Urine RBC Urine WBC Urine Mucus Ur Random Calcium Free [place]brook LC, Quant 3.57 H Assessment and Plan Assessment: His Delirium is likely due to hypercalcemia from his metastatic cancer--currently better. Plan: Patient had recent MRI Brain in 06/2024. Can consider repeat one if mentation not improved and electrolyte imbalance is corrected. At this time, son wants to hold off. Oncology is on board I personally got history from patient and his son, examined patient. I agree with the resident's Assessment and Plan. Otherwise, no additional neurological work-up. Will sign off. Please reconsult if needed. Lamont Ledesma M.D. Time with Patient: Greater than 30
[2024-11-04 21:45] LABS: Glucose,Whole Blood 98 mg/dL (70-110)
[2024-11-05 06:23] LABS: Glucose,Whole Blood 94 mg/dL (70-110)
[2024-11-05 07:33] LABS: Basophils # (A) 0.06 10*3/uL (0.00-0.10); Basophils % (A) 0.4 %; Eosinophils # (A) 0.09 10*3/uL (0.04-0.35); Eosinophils % (A) 0.6 %; HCT 26.3 % (39.6-50.0); HGB 8.4 g/dL (13.0-17.0); Lymphocytes # (A) 1.32 10*3/uL (0.90-5.00); Lymphocytes % (A) 8.8 %; MCH 29.5 pg (27.0-32.0); MCHC 31.9 g/dL (32.0-37.0); MCV 92.3 fL (80.0-97.0); Monocytes # (A) 1.00 10*3/uL (0.20-1.00); Monocytes % (A) 6.7 %; Neutrophils # (A) 12.34 10*3/uL (1.80-7.70); Neutrophils % (A) 82.4 %; Platelet Count 426 10*3/uL (140-440); RBC 2.85 10*6/uL (4.40-5.60); RDW 15.0 % (11.5-14.5); WBC 14.97 10*3/uL (4.50-10.00)
[2024-11-05 07:48] LABS: African American GFR (CKD) >90 (>60 ml/min/1.73 sqM); Anion Gap 11 mmol/L; Blood Urea Nitrogen 36 mg/dL (9-20); Calcium 12.5 mg/dL (8.4-10.2); Carbon Dioxide 22 mmol/L (22-30); Chloride 103 mmol/L (98-107); Glucose 78 mg/dL (74-99); Non-African American GFR(CKD) >90 (>60 ml/min/1.73 sqM); Potassium 3.9 mmol/L (3.5-5.1); Sodium 136 mmol/L (137-145)
[2024-11-05] MEDS: ENOXAPARIN 40 MG/0.4 ML SYRINGE SQ SCH (08:13)
[2024-11-05 11:21] LABS: Glucose,Whole Blood 92 mg/dL (70-110)
--- NOTE | 2024-11-05 12:38 | P.PN ---
Subjective Progress Note Date: 11/05/24 Principal diagnosis: Hospital Course: A 59-year-old male with past medical history of stage IV lung adenocarcinoma, diagnosed in May 2024, unable to start chemotherapy due to recurrent hospitalizations, history of PE, type II DM, who presented to the ER on 11/03 from rehab for altered mental status, decreased oral intake. Patient is a poor historian, was confused on admission, no further history available, of note, patient is very hard of hearing, has not his glasses with him and thus cannot read written or typed text. He underwent extensive workup in the ER, while he was afebrile and tachycardic in 100s, blood pressure stable 118/72, was placed on high flow nasal cannula for hypoxia Blood work revealed leukocytosis 16.9, unchanged from end of October, stable hemoglobin at 9.2, normal platelet count, sodium and potassium normal, bicarb 31, creatinine normal, glucose controlled, calcium severely elevated 15.4, ionized calcium 8.0, ammonia level was normal, intact PTH level 3.4, TSH normal 4.3, procalcitonin 0.35. UA showed hematuria, pyuria WBC 15, viral panel negative. CT chest showed no PE, extensive bilateral airspace consolidation, preferentially and severely involving the lower lobes, narrowing of the right main pulmonary artery, osseous mets involving left Lung, spine, right posterior 2nd and 4th ribs, right chest tube catheter. His Pleurx catheter was drained in the ER with 1.1 L removed.. He received 1 dose of calcitonin, zoledronic acid. Patient was admitted for further management of hypercalcemia, altered mental status, decreased oral intake, pulmonology, oncology, neurology, RD consulted.Confirmed patient's CODE STATUS is as DNR/DNI 11/05 Patient was seen and examined at bedside, he is alert, hard of hearing, he states that he feels okay, does not appear to be in acute distress. He mentioned that he would like full treatment for his conditions and be able again to walk and matta. He is afebrile tachycardic in 90s, SpO2 96% on 2L, BP 115/77. Lab work shows improving leukocytosis 14.9, hemoglobin 8.4, normal platelet count, sodium 136, potassium 3.9, creatinine studies normal, calcium improving to 12.3,. Per neurology note, patient's family is not interested in repeat MRI. Neurology signed off. Patient will be continued on IV fluids and Zosyn for now, urine cultures negative, blood cultures pending Pertinent positives and negatives as discussed above, a complete review of systems was performed and all other systems are negative. Vitals Signs Reviewed. General: [Chronically ill-appearing, cachectic Derm: [warm], [dry] Head: [atraumatic], [normocephalic], [symmetric] Eyes: [EOMI], [no lid lag], [anicteric sclera] Mouth: [no lip lesion], [mucus membranes moist] Cardiovascular: [S1S2 reg], [no murmur] Lungs: [Decreased bibasilar breath sounds mild bilateral rhonchi] , [no accessory muscle use] Abdominal: [soft], [ nontender to palpation], [no guarding], [no appreciable organomegaly] Ext: [no gross muscle atrophy], [no edema], [no contractures] Neuro: [ CN II-XI grossly intact], [no focal neuro deficits] Psych: [Alert], Assessment and Plan: Altered mental status, likely secondary to severe hypercalcemia, improving Severe humoral hypercalcemia of malignancy Recurrent malignant bilateral pleural effusion with Pleurx catheter in place Stage IV lung adenocarcinoma Failure to thrive secondary to above -Oncology following, patient is status post zoledronic acid and calcitonin, continue with NS at 150 cc/h -PTH as above -BMP and CBC daily -Nutrition consulted -Discussed with case management, patient will stay for at least 1 more day, PT OT consulted - Overall prognosis is poor, patient is hospice appropriate, per oncology, currently not interested in [employer]. Acute hypoxic respiratory failure -Possible pneumonia, continue Zosyn empirically at 3.375 every 8 hours, follow- up blood cultures, procalcitonin as above -Pulmonology following DVT ppx: Lovenox Code status: DNR/DNI Anticipated discharge place: Rehab Anticipated discharge time: Pending clinical stability Objective - Vital Signs Vital signs: Vital Signs Temp 97.9 F 11/05/24 07:49 Pulse 100 11/05/24 11:47 Resp 20 11/05/24 07:49 BP 129/76 11/05/24 07:49 Pulse Ox 96 11/05/24 07:49 FiO2 Intake & Output 11/04/24 11/05/2411/05/25 18:59 06:59 18:59 Intake Total 100 10 Output Total 1475 525 450 Balance -1033 -740 -879 Weight 63.503 kg Intake: IV 100 10 Invasive Line 1 10 Piperacillin-Tazobactam 3 100 .375 gm In Sodium Chloride 0.9% 100 ml @ 25 mls/hr IVPB Q8HR [facility] Rx# :[id number] Output: Urine 1475 525 450 Other: Voiding Method Indwelling Catheter Indwelling Catheter # Voids 1 - Labs CBC & Chem 7: 11/05/24 06:26 11/05/24 06:26 Labs: Abnormal Lab Results - Last 24 Hours (Table) 11/04/24 11/04/24 11/04/24 Range/Units 07:13 15:52 22:56 WBC (4.50-10.00) 10*3/uL RBC (4.40-5.60) 10*6/uL Hgb (13.0-17.0) g/dL Hct (39.6-50.0) % MCHC (32.0-37.0) g/dL Immature Gran # (0.00-0.04) 10*3/uL Neutrophils # (1.80-7.70) 10*3/uL Sodium (137-145) mmol/L BUN (9-20) mg/dL Calcium 12.7 H 12.7 H (8.4-10.2) mg/dL Free [place]ish LC, Quant 3.57 H (0.33-1.94) mg/dL 11/05/24 11/05/24 11/05/24 Range/Units 06:26 06:26 06:28 WBC 14.97 H (4.50-10.00) 10*3/uL RBC 2.85 L (4.40-5.60) 10*6/uL Hgb 8.4 L (13.0-17.0) g/dL Hct 26.3 L (39.6-50.0) % MCHC 31.9 L (32.0-37.0) g/dL Immature Gran # 0.16 H (0.00-0.04) 10*3/uL Neutrophils # 12.34 H (1.80-7.70) 10*3/uL Sodium 136 L (137-145) mmol/L BUN 36 H (9-20) mg/dL Calcium 12.5 H 12.3 H (8.4-10.2) mg/dL Free [place] LC, Quant (0.33-1.94) mg/dL Microbiology - Last 24 Hours (Table) 11/03/24 20:15 Urine Culture - Final Urine,Voided
--- NOTE | 2024-11-05 15:38 | P.PN ---
Subjective Progress Note Date: 11/05/24 Principal diagnosis: Acute hypoxic respiratory failure secondary to bilateral pleural effusions and history of previous Pleurx catheter insertion with history of metastatic pulmona ry adenocarcinoma. 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 His initial diagnosis was made back in May of 2024, patient presented initially with abnormal CT of the chest showing a 2.2 x 1.7 right lower lobe mass and enlarged subcarinal and right hilar lymphadenopathy. At the same time the patient had pathologic fracture of T11. CT of the chest also showed a 2.9 cm mass in the posterior right lower lobe and significant thoracic spine abnormalities consistent with metastatic disease to the spine. Bone scan confirmed metastatic disease to the spine and 2 other skeletal areas including the left scapula. Biopsy of T12 positive for metastatic poorly differ entiated pulmonary adenocarcinoma. Patient did not require bronchoscopy or lung biopsy. He has recurrent right-sided pleural effusion. Previously underwent right-sided thoracentesis on 10/18/2024 developed pneumothorax, thought to be trapped lung. Patient did have a Thoravent placed. Subsequently, developed a recurrent right-sided pleural effusion and a Pleurx catheter was placed by the cardiothoracic surgery team on 10/23/2024. Pleural fluid cytology was transudate based on Lights criteria. Pleural fluid pathology nondiagnostic for malignancy. Sent in by EMS from his [facility] last night. He was noted to be confused at the outside facility. Apparently, not eating or drinking at the outside facility. Workup in the emergency department including chest x-ray showing complete opacification of the right hemithorax with a Pleurx catheter in place. Also, small left pleural effusion was redemonstrated. ICU nurse did go down to the ER and drained his Pleurx catheter with a total of 1.1 L removed. I believe the fluid was discarded. Subsequently, developed respiratory distress and chest pa in. I sent the patient for a chest CT with contrast which did not show any evidence of pulmonary embolism. Extensive bilateral airspace consolidation preferentially and severely involving the lower lobes. There is narrowing of the right main pulmonary artery likely from patient's underlying lung mass. Osseous metastasis preferentially involving the left scapula, spine, right posterior 2nd and 4th ribs. Right chest tube catheter was in place. Labs including a CBC with a WBC count of 16.9, hemoglobin 9.3, platelets 426. CMP: Sodium 137, potassium 4.8, chloride 99, serum bicarb 31, BUN 41, creatinine 0.99, glucose 126. Lactic 2.2 and down to 1.8. Ionized calcium 8 the setting of known malignancy with osseous mets. Magnesium 2.4. ALP 136, ALT 14, AST 25. Total bilirubin 0.6. Ammonia 19. Urinalysis positive for leukocytes. Viral 4 Plex negative for influenza A/B, RSV, COVID. Patient being evaluated in the emergency department. He is alert. Poor historian, and confused, likely exacerbated by his severe hearing loss. He is frail, cachectic, and lethargic. Currently on 8 L high flow nasal cannula. SpO2 is reading 99% on bedside monitor. This is actively being weaned. Patient does not appear in any respiratory distress. Seen today on 11/05/2024, patient is basically about the same, he is extremely frail, not in distress, on 2 L nasal cannula, hemodynamically stable. Patient remains on IV fluids and on Zosyn, cultures have been negative so far. His overall clinical picture does not look very promising. Patient is extremely frail, and seems to be chronically ill, WBC count is 14.9 hemoglobin 8.4 electrolytes are normal renal profile is normal bicarb is 22, today I have recommended that the nurse taking care of the patient to have the pleural effusion drained from the Pleurx catheter and every other day basis. Objective - Vital Signs Vital signs: Vital Signs Temp 98 F 11/05/24 12:40 Pulse 100 11/05/24 15:19 Resp 18 11/05/24 12:40 BP 116/74 11/05/24 12:40 Pulse Ox 96 11/05/24 12:40 FiO2 Intake & Output 11/04/24 11/05/24 11/05/24 18:59 06:59 18:59 Intake Total 100 10 Output Total 1475 525 450 Balance -7585 -957 -402 Weight 63.503 kg 63.503 kg Intake: IV 100 10 Invasive Line 1 10 Piperacillin-Tazobactam 3 100 .375 gm In Sodium Chloride 0.9% 100 ml @ 25 mls/hr IVPB Q8HR [facility] Rx# :[id number] Output: Urine 1475 525 450 Other: Voiding Method Indwelling Catheter Indwelling Catheter # Voids 1 - Exam GENERAL EXAM: Extremely frail looking 59-year-old white male on 8 L high flow cannula, in no distress HEAD: Normocephalic and atraumatic EYES: Normal reaction of pupils, equal size. NOSE: Clear with pink turbinates. THROAT: No erythema or exudates. NECK: No masses, no JVD. CHEST: No chest wall deformity. LUNGS: Extremely diminished breath sounds on the right side.. CVS: S1 and S2 normal with no audible murmur, regular rhythm. No extra heart sounds ABDOMEN: No hepatosplenomegaly, active bowel sounds, no guarding or rigidity. SKIN: No rashes CENTRAL NERVOUS SYSTEM: Profoundly weak but no focal neurologic deficit EXTREMITIES: There is no peripheral edema, clubbing, or cyanosis. Peripheral pulses are intact. - Labs CBC & Chem 7: 11/05/24 06:26 11/05/24 06:26 Labs: Abnormal Lab Results - Last 24 Hours (Table) 11/04/24 11/04/24 11/05/24 Range/Units 15:52 22:56 06:26 WBC 14.97 H (4.50-10.00) 10*3/uL RBC 2.85 L (4.40-5.60) 10*6/uL Hgb 8.4 L (13.0-17.0) g/dL Hct 26.3 L (39.6-50.0) % MCHC 31.9 L (32.0-37.0) g/dL Immature Gran # 0.16 H (0.00-0.04) 10*3/uL Neutrophils # 12.34 H (1.80-7.70) 10*3/uL Sodium (137-145) mmol/L BUN (9-20) mg/dL Calcium 12.7 H 12.7 H (8.4-10.2) mg/dL 11/05/24 11/05/24 Range/Units 06:26 06:28 WBC (4.50-10.00) 10*3/uL RBC (4.40-5.60) 10*6/uL Hgb (13.0-17.0) g/dL Hct (39.6-50.0) % MCHC (32.0-37.0) g/dL Immature Gran # (0.00-0.04) 10*3/uL Neutrophils # (1.80-7.70) 10*3/uL Sodium 136 L (137-145) mmol/L BUN 36 H (9-20) mg/dL Calcium 12.5 H 12.3 H (8.4-10.2) mg/dL Microbiology - Last 24 Hours (Table) 11/03/24 22:46 Blood Culture - Preliminary Blood 11/03/24 20:15 Urine Culture - Final Urine,Voided Assessment and Plan Assessment: Impression: Acute hypoxic respiratory failure secondary to bilateral pleural effusions, felt to be malignant unless following otherwise in spite of negative cytology. Patient does have history of metastatic adenocarcinoma/pulmonary History of recurrent right-sided pleural effusion and multiple previous thoracentesis most recently developing right-sided pneumothorax on October 18, did have previous Thora vent placement which was removed on October 21. Did have increased right-sided pleural effusion and a Pleurx catheter was placed on October 23. Pleural fluid cytology was transudate based on Lights criteria. Pleural fluid pathology previously nondiagnostic for malignancy. However I believe the fluid is malignant unless for otherwise Metastatic pulmonary adenocarcinoma with osseous metastasis, confirmed with bone biopsy June 2024. PET scan from September 11, 2024 revealed uptake within the right lung mass compatible with neoplasm. Extensive osseous metastasis including axial spine, left iliac wing, left scapula, multiple ribs, sternum, pelvis. Small metastatic lesions suspected within the left and right lobes of the liver. Mediastinal metastasis. Metastatic lesions in the right supra clavicular region and suspected within lymph nodes within the bilateral parotid glands. Plan was for Keytruda however the patient has had several hospitalizations and difficulty getting to appointments Chronic anemia, hemoglobin stable at 9.3 g/dL Severe hypercalcemia, with ionized calcium of 8, in the setting of dehydration and known malignancy with osseous metastasis Chronic obstructive pulmonary disease Former smoker History of thoracic vertebral fracture/pathological fracture requiring surgery Failure to thrive Cachexia Recommendation: Continue present supportive care measures I believe at this point it would be reasonable to discuss with the family possible comfort care measures and hospice. Continue drainage of right-sided pleural effusion every other day this could be done by nursing staff. Continue empiric antibiotics Continue to monitor electrolytes and calcium Prognosis is extremely poor Will follow as needed Time with Patient: Greater than 30
--- NOTE | 2024-11-05 16:24 | P.PN ---
Subjective Progress Note Date: 11/05/24 Patient seen and evaluated bedside. No events overnight. No acute complaints. Objective - Vital Signs Vital signs: Vital Signs Temp 98 F 11/05/24 03:57 Pulse 105 H 11/05/24 03:57 Resp 14 11/05/24 03:57 BP 120/78 11/05/24 03:57 Pulse Ox 93 L 11/05/24 03:57 FiO2 Intake & Output 11/04/24 11/05/24 11/05/24 18:59 06:59 18:59 Intake Total 100 Output Total 1475 525 Balance -1475 -345 Weight 63.503 kg Intake: IV 100 Piperacillin-Tazobactam 3 100 .375 gm In Sodium Chloride 0.9% 100 ml @ 25 mls/hr IVPB Q8HR [facility] Rx# :[id number] Output: Urine 1475 525 Other: Voiding Method Indwelling Catheter # Voids 1 - Exam Physical Exam: General: Cachectic appearance, no respiratory distress, on 4 L nasal cannula Cardiovascular: S1 S2 reg, no murmur, rubs, or gallops Lungs: Sounds diminished bilaterally, no rhonchi, no rales Abdominal: soft, non-tender to palpataion, no appreciable organomegaly Extremities: no gross muscle atrophy, no edema, no contractures Neuro: Alert Psych: appropriate affect - Labs CBC & Chem 7: 11/05/24 06:26 11/05/24 06:26 Labs: Abnormal Lab Results - Last 24 Hours (Table) 11/03/24 11/03/24 11/03/24 Range/Units 23:33 23:33 23:33 WBC (4.50-10.00) 10*3/uL RBC (4.40-5.60) 10*6/uL Hgb (13.0-17.0) g/dL Hct (39.6-50.0) % MCHC (32.0-37.0) g/dL Immature Gran # (0.00-0.04) 10*3/uL Neutrophils # (1.80-7.70) 10*3/uL BUN (9-20) mg/dL Glucose (74-99) mg/dL Calcium (8.4-10.2) mg/dL Ionized Calcium Felisha (4.5-5.3) mg/dL Total Protein (6.3-8.2) g/dL Albumin (3.5-5.0) g/dL Vitamin D 25-Hydroxy 19.4 L (30.0-100.0) ng/mL Vit D 1,25-Dihydroxy 5.8 L (19.9-79.3) pg/mL PTH Intact 3.4 L (14.0-72.0) pg/mL Ur Random Calcium (100.0-300.0) mg/dL Free [place] LC, Quant (0.33-1.94) mg/dL 11/04/24 11/04/24 11/04/24 Range/Units 03:19 07:13 07:13 WBC (4.50-10.00) 10*3/uL RBC (4.40-5.60) 10*6/uL Hgb (13.0-17.0) g/dL Hct (39.6-50.0) % MCHC (32.0-37.0) g/dL Immature Gran # (0.00-0.04) 10*3/uL Neutrophils # (1.80-7.70) 10*3/uL BUN 40 H (9-20) mg/dL Glucose 129 H (74-99) mg/dL Calcium 13.7 H* (8.4-10.2) mg/dL Ionized Calcium Felisha 7.7 H* (4.5-5.3) mg/dL Total Protein 5.5 L (6.3-8.2) g/dL Albumin 3.0 L (3.5-5.0) g/dL Vitamin D 25-Hydroxy (30.0-100.0) ng/mL Vit D 1,25-Dihydroxy (19.9-79.3) pg/mL PTH Intact (14.0-72.0) pg/mL Ur Random Calcium 21.5 L (100.0-300.0) mg/dL Free [place] LC, Quant 3.57 H (0.33-1.94) mg/dL 11/04/24 11/04/24 11/05/24 Range/Units 15:52 22:56 06:26 WBC 14.97 H (4.50-10.00) 10*3/uL RBC 2.85 L (4.40-5.60) 10*6/uL Hgb 8.4 L (13.0-17.0) g/dL Hct 26.3 L (39.6-50.0) % MCHC 31.9 L (32.0-37.0) g/dL Immature Gran # 0.16 H (0.00-0.04) 10*3/uL Neutrophils # 12.34 H (1.80-7.70) 10*3/uL BUN (9-20) mg/dL Glucose (74-99) mg/dL Calcium 12.7 H 12.7 H (8.4-10.2) mg/dL Ionized Calcium Felisha (4.5-5.3) mg/dL Total Protein (6.3-8.2) g/dL Albumin (3.5-5.0) g/dL Vitamin D 25-Hydroxy (30.0-100.0) ng/mL Vit D 1,25-Dihydroxy (19.9-79.3) pg/mL PTH Intact (14.0-72.0) pg/mL Ur Random Calcium (100.0-300.0) mg/dL Free [place] LC, Quant (0.33-1.94) mg/dL Assessment and Plan Assessment: #. Severe hypercalcemia of malignancy #. History of bilateral pleural effusion, currently with right Pleurx catheter #. Metastatic NSCLC #. Acute encephalopathy in the setting of hypercalcemia versus metabolic etiology #. Acute hypoxic respiratory failure #. Failure to thrive Pleurx catheter was drained in ED with 1.1 L of fluid removed Status post zoledronic acid 4mg IV once, calcitonin x1 Maintain normal saline at 150 cc/hr PTH ordered Continue to trend calcium levels Comfort care measures were discussed last admission, and patient was not amenable and wanted to try rehab. He is currently not receiving any treatment due to being in long-term rehab. Will discuss treatment options with patient once he is cleared from rehab post-discharge.
[2024-11-05 16:45] LABS: Glucose,Whole Blood 91 mg/dL (70-110)
[2024-11-05 20:14] LABS: Glucose,Whole Blood 141 mg/dL (70-110)
[2024-11-05] MEDS: CYCLOBENZAPRINE 10 MG TAB PO PRN (21:03)
[2024-11-06 06:00] LABS: Glucose,Whole Blood 110 mg/dL (70-110)
[2024-11-06 07:25] LABS: Basophils # (A) 0.06 10*3/uL (0.00-0.10); Basophils % (A) 0.4 %; Eosinophils # (A) 0.22 10*3/uL (0.04-0.35); Eosinophils % (A) 1.4 %; HCT 26.2 % (39.6-50.0); HGB 8.5 g/dL (13.0-17.0); Lymphocytes # (A) 1.18 10*3/uL (0.90-5.00); Lymphocytes % (A) 7.5 %; MCH 29.4 pg (27.0-32.0); MCHC 32.4 g/dL (32.0-37.0); MCV 90.7 fL (80.0-97.0); Monocytes # (A) 1.00 10*3/uL (0.20-1.00); Monocytes % (A) 6.3 %; Neutrophils # (A) 13.07 10*3/uL (1.80-7.70); Neutrophils % (A) 83.0 %; Platelet Count 460 10*3/uL (140-440); RBC 2.89 10*6/uL (4.40-5.60); RDW 14.8 % (11.5-14.5); WBC 15.75 10*3/uL (4.50-10.00)
[2024-11-06 07:41] LABS: African American GFR (CKD) >90 (>60 ml/min/1.73 sqM); Anion Gap 10 mmol/L; Blood Urea Nitrogen 27 mg/dL (9-20); Calcium 11.5 mg/dL (8.4-10.2); Carbon Dioxide 24 mmol/L (22-30); Chloride 104 mmol/L (98-107); Glucose 90 mg/dL (74-99); Non-African American GFR(CKD) >90 (>60 ml/min/1.73 sqM); Potassium 3.5 mmol/L (3.5-5.1); Sodium 138 mmol/L (137-145)
[2024-11-06] MEDS: metFORMIN 500 MG TAB PO SCH (08:27)
[2024-11-06 11:42] LABS: Glucose,Whole Blood 120 mg/dL (70-110)
[2024-11-06] MEDS: POTASSIUM CHLORIDE ER 20 MEQ TAB.ER PO STA (12:12)
[2024-11-06] MEDS ORDERED: HYDROcodone/APAP 5-325MG 1 EACH TAB PO PRN (12:44)
--- NOTE | 2024-11-06 12:50 | P.PN ---
Subjective Progress Note Date: 11/06/24 Hospital Course: A 59-year-old male with past medical history of stage IV lung adenocarcinoma, diagnosed in May 2024, unable to start chemotherapy due to recurrent hospitalizations, history of PE, type II DM, who presented to the ER on 11/03 from rehab for altered mental status, decreased oral intake. Patient is a poor historian, was confused on admission, no further history available, of note, patient is very hard of hearing, has not his glasses with him and thus cannot read written or typed text. He underwent extensive workup in the ER, while he was afebrile and tachycardic in 100s, blood pressure stable 118/72, was placed on high flow nasal cannula for hypoxia Blood work revealed leukocytosis 16.9, unchanged from end of October, stable hemoglobin at 9.2, normal platelet count, sodium and potassium normal, bicarb 31, creatinine normal, glucose controlled, calcium severely elevated 15.4, ionized calcium 8.0, ammonia level was normal, intact PTH level 3.4, TSH normal 4.3, procalcitonin 0.35. UA showed hematuria, pyuria WBC 15, viral panel negative. CT chest showed no PE, extensive bilateral airspace consolidation, preferentially and severely involving the lower lobes, narrowing of the right main pulmonary artery, osseous mets involving left Lung, spine, right posterior 2nd and 4th ribs, right chest tube catheter. His Pleurx catheter was drained in the ER with 1.1 L removed.. He received 1 dose of calcitonin, zoledronic acid. Patient was admitted for further management of hypercalcemia, altered mental status, decreased oral intake, pulmonology, oncology, neurology, RD consulted.Confirmed patient's CODE STATUS is as DNR/DNI. Per neurology note, patient's family is not interested in repeat MRI. Neurology signed off. 11/06 Patient was seen and examined at bedside, he is alert, hard of hearing, he states that he feels okay, does not appear to be in acute distress. . He is afebrile tachycardic in 100s, SpO2 96% on 4L, BP 130/89. Lab work shows leukocytosis 15.7, hemoglobin 8.5, normal sodium, potassium, creatinine, calcium improved to 11.5, glucose controlled. Cultures negative so far, patient is afebrile. Monitor off antibiotics, suspect leukocytosis is probably related to advanced cancer. Called patient's son, discussed goals of care, he would like his brother to try oral pain medications to see if the pain improves so he can eat better. He does not work, he is open to hospice. Will place hospice consult. Pertinent positives and negatives as discussed above, a complete review of systems was performed and all other systems are negative. Vitals Signs Reviewed. General: [Chronically ill-appearing, cachectic Derm: [warm], [dry] Head: [atraumatic], [normocephalic], [symmetric] Eyes: [EOMI], [no lid lag], [anicteric sclera] Mouth: [no lip lesion], [mucus membranes moist] Cardiovascular: [S1S2 reg], [no murmur] Lungs: [Decreased bibasilar breath sounds mild bilateral rhonchi] , [no accessory muscle use] Abdominal: [soft], [ nontender to palpation], [no guarding], [no appreciable organomegaly] Ext: [no gross muscle atrophy], [no edema], [no contractures] Neuro: [ CN II-XI grossly intact], [no focal neuro deficits] Psych: [Alert], Assessment and Plan: Altered mental status, likely secondary to severe hypercalcemia, improving Severe humoral hypercalcemia of malignancy Recurrent malignant bilateral pleural effusion with Pleurx catheter in place Stage IV lung adenocarcinoma Failure to thrive secondary to above -Oncology following, patient is status post zoledronic acid and calcitonin, continue with NS at 50 cc/h -PTH as above -BMP and CBC daily -Nutrition consulted - Discussed with RN, patient's son -Discontinue Dilaudid, resume home MS Contin 30 mg p.o. every 12 hours, added [place] 5 every 6 hours for breakthrough pain - Overall prognosis is poor, patient is hospice appropriate, per oncology, currently not interested in [employer]. Patient send would be interested in hospice should patient fail oral pain management. Hospice consult placed Acute hypoxic respiratory failure - Monitor off antibiotics, cultures negative thus far -Pulmonology following DVT ppx: Lovenox Code status: DNR/DNI Anticipated discharge place: Rehab Anticipated discharge time: Pending clinical stability Objective - Vital Signs Vital signs: Vital Signs Temp 97.5 F L 11/06/24 11:25 Pulse 116 H 11/06/24 11:59 Resp 26 H 11/06/24 11:44 BP 131/93 11/06/24 11:44 Pulse Ox 96 11/06/24 11:44 FiO2 Intake & Output 11/05/24 11/06/24 11/06/24 18:59 06:59 18:59 Intake Total 10 260 128 Output Total 800 1000 Balance -790 260 -872 Weight 63.503 kg 71.2 kg Intake: IV 10 260 10 0.9 160 Invasive Line 1 10 Invasive Line 2 10 Piperacillin-Tazobactam 3 100 .375 gm In Sodium Chloride 0.9% 100 ml @ 25 mls/hr IVPB Q8HR [facility] Rx# :[id number] Oral 118 Output: Chest Tube Drainage 1000 Pleural Catheter Right 1000 Anterior Chest Urine 800 Other: Voiding Method Indwelling Catheter Indwelling Catheter Indwelling Catheter - Labs CBC & Chem 7: 11/06/24 05:30 11/06/24 05:30 Labs: Abnormal Lab Results - Last 24 Hours (Table) 11/05/24 11/06/24 11/06/24 Range/Units 20:13 05:30 05:30 WBC 15.75 H (4.50-10.00) 10*3/uL RBC 2.89 L (4.40-5.60) 10*6/uL Hgb 8.5 L (13.0-17.0) g/dL Hct 26.2 L (39.6-50.0) % Plt Count 460 H (140-440) 10*3/uL Immature Gran # 0.22 H (0.00-0.04) 10*3/uL Neutrophils # 13.07 H (1.80-7.70) 10*3/uL BUN 27 H (9-20) mg/dL POC Glucose (mg/dL) 141 H (70-110) mg/dL Calcium 11.5 H (8.4-10.2) mg/dL 11/06/24 Range/Units 11:40 WBC (4.50-10.00) 10*3/uL RBC (4.40-5.60) 10*6/uL Hgb (13.0-17.0) g/dL Hct (39.6-50.0) % Plt Count (140-440) 10*3/uL Immature Gran # (0.00-0.04) 10*3/uL Neutrophils # (1.80-7.70) 10*3/uL BUN (9-20) mg/dL POC Glucose (mg/dL) 120 H (70-110) mg/dL Calcium (8.4-10.2) mg/dL Microbiology - Last 24 Hours (Table) 11/03/24 22:46 Blood Culture - Preliminary Blood
[2024-11-06] MEDS: SODIUM CHLORIDE 0.9% 1,000 ML IV SCH (13:18)
[2024-11-06] MEDS: MORPHINE SULFATE ER 30 MG TABLET PO SCH (13:24)
--- NOTE | 2024-11-06 14:19 | P.PN ---
Subjective Progress Note Date: 11/06/24 Principal diagnosis: Acute hypoxic respiratory failure secondary to bilateral pleural effusions and history of previous Pleurx catheter insertion with history of metastatic pulmona ry adenocarcinoma. 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 His initial diagnosis was made back in May of 2024, patient presented initially with abnormal CT of the chest showing a 2.2 x 1.7 right lower lobe mass and enlarged subcarinal and right hilar lymphadenopathy. At the same time the patient had pathologic fracture of T11. CT of the chest also showed a 2.9 cm mass in the posterior right lower lobe and significant thoracic spine abnormalities consistent with metastatic disease to the spine. Bone scan confirmed metastatic disease to the spine and 2 other skeletal areas including the left scapula. Biopsy of T12 positive for metastatic poorly differ entiated pulmonary adenocarcinoma. Patient did not require bronchoscopy or lung biopsy. He has recurrent right-sided pleural effusion. Previously underwent right-sided thoracentesis on 10/18/2024 developed pneumothorax, thought to be trapped lung. Patient did have a Thoravent placed. Subsequently, developed a recurrent right-sided pleural effusion and a Pleurx catheter was placed by the cardiothoracic surgery team on 10/23/2024. Pleural fluid cytology was transudate based on Lights criteria. Pleural fluid pathology nondiagnostic for malignancy. Sent in by EMS from his [facility] last night. He was noted to be confused at the outside facility. Apparently, not eating or drinking at the outside facility. Workup in the emergency department including chest x-ray showing complete opacification of the right hemithorax with a Pleurx catheter in place. Also, small left pleural effusion was redemonstrated. ICU nurse did go down to the ER and drained his Pleurx catheter with a total of 1.1 L removed. I believe the fluid was discarded. Subsequently, developed respiratory distress and chest pa in. I sent the patient for a chest CT with contrast which did not show any evidence of pulmonary embolism. Extensive bilateral airspace consolidation preferentially and severely involving the lower lobes. There is narrowing of the right main pulmonary artery likely from patient's underlying lung mass. Osseous metastasis preferentially involving the left scapula, spine, right posterior 2nd and 4th ribs. Right chest tube catheter was in place. Labs including a CBC with a WBC count of 16.9, hemoglobin 9.3, platelets 426. CMP: Sodium 137, potassium 4.8, chloride 99, serum bicarb 31, BUN 41, creatinine 0.99, glucose 126. Lactic 2.2 and down to 1.8. Ionized calcium 8 the setting of known malignancy with osseous mets. Magnesium 2.4. ALP 136, ALT 14, AST 25. Total bilirubin 0.6. Ammonia 19. Urinalysis positive for leukocytes. Viral 4 Plex negative for influenza A/B, RSV, COVID. Patient being evaluated in the emergency department. He is alert. Poor historian, and confused, likely exacerbated by his severe hearing loss. He is frail, cachectic, and lethargic. Currently on 8 L high flow nasal cannula. SpO2 is reading 99% on bedside monitor. This is actively being weaned. Patient does not appear in any respiratory distress. Seen today on 11/05/2024, patient is basically about the same, he is extremely frail, not in distress, on 2 L nasal cannula, hemodynamically stable. Patient remains on IV fluids and on Zosyn, cultures have been negative so far. His overall clinical picture does not look very promising. Patient is extremely frail, and seems to be chronically ill, WBC count is 14.9 hemoglobin 8.4 electrolytes are normal renal profile is normal bicarb is 22, today I have recommended that the nurse taking care of the patient to have the pleural effusion drained from the Pleurx catheter and every other day basis. Patient was seen today on 11/06/2024, remains on the medical floor, extremely frail, weak, confused, does not seem to be in distress, patient is supposed to have more drainage of the pleural effusion today by a nurse, in the meantime the patient continues to have leukocytosis with WBC count is 15.7 hemoglobin 8.5 electrolytes are normal calcium today is 11.5, it was as high as 15.4 a week ago, and has been steadily coming down to 11.5. Patient has diffuse metastatic disease/metastatic lung cancer,/adenocarcinoma, at this point I truly believe that hospice should be considered on this patient Objective - Vital Signs Vital signs: Vital Signs Temp 97.5 F L 11/06/24 11:25 Pulse 111 H 11/06/24 13:27 Resp 26 H 11/06/24 11:44 BP 131/93 11/06/24 11:44 Pulse Ox 97 11/06/24 13:27 FiO2 Intake & Output 11/05/24 11/06/24 11/06/24 18:59 06:59 18:59 Intake Total 10 260 128 Output Total 800 1200 Balance -790 260 -1072 Weight 63.503 kg 71.2 kg Intake: IV 10 260 10 0.9 160 Invasive Line 1 10 Invasive Line 2 10 Piperacillin-Tazobactam 3 100 .375 gm In Sodium Chloride 0.9% 100 ml @ 25 mls/hr IVPB Q8HR [facility] Rx# :[id number] Oral 118 Output: Chest Tube Drainage 1000 Pleural Catheter Right 1000 Anterior Chest Urine 800 200 Other: Voiding Method Indwelling Catheter Indwelling Catheter Indwelling Catheter - Exam GENERAL EXAM: Extremely frail looking 59-year-old white male on 4 L nasal cannula with O2 sat of 97% HEAD: Normocephalic and atraumatic EYES: Normal reaction of pupils, equal size. NOSE: Clear with pink turbinates. THROAT: No erythema or exudates. NECK: No masses, no JVD. CHEST: No chest wall deformity. LUNGS: Extremely diminished breath sounds on the right side.. CVS: S1 and S2 normal with no audible murmur, regular rhythm. No extra heart sounds ABDOMEN: No hepatosplenomegaly, active bowel sounds, no guarding or rigidity. SKIN: No rashes CENTRAL NERVOUS SYSTEM: Profoundly weak, confused, hard of hearing, EXTREMITIES: There is no peripheral edema, clubbing, or cyanosis. Peripheral pulses are intact. - Labs CBC & Chem 7: 11/06/24 05:30 11/06/24 05:30 Labs: Abnormal Lab Results - Last 24 Hours (Table) 11/05/24 11/06/24 11/06/24 Range/Units 20:13 05:30 05:30 WBC 15.75 H (4.50-10.00) 10*3/uL RBC 2.89 L (4.40-5.60) 10*6/uL Hgb 8.5 L (13.0-17.0) g/dL Hct 26.2 L (39.6-50.0) % Plt Count 460 H (140-440) 10*3/uL Immature Gran # 0.22 H (0.00-0.04) 10*3/uL Neutrophils # 13.07 H (1.80-7.70) 10*3/uL BUN 27 H (9-20) mg/dL POC Glucose (mg/dL) 141 H (70-110) mg/dL Calcium 11.5 H (8.4-10.2) mg/dL 11/06/24 Range/Units 11:40 WBC (4.50-10.00) 10*3/uL RBC (4.40-5.60) 10*6/uL Hgb (13.0-17.0) g/dL Hct (39.6-50.0) % Plt Count (140-440) 10*3/uL Immature Gran # (0.00-0.04) 10*3/uL Neutrophils # (1.80-7.70) 10*3/uL BUN (9-20) mg/dL POC Glucose (mg/dL) 120 H (70-110) mg/dL Calcium (8.4-10.2) mg/dL Microbiology - Last 24 Hours (Table) 11/03/24 22:46 Blood Culture - Preliminary Blood Assessment and Plan Assessment: Impression: Acute hypoxic respiratory failure secondary to bilateral pleural effusions, felt to be malignant unless following otherwise in spite of negative cytology. Patient does have history of metastatic adenocarcinoma/pulmonary History of recurrent right-sided pleural effusion and multiple previous thoracentesis most recently developing right-sided pneumothorax on October 18, did have previous Thora vent placement which was removed on October 21. Did have increased right-sided pleural effusion and a Pleurx catheter was placed on October 23. Pleural fluid cytology was transudate based on Lights criteria. Pleural fluid pathology previously nondiagnostic for malignancy. However I believe the fluid is malignant unless for otherwise Metastatic pulmonary adenocarcinoma with osseous metastasis, confirmed with bone biopsy June 2024. PET scan from September 11, 2024 revealed uptake within the right lung mass compatible with neoplasm. Extensive osseous metastasis including axial spine, left iliac wing, left scapula, multiple ribs, sternum, pelvis. Small metastatic lesions suspected within the left and right lobes of the liver. Mediastinal metastasis. Metastatic lesions in the right supra clavicular region and suspected within lymph nodes within the bilateral parotid glands. Plan was for Keytruda however the patient has had several hospitalizations and difficulty getting to appointments Chronic anemia, hemoglobin stable at 9.3 g/dL Severe hypercalcemia, with ionized calcium of 8, in the setting of dehydration and known malignancy with osseous metastasis Chronic obstructive pulmonary disease Former smoker History of thoracic vertebral fracture/pathological fracture requiring surgery Failure to thrive Cachexia Recommendation: Continue present supportive care measures however hospice should be seriously considered on this patient as his overall clinical picture does not seem to be very promising. it would be reasonable to discuss with the family possible comfort care measures and hospice. Drain pleural effusion every other day agree with stopping antibiotics continue empiric antibiotics Continue to monitor electrolytes and calcium Prognosis is extremely poor Will follow as needed Time with Patient: Less than 30
[2024-11-06 16:26] LABS: Glucose,Whole Blood 114 mg/dL (70-110)
[2024-11-06 20:10] LABS: Glucose,Whole Blood 109 mg/dL (70-110)
[2024-11-07 06:14] LABS: Glucose,Whole Blood 94 mg/dL (70-110)
[2024-11-07 06:24] LABS: Basophils # (A) 0.06 10*3/uL (0.00-0.10); Basophils % (A) 0.4 %; Eosinophils # (A) 0.32 10*3/uL (0.04-0.35); Eosinophils % (A) 2.0 %; HCT 24.9 % (39.6-50.0); HGB 8.0 g/dL (13.0-17.0); Lymphocytes # (A) 1.39 10*3/uL (0.90-5.00); Lymphocytes % (A) 8.7 %; MCH 29.6 pg (27.0-32.0); MCHC 32.1 g/dL (32.0-37.0); MCV 92.2 fL (80.0-97.0); Monocytes # (A) 1.22 10*3/uL (0.20-1.00); Monocytes % (A) 7.6 %; Neutrophils # (A) 12.83 10*3/uL (1.80-7.70); Neutrophils % (A) 80.3 %; Platelet Count 437 10*3/uL (140-440); RBC 2.70 10*6/uL (4.40-5.60); RDW 15.4 % (11.5-14.5); WBC 15.98 10*3/uL (4.50-10.00)
[2024-11-07 06:56] LABS: African American GFR (CKD) >90 (>60 ml/min/1.73 sqM); Anion Gap 10 mmol/L; Blood Urea Nitrogen 24 mg/dL (9-20); Calcium 11.3 mg/dL (8.4-10.2); Carbon Dioxide 25 mmol/L (22-30); Chloride 104 mmol/L (98-107); Glucose 73 mg/dL (74-99); Non-African American GFR(CKD) >90 (>60 ml/min/1.73 sqM); Potassium 3.9 mmol/L (3.5-5.1); Sodium 139 mmol/L (137-145)
[2024-11-07 11:24] LABS: Glucose,Whole Blood 98 mg/dL (70-110)
[2024-11-07] MEDS: IBUPROFEN 400 MG TAB PO SCH (11:43)
--- NOTE | 2024-11-07 12:28 | P.PN ---
Subjective Progress Note Date: 11/07/24 Hospital Course: A 59-year-old male with past medical history of stage IV lung adenocarcinoma, diagnosed in May 2024, unable to start chemotherapy due to recurrent hospitalizations, history of PE, type II DM, who presented to the ER on 11/03 from rehab for altered mental status, decreased oral intake. Patient is a poor historian, was confused on admission, no further history available, of note, patient is very hard of hearing, has not his glasses with him and thus cannot read written or typed text. He underwent extensive workup in the ER, while he was afebrile and tachycardic in 100s, blood pressure stable 118/72, was placed on high flow nasal cannula for hypoxia Blood work revealed leukocytosis 16.9, unchanged from end of October, stable hemoglobin at 9.2, normal platelet count, sodium and potassium normal, bicarb 31, creatinine normal, glucose controlled, calcium severely elevated 15.4, ionized calcium 8.0, ammonia level was normal, intact PTH level 3.4, TSH normal 4.3, procalcitonin 0.35. UA showed hematuria, pyuria WBC 15, viral panel negative. CT chest showed no PE, extensive bilateral airspace consolidation, preferentially and severely involving the lower lobes, narrowing of the right main pulmonary artery, osseous mets involving left Lung, spine, right posterior 2nd and 4th ribs, right chest tube catheter. His Pleurx catheter was drained in the ER with 1.1 L removed.. He received 1 dose of calcitonin, zoledronic acid. Patient was admitted for further management of hypercalcemia, altered mental status, decreased oral intake, pulmonology, oncology, neurology, RD consulted.Confirmed patient's CODE STATUS is as DNR/DNI. Per neurology note, patient's family is not interested in repeat MRI. Neurology signed off. Cultures negative so far, patient is afebrile. Monitor off antibiotics, suspect leukocytosis is probably related to advanced cancer.Called patient's son, discussed goals of care, he would like his brother to try oral pain medications to see if the pain improves so he can eat better. If this does not work, he would consider hospice. Hospice consult was placed. Discussed with hospital RN, who called patient's son, he currently declined hospice and would like to try pain control and sent to rehab with hopefully improved oral intake. It was explained that most likely patient will be right back to the hospital for the same issue again, son demonstrated understanding, accepted this risk, but still would like to give his dad a chance. 11/07 Patient was seen and examined at bedside, he is alert, hard of hearing, he states that he feels okay, does not appear to be in acute distress. . He is afebrile tachycardic in 100s, SpO2 96% on 3L, BP 124/78. Leukocytosis persistent 15.9, hemoglobin 8.0, sodium and potassium as well as creatinine WNL, calcium 11.3, glucose in 90s. Patient still has very minimal oral intake, he does not like Ensure and does not drink. Added ibuprofen 400 3 times daily for pain control, [place] increased to every 4 hours as needed Pertinent positives and negatives as discussed above, a complete review of systems was performed and all other systems are negative. Vitals Signs Reviewed. General: [Chronically ill-appearing, cachectic Derm: [warm], [dry] Head: [atraumatic], [normocephalic], [symmetric] Eyes: [EOMI], [no lid lag], [anicteric sclera] Mouth: [no lip lesion], [mucus membranes moist] Cardiovascular: [S1S2 reg], [no murmur] Lungs: [Decreased bibasilar breath sounds mild bilateral rhonchi] , [no accessory muscle use] Abdominal: [soft], [ nontender to palpation], [no guarding], [no appreciable organomegaly] Ext: [no gross muscle atrophy], [no edema], [no contractures] Neuro: [ CN II-XI grossly intact], [no focal neuro deficits] Psych: [Alert], Assessment and Plan: Altered mental status, likely secondary to severe hypercalcemia, improving Severe humoral hypercalcemia of malignancy Recurrent malignant bilateral pleural effusion with Pleurx catheter in place Stage IV lung adenocarcinoma Failure to thrive secondary to above -Oncology following, patient is status post zoledronic acid and calcitonin, continue with NS at 50 cc/h -PTH as above -BMP and CBC daily -Nutrition consulted - Discussed with RN, hospice community liaison -Discontinue Dilaudid, resume home MS Contin 30 mg p.o. every 12 hours, added [place] increased to every 4 hours as needed, added ibuprofen 400 mg p.o. 3 times daily scheduled, continue GI prophylaxis with Pepcid - Overall prognosis is poor, patient is hospice appropriate, per oncology, currently not interested in [facility]. Patient send would be interested in hospice sh ould patient fail oral pain management. Hospice consult placed, currently patient's son who is DPOA not interested and would like to try rehab placement Acute hypoxic respiratory failure - Monitor off antibiotics, cultures negative thus far -Pulmonology following DVT ppx: Lovenox Code status: DNR/DNI Anticipated discharge place: Rehab Anticipated discharge time: Pending clinical stability Objective - Vital Signs Vital signs: Vital Signs Temp 97.8 F 11/07/24 08:15 Pulse 98 11/07/24 12:00 Resp 16 11/07/24 12:00 BP 131/85 11/07/24 12:00 Pulse Ox 100 11/07/24 12:00 FiO2 Intake & Output 11/06/24 11/07/24 11/07/24 18:59 06:59 18:59 Intake Total 248 658 Output Total 1999 425 Balance -1752 -425 658 Weight 71.2 kg Intake: IV 10 Invasive Line 2 10 Oral 238 658 Output: Chest Tube Drainage 1000 Pleural Catheter Right 1000 Anterior Chest Urine 1000 425 Other: Voiding Method Indwelling Catheter Indwelling Catheter Indwelling Catheter - Labs CBC & Chem 7: 11/07/24 05:45 11/07/24 05:45 Labs: Abnormal Lab Results - Last 24 Hours (Table) 11/06/24 11/07/24 11/07/24 Range/Units 16:24 05:45 05:45 WBC 15.98 H (4.50-10.00) 10*3/uL RBC 2.70 L (4.40-5.60) 10*6/uL Hgb 8.0 L (13.0-17.0) g/dL Hct 24.9 L (39.6-50.0) % Immature Gran # 0.16 H (0.00-0.04) 10*3/uL Neutrophils # 12.83 H (1.80-7.70) 10*3/uL Monocytes # 1.22 H (0.20-1.00) 10*3/uL BUN 24 H (9-20) mg/dL Glucose 73 L (74-99) mg/dL POC Glucose (mg/dL) 114 H (70-110) mg/dL Calcium 11.3 H (8.4-10.2) mg/dL Microbiology - Last 24 Hours (Table) 11/03/24 22:46 Blood Culture - Preliminary Blood
[2024-11-07 16:15] LABS: Glucose,Whole Blood 128 mg/dL (70-110)
[2024-11-07] MEDS: HYDROcodone/APAP 5-325MG 1 EACH TAB PO PRN (16:22)
[2024-11-07 20:19] LABS: Glucose,Whole Blood 111 mg/dL (70-110)
--- NOTE | 2024-11-08 04:09 | XR ---
EXAM: XR Chest, 1 View CLINICAL HISTORY: SOB TECHNIQUE: Frontal view of the chest. COMPARISON: 11/04/2024 FINDINGS: Lungs: Large right pleural effusion and compressive atelectasis, similar. Suspect small left pleural effusion. Mediastinum: Unchanged. Bones/joints: Unchanged. IMPRESSION: No substantial change.
[2024-11-08 06:10] LABS: Glucose,Whole Blood 107 mg/dL (70-110)
[2024-11-08 07:58] LABS: Basophils # (A) 0.06 10*3/uL (0.00-0.10); Basophils % (A) 0.3 %; Eosinophils # (A) 0.33 10*3/uL (0.04-0.35); Eosinophils % (A) 1.6 %; HCT 26.3 % (39.6-50.0); HGB 8.2 g/dL (13.0-17.0); Lymphocytes # (A) 1.32 10*3/uL (0.90-5.00); Lymphocytes % (A) 6.4 %; MCH 28.5 pg (27.0-32.0); MCHC 31.2 g/dL (32.0-37.0); MCV 91.3 fL (80.0-97.0); Monocytes # (A) 0.88 10*3/uL (0.20-1.00); Monocytes % (A) 4.3 %; Neutrophils # (A) 17.64 10*3/uL (1.80-7.70); Neutrophils % (A) 86.1 %; Platelet Count 436 10*3/uL (140-440); RBC 2.88 10*6/uL (4.40-5.60); RDW 15.3 % (11.5-14.5); WBC 20.49 10*3/uL (4.50-10.00)
[2024-11-08 08:43] LABS: African American GFR (CKD) >90 (>60 ml/min/1.73 sqM); Anion Gap 7 mmol/L; Blood Urea Nitrogen 29 mg/dL (9-20); Calcium 10.4 mg/dL (8.4-10.2); Carbon Dioxide 25 mmol/L (22-30); Chloride 105 mmol/L (98-107); Glucose 88 mg/dL (74-99); Non-African American GFR(CKD) >90 (>60 ml/min/1.73 sqM); Potassium 4.2 mmol/L (3.5-5.1); Sodium 137 mmol/L (137-145)
[2024-11-08 11:29] LABS: Glucose,Whole Blood 84 mg/dL (70-110)
--- NOTE | 2024-11-08 12:27 | P.PN ---
Subjective Progress Note Date: 11/08/24 Principal diagnosis: Acute hypoxic respiratory failure secondary to bilateral pleural effusions and history of previous Pleurx catheter insertion with history of metastatic pulmona ry adenocarcinoma. 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 His initial diagnosis was made back in May of 2024, patient presented initially with abnormal CT of the chest showing a 2.2 x 1.7 right lower lobe mass and enlarged subcarinal and right hilar lymphadenopathy. At the same time the patient had pathologic fracture of T11. CT of the chest also showed a 2.9 cm mass in the posterior right lower lobe and significant thoracic spine abnormalities consistent with metastatic disease to the spine. Bone scan confirmed metastatic disease to the spine and 2 other skeletal areas including the left scapula. Biopsy of T12 positive for metastatic poorly differ entiated pulmonary adenocarcinoma. Patient did not require bronchoscopy or lung biopsy. He has recurrent right-sided pleural effusion. Previously underwent right-sided thoracentesis on 10/18/2024 developed pneumothorax, thought to be trapped lung. Patient did have a Thoravent placed. Subsequently, developed a recurrent right-sided pleural effusion and a Pleurx catheter was placed by the cardiothoracic surgery team on 10/23/2024. Pleural fluid cytology was transudate based on Lights criteria. Pleural fluid pathology nondiagnostic for malignancy. Sent in by EMS from his ECF last night. He was noted to be confused at the outside facility. Apparently, not eating or drinking at the outside facility. Workup in the emergency department including chest x-ray showing complete opacification of the right hemithorax with a Pleurx catheter in place. Also, small left pleural effusion was redemonstrated. ICU nurse did go down to the ER and drained his Pleurx catheter with a total of 1.1 L removed. I believe the fluid was discarded. Subsequently, developed respiratory distress and chest pa in. I sent the patient for a chest CT with contrast which did not show any evidence of pulmonary embolism. Extensive bilateral airspace consolidation preferentially and severely involving the lower lobes. There is narrowing of the right main pulmonary artery likely from patient's underlying lung mass. Osseous metastasis preferentially involving the left scapula, spine, right posterior 2nd and 4th ribs. Right chest tube catheter was in place. Labs including a CBC with a WBC count of 16.9, hemoglobin 9.3, platelets 426. CMP: Sodium 137, potassium 4.8, chloride 99, serum bicarb 31, BUN 41, creatinine 0.99, glucose 126. Lactic 2.2 and down to 1.8. Ionized calcium 8 the setting of known malignancy with osseous mets. Magnesium 2.4. ALP 136, ALT 14, AST 25. Total bilirubin 0.6. Ammonia 19. Urinalysis positive for leukocytes. Viral 4 Plex negative for influenza A/B, RSV, COVID. Patient being evaluated in the emergency department. He is alert. Poor historian, and confused, likely exacerbated by his severe hearing loss. He is frail, cachectic, and lethargic. Currently on 8 L high flow nasal cannula. SpO2 is reading 99% on bedside monitor. This is actively being weaned. Patient does not appear in any respiratory distress. Seen today on 11/05/2024, patient is basically about the same, he is extremely frail, not in distress, on 2 L nasal cannula, hemodynamically stable. Patient remains on IV fluids and on Zosyn, cultures have been negative so far. His overall clinical picture does not look very promising. Patient is extremely frail, and seems to be chronically ill, WBC count is 14.9 hemoglobin 8.4 electrolytes are normal renal profile is normal bicarb is 22, today I have recommended that the nurse taking care of the patient to have the pleural effusion drained from the Pleurx catheter and every other day basis. Patient was seen today on 11/06/2024, remains on the medical floor, extremely frail, weak, confused, does not seem to be in distress, patient is supposed to have more drainage of the pleural effusion today by a nurse, in the meantime the patient continues to have leukocytosis with WBC count is 15.7 hemoglobin 8.5 electrolytes are normal calcium today is 11.5, it was as high as 15.4 a week ago, and has been steadily coming down to 11.5. Patient has diffuse metastatic disease/metastatic lung cancer,/adenocarcinoma, at this point I truly believe that hospice should be considered on this patient Patient was seen today again on 11/08/2024, patient is about the same, still requiring intermittent drainage of his right-sided pleural effusion this is being done every other day. Chest x-ray continues to show fairly good-sized right-sided pleural effusion today, and he will have more drainage done today. Last night the patient an episode of shortness of breath and according to the nurse he may have had a mucous plug, patient was able to clear his secretions, and he felt better shortly after. When I was notified about this patient, I recommended evaluation by day team, but patient improved before the AT even saw the patient. Remains no code, but apparently the family is not considering hospice although the patient should be a hospice patient considering his comorbidities and considering his prognosis. WBC count today is 20.4 hemoglobin 8.2 electrolytes are normal renal profile is normal Objective - Vital Signs Vital signs: Vital Signs Temp 97.4 F L 11/08/24 08:10 Pulse 105 H 11/08/24 11:53 Resp 20 11/08/24 08:10 BP 124/80 11/08/24 08:10 Pulse Ox 100 11/08/24 08:10 FiO2 Intake & Output 11/07/24 11/08/24 11/08/24 18:59 06:59 18:59 Intake Total 898 Output Total 550 500 750 Balance 348 -500 -750 Weight 71.2 kg Intake: Oral 898 Output: Urine 550 500 750 Other: Voiding Method Indwelling Catheter Indwelling Catheter Indwelling Catheter - Exam GENERAL EXAM: Extremely frail looking 59-year-old white male on 3 L nasal cannula and O2 sat is 100% HEAD: Normocephalic and atraumatic EYES: Normal reaction of pupils, equal size. NOSE: Clear with pink turbinates. THROAT: No erythema or exudates. NECK: No masses, no JVD. CHEST: No chest wall deformity. LUNGS: Extremely diminished breath sounds on the right side.. CVS: S1 and S2 normal with no audible murmur, regular rhythm. No extra heart sounds ABDOMEN: No hepatosplenomegaly, active bowel sounds, no guarding or rigidity. SKIN: No rashes CENTRAL NERVOUS SYSTEM: Profoundly weak, confused, hard of hearing, EXTREMITIES: There is no peripheral edema, clubbing, or cyanosis. Peripheral pulses are intact. - Labs CBC & Chem 7: 11/08/24 06:19 11/08/24 06:19 Labs: Abnormal Lab Results - Last 24 Hours (Table) 11/07/24 11/07/24 11/08/24 Range/Units 16:14 20:18 06:19 WBC 20.49 H (4.50-10.00) 10*3/uL RBC 2.88 L (4.40-5.60) 10*6/uL Hgb 8.2 L (13.0-17.0) g/dL Hct 26.3 L (39.6-50.0) % MCHC 31.2 L (32.0-37.0) g/dL MPV 9.4 L (9.5-12.2) fL Immature Gran # 0.26 H (0.00-0.04) 10*3/uL Neutrophils # 17.64 H (1.80-7.70) 10*3/uL BUN (9-20) mg/dL POC Glucose (mg/dL) 128 H 111 H (70-110) mg/dL Calcium (8.4-10.2) mg/dL 11/08/24 Range/Units 06:19 WBC (4.50-10.00) 10*3/uL RBC (4.40-5.60) 10*6/uL Hgb (13.0-17.0) g/dL Hct (39.6-50.0) % MCHC (32.0-37.0) g/dL MPV (9.5-12.2) fL Immature Gran # (0.00-0.04) 10*3/uL Neutrophils # (1.80-7.70) 10*3/uL BUN 29 H (9-20) mg/dL POC Glucose (mg/dL) (70-110) mg/dL Calcium 10.4 H (8.4-10.2) mg/dL Microbiology - Last 24 Hours (Table) 11/03/24 22:46 Blood Culture - Preliminary Blood Assessment and Plan Assessment: Impression: Acute hypoxic respiratory failure secondary to bilateral pleural effusions, felt to be malignant unless following otherwise in spite of negative cytology. Patient does have history of metastatic adenocarcinoma/pulmonary History of recurrent right-sided pleural effusion and multiple previous thoracentesis most recently developing right-sided pneumothorax on October 18, did have previous Thora vent placement which was removed on October 21. Did have increased right-sided pleural effusion and a Pleurx catheter was placed on October 23. Pleural fluid cytology was transudate based on Lights criteria. Pleural fluid pathology previously nondiagnostic for malignancy. However I believe the fluid is malignant unless for otherwise Metastatic pulmonary adenocarcinoma with osseous metastasis, confirmed with bone biopsy June 2024. PET scan from September 11, 2024 revealed uptake within the right lung mass compatible with neoplasm. Extensive osseous metastasis including axial spine, left iliac wing, left scapula, multiple ribs, sternum, pelvis. Small metastatic lesions suspected within the left and right lobes of the liver. Mediastinal metastasis. Metastatic lesions in the right supra clavicular region and suspected within lymph nodes within the bilateral parotid glands. Plan was for Keytruda however the patient has had several hosp italizations and difficulty getting to appointments Chronic anemia, hemoglobin stable at 9.3 g/dL Severe hypercalcemia, with ionized calcium of 8, in the setting of dehydration and known malignancy with osseous metastasis Chronic obstructive pulmonary disease Former smoker History of thoracic vertebral fracture/pathological fracture requiring surgery Failure to thrive Cachexia Recommendation: Continue present supportive care measures, would still seriously consider hospice at this patient it would be reasonable to discuss with the family possible comfort care measures and hospice. I recommended drainage of his pleural effusion today by nurses at bedside. Continue to monitor daily labs Again his prognosis is extremely poor Time with Patient: Less than 30
--- NOTE | 2024-11-08 12:42 | P.PN ---
Subjective Progress Note Date: 11/08/24 Hospital Course: A 59-year-old male with past medical history of stage IV lung adenocarcinoma, diagnosed in May 2024, unable to start chemotherapy due to recurrent hospitalizations, history of PE, type II DM, who presented to the ER on 11/03 from rehab for altered mental status, decreased oral intake. Patient is a poor historian, was confused on admission, no further history available, of note, patient is very hard of hearing, has not his glasses with him and thus cannot read written or typed text. He underwent extensive workup in the ER, while he was afebrile and tachycardic in 100s, blood pressure stable 118/72, was placed on high flow nasal cannula for hypoxia Blood work revealed leukocytosis 16.9, unchanged from end of October, stable hemoglobin at 9.2, normal platelet count, sodium and potassium normal, bicarb 31, creatinine normal, glucose controlled, calcium severely elevated 15.4, ionized calcium 8.0, ammonia level was normal, intact PTH level 3.4, TSH normal 4.3, procalcitonin 0.35. UA showed hematuria, pyuria WBC 15, viral panel negative. CT chest showed no PE, extensive bilateral airspace consolidation, preferentially and severely involving the lower lobes, narrowing of the right main pulmonary artery, osseous mets involving left Lung, spine, right posterior 2nd and 4th ribs, right chest tube catheter. His Pleurx catheter was drained in the ER with 1.1 L removed.. He received 1 dose of calcitonin, zoledronic acid. Patient was admitted for further management of hypercalcemia, altered mental status, decreased oral intake, pulmonology, oncology, neurology, RD consulted.Confirmed patient's CODE STATUS is as DNR/DNI. Per neurology note, patient's family is not interested in repeat MRI. Neurology signed off. Cultures negative so far, patient is afebrile. Monitor off antibiotics, suspect leukocytosis is probably related to advanced cancer.Called patient's son, discussed goals of care, he would like his father r to try oral pain medications to see if the pain improves so he can eat better. If this does not work, he would consider hospice. Hospice consult was placed. Discussed with hospital RN, who called patient's son, he currently declined hospice and would like to try pain control and send to rehab with hopefully improved oral intake. It was explained that most likely patient will be right back to the hospital for the same issue again, son demonstrated understanding, accepted this risk, but still would like to give his dad a chance. 11/08: Seen and examined at bedside, discussed with RN, overnight patient had episode of desaturation possibly due to mucous plugging, patient cleared his secretions and started feeling better shortly after that episode. He was seen at bedside not in acute distress, on 3 L per nasal cannula, afebrile, remains tachycardic in the 90s 100s, blood pressure normotensive. WBC 20.4, possibly due to episode of aspiration, chest x-ray showed no new consolidation, worsening pleural effusion that needs to be drained per Pleurx, calcium improving 10.4, otherwise BMP unremarkable. Patient still has very minimal oral intake, he is clinically stable for discharge pending placement. Very high risk for read mission, hospice appropriate, per family wishes will be sent with hopes of improvement of oral intake. Pertinent positives and negatives as discussed above, a complete review of systems was performed and all other systems are negative. Vitals Signs Reviewed. General: [Chronically ill-appearing, cachectic Derm: [warm], [dry] Head: [atraumatic], [normocephalic], [symmetric] Eyes: [EOMI], [no lid lag], [anicteric sclera] Mouth: [no lip lesion], [mucus membranes moist] Cardiovascular: [S1S2 reg], [no murmur] Lungs: [Decreased bibasilar breath sounds mild bilateral rhonchi] , [no accessory muscle use] Abdominal: [soft], [ nontender to palpation], [no guarding], [no appreciable organomegaly] Ext: [no gross muscle atrophy], [no edema], [no contractures] Neuro: [ CN II-XI grossly intact], [no focal neuro deficits] Psych: [Alert], Assessment and Plan: Altered mental status, likely secondary to severe hypercalcemia, improving Severe humoral hypercalcemia of malignancy Acute hypoxic respiratory failure secondary to recurrent malignant bilateral pleural effusion with Pleurx catheter in place Stage IV lung adenocarcinoma Failure to thrive secondary to above Severe protein calorie malnutrition secondary to above -Oncology following, patient is status post zoledronic acid and calcitonin, continue with NS at 50 cc/h -PTH as above -BMP and CBC daily -Nutrition consulted - Discussed with RN, -Discontinue Dilaudid, resume home MS Contin 30 mg p.o. every 12 hours, added Romney increased to every 4 hours as needed, added ibuprofen 400 mg p.o. 3 times daily scheduled, continue GI prophylaxis with Pepcid - Overall prognosis is poor, patient is hospice appropriate, per oncology, currently not interested in [facility]. Patient son would be interested in hospice should patient fail oral pain management. Hospice consult placed, currently patient's son who is DPOA not interested in hospice yet and would like to try rehab placement - Monitor off antibiotics, cultures negative thus far -Pulmonology following DVT ppx: Lovenox Code status: DNR/DNI Anticipated discharge place: Rehab Anticipated discharge time: Pending placement Objective - Vital Signs Vital signs: Vital Signs Temp 97.4 F L 11/08/24 08:10 Pulse 105 H 11/08/24 11:53 Resp 20 11/08/24 08:10 BP 124/80 11/08/24 08:10 Pulse Ox 100 11/08/24 08:10 FiO2 Intake & Output 11/07/24 11/08/24 11/08/24 18:59 06:59 18:59 Intake Total 898 Output Total 550 500 750 Balance 348 -500 -750 Weight 71.2 kg Intake: Oral 898 Output: Urine 550 500 750 Other: Voiding Method Indwelling Catheter Indwelling Catheter Indwelling Catheter - Labs CBC & Chem 7: 11/08/24 06:19 11/08/24 06:19 Labs: Abnormal Lab Results - Last 24 Hours (Table) 11/07/24 11/07/24 11/08/24 Range/Units 16:14 20:18 06:19 WBC 20.49 H (4.50-10.00) 10*3/uL RBC 2.88 L (4.40-5.60) 10*6/uL Hgb 8.2 L (13.0-17.0) g/dL Hct 26.3 L (39.6-50.0) % MCHC 31.2 L (32.0-37.0) g/dL MPV 9.4 L (9.5-12.2) fL Immature Gran # 0.26 H (0.00-0.04) 10*3/uL Neutrophils # 17.64 H (1.80-7.70) 10*3/uL BUN (9-20) mg/dL POC Glucose (mg/dL) 128 H 111 H (70-110) mg/dL Calcium (8.4-10.2) mg/dL 11/08/24 Range/Units 06:19 WBC (4.50-10.00) 10*3/uL RBC (4.40-5.60) 10*6/uL Hgb (13.0-17.0) g/dL Hct (39.6-50.0) % MCHC (32.0-37.0) g/dL MPV (9.5-12.2) fL Immature Gran # (0.00-0.04) 10*3/uL Neutrophils # (1.80-7.70) 10*3/uL BUN 29 H (9-20) mg/dL POC Glucose (mg/dL) (70-110) mg/dL Calcium 10.4 H (8.4-10.2) mg/dL Microbiology - Last 24 Hours (Table) 11/03/24 22:46 Blood Culture - Preliminary Blood
[2024-11-08 13:53] VITALS: RESP 18
[2024-11-08 16:28] LABS: Glucose,Whole Blood 91 mg/dL (70-110)
[2024-11-08 20:01] LABS: Glucose,Whole Blood 89 mg/dL (70-110)
[2024-11-09 03:57] VITALS: TEMP 97.6
[2024-11-09 06:00] LABS: Glucose,Whole Blood 85 mg/dL (70-110)
[2024-11-09 06:34] LABS: Basophils # (A) 0.08 10*3/uL (0.00-0.10); Basophils % (A) 0.4 %; Eosinophils # (A) 0.34 10*3/uL (0.04-0.35); Eosinophils % (A) 1.8 %; HCT 25.5 % (39.6-50.0); HGB 8.1 g/dL (13.0-17.0); Lymphocytes # (A) 1.63 10*3/uL (0.90-5.00); Lymphocytes % (A) 8.6 %; MCH 29.1 pg (27.0-32.0); MCHC 31.8 g/dL (32.0-37.0); MCV 91.7 fL (80.0-97.0); Monocytes # (A) 1.13 10*3/uL (0.20-1.00); Monocytes % (A) 5.9 %; Neutrophils # (A) 15.63 10*3/uL (1.80-7.70); Neutrophils % (A) 82.1 %; Platelet Count 422 10*3/uL (140-440); RBC 2.78 10*6/uL (4.40-5.60); RDW 15.7 % (11.5-14.5); WBC 19.03 10*3/uL (4.50-10.00)
[2024-11-09 06:50] LABS: African American GFR (CKD) >90 (>60 ml/min/1.73 sqM); Anion Gap 7 mmol/L; Blood Urea Nitrogen 26 mg/dL (9-20); Calcium 9.9 mg/dL (8.4-10.2); Carbon Dioxide 22 mmol/L (22-30); Chloride 107 mmol/L (98-107); Glucose 75 mg/dL (74-99); Non-African American GFR(CKD) >90 (>60 ml/min/1.73 sqM); Potassium 4.4 mmol/L (3.5-5.1); Sodium 136 mmol/L (137-145)
[2024-11-09 09:18] VITALS: PULSE 108
[2024-11-09 11:43] LABS: Glucose,Whole Blood 102 mg/dL (70-110)
--- NOTE | 2024-11-09 12:08 | P.DS ---
Providers Date of admission: 11/03/24 22:17 Expected date of discharge: 11/09/24 Attending physician: Nico Ybarra MD Consults: 11/03/24 22:17 Consult Physician Routine Consulting Provider: Lorraine Kennedy Consult Reason/Comments: lung cancer, metastatic Do you want consulting provider notified?: Yes 11/03/24 22:30 Consult Physician Routine Consulting Provider: Lamont Ledesma Consult Reason/Comments: altered mental status Do you want consulting provider notified?: Yes Consult Physician Routine Consulting Provider: Sonia Hernandes Consult Reason/Comments: right pleural effusion/atelectasis/malignancy with pleural catheter Do you want consulting provider notified?: Yes Primary care physician: Stated None Hospital Course: 59 year old M with PMH of stage IV NSLC with metastatic disease to the spine and skull, malignant pleural effusion with PleurX catheter presented to the ED from SNF for AMS. He has not been eating or drinking and shelter staff is concerned about failure to thrive as well. In the ED he underwent extensive evaluation. BP 118/72, HR 105, RR 18, 98% on 4L NC. CBC, Coag panel, CMP significant for WBC 16.93, RBC 3.15, Hg 9.3, Hct 28.7, APTT 20.5, bicarb 31, BUN 41, glu 126, Ca 15.4, ionized Ca 8, alk phos 136, alb 3.2. Mag 2.4. Lactic acid 2.2-1.8. Vit D 19.4, PTH 3.4. TSH 4.37. Procal 0.35. UA small LE. Salicylate, Tylenol, EtOH neg. COVID, RSV, Flu neg. Brain CT neg no acute process. CXR complete opacification of the hemithorax. EKG sinus tachycardia. Patient was admitted with Pulmonary, Oncology and Neurology consulted. PleurX was drained. CT chest showed no PE, exxtensive bilateral consolidations, narrowing of the R main pulmonary artery, osseous metastatic disease, right chest tube catheter. Regarding his hypercalcemia, he was treated with IV hydration, zoledronic acid and calcitonin. HyperCa normalized and mentation improved to baseline. Hospice was discussed, patient and family however was leaning towards SNF. 11/09 Patient was seen and examined. He reports 8/10 pain in his back. He is alert and oriented x 3. Plans for discharge to SNF today. CBC and BMP significant for WBC 15.98, RBC 2.7, Hg 8, Hct 34.9, BUN 24, glu 73, Ca 11.3. Discharge Plan: Advised to hydrate. I have added Contin IR 15 mg PO TID PRN to his pain regimen for better pain control. Follow up with Oncology regularly to check Ca levels. He may benefit from outpatient IV bisphosphonates or SQ Denosumab which can be arranged with Oncology. General: non toxic, no distress Derm: warm, dry Head: atraumatic, normocephalic, symmetric Eyes: EOMI, no lid lag, anicteric sclera Mouth: no lip lesion, mucus membranes moist Cardiovascular: S1S2 reg, no murmur Lungs: Decreased BS bilateral, no rhonchi, no rales , no accessory muscle use, PleurX catheter intact Ext: no gross muscle atrophy, no edema, no contractures Neuro: No FND Psych: AO x 3 Discharge Diagnosis: Altered mental status secondary to severe hypercalcemia Severe hypercalcemia of malignancy Acute hypoxic respiratory failure secondary to recurrent malignant bilateral pleural effusion with Pleurx catheter in place Stage IV lung adenocarcinoma Failure to thrive secondary to above Severe protein calorie malnutrition secondary to above This complex discharge took 35 minutes to complete. Patient Condition at Discharge: Stable Plan - Discharge Summary Discharge Rx Participant: Yes New Discharge Prescriptions: New Ibuprofen [Motrin] 400 mg PO TID PRN tab PRN Reason: Pain Morphine Sulfate Ir [MSIR] 15 mg PO Q8HR PRN #9 tab PRN Reason: Pain Continue Cyclobenzaprine [Flexeril] 10 mg PO TID PRN tab PRN Reason: Spasms Magnesium Oxide [Mag-Ox] 400 mg PO DAILY tab droNABinol [Marinol] 2.5 mg PO AC-BID cap Acetaminophen Tab [Tylenol] 650 mg PO Q6HR PRN tab PRN Reason: Mild Pain Or Fever > 100.5 Sennosides [Senokot] 17.2 mg PO BID metFORMIN HCL 1,000 mg PO BID Potassium Chloride ER [K-Dur 20] 20 meq PO DAILY tab Famotidine [Pepcid] 20 mg PO BID tab Naloxone HCl 1 spray NASAL ONCE PRN PRN Reason: suspected overdose Ipratropium-Albuterol Nebulize [Duoneb 0.5 mg-3 mg/3 ml Soln] 3 ml INHALATION RT-TID Morphine Sulfate ER [Ms Contin] 30 mg PO Q12HR #6 tab Discharge Medication List metFORMIN HCL 1,000 mg PO BID 06/15/24 [History] Acetaminophen Tab [Tylenol] 650 mg PO Q6HR PRN tab 10/28/24 [Rx] Cyclobenzaprine [Flexeril] 10 mg PO TID PRN tab 10/28/24 [Rx] Famotidine [Pepcid] 20 mg PO BID tab 10/28/24 [Rx] Magnesium Oxide [Mag-Ox] 400 mg PO DAILY tab 10/28/24 [Rx] Potassium Chloride ER [K-Dur 20] 20 meq PO DAILY tab 10/28/24 [Rx] droNABinol [Marinol] 2.5 mg PO AC-BID cap 10/28/24 [Rx] Ipratropium-Albuterol Nebulize [Duoneb 0.5 mg-3 mg/3 ml Soln] 3 ml INHALATION RT-TID 11/04/24 [History] Naloxone HCl 1 spray NASAL ONCE PRN 11/04/24 [History] Sennosides [Senokot] 17.2 mg PO BID 11/04/24 [History] Ibuprofen [Motrin] 400 mg PO TID PRN tab 11/09/24 [Rx] Morphine Sulfate ER [Ms Contin] 30 mg PO Q12HR #6 tab 11/09/24 [Rx] Morphine Sulfate Ir [MSIR] 15 mg PO Q8HR PRN #9 tab 11/09/24 [Rx] Follow up Appointment(s)/Referral(s): None,Stated [Primary Care Provider] - 1-2 days Discharge/Stand Alone Forms: Community Resources, Personal Desk Reporter, Area PCPs Discharge Disposition: TRANSFER TO SNF/ECF
[2024-11-09 12:10] VITALS: BP 119/77
[2024-11-09] MEDS: MORPHINE SULFATE IR 15 MG TABLET PO PRN (12:10)
--- NOTE | 2024-11-09 12:39 | P.PN ---
Subjective Progress Note Date: 11/09/24 Principal diagnosis: Lung cancer. 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 His initial diagnosis was made back in May of 2024, patient presented initially with abnormal CT of the chest showing a 2.2 x 1.7 right lower lobe mass and enlarged subcarinal and right hilar lymphadenopathy. At the same time the patient had pathologic fracture of T11. CT of the chest also showed a 2.9 cm mass in the posterior right lower lobe and significant tho racic spine abnormalities consistent with metastatic disease to the spine. Bone scan confirmed metastatic disease to the spine and 2 other skeletal areas including the left scapula. Biopsy of T12 positive for metastatic poorly differentiated pulmonary adenocarcinoma. Patient did not require bronchoscopy or lung biopsy. He has recurrent right-sided pleural effusion. Previously underwent right-sided thoracentesis on 10/18/2024 developed pneumothorax, thought to be trapped lung. Patient did have a Thoravent placed. Subsequently, developed a recurrent right-sided pleural effusion and a Pleurx catheter was placed by the cardiothoracic surgery team on 10/23/2024. Pleural fluid cytology was transudate based on Lights criteria. Pleural fluid pathology nondiagnostic for malignancy. Sent in by EMS from his ECF last night. He was noted to be confused at the outside facility. Apparently, not eating or drinking at the outside facility. Workup in the emergency department including chest x-ray showing complete opacification of the right hemithorax with a Pleurx catheter in place. Also, small left pleural effusion was redemonstrated. ICU nurse did go down to the ER and drained his Pleurx catheter with a total of 1.1 L removed. I believe the fluid was discarded. Subsequently, developed respiratory distress and chest pain. I sent the patient for a chest CT with contrast which did not show any evidence of pulmonary embolism. Extensive bilateral airspace consolidation preferentially and severely involving the lower lobes. There is narrowing of the right main pulmonary artery likely from patient's underlying lung mass. Osseous metastasis preferentially involving the left scapula, spine, right posterior 2nd and 4th ribs. Right chest tube catheter was in place. Labs including a CBC with a WBC count of 16.9, hemoglobin 9.3, platelets 426. CMP: Sodium 137, potassium 4.8, chloride 99, serum bicarb 31, BUN 41, creatinine 0.99, glucose 126. Lactic 2.2 and down to 1.8. Ionized calcium 8 the setting of known malignancy with osseous mets. Magnesium 2.4. ALP 136, ALT 14, AST 25. Total bilirubin 0.6. Ammonia 19. Urinalysis positive for leukocytes. Viral 4 Plex negative for influenza A/B, RSV, COVID. Patient being evaluated in the emergency department. He is alert. Poor historian, and confused, likely exacerbated by his severe hearing loss. He is frail, cachectic, and lethargic. Currently on 8 L high flow nasal cannula. SpO2 is reading 99% on bedside monitor. This is actively being weaned. Patient does not appear in any respiratory distress. Seen today on 11/05/2024, patient is basically about the same, he is extremely frail, not in distress, on 2 L nasal cannula, hemodynamically stable. Patient remains on IV fluids and on Zosyn, cultures have been negative so far. His overall clinical picture does not look very promising. Patient is extremely frail, and seems to be chronically ill, WBC count is 14.9 hemoglobin 8.4 electrolytes are normal renal profile is normal bicarb is 22, today I have recommended that the nurse taking care of the patient to have the pleural effusion drained from the Pleurx catheter and every other day basis. Patient was seen today on 11/06/2024, remains on the medical floor, extremely frail, weak, confused, does not seem to be in distress, patient is supposed to have more drainage of the pleural effusion today by a nurse, in the meantime the patient continues to have leukocytosis with WBC count is 15.7 hemoglobin 8.5 electrolytes are normal calcium today is 11.5, it was as high as 15.4 a week ago, and has been steadily coming down to 11.5. Patient has diffuse metastatic disease/metastatic lung cancer,/adenocarcinoma, at this point I truly believe that hospice should be considered on this patient Patient was seen today again on 11/08/2024, patient is about the same, still requiring intermittent drainage of his right-sided pleural effusion this is being done every other day. Chest x-ray continues to show fairly good-sized right-sided pleural effusion today, and he will have more drainage done today. Last night the patient an episode of shortness of breath and according to the nurse he may have had a mucous plug, patient was able to clear his secretions, and he felt better shortly after. When I was notified about this patient, I recommended evaluation by day team, but patient improved before the AT even saw the patient. Remains no code, but apparently the family is not considering hospice although the patient should be a hospice patient considering his comorbidities and considering his prognosis. WBC count today is 20.4 hemoglobin 8.2 electrolytes are normal renal profile is normal Progress note dated November 09, 2024. The patient has been here in the hospital now for 6 days. He is currently on 4 L nasal cannula. He is getting saline at 50 cc an hour. He has a right Pleurx catheter in place. Current labs include a white count of 19, hemoglobin 8.1, hematocrit 25.5, and platelet count of 422,000. Sodium 136, potassium 4.4, chlorides 107, CO2 22, BUN 26, creatinine 0.68. Glucose is 102. Calcium 9.9. Chest x-ray from November 08, shows a large right-sided pleural effusion, with compr essive atelectasis. Objective - Vital Signs Vital signs: Vital Signs Temp 97.6 F 11/09/24 03:56 Pulse 108 H 11/09/24 12:09 Resp 18 11/09/24 12:09 BP 119/77 11/09/24 12:09 Pulse Ox 98 11/09/24 08:00 FiO2 Intake & Output 11/08/24 11/09/24 11/09/24 18:59 06:59 18:59 Intake Total 120 0 Output Total 1600 700 Balance -1480 -700 0 Weight 71 kg Intake: Oral 120 0 Output: Chest Tube Drainage 850 Pleural Catheter Right 850 Anterior Chest Urine 750 700 Other: Voiding Method Indwelling Catheter Indwelling Catheter Indwelling Catheter - Exam No acute distress, oriented 3. Currently on 4 L. HEENT examination is grossly unremarkable. Mucous membranes are moist. No oral lesions. Neck supple. Full range of motion. No adenopathy thyromegaly or neck vein distention. Cardiovascular examination reveals regular rhythm rate. S1-S2 normal. No S3 or S4. No discernible murmur noted. Heart sounds are distant. Lungs reveal severely diminished breath sounds on the right. Few scattered rhonchi noted. No wheezes. No crackles. Abdomen soft bowel sounds are heard. No masses or tenderness. Extremities are intact. No cyanosis clubbing or edema. Skin is without rash or lesion. Neurologic examination is brief but nonfocal. - Labs CBC & Chem 7: 11/09/24 05:33 11/09/24 05:33 Labs: Abnormal Lab Results - Last 24 Hours (Table) 11/09/24 11/09/24 Range/Units 05:33 05:33 WBC 19.03 H (4.50-10.00) 10*3/uL RBC 2.78 L (4.40-5.60) 10*6/uL Hgb 8.1 L (13.0-17.0) g/dL Hct 25.5 L (39.6-50.0) % MCHC 31.8 L (32.0-37.0) g/dL Immature Gran # 0.22 H (0.00-0.04) 10*3/uL Neutrophils # 15.63 H (1.80-7.70) 10*3/uL Monocytes # 1.13 H (0.20-1.00) 10*3/uL Sodium 136 L (137-145) mmol/L BUN 26 H (9-20) mg/dL Assessment and Plan Assessment: Acute hypoxemic respiratory failure secondary to large right pleural effusion and a smaller left-sided pleural effusion, likely malignant. History of metastatic adenocarcinoma, pulmonary primary. History of large right-sided pleural effusion, S/P thoracentesis, with resultant pneumothorax, S/P Thora vent placement. More recent placement of a right sided Pleurx catheter, on October 23, 2024. Metastatic pulmonary adenocarcinoma, with osseous metastasis. Chronic anemia. Severe hypercalcemia. COPD. Previous tobacco use. History of thoracic vertebral fracture. Failure to thrive. Cachexia. Plan: Plan dated November 09, 2024. The patient has widely metastatic pulmonary adenocarcinoma, and is currently a DNR. The Pleurx catheter remains on the right side. Labs, x-rays, and all medications are reviewed. The patient has yet to receive any treatment for his cancer, as he has been too unstable, and very weak and frail. Labs, x-rays, and medications are reviewed. We will continue to follow the patient, make recommendations were appropriate. Prognosis is very poor. Dictation was produced using [employer] software. Please excuse any grammatical, word or spelling errors. Time with Patient: Less than 30
--- NOTE | 2024-11-09 13:59 | P.PN ---
Subjective Progress Note Date: 11/09/24 Patient seen and evaluated at bedside. Pain has complaint of pain most notably located at the lumbar spine. Discussed goals of treatment and care with the patient. Patient verbalizes trying to get through rehab in order to start immunotherapy. Objective - Vital Signs Vital signs: Vital Signs Temp 97.6 F 11/09/24 03:56 Pulse 108 H 11/09/24 12:09 Resp 18 11/09/24 12:09 BP 119/77 11/09/24 12:09 Pulse Ox 98 11/09/24 08:00 FiO2 Intake & Output 11/08/24 11/09/24 11/09/24 18:59 06:59 18:59 Intake Total 120 0 Output Total 1600 700 Balance -1480 -700 0 Weight 71 kg Intake: Oral 120 0 Output: Chest Tube Drainage 850 Pleural Catheter Right 850 Anterior Chest Urine 750 700 Other: Voiding Method Indwelling Catheter Indwelling Catheter Indwelling Catheter - Exam Physical Exam: General: Cachectic appearance, no respiratory distress Cardiovascular: S1 S2 reg, no murmur, rubs, or gallops Lungs: Sounds diminished bilaterally, no rhonchi, no rales Abdominal: soft, non-tender to palpataion, no appreciable organomegaly Extremities: no gross muscle atrophy, no edema Neuro: Alert and oriented Psych: appropriate affect - Labs CBC & Chem 7: 11/09/24 05:33 11/09/24 05:33 Labs: Abnormal Lab Results - Last 24 Hours (Table) 11/09/24 11/09/24 Range/Units 05:33 05:33 WBC 19.03 H (4.50-10.00) 10*3/uL RBC 2.78 L (4.40-5.60) 10*6/uL Hgb 8.1 L (13.0-17.0) g/dL Hct 25.5 L (39.6-50.0) % MCHC 31.8 L (32.0-37.0) g/dL Immature Gran # 0.22 H (0.00-0.04) 10*3/uL Neutrophils # 15.63 H (1.80-7.70) 10*3/uL Monocytes # 1.13 H (0.20-1.00) 10*3/uL Sodium 136 L (137-145) mmol/L BUN 26 H (9-20) mg/dL Assessment and Plan Assessment: #. Severe hypercalcemia of malignancy, resolved #. History of bilateral pleural effusion, currently with right Pleurx catheter #. Metastatic NSCLC #. Acute encephalopathy in the setting of hypercalcemia versus metabolic etiology #. Acute hypoxic respiratory failure #. Failure to thrive Pleurx catheter was drained in ED with 1.1 L of fluid removed Status post zoledronic acid 4mg IV once, calcitonin x1 Fluids discontiued Comfort care measures were discussed last admission, and patient was not amenable and wanted to try rehab. He is currently not receiving any treatment due to being in long-term rehab. Will discuss treatment options with patient once he is cleared from rehab post-discharge. Discussed comfort care measures this admission however patient would like to attempt completing rehab and to start immunotherapy. - continue bowel regimen with Senna-cot S BID - Increase MS contin to 60 mg BID - Recommend obtaining repeat MRI lumbar Patient seen with resident and agree with assessment and plan as outlined above. He continues to have poor performance status with limited ambulation due to underlying malignancy. He notes having persistent pain that is not well-con trolled. He does insist on proceeding with treatment and feels if his pain is better controlled, he will be able to obtain treatment. I am concerned he he has poor insight into his disease. We did discuss with him again on today's visit that he does have evidence of disease progression compared to initial presentation in early 2024. I am pessimistic with regards to the possibility of being able to proceed with Keytruda given his current performance status, which I do not believe will improve with SNF or ECF. For now, we did recommend MRI of the lumbar spine to see if it benefit from palliative radiation therapy to this area as well as increasing extended release morphine to 60 mg twice daily. Lorraine Kennedy MD
[2024-11-09 14:19] VITALS: BMI 26.9
[2024-11-09] MEDS ORDERED: MORPHINE SULFATE ER 30 MG TABLET PO SCH (21:00)
== END 2024-11-09 14:38 | DRG 180 ==
LOC: EC 19:22 → 5NMEDONC 22:17 → 3SCARD 11-04 01:12
PROVIDERS: ADMIT Internal Medicine; ATTEND Internal Medicine
DX: C34.91 Malignant neoplasm of unspecified part of right bronchus or lung (principal); E43 Unspecified severe protein-calorie malnutrition; G93.41 Metabolic encephalopathy; J96.01 Acute respiratory failure with hypoxia; C78.1 Secondary malignant neoplasm of mediastinum; C79.51 Secondary malignant neoplasm of bone; R64 Cachexia; J91.0 Malignant pleural effusion; E11.9 Type 2 diabetes mellitus without complications; J44.9 Chronic obstructive pulmonary disease, unspecified; D64.9 Anemia, unspecified; J98.11 Atelectasis; Z66 Do not resuscitate; R62.7 Adult failure to thrive; E86.0 Dehydration; H91.90 Unspecified hearing loss, unspecified ear; R54 Age-related physical debility; E83.52 Hypercalcemia; Z86.711 Personal history of pulmonary embolism; Z87.891 Personal history of nicotine dependence; Z79.84 Long term (current) use of oral hypoglycemic drugs; Z79.899 Other long term (current) drug therapy; Z88.1 Allergy status to other antibiotic agents; Z88.8 Allergy status to other drugs, medicaments and biological substances; Z86.16 Personal history of COVID-19; Z87.311 Personal history of (healed) other pathological fracture; Z68.24 Body mass index [BMI] 24.0-24.9, adult
CPT/HCPCS: 36415; 70450; 71045; 71046; 71260; 80048; 80053; 80143; 80179; 80320; 81001; 82140; 82306; 82310; 82330; 82607; 82652; 82728; 82746; 83540; 83550; 83605; 83735; 83883; 83970; 84145; 84165; 84166; 84443; 85025; 85610; 85730; 87040; 87086; 87636; 93005; 94640; 94760; 96361; 96365; 96366; 96367; 96372; 96375; 99285

== ENCOUNTER 2024-11-12 15:40 | Inpatient (IN) | payer OTHER ==
[2024-11-12] MEDS: SODIUM CHLORIDE 0.9% 500 ML 500 ML IV ONE (16:31)
--- NOTE | 2024-11-12 16:55 | XR ---
EXAMINATION TYPE: XR chest 1V portable DATE OF EXAM: 11/12/2024 4:48 PM COMPARISON: Chest radiographs from 11/04/2024 TECHNIQUE: XR chest 1V portable Portable AP radiograph of the chest. CLINICAL INDICATION:Male, 59 years old with history of cough; FINDINGS: Lungs/Pleura: Left lung is relatively clear with some basilar atelectasis. No pneumothorax. Complete opacification the right hemithorax. Right sided pleural catheter is in place. Pulmonary vascularity: Unremarkable. Heart/mediastinum: Cardiomediastinal silhouette is partially obscured due to overlying and adjacent o pacities. Musculoskeletal: No acute osseous pathology. Partial visualization of thoracolumbar fusion hardware. IMPRESSION: Complete opacification of the right hemithorax with right-sided pleural catheter in place. Likely rep resentation of pleural effusion, consolidation, atelectasis. Correlate clinically for possible mucous plugging. [facility], , 11/12/2024 4:52 PM
[2024-11-12 17:03] LABS: Basophils # (A) 0.06 10*3/uL (0.00-0.10); Basophils % (A) 0.3 %; Eosinophils # (A) 0.04 10*3/uL (0.04-0.35); Eosinophils % (A) 0.2 %; HCT 28.3 % (39.6-50.0); HGB 9.1 g/dL (13.0-17.0); Lymphocytes # (A) 1.28 10*3/uL (0.90-5.00); Lymphocytes % (A) 7.0 %; MCH 29.6 pg (27.0-32.0); MCHC 32.2 g/dL (32.0-37.0); MCV 92.2 fL (80.0-97.0); Monocytes # (A) 1.39 10*3/uL (0.20-1.00); Monocytes % (A) 7.6 %; Neutrophils # (A) 15.33 10*3/uL (1.80-7.70); Neutrophils % (A) 84.2 %; Platelet Count 498 10*3/uL (140-440); RBC 3.07 10*6/uL (4.40-5.60); RDW 16.5 % (11.5-14.5); WBC 18.23 10*3/uL (4.50-10.00)
[2024-11-12 17:13] LABS: ALT 13 U/L (4-49); AST 27 U/L (17-59); African American GFR (CKD) >90 (>60 ml/min/1.73 sqM); Albumin 3.1 g/dL (3.5-5.0); Alkaline Phosphatase 150 U/L (38-126); Anion Gap 8 mmol/L; Blood Urea Nitrogen 29 mg/dL (9-20); Calcium 10.9 mg/dL (8.4-10.2); Carbon Dioxide 24 mmol/L (22-30); Chloride 105 mmol/L (98-107); Glucose 138 mg/dL (74-99); Magnesium 1.9 mg/dL (1.6-2.3); Non-African American GFR(CKD) >90 (>60 ml/min/1.73 sqM); Potassium 5.0 mmol/L (3.5-5.1); Sodium 137 mmol/L (137-145); Total Protein 5.7 g/dL (6.3-8.2)
[2024-11-12 17:18] LABS: Bacteria,Urine Many /hpf; Bilirubin,Urine Negative (Negative); Blood,Urine Large (Negative); Color,Urine Yellow; Glucose,Urine (UA) Negative (Negative); Ketones,Urine Trace (Negative); Leukocyte Esterase,Urine Large (Negative); Mucus,Urine Few /hpf; Nitrite,Urine Positive (Negative); PH, Urine 5.0 (5.0-8.0); Protein,Urine 1+ (Negative); RBC,Urine >182 /hpf (0-5); Specific Gravity,Urine 1.016 (1.001-1.035); Squamous Epithelial Cell,Urine 2 /hpf (0-4); Urobilinogen,Urine <2.0 mg/dL (<2.0); WBC,Urine >182 /hpf (0-5)
[2024-11-12 17:18] LABS: INR 1.1 (<1.2); Partial Thromboplastin Time 20.9 sec (22.0-30.0); Prothrombin Time 11.5 sec (10.0-12.5)
[2024-11-12 17:22] LABS: NT-Pro-B-Type Natriuretic Pept 6870 pg/mL
[2024-11-12 17:35] LABS: RSV Not Detected (Not Detectd)
[2024-11-12] MEDS ORDERED: VANCOMYCIN IV PER PHARMACY 1 EACH MISC MISCELLANE PRN (17:46)
--- NOTE | 2024-11-12 17:50 | ED ---
General Adult HPI - General Chief complaint: Shortness of Breath Stated complaint: Failure to thrive Time Seen by Provider: 11/12/24 15:42 Source: patient, EMS, RN notes reviewed, old records reviewed Mode of arrival: EMS Limitations: no limitations - History of Present Illness Initial comments: 59-year-old male sent from the [facility] with cough, hypoxia, failure to thrive. Patient had recent discharge for metastatic lung cancer, pleural effusion and hypoxia. Patient is unable to give detailed history. He currently denies central chest pain. Denies fever. - Related Data Home Medications Medication Instructions Recorded Confirmed RX: metFORMIN HCL 1,000 mg PO BID 06/15/24 11/12/24 RX: Ipratropium-Albuterol Nebulize 3 ml INHALATION RT-TID 11/04/24 11/12/24 [Duoneb 0.5 mg-3 mg/3 ml Soln] RX: Naloxone HCl 1 spray NASAL ONCE PRN 11/04/24 11/12/24 RX: Sennosides [Senokot] 17.2 mg PO BID 11/04/24 11/12/24 Morphine Sulfate [Morphine Sulfate 15 mg PO Q6H PRN 11/12/24 11/12/24 Oral Soln Concentrate] RX: Cyclobenzaprine [Flexeril] 10 mg PO Q8H PRN 11/12/24 11/12/24 RX: Ibuprofen [Motrin] 400 mg PO Q8H PRN 11/12/24 11/12/24 guaiFENesin [Mucinex] 600 mg PO Q12H PRN 11/12/24 11/12/24 Previous Rx's Medication Instructions Recorded RX: Acetaminophen Tab [Tylenol] 650 mg PO Q6HR PRN tab 10/28/24 RX: Famotidine [Pepcid] 20 mg PO BID tab 10/28/24 RX: Magnesium Oxide [Mag-Ox] 400 mg PO DAILY tab 10/28/24 RX: Potassium Chloride ER [K-Dur 20 meq PO DAILY tab 10/28/24 20] RX: Morphine Sulfate ER [Ms Contin] 30 mg PO Q12HR #6 tab 11/09/24 RX: droNABinol [Marinol] 2.5 mg PO AC-BID #6 cap 11/09/24 Allergies Allergy/AdvReac Type Severity Reaction Status Date / Time cephalexin [From Keflex] Allergy Swelling Verified 11/12/24 17:57 cortisone Allergy Swelling Verified 11/12/24 17:57 Influenza Virus Vaccines Allergy Swelling Verified 11/12/24 17:57 Review of Systems ROS Statement: Those systems with pertinent positive or pertinent negative responses have been documented in the HPI. ROS Other: All systems not noted in ROS Statement are negative. Past Medical History Past Medical History: Cancer, Diabetes Mellitus, Prostate Disorder, Pulmonary Embolus (PE) Additional Past Medical History / Comment(s): Covid 04/2022, developed PE and was on blood thinners, BPH, Dupuytren's contracture. NSCLC 06/22/24, respiratory failure, unstagable wounds on thoracic spine and sacrum History of Any Multi-Drug Resistant Organisms: None Reported Past Surgical History: Hernia Repair Additional Past Surgical History / Comment(s): Back surgery 06/19/24, Dupuytren's contracture release on R hand Past Anesthesia/Blood Transfusion Reactions: No Reported Reaction Past Psychological History: No Psychological Hx Reported Smoking Status: Former smoker Past Alcohol Use History: Occasional Past Drug Use History: None Reported - Past Family History Father History Unknown: Yes Mother History Unknown: Yes General Exam Limitations: no limitations General appearance: lethargic, in distress Head exam: Present: atraumatic, normocephalic Eye exam: Present: normal appearance, PERRL ENT exam: Present: mucous membranes dry Neck exam: Present: normal inspection. Absent: tenderness, meningismus Respiratory exam: Present: respiratory distress, rhonchi, decreased breath sounds Cardiovascular Exam: Present: normal rhythm, tachycardia GI/Abdominal exam: Present: soft. Absent: distended, tenderness Neurological exam: Present: alert. Absent: oriented X3 Psychiatric exam: Present: normal affect, normal mood Skin exam: Present: warm, pallor Course Vital Signs 11/12/24 11/12/24 11/12/24 15:42 16:22 16:26 Temperature 98.5 F Pulse Rate 120 H 120 H Respiratory 19 20 20 Rate Blood Pressure 128/86 131/84 O2 Sat by Pulse 99 2 L Oximetry 11/12/24 18:08 Temperature Pulse Rate 113 H Respiratory 20 Rate Blood Pressure 120/83 O2 Sat by Pulse 97 Oximetry Medical Decision Making - Medical Decision Making Was pt. sent in by a medical professional or institution (, PA, SUPERVISING ARCHITECT, urgent care, hospital, or [facility]...) When possible be specific @Sent from [facility] Did you speak to anyone other than the patient for history (EMS, parent, family, police, friend...)? What history was obtained from this source @ -No Did you review nursing and triage notes (agree or disagree)? Why? @ -I reviewed and agree with nursing and triage notes Were old charts reviewed (outside hosp., previous admission, EMS record, old EKG, old radiological studies, urgent care reports/EKG's, [facility] records)? Report findings @ -No old charts were reviewed Differential Dyspnea: Coronary syndrome, arrhythmia, tamponade, asthma, COPD, pulmonary embolism, pneumonia, pneumothorax, pulmonary effusion, anaphylaxis, diabetic ketoacidosis, flailed chest, pulmonary contusion, diaphragmatic rupture, anemia, neuromuscular, this is not meant to be an all-inclusive list. EKG interpreted by me (3pts min.). @ -Sinus tachycardia rate of 120, GA interval 127, QRS duration 76, QTc [address] segment elevation X-rays interpreted by me (1pt min.). @Opacification of the right hemithorax CT interpreted by me (1pt min.). @ -None done U/S interpreted by me (1pt. min.). @ -None done What testing was considered but not performed or refused? (CT, X-rays, U/S, labs)? Why? @ -None What meds were considered but not given or refused? Why? @ -None Did you discuss the management of the patient with other professionals (professionals i.e. CONG Carter, SUPERVISING ARCHITECT, lab, RT, psych nurse, forensic social worker, commercial real estate underwriter, teacher, supply requirements officer, nurse outreach case manager)? Give summary @ -Dr. Oren lundberg [facility] Was smoking cessation discussed for >3mins.? @ -No Was critical care preformed (if so, how long)? @ -No Were there social determinants of health that impacted care today? How? (Homelessness, low income, unemployed, alcoholism, drug addiction, suero sportation, low edu. Level, literacy, decrease access to med. care, retirement, rehab)? @ -No Was there de-escalation of care discussed even if they declined (Discuss DNR or withdrawal of care, Hospice)? DNR status @ -No What co-morbidities impacted this encounter? (DM, HTN, Smoking, COPD, CAD, Cancer, CVA, ARF, Chemo, Hep., AIDS, mental health diagnosis, sleep apnea, morbid obesity)? @ -[Metastatic lung CA, pleural effusion Was patient admitted / discharged? Hospital course, mention meds given and route, prescriptions, significant lab abnormalities, going to OR and other pertinent info. @ -59-year-old male presenting with dyspnea, diagnosis of metastatic lung cancer pleural effusion with Pleurx catheter, pneumonia. Patient is cachectic in moderate respiratory distress with rhonchi. Chest x-ray shows opacification of the right hemithorax. Patient has an elevated white blood cell count. He started on vancomycin and Levaquin. He is admitted to [facility]. Guarded prognosis. Undiagnosed new problem with uncertain prognosis? @ -No Drug Therapy requiring intensive monitoring for toxicity (Heparin, Nitro, Insulin, Cardizem)? @ -No Were any procedures done? @ -No Diagnosis/symptom? @ -[Pleural effusion, pneumonia, metastatic lung cancer Acute, or Chronic, or Acute on Chronic? @ -Acute on chronic Uncomplicated (without systemic symptoms) or Complicated (systemic symptoms)? @ -Default Side effects of treatment? @ -No Exacerbation, Progression, or Severe Exacerbation? @ -No Poses a threat to life or bodily function? How? (Chest pain, [place], [place], pneumonia, PE, COPD, DKA, ARF, appy, cholecystitis, CVA, Diverticulitis, Homicidal, Suicidal, threat to staff... and all critical care pts) @ -[Yes, likely end-of-life - Lab Data Result diagrams: 11/12/24 16:43 11/12/24 16:43 Lab Results 11/12/24 11/12/24 11/12/24 Range/Units 16:43 16:43 16:43 WBC 18.23 H (4.50-10.00) 10*3/uL RBC 3.07 L (4.40-5.60) 10*6/uL Hgb 9.1 L (13.0-17.0) g/dL Hct 28.3 L (39.6-50.0) % MCV 92.2 (80.0-97.0) fL MCH 29.6 (27.0-32.0) pg MCHC 32.2 (32.0-37.0) g/dL Plt Count 498 H (140-440) 10*3/uL MPV 9.6 (9.5-12.2) fL Immature Gran % (Auto) 0.7 % Neutrophils % 84.2 % Lymphocytes % 7.0 % Monocytes % 7.6 % Eosinophils % 0.2 % Basophils % 0.3 % Immature Gran # 0.13 H (0.00-0.04) 10*3/uL Neutrophils # 15.33 H (1.80-7.70) 10*3/uL Lymphocytes # 1.28 (0.90-5.00) 10*3/uL Monocytes # 1.39 H (0.20-1.00) 10*3/uL Eosinophils # 0.04 (0.04-0.35) 10*3/uL Basophils # 0.06 (0.00-0.10) 10*3/uL PT 11.5 (10.0-12.5) sec INR 1.1 (<1.2) APTT 20.9 L (22.0-30.0) sec Sodium 137 (137-145) mmol/L Potassium 5.0 (3.5-5.1) mmol/L Chloride 105 (98-107) mmol/L Carbon Dioxide 24 (22-30) mmol/L Anion Gap 8 mmol/L BUN 29 H (9-20) mg/dL Creatinine 0.64 L (0.66-1.25) mg/dL Est GFR (CKD-EPI)AfAm >90 (>60 ml/min/1.73 sqM) Est GFR (CKD-EPI)NonAf >90 (>60 ml/min/1.73 sqM) Glucose 138 H (74-99) mg/dL Plasma Lactic Acid Donal (0.7-2.0) mmol/L Calcium 10.9 H (8.4-10.2) mg/dL Magnesium 1.9 (1.6-2.3) mg/dL Total Bilirubin 0.5 (0.2-1.3) mg/dL AST 27 (17-59) U/L ALT 13 (4-49) U/L Alkaline Phosphatase 150 H (38-126) U/L NT-Pro-B Natriuret Pep 6870 pg/mL Total Protein 5.7 L (6.3-8.2) g/dL Albumin 3.1 L (3.5-5.0) g/dL Urine Color Urine Appearance (Clear) Urine pH (5.0-8.0) Ur Specific Holden (1.001-1.035) Urine Protein (Negative) Urine Glucose (UA) (Negative) Urine Ketones (Negative) Urine Blood (Negative) Urine Nitrite (Negative) Urine Bilirubin (Negative) Urine Urobilinogen (<2.0) mg/dL Ur Leukocyte Esterase (Negative) Urine RBC (0-5) /hpf Urine WBC (0-5) /hpf Ur Squamous Epith Cells (0-4) /hpf Urine Bacteria (None) /hpf Urine Mucus (None) /hpf Influenza Type A (PCR) (Not Detectd) Influenza Type B (PCR) (Not Detectd) RSV (PCR) (Not Detectd) SARS-CoV-2 (PCR) (Not Detectd) 11/12/24 11/12/24 11/12/24 Range/Units 16:43 16:49 16:49 WBC (4.50-10.00) 10*3/uL RBC (4.40-5.60) 10*6/uL Hgb (13.0-17.0) g/dL Hct (39.6-50.0) % MCV (80.0-97.0) fL MCH (27.0-32.0) pg MCHC (32.0-37.0) g/dL Plt Count (140-440) 10*3/uL MPV (9.5-12.2) fL Immature Gran % (Auto) % Neutrophils % % Lymphocytes % % Monocytes % % Eosinophils % % Basophils % % Immature Gran # (0.00-0.04) 10*3/uL Neutrophils # (1.80-7.70) 10*3/uL Lymphocytes # (0.90-5.00) 10*3/uL Monocytes # (0.20-1.00) 10*3/uL Eosinophils # (0.04-0.35) 10*3/uL Basophils # (0.00-0.10) 10*3/uL PT (10.0-12.5) sec INR (<1.2) APTT (22.0-30.0) sec Sodium (137-145) mmol/L Potassium (3.5-5.1) mmol/L Chloride (98-107) mmol/L Carbon Dioxide (22-30) mmol/L Anion Gap mmol/L BUN (9-20) mg/dL Creatinine (0.66-1.25) mg/dL Est GFR (CKD-EPI)AfAm (>60 ml/min/1.73 sqM) Est GFR (CKD-EPI)NonAf (>60 ml/min/1.73 sqM) Glucose (74-99) mg/dL Plasma Lactic Acid Donal 2.0 (0.7-2.0) mmol/L Calcium (8.4-10.2) mg/dL Magnesium (1.6-2.3) mg/dL Total Bilirubin (0.2-1.3) mg/dL AST (17-59) U/L ALT (4-49) U/L Alkaline Phosphatase (38-126) U/L NT-Pro-B Natriuret Pep pg/mL Total Protein (6.3-8.2) g/dL Albumin (3.5-5.0) g/dL Urine Color Yellow Urine Appearance Turbid (Clear) Urine pH 5.0 (5.0-8.0) Ur Specific Holden 1.016 (1.001-1.035) Urine Protein 1+ H (Negative) Urine Glucose (UA) Negative (Negative) Urine Ketones Trace H (Negative) Urine Blood Large H (Negative) Urine Nitrite Positive (Negative) Urine Bilirubin Negative (Negative) Urine Urobilinogen <2.0 (<2.0) mg/dL Ur Leukocyte Esterase Large H (Negative) Urine RBC >182 H (0-5) /hpf Urine WBC >182 H (0-5) /hpf Ur Squamous Epith Cells 2 (0-4) /hpf Urine Bacteria Many H (None) /hpf Urine Mucus Few H (None) /hpf Influenza Type A (PCR) Not Detected (Not Detectd) Influenza Type B (PCR) Not Detected (Not Detectd) RSV (PCR) Not Detected (Not Detectd) SARS-CoV-2 (PCR) Not Detected (Not Detectd) Disposition Clinical Impression: Metastatic cancer, Stage IV adenocarcinoma of lung, Bilateral pleural effusion Disposition: ADMITTED IP TO THIS HOSP Condition: Serious Is patient prescribed a controlled substance at d/c from ED?: No Referrals: Anahi Stallworth DO [Primary Care Provider] - 1-2 days Time of Disposition: 18:40
[2024-11-12] MEDS: AZITHROMYCIN 500 MG in SODIUM CHLORIDE 0.9% 250 ML IVPB STA (18:10)
[2024-11-12] MEDS: LEVOFLOXACIN 500MG-D5W PMX 500 MG in DEXTROSE/WATER 1 100ML.BAG IVPB STA (18:13)
[2024-11-12] MEDS: LACTATED RINGERS 1,000 ML IV SCH (18:13)
[2024-11-12] MEDS ORDERED: NALOXONE 0.4 MG/ML 1 ML VIAL IV PRN (18:36)
[2024-11-12] MEDS: VANCOMYCIN 1,000 MG in SODIUM CHLORIDE 0.9% 250 ML IVPB ONE (19:19)
--- NOTE | 2024-11-12 22:18 | P.HPIM ---
History of Present Illness H&P Date: 11/12/24 Patient is a 59 y/o M with Stage IV NSLC with mets to spine/skull, DM, COPD and PMHx of PE here for cough, hypoxia and failure to thrive. Pt was recently d/c 3 days ago for hypoxic respiratory failure and metabolic encephalopathy. Thorough history unable to be obtained from patient d/t confusion. In the ER, the nurse indicated patient was sounding very "wet" and they drained 1 L of fluid was from pleurex cathetar. Pt cooperative with exam. Currently denies any chest pain, fever/chills, urinary sxs. PMHx: Unstageable wounds on thoracic spine/sacrum Surgical Hx: Hernia repair, Back surgery 06/30, dupuytren contracture release on R hand HRB: -Former smoker -Occasional alcohol -No other drugs Allergies: Cephalexin, Cortisone, Flu vaccine Imaging: -CXR: R sided opacification -EKG: Sinus tachy Labs: -WBC:18 -HGB: 9.1 (pts baseline) -Plt: 498 -BUN: 29 -Cr: 0.64 -Glucose: 138 -Ca: 10.9 -M.9 -BNP: 6800 -U/A: 1+ protein, ketones, blood, LE +, RBC, WBC, Bacteria Vitals: 134/88, 114bpm, 22RR, 98.5, 94% on 3L O2 Review of systems: Pertinent positives and negatives as discussed in HPI, a complete review of systems was performed and all other systems are negative. Physical examination: Vital signs reviewed General: non toxic, no distress, appears at stated age, normal weight Derm: no unusual rashes/lesions, warm Head: atraumatic, normocephalic, symmetric Eyes: EOMI, anicteric sclera, pupils equal round reactive to light ENT: Nose and ears atraumatic Neck: No cervical lymphadenopathy, trachea midline, supple Mouth: no lip lesion, mucus membranes moist Cardiovascular: S1S2 reg, no murmur, positive dorsalis pedis pulse bilateral, no edema Lungs: Rhonchi LLL, decreased breath sounds right side, no rales, no accessory muscle use Abdominal: soft, nontender to palpation, no guarding Neuro: CN II-XI grossly intact, no gross focal neuro deficits Psych: AOx3, but confused Assessment/Plan: #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 #Cough #Hypoxia #Failure to thrive This patient has advanced, metastatic NSCLC with significant symptom burden and poor functional status. He presents with respiratory symptoms and evidence of cancer-related cachexia, consistent with a poor prognosis. CXR Shows R sided opacification 1L of fluid drained in ER via pleurex Pt could have a pneumonia or his sxs could be 2/2 the lung cancer progressing Plan: -Continue Vanc -Blood culture -CXR Every morning -Palliative consult -Procalcitonin level -LR @ 130cc/hr -Pulm Consult -MRSA/MSSA screening #Abnormal U/A Pts U/A: 1+ protein, ketones, blood, LE +, RBC, WBC, Bacteria indicates a potential UTI. Unable to assess for any urinary sxs d/t pts mental status. Plan: -Continue Vanc and levofloxacin -Urine culture #Hypercalcemia Could be d/t hypercalcemia of malignancy Plan: -Zoledronic acid, calcitonin, trend calcium levels Chronic Conditions: #DM May be impacted by cancer, cachexia, and antibiotic use Plan: MDSS #COPD COPD may exacerbate hypoxia and respiratory sxs in context of advanced lung CA Plan: -Continue duoneb prn DVT prophylaxis: [Lovenox 40mg daily SQ] CODE STATUS: [NO CODE] Discussed with: [Dr Barroso] I have seen and evaluated the patient today. I Discussed the case with the resident and agree with the resident's findings I edited the assessment and plan as necessary as documented in the resident's note. patient breathing improved significantly after draining 1 L from his lungs consider Palliative evaluation poor prognosis Past Medical History Past Medical History: Cancer, Diabetes Mellitus, Prostate Disorder, Pulmonary Embolus (PE) Additional Past Medical History / Comment(s): Covid 04/2022, developed PE and was on blood thinners, BPH, Dupuytren's contracture. NSCLC 06/22/24, respiratory failure, unstagable wounds on thoracic spine and sacrum History of Any Multi-Drug Resistant Organisms: None Reported Past Surgical History: Hernia Repair Additional Past Surgical History / Comment(s): Back surgery 06/19/24, Dupuytren's contracture release on R hand Past Anesthesia/Blood Transfusion Reactions: No Reported Reaction Past Psychological History: No Psychological Hx Reported Smoking Status: Former smoker Past Alcohol Use History: Occasional Past Drug Use History: None Reported - Past Family History Father History Unknown: Yes Mother History Unknown: Yes Medications and Allergies Home Medications Medication Instructions Recorded Confirmed Type metFORMIN HCL 1,000 mg PO BID 06/15/24 11/12/24 History Acetaminophen Tab [Tylenol] 650 mg PO Q6HR PRN tab 10/28/24 11/12/24 Rx Famotidine [Pepcid] 20 mg PO BID tab 10/28/24 11/12/24 Rx Magnesium Oxide [Mag-Ox] 400 mg PO DAILY tab 10/28/24 11/12/24 Rx Potassium Chloride ER [K-Dur 20] 20 meq PO DAILY tab 10/28/24 11/12/24 Rx Ipratropium-Albuterol Nebulize 3 ml INHALATION RT-TID 11/04/24 11/12/24 History [Duoneb 0.5 mg-3 mg/3 ml Soln] Naloxone HCl 1 spray NASAL ONCE PRN 11/04/24 11/12/24 History Sennosides [Senokot] 17.2 mg PO BID 11/04/24 11/12/24 History Morphine Sulfate ER [Ms Contin] 30 mg PO Q12HR #6 tab 11/09/24 11/12/24 Rx droNABinol [Marinol] 2.5 mg PO AC-BID #6 cap 11/09/24 11/12/24 Rx Cyclobenzaprine [Flexeril] 10 mg PO Q8H PRN 11/12/24 11/12/24 History Ibuprofen [Motrin] 400 mg PO Q8H PRN 11/12/24 11/12/24 History Morphine Sulfate [Morphine Sulfate 15 mg PO Q6H PRN 11/12/24 11/12/24 History Oral Soln Concentrate] guaiFENesin [Mucinex] 600 mg PO Q12H PRN 11/12/24 11/12/24 History Allergies Allergy/AdvReac Type Severity Reaction Status Date / Time cephalexin [From Keflex] Allergy Swelling Verified 11/12/24 17:57 cortisone Allergy Swelling Verified 11/12/24 17:57 Influenza Virus Vaccines Allergy Swelling Verified 11/12/24 17:57 Physical Exam Vitals: Vital Signs Temp Pulse Resp BP Pulse Ox 11/12/24 19:17 114 H 22 134/88 94 L 11/12/24 18:08 113 H 20 120/83 97 11/12/24 16:26 20 11/12/24 16:22 120 H 20 131/84 2 L 11/12/24 15:42 98.5 F 120 H 19 128/86 99 Intake and Output 11/12/24 11/12/24 11/12/24 06:59 14:59 22:59 Other: Weight 49.895 kg Results CBC & Chem 7: 11/12/24 16:43 11/12/24 16:43 Labs: Abnormal Lab Results - Last 24 Hours (Table) 11/12/24 11/12/24 11/12/24 Range/Units 16:43 16:43 16:43 WBC 18.23 H (4.50-10.00) 10*3/uL RBC 3.07 L (4.40-5.60) 10*6/uL Hgb 9.1 L (13.0-17.0) g/dL Hct 28.3 L (39.6-50.0) % Plt Count 498 H (140-440) 10*3/uL Immature Gran # 0.13 H (0.00-0.04) 10*3/uL Neutrophils # 15.33 H (1.80-7.70) 10*3/uL Monocytes # 1.39 H (0.20-1.00) 10*3/uL APTT 20.9 L (22.0-30.0) sec BUN 29 H (9-20) mg/dL Creatinine 0.64 L (0.66-1.25) mg/dL Glucose 138 H (74-99) mg/dL Calcium 10.9 H (8.4-10.2) mg/dL Alkaline Phosphatase 150 H (38-126) U/L Total Protein 5.7 L (6.3-8.2) g/dL Albumin 3.1 L (3.5-5.0) g/dL Urine Protein (Negative) Urine Ketones (Negative) Urine Blood (Negative) Ur Leukocyte Esterase (Negative) Urine RBC (0-5) /hpf Urine WBC (0-5) /hpf Urine Bacteria (None) /hpf Urine Mucus (None) /hpf 11/12/24 Range/Units 16:49 WBC (4.50-10.00) 10*3/uL RBC (4.40-5.60) 10*6/uL Hgb (13.0-17.0) g/dL Hct (39.6-50.0) % Plt Count (140-440) 10*3/uL Immature Gran # (0.00-0.04) 10*3/uL Neutrophils # (1.80-7.70) 10*3/uL Monocytes # (0.20-1.00) 10*3/uL APTT (22.0-30.0) sec BUN (9-20) mg/dL Creatinine (0.66-1.25) mg/dL Glucose (74-99) mg/dL Calcium (8.4-10.2) mg/dL Alkaline Phosphatase (38-126) U/L Total Protein (6.3-8.2) g/dL Albumin (3.5-5.0) g/dL Urine Protein 1+ H (Negative) Urine Ketones Trace H (Negative) Urine Blood Large H (Negative) Ur Leukocyte Esterase Large H (Negative) Urine RBC >182 H (0-5) /hpf Urine WBC >182 H (0-5) /hpf Urine Bacteria Many H (None) /hpf Urine Mucus Few H (None) /hpf
[2024-11-13 07:06] LABS: African American GFR (CKD) >90 (>60 ml/min/1.73 sqM); Non-African American GFR(CKD) >90 (>60 ml/min/1.73 sqM)
[2024-11-13] MEDS ORDERED: DEXTROSE 50% SYRINGE 50 ML IVP PRN ×2 (07:06)
--- NOTE | 2024-11-13 07:19 | XR ---
EXAMINATION TYPE: XR chest 1V portable DATE OF EXAM: 11/13/2024 4:43 AM COMPARISON: Multiple radiographs, with the most recent on 11/12/2024, CT chest 11/04/2024 TECHNIQUE: XR chest 1V portable Portable AP radiograph of the chest. CLINICAL INDICATION:Male, 59 years old with history of lung drained; FINDINGS: Lungs/Pleura: No sizable pneumothorax. Improved aeration of the right upper lung with pleural drainag e catheter in place. Patchy airspace opacities within the right upper and midlung. Small right pleura l effusion. Chronic elevation of the right hemidiaphragm. Trace left pleural effusion. Pulmonary vascularity: Unremarkable. Heart/mediastinum: Cardiomediastinal silhouette is partially obscured due to overlying and adjacent o pacities. Musculoskeletal: Right anterior lateral fifth and seventh rib lytic lesions additional involvement of the left anterior lateral ninth rib. No pathologic fractures are better appreciated on CT. Partial v isualization of thoracolumbar fusion hardware. IMPRESSION: 1. Improved aeration of the right upper and midlung from prior examination. Continued patchy opaciti es within the right lung with small right pleural effusion and pleural catheter in place. Findings co ncerning for pneumonia. 2. Trace left pleural effusion. 3. Redemonstration of lytic osseous metastasis with known pathologic fractures. [facility], , 11/13/2024 7:16 AM
[2024-11-13 07:42] LABS: Glucose,Whole Blood 123 mg/dL (70-110)
[2024-11-13] MEDS: INSULIN LISPRO (HumaLOG) 100 UNIT/ML 10 mL VL SQ SCH (07:42)
[2024-11-13] MEDS: SODIUM CHLORIDE 0.9% 1,000 ML IV SCH (08:02)
[2024-11-13] MEDS: VANCOMYCIN 1,000 MG in SODIUM CHLORIDE 0.9% 250 ML IVPB SCH (08:41)
[2024-11-13] MEDS: FAMOTIDINE 20 MG TAB PO SCH (08:45)
[2024-11-13] MEDS: ENOXAPARIN 40 MG/0.4 ML SYRINGE SQ SCH (09:13)
[2024-11-13 12:07] LABS: Glucose,Whole Blood 119 mg/dL (70-110)
--- NOTE | 2024-11-13 14:23 | P.CNPUL ---
History of Present Illness Consult date: 11/13/24 Requesting physician: Hailey Beebe Reason for consult: dyspnea Chief complaint: Cough, hypoxia, failure to thrive History of present illness: This is a 59-year-old frail, cachectic male patient who was just discharged from here on 11/09/2024 to a local ECF. They sent him back yesterday 11/12/2024 for failure to thrive. 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 His initial diagnosis was made back in May of 2024, patient presented initially with abnormal CT of the chest showing a 2.2 x 1.7 right lower lobe mass and enlarged subcarinal and right hilar lymphadenopathy. At the same time the patient had pathologic fracture of T11. CT of the chest also showed a 2.9 cm mass in the posterior right lower lobe and significant thoracic spine abnormalities consistent with metastatic disease to the spine. Bone scan confirmed metastatic disease to the spine and 2 other skeletal areas including the left scapula. Biopsy of T12 positive for metastatic poorly differentiated pulmonary adenocarcinoma. He has recurrent right-sided pleural effusion. Previously underwent right-sided thoracentesis on 10/18/2024 developed pneumothorax, thought to be trapped lung. Patient did have a Thoravent placed. Subsequently, developed a recurrent right-sided pleural effusion and a Pleurx catheter was placed by the cardiothoracic surgery team on 10/23/2024. He is seen today November 13, 2024 in the emergency department. He is currently resting on a stretcher. Very frail, very cachectic. Maintaining O2 saturations in the 90s on 2 L/min per nasal cannula. White count 18.2. Hemoglobin 9.1. P latelets 498. Sodium 137. Potassium 5.0. Bicarb 24. BUN 29. Creatinine 0.64. Albumin 3.1. Procalcitonin 0.60. Urinalysis with large leukocyte Estrace high WBCs and many bacteria. Viral screen was negative for influenza A/B, RSV and COVID. Chest x-ray continues to show complete opacification of the right hemithorax with right sided Pleurx catheter in place. Likely representation of pleural effusion, consolidation, atelectasis. Review of Systems REVIEW OF SYSTEMS: CONSTITUTIONAL: Positive for significant weight loss, failure to thrive. EYES: Denies change in vision. EARS, NOSE, MOUTH, THROAT: Denies headaches, denies sore throat. CARDIOVASCULAR: Denies chest pain, palpitations or syncopal episodes. RESPIRATORY: Positive for shortness of breath, cough, congestion no hemoptysis. GASTROINTESTINAL: Denies change in appetite, denies abdominal pain GENITOURINARY: Denies hematuria, denies infections. MUSKULOSKELETAL: Denies pain, denies swelling. INTEGUMENTARY: Denies rash, denies eczema. NEUROLOGICAL: Denies recent memory loss, no recent seizure activity. PSYCHIATRIC: Denies anxiety, denies depression. HEMATOLOGIC/LYMPHATIC: Denies anemia, denies enlarged lymph nodes. Past Medical History Past Medical History: Cancer, Diabetes Mellitus, Prostate Disorder, Pulmonary Embolus (PE) Additional Past Medical History / Comment(s): Covid 04/2022, developed PE and was on blood thinners, BPH, Dupuytren's contracture. NSCLC 06/22/24, respiratory failure, unstagable wounds on thoracic spine and sacrum History of Any Multi-Drug Resistant Organisms: None Reported Past Surgical History: Hernia Repair Additional Past Surgical History / Comment(s): Back surgery 06/19/24, Dupuytren's contracture release on R hand Past Anesthesia/Blood Transfusion Reactions: No Reported Reaction Past Psychological History: No Psychological Hx Reported Smoking Status: Former smoker Past Alcohol Use History: Occasional Past Drug Use History: None Reported - Past Family History Father History Unknown: Yes Mother History Unknown: Yes Medications and Allergies Home Medications Medication Instructions Recorded Confirmed Type metFORMIN HCL 1,000 mg PO BID 06/15/24 11/12/24 History Acetaminophen Tab [Tylenol] 650 mg PO Q6HR PRN tab 10/28/24 11/12/24 Rx Famotidine [Pepcid] 20 mg PO BID tab 10/28/24 11/12/24 Rx Magnesium Oxide [Mag-Ox] 400 mg PO DAILY tab 10/28/24 11/12/24 Rx Potassium Chloride ER [K-Dur 20] 20 meq PO DAILY tab 10/28/24 11/12/24 Rx Ipratropium-Albuterol Nebulize 3 ml INHALATION RT-TID 11/04/24 11/12/24 History [Duoneb 0.5 mg-3 mg/3 ml Soln] Naloxone HCl 1 spray NASAL ONCE PRN 11/04/24 11/12/24 History Sennosides [Senokot] 17.2 mg PO BID 11/04/24 11/12/24 History Morphine Sulfate ER [Ms Contin] 30 mg PO Q12HR #6 tab 11/09/24 11/12/24 Rx droNABinol [Marinol] 2.5 mg PO AC-BID #6 cap 11/09/24 11/12/24 Rx Cyclobenzaprine [Flexeril] 10 mg PO Q8H PRN 11/12/24 11/12/24 History Ibuprofen [Motrin] 400 mg PO Q8H PRN 11/12/24 11/12/24 History Morphine Sulfate [Morphine Sulfate 15 mg PO Q6H PRN 11/12/24 11/12/24 History Oral Soln Concentrate] guaiFENesin [Mucinex] 600 mg PO Q12H PRN 11/12/24 11/12/24 History Allergies Allergy/AdvReac Type Severity Reaction Status Date / Time cephalexin [From Keflex] Allergy Swelling Verified 11/12/24 17:57 cortisone Allergy Swelling Verified 11/12/24 17:57 Influenza Virus Vaccines Allergy Swelling Verified 11/12/24 17:57 Physical Exam Vitals: Vital Signs Temp Pulse Resp BP Pulse Ox 11/13/24 12:00 105 H 16 124/80 100 11/13/24 10:00 102 H 16 123/78 100 11/13/24 08:17 98 11/13/24 08:00 106 H 18 118/79 99 11/13/24 06:00 102 H 16 116/79 99 11/13/24 05:00 105 H 17 123/77 99 11/13/24 04:00 105 H 20 119/75 99 11/13/24 03:00 105 H 20 114/72 98 11/13/24 02:00 105 H 20 116/76 98 11/13/24 01:00 109 H 22 122/76 96 11/13/24 00:00 109 H 22 116/75 96 11/12/24 23:00 109 H 22 116/82 97 11/12/24 22:00 112 H 21 118/78 96 11/12/24 21:00 117 H 22 111/76 96 11/12/24 20:00 97.7 F 114 H 22 139/96 95 11/12/24 19:17 114 H 22 134/88 94 L 11/12/24 18:08 113 H 20 120/83 97 11/12/24 16:26 20 11/12/24 16:22 120 H 20 131/84 2 L 11/12/24 15:42 98.5 F 120 H 19 128/86 99 Intake and Output 11/12/24 11/13/24 11/13/24 22:59 06:59 14:59 Output Total 700 Balance -700 Output: Urine 700 Other: Weight 49.895 kg GENERAL EXAM: Alert, very frail, cachectic 59-year-old male, on 2 L nasal cannula, fairly comfortable in no apparent distress. HEAD: Normocephalic. EYES: Normal reaction of pupils, equal size. NOSE: Clear with pink turbinates. THROAT: No erythema or exudates. NECK: No masses, no JVD. CHEST: No chest wall deformity. LUNGS: Equal air entry with diminished breath sounds over the right lung. CVS: S1 and S2 normal with no audible murmur, regular rhythm. ABDOMEN: No hepatosplenomegaly, normal bowel sounds, no guarding or rigidity. SPINE: No scoliosis or deformity SKIN: No rashes CENTRAL NERVOUS SYSTEM: No focal deficits, tone is normal in all 4 extremities. EXTREMITIES: There is no peripheral edema. No clubbing, no cyanosis. Peripheral pulses are intact. Results - Laboratory Findings CBC and BMP: 11/12/24 16:43 11/13/24 06:08 PT/INR, D-dimer PT 11.5 sec (10.0-12.5) 11/12/24 16:43 INR 1.1 (<1.2) 11/12/24 16:43 Abnormal lab findings: Abnormal Labs 11/12/24 11/12/24 11/12/24 16:43 16:43 16:43 WBC 18.23 H RBC 3.07 L Hgb 9.1 L Hct 28.3 L Plt Count 498 H Immature Gran # 0.13 H Neutrophils # 15.33 H Monocytes # 1.39 H APTT 20.9 L BUN 29 H Creatinine 0.64 L Glucose 138 H POC Glucose (mg/dL) Calcium 10.9 H Alkaline Phosphatase 150 H Total Protein 5.7 L Albumin 3.1 L Procalcitonin Urine Protein Urine Ketones Urine Blood Ur Leukocyte Esterase Urine RBC Urine WBC Urine Bacteria Urine Mucus 11/12/24 11/12/24 11/13/24 16:43 16:49 06:08 WBC RBC Hgb Hct Plt Count Immature Gran # Neutrophils # Monocytes # APTT BUN Creatinine 0.63 L Glucose POC Glucose (mg/dL) Calcium Alkaline Phosphatase Total Protein Albumin Procalcitonin 0.60 H Urine Protein 1+ H Urine Ketones Trace H Urine Blood Large H Ur Leukocyte Esterase Large H Urine RBC >182 H Urine WBC >182 H Urine Bacteria Many H Urine Mucus Few H 11/13/24 11/13/24 07:42 12:05 WBC RBC Hgb Hct Plt Count Immature Gran # Neutrophils # Monocytes # APTT BUN Creatinine Glucose POC Glucose (mg/dL) 123 H 119 H Calcium Alkaline Phosphatase Total Protein Albumin Procalcitonin Urine Protein Urine Ketones Urine Blood Ur Leukocyte Esterase Urine RBC Urine WBC Urine Bacteria Urine Mucus - Diagnostic Findings Chest x-ray: image reviewed Assessment and Plan Assessment: Acute hypoxemic respiratory failure, currently on 2 L high flow nasal cannula, secondary to bilateral pleural effusion with recurrent large right-sided pleural effusion, status post Pleurx catheter insertion October 23, 2024 History of recurrent right-sided pleural effusion and multiple previous thoracentesis most recently developing right-sided pneumothorax on October 18, did have previous Thora vent placement which was removed on October 21. Did have increased right-sided pleural effusion and a Pleurx catheter was placed on October 23. Pleural fluid cytology was transudate based on Lights criteria. Pleural fluid pathology previously nondiagnostic for malignancy. Metastatic pulmonary adenocarcinoma with osseous metastasis, confirmed with bone biopsy June 2024. PET scan from September 11, 2024 revealed uptake within the right lung mass compatible with neoplasm. Extensive osseous metastasis including axial spine, left iliac wing, left scapula, multiple ribs, sternum, pelvis. Small metastatic lesions suspected within the left and right lobes of the liver. Mediastinal metastasis. Metastatic lesions in the right supra cl avicular region and suspected within lymph nodes within the bilateral parotid glands. Plan was for Keytruda however the patient has had several hospitalizations and difficulty getting to appointments Acute leukocytosis Chronic anemia, hemoglobin stable at 9.1 g/dL Severe hypercalcemia, with ionized calcium of 8, in the setting of dehydration and known malignancy with osseous metastasis Chronic obstructive pulmonary disease Type 2 diabetes Former smoker History of thoracic vertebral fracture/pathological fracture requiring surgery Failure to thrive Cachexia Plan: The patient was seen and evaluated Chest x-ray, labs and medications reviewed Right sided Pleurx catheter remains in place To be drained every other day for now Initiate DuoNeb inhalations Lovenox for DVT prophylaxis Pepcid for GI prophylaxis Currently on vancomycin Remains on Marinol Patient remains very frail and cachectic Evidence of failure to thrive Prognosis is poor Recommend hospice placement Currently a DNR CODE STATUS We will continue to follow and make further recommendations based on his clinical status I have personally seen and examined the patient, performed the documentation and the assessment and plan as written. Number of minutes spent on the visit: 20 Dictation was produced using [employer] dictation software. Please excuse any grammatical, word or spelling errors.
[2024-11-13] MEDS ORDERED: KETOROLAC 15 MG/ML 1 ML VIAL IM PRN (16:05)
[2024-11-13 16:34] LABS: Glucose,Whole Blood 109 mg/dL (70-110)
[2024-11-13] MEDS ORDERED: CYCLOBENZAPRINE 10 MG TAB PO PRN (17:13)
[2024-11-13] MEDS ORDERED: ACETAMINOPHEN TAB 325 MG TAB PO PRN (17:13)
[2024-11-13] MEDS ORDERED: IBUPROFEN 400 MG TAB PO PRN (17:13)
[2024-11-13] MEDS ORDERED: NON FORMULARY DRUG (Naloxone Hcl [Naloxone Hcl] 4 MG Spray) NASAL PRN (17:13)
[2024-11-13] MEDS: MORPHINE SULFATE IR 15 MG TABLET PO PRN (17:46)
--- NOTE | 2024-11-13 18:21 | P.PN ---
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 Pt was recently d/c 3 days ago for hypoxic respiratory failure and metabolic encephalopathy. Thorough history unable to be obtained from patient d/t confusion. In the ER, the nurse indicated patient was sounding very "wet" and they drained 1 L of fluid was from pleurex cathetar. Pt cooperative with exam. Currently denies any chest pain, fever/chills, urinary sxs. Pulmonology consulted and recommends Pleurx to be drained every other day and started DuoNebs. Subjective: Patient seen and examined at bedside. No acute events overnight. Pertinent positives and negatives as discussed above, a complete review of systems was performed and all other systems are negative. Vitals: Signs Reviewed Physical Exam: General: nontoxic, no distress, appears at stated age Derm: warm, dry, intact Head: atraumatic, normocephalic, symmetric Eyes: EOMI, anicteric sclera Mouth: no lip lesion, mucus membranes moist Cardiovascular: Tachycardic, S1 S2 reg, no murmur, rubs, or gallops Lungs: Decreased breath sounds on right, no rhonchi, no rales, no accessory muscle use Abdominal: soft, non-tender to palpation, no appreciable organomegaly Extremities: no gross muscle atrophy, 2+ pitting edema bilaterally Neuro: Alert, Oriented tp self only, CNII-XII grossly intact Psych: well appearing, appropriate affect Data Received Today: Pertinent Labs: WBC 18.23, hemoglobin 9.1, platelets 498, creatinine 0.64, calcium 10.9, Pro-Cornelius 0.60 Imaging: Chest x-ray - Improved aeration of the right upper lobe, continued patchy opacities within the right lung with small right pleural effusion and pleural catheter in place. Trace left pleural effusion. Assessment and Plan: 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 Acute hypoxic respiratory failure secondary to pleural effusion versus pneumonia versus atelectasis vs lung cancer progression COPD Cough Failure to thrive -Continue Vancomycin -Blood culture pending -CXR every morning -Changed fluids to D5 1/2 NS 75 ml/hr -Pulmology consulted, recommend Pleurx to be drained every other day, initiate DuoNebs -MRSA/MSSA screening pending Abnormal U/A Pts U/A: 1+ protein, ketones, blood, LE +, RBC, WBC, Bacteria indicates a potential UTI. Unable to assess for any urinary sxs d/t pts mental status. -Continue Vanc -Urine culture pending Hypercalcemia Could be d/t hypercalcemia of malignancy Plan: -continue to trend calcium levels - May start zoledronic acid, calcitonin if continues to increase Chronic Conditions: DM - MDSS, monitor for hypoglyemia MDSS COPD -Continue duoneb prn DVT ppx: Lovenox Code status: No code Anticipated discharge place: Pending clinical course Anticipated discharge time: Pending clinical course Michael Regalado DO PGY-1 IM Dictation was produced using [employer] dictation software. please excuse any grammatical, word or spelling errors. I saw and evaluated the patient during the hart and critical portions of this encounter, and discussed the case in detail with the resident author of this note, I agree with the Assessment and Plan, and my changes, if any, are highlighted in blue. Objective - Vital Signs Vital signs: Vital Signs Temp 98.2 F 11/13/24 15:04 Pulse 108 H 11/13/24 15:04 Resp 17 11/13/24 15:04 BP 127/85 11/13/24 15:04 Pulse Ox 99 11/13/24 15:04 FiO2 Intake & Output 11/12/24 11/13/24 11/13/24 18:59 06:59 18:59 Intake Total 20 Output Total 700 Balance -680 Weight 49.895 kg 49.895 kg Intake: IV 20 Invasive Line 1 10 Invasive Line 2 10 Output: Urine 700 Other: Voiding Method Indwelling Catheter # Bowel Movements 1 - Labs CBC & Chem 7: 11/12/24 16:43 11/13/24 06:08 Labs: Abnormal Lab Results - Last 24 Hours (Table) 11/12/24 11/12/24 11/12/24 Range/Units 16:43 16:43 16:49 APTT 20.9 L (22.0-30.0) sec Creatinine (0.66-1.25) mg/dL POC Glucose (mg/dL) (70-110) mg/dL Procalcitonin 0.60 H (0.02-0.50) ng/mL Urine Protein 1+ H (Negative) Urine Ketones Trace H (Negative) Urine Blood Large H (Negative) Ur Leukocyte Esterase Large H (Negative) Urine RBC >182 H (0-5) /hpf Urine WBC >182 H (0-5) /hpf Urine Bacteria Many H (None) /hpf Urine Mucus Few H (None) /hpf 11/13/24 11/13/24 11/13/24 Range/Units 06:08 07:42 12:05 APTT (22.0-30.0) sec Creatinine 0.63 L (0.66-1.25) mg/dL POC Glucose (mg/dL) 123 H 119 H (70-110) mg/dL Procalcitonin (0.02-0.50) ng/mL Urine Protein (Negative) Urine Ketones (Negative) Urine Blood (Negative) Ur Leukocyte Esterase (Negative) Urine RBC (0-5) /hpf Urine WBC (0-5) /hpf Urine Bacteria (None) /hpf Urine Mucus (None) /hpf
[2024-11-13] MEDS: DEXTROSE 5%-0.45% NACL 1,000 ML IV SCH (18:25)
[2024-11-13 19:58] LABS: Glucose,Whole Blood 105 mg/dL (70-110)
[2024-11-13] MEDS: MORPHINE SULFATE ER 30 MG TABLET PO SCH (20:44)
[2024-11-13] MEDS: SENNOSIDES 8.6 MG TAB PO SCH (20:45)
[2024-11-13] MEDS: IPRATROPIUM-ALBUTEROL 3 ML NEB INHALATION SCH (20:59)
[2024-11-14 06:07] LABS: Glucose,Whole Blood 144 mg/dL (70-110)
[2024-11-14 07:31] LABS: Basophils # (A) 0.06 10*3/uL (0.00-0.10); Basophils % (A) 0.3 %; Eosinophils # (A) 0.19 10*3/uL (0.04-0.35); Eosinophils % (A) 1.1 %; HCT 24.3 % (39.6-50.0); Lymphocytes # (A) 1.36 10*3/uL (0.90-5.00); Lymphocytes % (A) 7.8 %; MCH 29.2 pg (27.0-32.0); MCHC 31.3 g/dL (32.0-37.0); MCV 93.5 fL (80.0-97.0); Monocytes # (A) 1.21 10*3/uL (0.20-1.00); Monocytes % (A) 6.9 %; Neutrophils # (A) 14.52 10*3/uL (1.80-7.70); Neutrophils % (A) 83.0 %; Platelet Count 368 10*3/uL (140-440); RBC 2.60 10*6/uL (4.40-5.60); RDW 16.3 % (11.5-14.5); WBC 17.49 10*3/uL (4.50-10.00)
[2024-11-14 07:50] LABS: HGB 7.6 g/dL (13.0-17.0)
[2024-11-14 07:54] LABS: African American GFR (CKD) >90 (>60 ml/min/1.73 sqM); Anion Gap 9 mmol/L; Blood Urea Nitrogen 21 mg/dL (9-20); Calcium 9.6 mg/dL (8.4-10.2); Carbon Dioxide 21 mmol/L (22-30); Chloride 105 mmol/L (98-107); Glucose 122 mg/dL (74-99); Magnesium 1.7 mg/dL (1.6-2.3); Non-African American GFR(CKD) >90 (>60 ml/min/1.73 sqM); Potassium 4.0 mmol/L (3.5-5.1); Sodium 135 mmol/L (137-145)
[2024-11-14 07:57] LABS: African American GFR (CKD) >90 (>60 ml/min/1.73 sqM); Non-African American GFR(CKD) >90 (>60 ml/min/1.73 sqM)
--- NOTE | 2024-11-14 08:22 | XR ---
Chest, 2 view. CLINICAL INDICATION: Male, 59 years old with history of hypoxia, pleural effusions COMPARISON: 11/03/2024 TECHNIQUE: PA and lateral views the chest are obtained. FINDINGS: There has been a mild reduction in the right pleural effusion however a large right pleural effusion persists. There is a persistent small left pleural effusion. The left lung is clear. The pulmonary vasculature is not congested. There are postsurgical changes in the thoracolumbar spine otherwise the osseous structures are intact . IMPRESSION: Small reduction in the large right pleural effusion. Stable small left pleural effusion.. [facility], , 11/14/2024 8:20 AM
[2024-11-14] MEDS: VANCOMYCIN TROUGH DUE 1 EACH MISC MISCELLANE ONE (08:28)
--- NOTE | 2024-11-14 10:33 | P.PN ---
Subjective Progress Note Date: 11/14/24 Principal diagnosis: Metastatic lung cancer. This is a 59-year-old frail, cachectic male patient who was just discharged from here on 11/09/2024 to a local ECF. They sent him back yesterday 11/12/2024 for failure to thrive. 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 His initial diagnosis was made back in May of 2024, patient presented initially with abnormal CT of the chest showing a 2.2 x 1.7 right lower lobe mass and enlarged subcarinal and right hilar lymphadenopathy. At the same time the patient had pathologic fracture of T11. CT of the chest also showed a 2.9 c m mass in the posterior right lower lobe and significant thoracic spine abnormalities consistent with metastatic disease to the spine. Bone scan confirmed metastatic disease to the spine and 2 other skeletal areas including the left scapula. Biopsy of T12 positive for metastatic poorly differentiated pulmonary adenocarcinoma. He has recurrent right-sided pleural effusion. Previously underwent right-sided thoracentesis on 10/18/2024 developed pneumothorax, thought to be trapped lung. Patient did have a Thoravent placed. Subsequently, developed a recurrent right-sided pleural effusion and a Pleurx catheter was placed by the cardiothoracic surgery team on 10/23/2024. He is seen today November 13, 2024 in the emergency department. He is currently resting on a stretcher. Very frail, very cachectic. Maintaining O2 saturations in the 90s on 2 L/min per nasal cannula. White count 18.2. Hemoglobin 9.1. Platelets 498. Sodium 137. Potassium 5.0. Bicarb 24. BUN 29. Creatinine 0.64. Albumin 3.1. Procalcitonin 0.60. Urinalysis with large leukocyte Estrace high WBCs and many bacteria. Viral screen was negative for influenza A/B, RSV and COVID. Chest x-ray continues to show complete opacification of the right hemithorax with right sided Pleurx catheter in place. Likely represent ation of pleural effusion, consolidation, atelectasis. Progress note dated November 14, 2024. 59-year-old male with a history of metastatic lung cancer. He was seen in consultation yesterday. Please see the note above. Today he is seen in room 360. He is currently on 3 L of oxygen. He is not receiving any IV fluids. His blood cultures were positive for staph, and his urine was positive for gram- negative bacilli, yet to be identified. The patient is currently on vancomycin. The patient is laying in bed, without any distress, or respiratory difficulty. Current labs showed a white count of 17.5, hemoglobin 7.6, hematocrit 24.3, and a normal platelet count. Sodium 135, potassium 4, chlorides 105, CO2 21, anion gap 9, BUN 21, creatinine 0.53. Glucose is 144. Calcium 9.6. Repeat chest x- ray shows a reduction in the large right-sided pleural effusion. Objective - Vital Signs Vital signs: Vital Signs Temp 97.5 F L 11/14/24 08:20 Pulse 104 H 11/14/24 08:21 Resp 16 11/14/24 08:21 BP 111/79 11/14/24 08:20 Pulse Ox 98 11/14/24 08:20 FiO2 Intake & Output 11/13/24 11/14/24 11/14/24 18:59 06:59 18:59 Intake Total 20 550 10 Output Total 1000 300 Balance -980 250 10 Weight 49.895 kg 50 kg Intake: IV 20 10 10 Invasive Line 1 10 10 Invasive Line 2 10 Invasive Line 3 10 Oral 540 Output: Urine 1000 300 Other: Voiding Method Indwelling Catheter Indwelling Catheter Indwelling Catheter # Bowel Movements 1 - Exam No acute distress, oriented 3. No respiratory distress. The patient has significant anorexia/cachexia syndrome. He is very frail appearing. HEENT examination is grossly unremarkable. Mucous membranes are moist. No oral lesions. Neck supple. Full range of motion. No adenopathy thyromegaly or neck vein distention. Cardiovascular examination reveals regular rhythm rate. S1-S2 normal. No S3 or S4. No discernible murmur noted. Lungs reveal diminished breath sounds at the right lung base. No wheezes, rhonchi, or crackles. No adventitious lung sounds noted. Abdomen soft bowel sounds are heard. No masses or tenderness. Extremities are intact. No cyanosis clubbing or edema. Skin is without rash or lesion. Neurologic examination is brief but nonfocal. - Labs CBC & Chem 7: 11/14/24 06:02 11/14/24 06:02 Labs: Abnormal Lab Results - Last 24 Hours (Table) 11/13/24 11/14/24 11/14/24 Range/Units 12:05 06:02 06:02 WBC 17.49 H (4.50-10.00) 10*3/uL RBC 2.60 L (4.40-5.60) 10*6/uL Hgb 7.6 L D (13.0-17.0) g/dL Hct 24.3 L (39.6-50.0) % MCHC 31.3 L (32.0-37.0) g/dL Immature Gran # 0.15 H (0.00-0.04) 10*3/uL Neutrophils # 14.52 H (1.80-7.70) 10*3/uL Monocytes # 1.21 H (0.20-1.00) 10*3/uL Sodium (137-145) mmol/L Carbon Dioxide (22-30) mmol/L BUN (9-20) mg/dL Creatinine 0.50 L (0.66-1.25) mg/dL Glucose (74-99) mg/dL POC Glucose (mg/dL) 119 H (70-110) mg/dL 11/14/24 11/14/24 Range/Units 06:02 06:05 WBC (4.50-10.00) 10*3/uL RBC (4.40-5.60) 10*6/uL Hgb (13.0-17.0) g/dL Hct (39.6-50.0) % MCHC (32.0-37.0) g/dL Immature Gran # (0.00-0.04) 10*3/uL Neutrophils # (1.80-7.70) 10*3/uL Monocytes # (0.20-1.00) 10*3/uL Sodium 135 L (137-145) mmol/L Carbon Dioxide 21 L (22-30) mmol/L BUN 21 H (9-20) mg/dL Creatinine 0.53 L (0.66-1.25) mg/dL Glucose 122 H (74-99) mg/dL POC Glucose (mg/dL) 144 H (70-110) mg/dL Microbiology - Last 24 Hours (Table) 11/12/24 18:15 Nasal Screen MRSA/MSSA - Final Nasal Swab 11/12/24 16:36 Blood Culture Gram Stain - Preliminary Blood Blood Culture - Preliminary Molecular ID 11/12/24 16:49 Urine Culture - Preliminary Urine,Voided Gram Neg Bacilli Assessment and Plan Assessment: Acute hypoxemic respiratory failure, currently on 2 L high flow nasal cannula, secondary to bilateral pleural effusion with recurrent large right-sided pleural effusion, status post Pleurx catheter insertion October 23, 2024. History of recurrent right-sided pleural effusion and multiple previous thoracentesis most recently developing right-sided pneumothorax on October 18, did have previous Thora vent placement which was removed on October 21. Did have increased right-sided pleural effusion and a Pleurx catheter was placed on October 23. Pleural fluid cytology was transudate based on Lights criteria. Metastatic pulmonary adenocarcinoma with osseous metastasis, confirmed with bone biopsy June 2024. PET scan from September 11, 2024 revealed uptake within the right lung mass compatible with neoplasm. Extensive osseous metastasis including axial spine, left iliac wing, left scapula, multiple ribs, sternum, pelvis. Small metastatic lesions suspected within the left and right lobes of the liver. Mediastinal metastasis. Metastatic lesions in the right supra clavicular region and suspected within lymph nodes within the bilateral parotid glands. Acute leukocytosis. Chronic anemia, hemoglobin stable at 9.1 g/dL. Severe hypercalcemia, with ionized calcium of 8, in the setting of dehydration and known malignancy with osseous metastasis. Chronic obstructive pulmonary disease. Type 2 diabetes. Former smoker. History of thoracic vertebral fracture/pathological fracture requiring surgery. Failure to thrive. Cachexia. Plan: Plan dated November 14, 2024. The patient is seen today in room 360. The patient currently is on vancomycin. Blood cultures were positive for staph. In addition, there is gram-negative bacilli in the urine. Labs, x-rays, and all medications are reviewed. We will continue to follow. His respiratory status is reasonably stable. He is currently on 3 L. Saturations were in the mid to high 90s. The patient has severe anorexia/cachexia syndrome and malignancy. This is typically mediated by tumor necrosis factor/cachectin. We will continue to follow. Prognosis is poor. Dictation was produced using [employer] software. Please excuse any grammatical, word or spelling errors. Time with Patient: Less than 30
[2024-11-14 11:33] LABS: Glucose,Whole Blood 145 mg/dL (70-110)
--- NOTE | 2024-11-14 14:22 | P.PN ---
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 Patient does have a Pleurx catheter on the right. Patient's son is POA. Patient was started on vancomycin. Pulmonology was consulted and recommended having the catheter drained every other day, and started DuoNebs. Wound care was also consulted for patient's sores on his coccyx and back. Hospice was consulted for information. Subjective: Patient seen and examined at bedside. No acute events overnight. Patient states he is having pain mainly in his back and arms but denies pain in his abdomen. Patient states at the [facility] he does use 2 L NC. He reports he has not been eating or drinking for the last few days. He is unsure at this time what brought him to the ED. Spoke to patient's son who is POA and would like to have an informational meeting with hospice. Patient's son does work at night but is off on . Pertinent positives and negatives as discussed above, a complete review of systems was performed and all other systems are negative. Vitals: Signs Reviewed Physical Exam: General: thin, ill-appearing, nontoxic, no distress, appears at stated age Derm: warm, dry, intact Head: atraumatic, normocephalic, symmetric Eyes: EOMI, anicteric sclera Mouth: no lip lesion, mucus membranes moist Cardiovascular: S1 S2 reg, no murmur, rubs, or gallops Lungs: Decreased breath sounds on right, no rhonchi, no rales, no accessory muscle use Abdominal: soft, non-tender to palpation, no appreciable organomegaly Extremities: no gross muscle atrophy, 1+ pitting edema bilaterally Neuro: Alert, Oriented, CNII-XII grossly intact, gait normal Psych: well appearing, appropriate affect Data Received Today: Pertinent Labs: WBC 17.4, hemoglobin 7.6, sodium 135, potassium 4.0, BUN 21, creatinine 0.53, calcium 9.6 Imaging: CXR per my read -compared to chest x-ray from yesterday right sided opacity seems to be worse, left-sided pleural effusion stable. 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 Pt has no symptoms of UTI (no suprapubic tenderness, fevers/chills, hematuria) -Urine culture shows gram-negative bacilli -Continue Vanc Hypercalcemia Could be d/t hypercalcemia of malignancy Plan: -Currently resolved however will continue to trend Chronic Conditions: DM - MDSS, monitor for hypoglyemia COPD -Continue duoneb prn DVT ppx: Lovenox Code status: No code Anticipated discharge place: Pending clinical course Anticipated discharge time: Pending clinical course Michael Regalado DO PGY-1 IM Dictation was produced using [employer] dictation software. please excuse any grammatical, word or spelling errors. I saw and evaluated the patient during the hart and critical portions of this encounter, and discussed the case in detail with the resident author of this note, I agree with the Assessment and Plan, and my changes, if any, are highlighted in blue. Objective - Vital Signs Vital signs: Vital Signs Temp 97.3 F L 11/14/24 12:08 Pulse 102 H 11/14/24 12:08 Resp 16 11/14/24 12:08 BP 120/78 11/14/24 12:08 Pulse Ox 100 11/14/24 12:08 FiO2 Intake & Output 11/13/24 11/14/24 11/14/24 18:59 06:59 18:59 Intake Total 20 550 10 Output Total 1000 300 Balance -980 250 10 Weight 49.895 kg 50 kg Intake: IV 20 10 10 Invasive Line 1 10 10 Invasive Line 2 10 Invasive Line 3 10 Oral 540 Output: Urine 1000 300 Other: Voiding Method Indwelling Catheter Indwelling Catheter Indwelling Catheter # Bowel Movements 1 1 - Labs CBC & Chem 7: 11/14/24 06:02 11/14/24 06:02 Labs: Abnormal Lab Results - Last 24 Hours (Table) 11/14/24 11/14/24 11/14/24 Range/Units 06:02 06:02 06:02 WBC 17.49 H (4.50-10.00) 10*3/uL RBC 2.60 L (4.40-5.60) 10*6/uL Hgb 7.6 L D (13.0-17.0) g/dL Hct 24.3 L (39.6-50.0) % MCHC 31.3 L (32.0-37.0) g/dL Immature Gran # 0.15 H (0.00-0.04) 10*3/uL Neutrophils # 14.52 H (1.80-7.70) 10*3/uL Monocytes # 1.21 H (0.20-1.00) 10*3/uL Sodium 135 L (137-145) mmol/L Carbon Dioxide 21 L (22-30) mmol/L BUN 21 H (9-20) mg/dL Creatinine 0.50 L 0.53 L (0.66-1.25) mg/dL Glucose 122 H (74-99) mg/dL POC Glucose (mg/dL) (70-110) mg/dL 11/14/24 11/14/24 Range/Units 06:05 11:32 WBC (4.50-10.00) 10*3/uL RBC (4.40-5.60) 10*6/uL Hgb (13.0-17.0) g/dL Hct (39.6-50.0) % MCHC (32.0-37.0) g/dL Immature Gran # (0.00-0.04) 10*3/uL Neutrophils # (1.80-7.70) 10*3/uL Monocytes # (0.20-1.00) 10*3/uL Sodium (137-145) mmol/L Carbon Dioxide (22-30) mmol/L BUN (9-20) mg/dL Creatinine (0.66-1.25) mg/dL Glucose (74-99) mg/dL POC Glucose (mg/dL) 144 H 145 H (70-110) mg/dL Microbiology - Last 24 Hours (Table) 11/12/24 18:15 Nasal Screen MRSA/MSSA - Final Nasal Swab 11/12/24 16:36 Blood Culture Gram Stain - Preliminary Blood Blood Culture - Preliminary Molecular ID 11/12/24 16:49 Urine Culture - Preliminary Urine,Voided Gram Neg Bacilli
[2024-11-14 16:34] LABS: Glucose,Whole Blood 126 mg/dL (70-110)
[2024-11-14] MEDS: HYDROmorphone 1 MG/ML 1 ML SYRINGE IVP PRN (17:08)
[2024-11-14 19:59] LABS: Glucose,Whole Blood 136 mg/dL (70-110)
[2024-11-15 06:17] LABS: Glucose,Whole Blood 139 mg/dL (70-110)
[2024-11-15 07:35] LABS: Basophils # (A) 0.07 10*3/uL (0.00-0.10); Basophils % (A) 0.4 %; Eosinophils # (A) 0.19 10*3/uL (0.04-0.35); Eosinophils % (A) 1.0 %; HCT 24.8 % (39.6-50.0); HGB 7.9 g/dL (13.0-17.0); Lymphocytes # (A) 1.53 10*3/uL (0.90-5.00); Lymphocytes % (A) 7.9 %; MCH 29.2 pg (27.0-32.0); MCHC 31.9 g/dL (32.0-37.0); MCV 91.5 fL (80.0-97.0); Monocytes # (A) 1.30 10*3/uL (0.20-1.00); Monocytes % (A) 6.7 %; Neutrophils # (A) 16.05 10*3/uL (1.80-7.70); Neutrophils % (A) 82.8 %; Platelet Count 372 10*3/uL (140-440); RBC 2.71 10*6/uL (4.40-5.60); RDW 16.1 % (11.5-14.5); WBC 19.37 10*3/uL (4.50-10.00)
[2024-11-15 07:58] LABS: African American GFR (CKD) >90 (>60 ml/min/1.73 sqM); Non-African American GFR(CKD) >90 (>60 ml/min/1.73 sqM)
[2024-11-15 08:02] LABS: African American GFR (CKD) >90 (>60 ml/min/1.73 sqM); Anion Gap 6 mmol/L; Blood Urea Nitrogen 16 mg/dL (9-20); Calcium 9.8 mg/dL (8.4-10.2); Carbon Dioxide 24 mmol/L (22-30); Chloride 105 mmol/L (98-107); Glucose 113 mg/dL (74-99); Magnesium 1.6 mg/dL (1.6-2.3); Non-African American GFR(CKD) >90 (>60 ml/min/1.73 sqM); Potassium 4.0 mmol/L (3.5-5.1); Sodium 135 mmol/L (137-145)
[2024-11-15] MEDS ORDERED: LORazepam 1 MG/0.5 ML VIAL IV PRN (09:33)
[2024-11-15] MEDS: MORPHINE SULFATE 100 MG in SODIUM CHLORIDE 0.9% 90 ML IV SCH (10:33)
--- NOTE | 2024-11-15 10:54 | P.PN ---
Subjective Progress Note Date: 11/15/24 Principal diagnosis: Metastatic lung cancer. This is a 59-year-old frail, cachectic male patient who was just discharged from here on 11/09/2024 to a local ECF. They sent him back yesterday 11/12/2024 for failure to thrive. 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 His initial diagnosis was made back in May of 2024, patient presented initially with abnormal CT of the chest showing a 2.2 x 1.7 right lower lobe mass and enlarged subcarinal and right hilar lymphadenopathy. At the same time the patient had pathologic fracture of T11. CT of the chest also showed a 2.9 c m mass in the posterior right lower lobe and significant thoracic spine abnormalities consistent with metastatic disease to the spine. Bone scan confirmed metastatic disease to the spine and 2 other skeletal areas including the left scapula. Biopsy of T12 positive for metastatic poorly differentiated pulmonary adenocarcinoma. He has recurrent right-sided pleural effusion. Previously underwent right-sided thoracentesis on 10/18/2024 developed pneumothorax, thought to be trapped lung. Patient did have a Thoravent placed. Subsequently, developed a recurrent right-sided pleural effusion and a Pleurx catheter was placed by the cardiothoracic surgery team on 10/23/2024. He is seen today November 13, 2024 in the emergency department. He is currently resting on a stretcher. Very frail, very cachectic. Maintaining O2 saturations in the 90s on 2 L/min per nasal cannula. White count 18.2. Hemoglobin 9.1. Platelets 498. Sodium 137. Potassium 5.0. Bicarb 24. BUN 29. Creatinine 0.64. Albumin 3.1. Procalcitonin 0.60. Urinalysis with large leukocyte Estrace high WBCs and many bacteria. Viral screen was negative for influenza A/B, RSV and COVID. Chest x-ray continues to show complete opacification of the right hemithorax with right sided Pleurx catheter in place. Likely represent ation of pleural effusion, consolidation, atelectasis. Progress note dated November 14, 2024. 59-year-old male with a history of metastatic lung cancer. He was seen in consultation yesterday. Please see the note above. Today he is seen in room 360. He is currently on 3 L of oxygen. He is not receiving any IV fluids. His blood cultures were positive for staph, and his urine was positive for gram- negative bacilli, yet to be identified. The patient is currently on vancomycin. The patient is laying in bed, without any distress, or respiratory difficulty. Current labs showed a white count of 17.5, hemoglobin 7.6, hematocrit 24.3, and a normal platelet count. Sodium 135, potassium 4, chlorides 105, CO2 21, anion gap 9, BUN 21, creatinine 0.53. Glucose is 144. Calcium 9.6. Repeat chest x- ray shows a reduction in the large right-sided pleural effusion. Progress note dated November 15, 2024. 59-year-old male with history of metastatic lung cancer. He is again seen today in room 360. He is on a nonrebreather mask. He is getting saline at 75 cc an hour. The nurses drained his Pleurx catheter, on November 14, and got 1000 cc out of the right pleural space. 700 cc of fluid was drained today, November 15. Current laboratory data includes a white count of 19.4, hemoglobin 7.9, hematocrit 24.8, and a platelet count of 372,000. Sodium 135, potassium 4, chloride 105, CO2 24, anion gap 6, BUN 16, creatinine 0.56. Glucose is 113. Blood cultures are positive for coag negative staph. Urine cultures are positive for Escherichia coli. The patient is currently on vancomycin, which I think can be discontinued. In addition, he could be started on Rocephin for his E. coli urinary tract infection. Will leave that up to the primary service, to choose antibiotics. November 14 chest x-ray was reviewed. Objective - Vital Signs Vital signs: Vital Signs Temp 97.8 F 11/15/24 07:03 Pulse 122 H 11/15/24 07:12 Resp 16 11/15/24 07:12 BP 143/93 11/15/24 07:12 Pulse Ox 100 11/15/24 07:12 FiO2 Intake & Output 11/14/24 11/15/24 11/15/24 18:59 06:59 18:59 Intake Total 20 540 250 Output Total 1300 400 850 Balance -1280 140 -600 Weight 50 kg 50.1 kg Intake: IV 20 10 Invasive Line 3 20 10 Oral 540 240 Output: Drainage 950 700 Right Chest 950 700 Urine 350 400 150 Other: Voiding Method Indwelling Catheter Indwelling Catheter Indwelling Catheter # Bowel Movements 1 - Exam No acute distress, oriented 3. No respiratory distress. The patient has significant anorexia/cachexia syndrome. He is very frail appearing. He is currently on a nonrebreather mask. HEENT examination is grossly unremarkable. Mucous membranes are moist. No oral lesions. Neck supple. Full range of motion. No adenopathy thyromegaly or neck vein distention. Cardiovascular examination reveals regular rhythm rate. S1-S2 normal. No S3 or S4. No discernible murmur noted. Lungs reveal diminished breath sounds at the right lung base. No wheezes, rhonchi, or crackles. No adventitious lung sounds noted. Abdomen soft bowel sounds are heard. No masses or tenderness. Extremities are intact. No cyanosis clubbing or edema. Skin is without rash or lesion. Neurologic examination is brief but nonfocal. - Labs CBC & Chem 7: 11/15/24 06:44 11/15/24 06:44 Labs: Abnormal Lab Results - Last 24 Hours (Table) 11/14/24 11/14/24 11/14/24 Range/Units 11:32 16:33 19:58 WBC (4.50-10.00) 10*3/uL RBC (4.40-5.60) 10*6/uL Hgb (13.0-17.0) g/dL Hct (39.6-50.0) % MCHC (32.0-37.0) g/dL Immature Gran # (0.00-0.04) 10*3/uL Neutrophils # (1.80-7.70) 10*3/uL Monocytes # (0.20-1.00) 10*3/uL Sodium (137-145) mmol/L Creatinine (0.66-1.25) mg/dL Glucose (74-99) mg/dL POC Glucose (mg/dL) 145 H 126 H 136 H (70-110) mg/dL 11/15/24 11/15/24 11/15/24 Range/Units 06:15 06:44 06:44 WBC 19.37 H (4.50-10.00) 10*3/uL RBC 2.71 L (4.40-5.60) 10*6/uL Hgb 7.9 L (13.0-17.0) g/dL Hct 24.8 L (39.6-50.0) % MCHC 31.9 L (32.0-37.0) g/dL Immature Gran # 0.23 H (0.00-0.04) 10*3/uL Neutrophils # 16.05 H (1.80-7.70) 10*3/uL Monocytes # 1.30 H (0.20-1.00) 10*3/uL Sodium (137-145) mmol/L Creatinine 0.55 L (0.66-1.25) mg/dL Glucose (74-99) mg/dL POC Glucose (mg/dL) 139 H (70-110) mg/dL 11/15/24 Range/Units 06:44 WBC (4.50-10.00) 10*3/uL RBC (4.40-5.60) 10*6/uL Hgb (13.0-17.0) g/dL Hct (39.6-50.0) % MCHC (32.0-37.0) g/dL Immature Gran # (0.00-0.04) 10*3/uL Neutrophils # (1.80-7.70) 10*3/uL Monocytes # (0.20-1.00) 10*3/uL Sodium 135 L (137-145) mmol/L Creatinine 0.56 L (0.66-1.25) mg/dL Glucose 113 H (74-99) mg/dL POC Glucose (mg/dL) (70-110) mg/dL Microbiology - Last 24 Hours (Table) 11/12/24 16:36 Blood Culture Gram Stain - Preliminary Blood Blood Culture - Preliminary Coagulase Negative Staph Molecular ID 11/12/24 16:49 Urine Culture - Final Urine,Voided Escherichia coli 11/12/24 18:15 Nasal Screen MRSA/MSSA - Final Nasal Swab Assessment and Plan Assessment: Acute hypoxemic respiratory failure, currently on 2 L high flow nasal cannula, secondary to bilateral pleural effusion with recurrent large right-sided pleural effusion, status post Pleurx catheter insertion October 23, 2024. Escherichia coli, urinary tract infection. History of recurrent right-sided pleural effusion and multiple previous thoracentesis most recently developing right-sided pneumothorax on October 18, did have previous Thora vent placement which was removed on October 21. Did have increased right-sided pleural effusion and a Pleurx catheter was placed on October 23. Pleural fluid cytology was transudate based on Lights criteria. Metastatic pulmonary adenocarcinoma with osseous metastasis, confirmed with bone biopsy June 2024. PET scan from September 11, 2024 revealed uptake within the right lung mass compatible with neoplasm. Extensive osseous metastasis including axial spine, left iliac wing, left scapula, multiple ribs, sternum, pelvis. Small metastatic lesions suspected within the left and right lobes of the liver. Mediastinal metastasis. Metastatic lesions in the right supra clavicular region and suspected within lymph nodes within the bilateral parotid glands. Acute leukocytosis. Chronic anemia, hemoglobin stable at 9.1 g/dL. Severe hypercalcemia, with ionized calcium of 8, in the setting of dehydration and known malignancy with osseous metastasis. Chronic obstructive pulmonary disease. Type 2 diabetes. Former smoker. History of thoracic vertebral fracture/pathological fracture requiring surgery. Failure to thrive. Cachexia. Plan: Plan dated November 14, 2024. The patient is seen today in room 360. The patient currently is on vancomycin. Blood cultures were positive for staph. In addition, there is gram-negative bacilli in the urine. Labs, x-rays, and all medications are reviewed. We will continue to follow. His respiratory status is reasonably stable. He is currently on 3 L. Saturations were in the mid to high 90s. The patient has severe anorexia/cachexia syndrome and malignancy. This is typically mediated by tumor necrosis factor/cachectin. We will continue to follow. Prognosis is poor. Dictation was produced using [employer] software. Please excuse any grammatical, word or spelling errors. Plan dated November 15, 2024. The patient is doing very poorly. He remains a DO NOT RESUSCITATE patient. The patient is currently on vancomycin, which I think can be discontinued, in favor of something like Rocephin, for his E. coli urinary tract infection. Labs, x- rays, and all medications are reviewed. The patient is currently on a nonrebreather mask. We will continue to follow. Prognosis is very poor. His Pleurx catheter was drained yesterday, of 1000 cc of fluid, and today, 700 cc of fluid. Additional recommendations and suggestions are forthcoming. Dictation was produced using [employer] software. Please excuse any grammatical, word or spelling errors. Time with Patient: Less than 30
[2024-11-15 11:54] LABS: Glucose,Whole Blood 174 mg/dL (70-110)
--- NOTE | 2024-11-15 15:08 | P.PN ---
Subjective Progress Note Date: 11/15/24 Patient in significant pain today. Mentions that his legs feel very weak today and feels more short of breath. Reports that he is okay with comfort care. Objective - Vital Signs Vital signs: Vital Signs Temp 97.8 F 11/15/24 07:03 Pulse 104 H 11/15/24 11:34 Resp 19 11/15/24 11:34 BP 123/83 11/15/24 11:34 Pulse Ox 100 11/15/24 11:34 FiO2 Intake & Output 11/14/24 11/15/24 11/15/24 18:59 06:59 18:59 Intake Total 20 540 256.583 Output Total 1300 400 850 Balance -1280 140 -593.417 Weight 50 kg 50.1 kg Intake: IV 20 10 Invasive Line 3 20 10 Intake, IV Titration 6.583 Amount Morphine Sulfate 100 mg 6.583 In Sodium Chloride 0.9% 90 ml @ 2 MG/HR 2 mls/hr IV .[facility] Rx#: [id number] Oral 540 240 Output: Drainage 950 700 Right Chest 950 700 Urine 350 400 150 Other: Voiding Method Indwelling Catheter Indwelling Catheter Indwelling Catheter # Bowel Movements 1 - Exam General: thin, ill-appearing, nontoxic, no distress, appears at stated age Derm: warm, dry, intact Head: atraumatic, normocephalic, symmetric Eyes: EOMI, anicteric sclera Mouth: no lip lesion, mucus membranes moist Cardiovascular: S1 S2 reg, no murmur, rubs, or gallops Lungs: Decreased breath sounds on right, no rhonchi, no rales, no accessory muscle use Abdominal: soft, non-tender to palpation, no appreciable organomegaly Extremities: no gross muscle atrophy, 2+ pitting edema to LUE and LLE. No edema to RUE or RLE Neuro: Alert, Oriented, CNII-XII grossly intact Psych: appropriate affect - Labs CBC & Chem 7: 11/15/24 06:44 11/15/24 06:44 Labs: Abnormal Lab Results - Last 24 Hours (Table) 11/14/24 11/14/24 11/15/24 Range/Units 16:33 19:58 06:15 WBC (4.50-10.00) 10*3/uL RBC (4.40-5.60) 10*6/uL Hgb (13.0-17.0) g/dL Hct (39.6-50.0) % MCHC (32.0-37.0) g/dL Immature Gran # (0.00-0.04) 10*3/uL Neutrophils # (1.80-7.70) 10*3/uL Monocytes # (0.20-1.00) 10*3/uL Sodium (137-145) mmol/L Creatinine (0.66-1.25) mg/dL Glucose (74-99) mg/dL POC Glucose (mg/dL) 126 H 136 H 139 H (70-110) mg/dL 11/15/24 11/15/24 11/15/24 Range/Units 06:44 06:44 06:44 WBC 19.37 H (4.50-10.00) 10*3/uL RBC 2.71 L (4.40-5.60) 10*6/uL Hgb 7.9 L (13.0-17.0) g/dL Hct 24.8 L (39.6-50.0) % MCHC 31.9 L (32.0-37.0) g/dL Immature Gran # 0.23 H (0.00-0.04) 10*3/uL Neutrophils # 16.05 H (1.80-7.70) 10*3/uL Monocytes # 1.30 H (0.20-1.00) 10*3/uL Sodium 135 L (137-145) mmol/L Creatinine 0.55 L 0.56 L (0.66-1.25) mg/dL Glucose 113 H (74-99) mg/dL POC Glucose (mg/dL) (70-110) mg/dL 11/15/24 Range/Units 11:52 WBC (4.50-10.00) 10*3/uL RBC (4.40-5.60) 10*6/uL Hgb (13.0-17.0) g/dL Hct (39.6-50.0) % MCHC (32.0-37.0) g/dL Immature Gran # (0.00-0.04) 10*3/uL Neutrophils # (1.80-7.70) 10*3/uL Monocytes # (0.20-1.00) 10*3/uL Sodium (137-145) mmol/L Creatinine (0.66-1.25) mg/dL Glucose (74-99) mg/dL POC Glucose (mg/dL) 174 H (70-110) mg/dL Microbiology - Last 24 Hours (Table) 11/12/24 16:36 Blood Culture Gram Stain - Preliminary Blood Blood Culture - Preliminary Coagulase Negative Staph Molecular ID 11/12/24 16:49 Urine Culture - Final Urine,Voided Escherichia coli Assessment and Plan Assessment: Data Received Today: Pertinent Labs: WBC 19.37, hemoglobin 7.9, sodium 135, potassium 4.0, BUN 16, creatinine 0.56, calcium 9.8 No new imaging Assessment and Plan: 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 Acute hypoxic respiratory failure secondary to pleural effusion versus pneumonia versus atelectasis vs lung cancer progression Acute encephalopathy likely hypoxic COPD Cough Failure to thrive -After discussion with the patient, he has decided to be placed on comfort care -Morphine drip 2mg/hr titratable drip -Morphine 2mg IV Q1hr PRN -Dilaudid 1mg Q4hr PRN -Continue home PRN PO morphine -Blood culture demonstrates coagulase-negative Staphylococcus likely due to contamination -CXR every every other day after Pleurx catheter is drained -Pulmology recommend Pleurx to be drained every other day, continue home DuoNebs -MRSA/MSSA screening negative Asymptomatic bacteriuria Pts U/A: 1+ protein, ketones, blood, LE +, RBC, WBC, Bacteria indicates a potential UTI. Pt has no symptoms of UTI (no suprapubic tenderness, fevers/chills, hematuria) -Urine culture shows gram-negative bacilli -Patient's vancomycin discontinued due to preference for comfort care Hypercalcemia (resolved) Could be d/t hypercalcemia of malignancy Plan: -Patient is on comfort care as above Chronic Conditions: DM -Discontinued insulin, patient is on comfort care COPD -Continue duoneb prn Code status: No code Anticipated discharge place: Pending clinical course Anticipated discharge time: Pending clinical course Erick Gray MD PGY-1 TY Dictation was produced using [employer] dictation software. please excuse any grammatical, word or spelling errors. I saw and evaluated the patient during the hart and critical portions of this encounter, and discussed the case in detail with the resident author of this note, I agree with the Assessment and Plan, and my changes, if any, are highlighted in blue.
[2024-11-15 16:16] LABS: Glucose,Whole Blood 120 mg/dL (70-110)
--- NOTE | 2024-11-16 14:50 | P.PN ---
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 Patient does have a Pleurx catheter on the right. Patient's son is POA. Patient was started on vancomycin. Pulmonology was consulted and recommended having the catheter drained every other day, and started DuoNebs. Wound care was also consulted for patient's sores on his coccyx and back. Hospice was consulted for information. While inpatient, patient was placed on comfort care. Subjective: Patient seen and examined at bedside. No acute events overnight. Patient sleeping in room and son is also present in room. Patient states his pain is better. At the time of rounds patient is on nonrebreather mask that he requested. Pertinent positives and negatives as discussed above, a complete review of systems was performed and all other systems are negative. Vitals: Signs Reviewed Physical Exam: General: nontoxic, no distress, appears at stated age Derm: warm, dry, intact Head: atraumatic, normocephalic, symmetric Eyes: EOMI, anicteric sclera Mouth: no lip lesion, mucus membranes moist Cardiovascular: S1 S2 reg, no murmur, rubs, or gallops Lungs: CTA bilateral, no rhonchi, no rales, no accessory muscle use Abdominal: soft, non-tender to palpation, no appreciable organomegaly Extremities: no gross muscle atrophy, no edema Neuro: Alert, Oriented, CNII-XII grossly intact, gait normal Psych: well appearing, appropriate affect Data Received Today: Pertinent Labs: None today Imaging: None today Assessment and Plan: 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 morphine (morphine sulfate 15mg q6h prn and morphine sulfate ER 30 mg q12h) -Discontinued chest x-rays -Continue home DuoNebs -Continue draining Pleurx every other day Asymptomatic bacteriuria Pts U/A: 1+ protein, ketones, blood, LE +, RBC, WBC, Bacteria indicates a potential UTI. Pt has no symptoms of UTI (no suprapubic tenderness, fevers/chills, hematuria) -Urine culture shows E. coli - Patient on comfort care Hypercalcemia -resolved Could be secondary to hypercalcemia of malignancy -Patient is on comfort care Coccyx and back wounds - Wound care consulted Chronic DM - Insulin discontinued as pt is on comfort care COPD - DuoNeb prn Code status: No code Anticipated discharge place: Pending clinical course Anticipated discharge time: Pending clinical course Michael Regalado DO PGY-1 IM Dictation was produced using [employer] dictation software. please excuse any grammatical, word or spelling errors. I saw and evaluated the patient during the hart and critical portions of this encounter, and discussed the case in detail with the resident author of this note, I agree with the Assessment and Plan, and my changes, if any, are highlighted in blue. Objective - Vital Signs Vital signs: Vital Signs Temp 97.8 F 11/15/24 07:03 Pulse 107 H 11/16/24 14:04 Resp 4 L 11/16/24 14:04 BP 129/88 11/15/24 15:29 Pulse Ox 100 11/15/24 15:29 FiO2 Intake & Output 11/15/24 11/16/24 11/16/24 18:59 06:59 18:59 Intake Total 295.799 95.15 99.55 Output Total 1050 340 Balance -754.201 -244.85 99.55 Weight 51.5 kg Intake: IV 20 40 Invasive Line 2 20 Invasive Line 3 20 20 Intake, IV Titration 35.799 55.15 99.55 Amount Morphine Sulfate 100 mg 35.799 55.15 99.55 In Sodium Chloride 0.9% 90 ml @ 2 MG/HR 2 mls/hr IV .Q24H [facility] Rx#: [id number] Oral 240 0 Output: Drainage 700 Right Chest 700 Urine 350 340 Other: Voiding Method Indwelling Catheter Indwelling Catheter # Bowel Movements 1 - Labs CBC & Chem 7: 11/15/24 06:44 11/15/24 06:44 Labs: Abnormal Lab Results - Last 24 Hours (Table) 11/15/24 Range/Units 16:14 POC Glucose (mg/dL) 120 H (70-110) mg/dL
--- NOTE | 2024-11-16 16:45 | P.PN ---
Subjective Progress Note Date: 11/16/24 On today's evaluation of 11/16/2024, the patient is being seen for a follow-up. This patient is known to have metastatic pulm adenocarcinoma with bony metastases. The patient has extensive osseous metastasis including the axial spine, left iliac wing, left scapula, multiple ribs and sternum and pelvis. The patient also has multiple metastatic lesions to the liver and mediastinal metastases. He also has supraclavicular lymphadenopathy. The patient has sustained a pathologic fracture of the thoracic vertebra requiring surgery and has failed to thrive and is extremely cachectic. He also had a recurrent large right-sided pleural effusion and the patient was given a Pleurx catheter on 10/23/2024. He is also being treated for a E. coli urinary tract infection. The patient has stage IV non-small cell lung cancer. He is encephalopathic. Based on all this, hospice has been consulted and the patient will proceed with inpatient hospice care. He is currently on 2 L of oxygen by nasal cannula. Calm and comfortable. Started on a morphine drip at 2 mg an hour this is in addition to oral morphine and Dilaudid on a as needed basis. Objective - Vital Signs Vital signs: Vital Signs Temp 97.8 F 11/15/24 07:03 Pulse 107 H 11/16/24 07:46 Resp 6 L 11/16/24 10:55 BP 129/88 11/15/24 15:29 Pulse Ox 100 11/15/24 15:29 FiO2 Intake & Output 11/15/24 11/16/24 11/16/24 18:59 06:59 18:59 Intake Total 295.799 95.15 Output Total 1050 340 Balance -754.201 -244.85 Weight 51.5 kg Intake: IV 20 40 Invasive Line 2 20 Invasive Line 3 20 20 Intake, IV Titration 35.799 55.15 Amount Morphine Sulfate 100 mg 35.799 55.15 In Sodium Chloride 0.9% 90 ml @ 2 MG/HR 2 mls/hr IV .Q24H [facility] Rx#: [id number] Oral 240 0 Output: Drainage 700 Right Chest 700 Urine 350 340 Other: Voiding Method Indwelling Catheter Indwelling Catheter # Bowel Movements 1 - Exam GENERAL EXAM: Alert, very frail, cachectic 59-year-old male, on 2 L nasal cannula, fairly comfortable in no apparent distress. HEAD: Normocephalic. EYES: Normal reaction of pupils, equal size. NOSE: Clear with pink turbinates. THROAT: No erythema or exudates. NECK: No masses, no JVD. CHEST: No chest wall deformity. LUNGS: Equal air entry with diminished breath sounds over the right lung. CVS: S1 and S2 normal with no audible murmur, regular rhythm. ABDOMEN: No hepatosplenomegaly, normal bowel sounds, no guarding or rigidity. SPINE: No scoliosis or deformity SKIN: No rashes CENTRAL NERVOUS SYSTEM: No focal deficits, tone is normal in all 4 extremities. Lethargic and sleepy while being on a morphine drip EXTREMITIES: There is no peripheral edema. No clubbing, no cyanosis. Perip heral pulses are intact. - Labs CBC & Chem 7: 11/15/24 06:44 11/15/24 06:44 Labs: Abnormal Lab Results - Last 24 Hours (Table) 11/15/24 11/15/24 Range/Units 11:52 16:14 POC Glucose (mg/dL) 174 H 120 H (70-110) mg/dL Microbiology - Last 24 Hours (Table) 11/12/24 16:36 Blood Culture Gram Stain - Preliminary Blood Blood Culture - Preliminary Coagulase Negative Staph Molecular ID Assessment and Plan Plan: Acute hypoxemic respiratory failure, currently on 2 L high flow nasal cannula, secondary to bilateral pleural effusion with recurrent large right-sided pleural effusion, status post Pleurx catheter insertion October 23, 2024. Escherichia coli, urinary tract infection. History of recurrent right-sided pleural effusion and multiple previous thoracentesis most recently developing right-sided pneumothorax on October 18, did have previous Thora vent placement which was removed on October 21. Did have increased right-sided pleural effusion and a Pleurx catheter was placed on October 23. Pleural fluid cytology was transudate based on Lights criteria. Metastatic pulmonary adenocarcinoma with osseous metastasis, confirmed with bone biopsy June 2024. PET scan from September 11, 2024 revealed uptake within the right lung mass compatible with neoplasm. Extensive osseous metastasis including axial spine, left iliac wing, left scapula, multiple ribs, sternum, pelvis. Small metastatic lesions suspected within the left and right lobes of the liver. Mediastinal metastasis. Metastatic lesions in the right supra clavicular region and suspected within lymph nodes within the bilateral parotid glands. Acute leukocytosis. Chronic anemia, hemoglobin stable at 9.1 g/dL. Severe hypercalcemia, with ionized calcium of 8, in the setting of dehydration and known malignancy with osseous metastasis. Chronic obstructive pulmonary disease. Type 2 diabetes. Former smoker. History of thoracic vertebral fracture/pathological fracture requiring surgery. Failure to thrive. Cachexia. Plan: Poor prognosis advanced Stage IV non-small cell lung cancer Hospice care has been initiated Continue morphine drip Pulmonary critical care services will sign off and we will leave the rest of the management to the medical group.
--- NOTE | 2024-11-17 11:53 | P.PN ---
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 Patient does have a Pleurx catheter on the right. Patient's son is POA. Patient was started on vancomycin. Pulmonology was consulted and recommended having the catheter drained every other day, and started DuoNebs. Wound care was also consulted for patient's sores on his coccyx and back. Hospice was consulted for information. While inpatient, patient was placed on comfort care. Subjective: Patient seen and examined at bedside. No acute events overnight. Patient is asleep in bed on nasal cannula. Patient's family (son and sister) in the room with no questions at this time. Pertinent positives and negatives as discussed above, a complete review of systems was performed and all other systems are negative. Vitals: Signs Reviewed Physical Exam: General: thin, ill-appearing, nontoxic, no distress Derm: warm, dry, intact Head: atraumatic, normocephalic, symmetric Eyes: EOMI, anicteric sclera Mouth: no lip lesion Cardiovascular: S1 S2 reg, no murmur, rubs, or gallops Lungs: Limited due to pt sleeping and position, no rhonchi, no rales, Abdominal: soft, non-tender to palpation Extremities: no gross muscle atrophy, no edema Data Received Today: Pertinent Labs: None, comfort care Imaging: None, comfort care Assessment and Plan: 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 morphine (morphine sulfate 15mg q6h prn and morphine sulfate ER 30 mg q12h) -Continue home DuoNebs -Continue draining Pleurx every other day Asymptomatic bacteriuria - Urine culture shows E. coli, however pt symptomatic - Patient on comfort care Hypercalcemia - resolved Could be secondary to hypercalcemia of malignancy -Patient is on comfort care Coccyx and back wounds - Wound care consulted Chronic DM - Insulin discontinued as pt is on comfort care COPD - DuoNeb prn Code status: No code Twinzara DO Fabricio PGY-1 IM Dictation was produced using [employer] dictation software. please excuse any gr ammatical, word or spelling errors. I saw and evaluated the patient during the hart and critical portions of this encounter, and discussed the case in detail with the resident author of this note, I agree with the Assessment and Plan, and my changes, if any, are highlighted in blue. Objective - Vital Signs Vital signs: Vital Signs Temp 97.8 F 11/15/24 07:03 Pulse 102 H 11/17/24 04:00 Resp 5 L 11/17/24 04:00 BP 129/88 11/15/24 15:29 Pulse Ox 100 11/15/24 15:29 FiO2 Intake & Output 11/16/24 11/17/24 11/17/24 18:59 06:59 18:59 Intake Total 99.55 100 100 Output Total 400 Balance 99.55 -300 100 Weight 50.5 kg Intake: Intake, IV Titration 99.55 100 100 Amount Morphine Sulfate 100 mg 99.55 100 100 In Sodium Chloride 0.9% 90 ml @ 2 MG/HR 2 mls/hr IV .Q24H [facility] Rx#: [id number] Oral 0 Output: Urine 400 Other: Voiding Method Indwelling Catheter Indwelling Catheter - Labs CBC & Chem 7: 11/15/24 06:44 11/15/24 06:44 Labs: Microbiology - Last 24 Hours (Table) 11/12/24 16:36 Blood Culture Gram Stain - Final Blood Blood Culture - Final Staphylococcus epidermidis Molecular ID
[2024-11-17 13:59] VITALS: BMI 17.4
[2024-11-17] MEDS: MORPHINE SULFATE 100 MG in SODIUM CHLORIDE 0.9% 90 ML IV SCH (19:44)
--- NOTE | 2024-11-18 11:45 | P.PN ---
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 Patient does have a Pleurx catheter on the right. Patient's son is POA. Patient was started on vancomycin. Pulmonology was consulted and recommended having the catheter drained every other day, and started DuoNebs. Wound care was also consulted for patient's sores on his coccyx and back. Hospice was consulted for information. While inpatient, patient was placed on comfort care. Subjective: Patient seen and examined at bedside. Overnight pt's morphine drip was increased as he appeared to be in pain. This morning, pt is sleeping and shows no signs of being in pain. Patient's family (son) in the room with no questions at this time. Pertinent positives and negatives as discussed above, a complete review of systems was performed and all other systems are negative. Vitals: Signs Reviewed Physical Exam: General: thin, ill-appearing, nontoxic, no distress Derm: warm, dry, intact Head: atraumatic, normocephalic, symmetric Eyes: EOMI, anicteric sclera Mouth: no lip lesion Cardiovascular: S1 S2 reg, tachycardic, no murmur, rubs, or gallops Lungs: Limited due to pt sleeping and position, no rhonchi, no rales Abdominal: soft, non-tender to palpation Extremities: no gross muscle atrophy, no edema Data Received Today: Pertinent Labs: None, comfort care Imaging: None, comfort care Assessment and Plan: 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 Acute hypoxic respiratory failure secondary to pleural effusion versus pneumonia versus atelectasis vs lung cancer progression Acute encephalopathy likely hypoxic COPD Cough Failure to thrive -Patient is currently on comfort care -Morphine drip was increased -Continue morphine 2mg IV every hour as needed -Continue Dilaudid 1 mg every 4 hours as needed -Continue home p.o. morphine (morphine sulfate 15mg q6h prn and morphine sulfate ER 30 mg q12h) -Continue home DuoNebs Asymptomatic bacteriuria - Urine culture shows E. coli, however pt symptomatic - Patient on comfort care Hypercalcemia - resolved Could be secondary to hypercalcemia of malignancy -Patient is on comfort care Coccyx and back wounds - Wound care consulted, patient on comfort care measures Chronic DM - Insulin discontinued as pt is on comfort care COPD - DuoNeb prn Code status: No code Twinzara DO Fabricio PGY-1 IM Dictation was produced using [employer] dictation software. please excuse any grammatical, word or spelling errors. I have seen and evaluated the patient today. Discussed with the resident and agree with the residents finding and plan as documented in the resident's note. Changes highlighted in blue font. Objective - Vital Signs Vital signs: Vital Signs Temp 97.8 F 11/15/24 07:03 Pulse 114 H 11/18/24 10:55 Resp 10 L 11/18/24 10:55 BP 129/88 11/15/24 15:29 Pulse Ox 100 11/15/24 15:29 FiO2 Intake & Output 11/17/24 11/18/24 11/18/24 18:59 06:59 18:59 Intake Total 100 120.567 Output Total 310 Balance 100 -189.433 Weight 50.5 kg Intake: Intake, IV Titration 100 120.567 Amount Morphine Sulfate 100 mg 100 In Sodium Chloride 0.9% 90 ml @ 2 MG/HR 2 mls/hr IV .Q24H [facility] Rx#: [id number] Morphine Sulfate 100 mg 120.567 In Sodium Chloride 0.9% 90 ml @ 2 MG/HR 2 mls/hr IV .Q24H [facility] Rx#: [id number] Oral 0 Output: Urine 310 Other: Voiding Method Indwelling Catheter Indwelling Catheter - Labs CBC & Chem 7: 11/15/24 06:44 11/15/24 06:44 Labs: Microbiology - Last 24 Hours (Table) 11/12/24 16:36 Blood Culture Gram Stain - Final Blood Blood Culture - Final Staphylococcus epidermidis Molecular ID
[2024-11-18] MEDS ORDERED: LORazepam 1 MG TAB PO PRN (12:03)
[2024-11-18] MEDS: GLYCOPYRROLATE 0.2 MG/ML 2 ML VIAL IVP PRN (13:26)
[2024-11-18 22:06] VITALS: TEMP 97.7
[2024-11-19] MEDS: MORPHINE SULFATE 2 MG/ML SYRINGE IVP PRN (04:08)
--- NOTE | 2024-11-19 13:01 | P.PN ---
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 Patient does have a Pleurx catheter on the right. Patient's son is POA. Patient was started on vancomycin. Pulmonology was consulted and recommended having the catheter drained every other day, and started DuoNebs. Wound care was also consulted for patient's sores on his coccyx and back. Hospice was consulted for information. While inpatient, patient was placed on comfort care by his son. Subjective: Patient seen and examined at bedside. No acute events overnight. Patient was sleeping in bed without any signs of pain. Pertinent positives and negatives as discussed above, a complete review of systems was performed and all other systems are negative. Vitals: Signs Reviewed Physical Exam: General: Cachectic, nontoxic, no distress, appears at stated age Head: atraumatic, normocephalic, symmetric Eyes: EOMI, anicteric sclera Mouth: no lip lesion, mucus membranes moist Cardiovascular: Tachycardic, S1 S2 reg, no murmur, rubs, or gallops Lungs: Limited due to patient positioning. Abdominal: soft, non-tender to palpation Extremities: no gross muscle atrophy, no edema Data Received Today: Pertinent Labs: None, on comfort care Imaging: None, on comfort care Assessment and Plan: 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 Acute hypoxic respiratory failure secondary to pleural effusion versus pneumonia versus atelectasis vs lung cancer progression Acute encephalopathy likely hypoxic COPD Cough Failure to thrive -Patient is currently on comfort care -Continue morphine drip -Continue morphine 2mg IV every hour as needed -Continue Dilaudid 1 mg every 4 hours as needed -Continue home p.o. morphine (morphine sulfate 15mg q6h prn and morphine sulfate ER 30 mg q12h) -Continue home DuoNebs Asymptomatic bacteriuria - Urine culture shows E. coli, however pt symptomatic - Patient on comfort care Hypercalcemia - resolved Could be secondary to hypercalcemia of malignancy -Patient is on comfort care Coccyx and back wounds -Wound care consulted, patient on comfort care measures Chronic DM - Insulin discontinued as pt is on comfort care COPD - DuoNeb prn Code status: No code Michael Regalado DO PGY-1 IM Dictation was produced using [employer] dictation software. please excuse any grammatical, word or spelling errors. I have seen and evaluated the patient today. Discussed with the resident and agree with the residents finding and plan as documented in the resident's note. Changes highlighted in blue font. Objective - Vital Signs Vital signs: Vital Signs Temp 97.7 F 11/18/24 20:00 Pulse 114 H 11/19/24 09:21 Resp 16 11/19/24 09:21 BP 89/60 11/18/24 20:00 Pulse Ox 99 11/18/24 21:00 FiO2 Intake & Output 11/18/24 11/19/24 11/19/24 18:59 06:59 18:59 Intake Total 99.217 185.733 78.767 Output Total 100 25 Balance -0.783 185.733 53.767 Weight 47 kg Intake: Intake, IV Titration 99.217 185.733 78.767 Amount Morphine Sulfate 100 mg 99.217 185.733 78.767 In Sodium Chloride 0.9% 90 ml @ 2 MG/HR 2 mls/hr IV .Q24H [facility] Rx#: [id number] Oral 0 Output: Urine 100 25 Other: Voiding Method Indwelling Catheter Indwelling Catheter Indwelling Catheter - Labs CBC & Chem 7: 11/15/24 06:44 11/15/24 06:44
[2024-11-19] MEDS: LORazepam 1 MG/0.5 ML VIAL IV PRN ×2 (13:55→19:36)
[2024-11-19 21:16] VITALS: BP 78/52; PULSE 128; RESP 28
[2024-11-20] MEDS: LORazepam 1 MG/0.5 ML VIAL IV SCH (10:14)
--- NOTE | 2024-11-20 10:31 | P.PN ---
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 Patient does have a Pleurx catheter on the right. Patient's son is POA. Patient was started on vancomycin. Pulmonology was consulted and recommended having the catheter drained every other day, and started DuoNebs. Wound care was also consulted for patient's sores on his coccyx and back. Hospice was consulted for information. While inpatient, patient was placed on comfort care by his son. Subjective: Patient seen and examined at bedside. Last night Ativan frequency was increased. This morning patient is sleeping in the bed without any signs of discomfort (no eyebrow furrowing). Patient's son is in the room and has no questions at this time. Pertinent positives and negatives as discussed above, a complete review of systems was performed and all other systems are negative. Vitals: Signs Reviewed Physical Exam: General: Cachectic, no distress, appears at stated age Derm: warm, dry, intact Head: atraumatic, normocephalic, symmetric Mouth: no lip lesion Cardiovascular: S1 S2 reg, no murmur, rubs, or gallops Lungs: Limited due to patient positioning Abdominal: soft, non-tender to palpation Extremities: no gross muscle atrophy, no edema Data Received Today: Pertinent Labs: None, comfort care Imaging: None, comfort care Assessment and Plan: Stage IV NSLC adenocarcinoma with osseos metastasis Acute hypoxic respiratory failure secondary to pleural effusion versus pneumonia versus atelectasis vs lung cancer progression Acute encephalopathy likely hypoxic COPD Cough Failure to thrive -Patient is currently on comfort care -Continue morphine drip -Continue morphine 2mg IV every hour as needed -Continue Dilaudid 1 mg every 4 hours as needed -Continue home p.o. morphine (morphine sulfate 15mg q6h prn and morphine sulfate ER 30 mg q12h) -Continue home DuoNebs -Changed to Ativan to IV 1 mg every 4 hours prn -Ordered scheduled IV Ativan 1 mg every 2 hours, if patient still uncomfortable will change to scheduled every 1 hour. Asymptomatic bacteriuria - Patient on comfort care Hypercalcemia - resolved Could be secondary to hypercalcemia of malignancy -Patient is on comfort care Coccyx and back wounds -Wound care consulted, patient on comfort care measures Chronic DM - Insulin discontinued as pt is on comfort care COPD - DuoNeb prn Code status: No code Twinzara DO Fabricio PGY-1 IM Dictation was produced using [employer] dictation software. please excuse any grammatical, word or spelling errors. I have seen and evaluated the patient today. Discussed with the resident and agree with the residents finding and plan as documented in the resident's note. Changes highlighted in blue font. Objective - Vital Signs Vital signs: Vital Signs Temp 97.7 F 11/18/24 20:00 Pulse 128 H 11/19/24 21:14 Resp 28 H 11/19/24 21:14 BP 78/52 11/19/24 21:14 Pulse Ox 99 11/18/24 21:00 FiO2 Intake & Output 11/19/24 11/20/24 11/20/24 18:59 06:59 18:59 Intake Total 197.267 160.334 Output Total 25 700 Balance 172.267 -539.666 Weight 49 kg Intake: Intake, IV Titration 197.267 160.334 Amount Morphine Sulfate 100 mg 197.267 160.334 In Sodium Chloride 0.9% 90 ml @ 2 MG/HR 2 mls/hr IV .Q24H [facility] Rx#: [id number] Oral 0 Output: Drainage 700 Right Chest 700 Urine 25 Other: Voiding Method Indwelling Catheter Indwelling Catheter - Labs CBC & Chem 7: 11/15/24 06:44 11/15/24 06:44
--- NOTE | 2024-11-20 13:28 | P.DS ---
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 Patient does have a Pleurx catheter present on the right. Patient's son is POA.Significant vitals in the ED included afebrile, HR 120, RR 19, BP 128/86, 99% on 4L NC. Significant ED labs included WBC 18.23, hemoglobin 9.1, platelets 498, BNP 6870, calcium 10.9, sodium 137, potassium 5.0. UA showed protein, large blood, large leukocyte esterase, RBC, WBC, many bacteria. While inpatient, patient was started on vancomycin. Pulmonology was consulted and recommended having the catheter drained every other day, and started DuoNebs. Wound care was also consulted for patient's sores on his coccyx and back. Hospice was also consulted for information. During this admission, patient was placed on comfort care. Date and time of for patient is 11/20/2024 at 12:04. Michael Regalado DO PGY-1 IM Dictation was produced using [employer] dictation software. Please excuse any grammatical, word or spelling errors. I have seen and evaluated the patient today. Discussed with the resident and agree with the residents finding and plan as documented in the resident's note. Changes highlighted in blue font. Plan - Discharge Summary Discharge Rx Participant: Yes New Discharge Prescriptions: No Action Magnesium Oxide [Mag-Ox] 400 mg PO DAILY tab Acetaminophen Tab [Tylenol] 650 mg PO Q6HR PRN tab PRN Reason: Mild Pain Or Fever > 100.5 Sennosides [Senokot] 17.2 mg PO BID Cyclobenzaprine [Flexeril] 10 mg PO Q8H PRN PRN Reason: Spasms guaiFENesin [Mucinex] 600 mg PO Q12H PRN PRN Reason: THICK SECRETIONS Ibuprofen [Motrin] 400 mg PO Q8H PRN PRN Reason: Pain metFORMIN HCL 1,000 mg PO BID Potassium Chloride ER [K-Dur 20] 20 meq PO DAILY tab Famotidine [Pepcid] 20 mg PO BID tab Naloxone HCl 1 spray NASAL ONCE PRN PRN Reason: suspected overdose Ipratropium-Albuterol Nebulize [Duoneb 0.5 mg-3 mg/3 ml Soln] 3 ml INHALATION RT-TID Morphine Sulfate ER [Ms Contin] 30 mg PO Q12HR #6 tab droNABinol [Marinol] 2.5 mg PO AC-BID #6 cap Morphine Sulfate [Morphine Sulfate Oral Soln Concentrate] 15 mg PO Q6H PRN PRN Reason: Pain, Shortness of breath Discharge Medication List metFORMIN HCL 1,000 mg PO BID 06/15/24 [History] Acetaminophen Tab [Tylenol] 650 mg PO Q6HR PRN tab 10/28/24 [Rx] Famotidine [Pepcid] 20 mg PO BID tab 10/28/24 [Rx] Magnesium Oxide [Mag-Ox] 400 mg PO DAILY tab 10/28/24 [Rx] Potassium Chloride ER [K-Dur 20] 20 meq PO DAILY tab 10/28/24 [Rx] Ipratropium-Albuterol Nebulize [Duoneb 0.5 mg-3 mg/3 ml Soln] 3 ml INHALATION RT-TID 11/04/24 [History] Naloxone HCl 1 spray NASAL ONCE PRN 11/04/24 [History] Sennosides [Senokot] 17.2 mg PO BID 11/04/24 [History] Morphine Sulfate ER [Ms Contin] 30 mg PO Q12HR #6 tab 11/09/24 [Rx] droNABinol [Marinol] 2.5 mg PO AC-BID #6 cap 11/09/24 [Rx] Cyclobenzaprine [Flexeril] 10 mg PO Q8H PRN 11/12/24 [History] Ibuprofen [Motrin] 400 mg PO Q8H PRN 11/12/24 [History] Morphine Sulfate [Morphine Sulfate Oral Soln Concentrate] 15 mg PO Q6H PRN 11/12/24 [History] guaiFENesin [Mucinex] 600 mg PO Q12H PRN 11/12/24 [History] Follow up Appointment(s)/Referral(s): Anahi Stallworth DO [Primary Care Provider] - 1-2 days Discharge Disposition: - Preliminary Cause of Preliminary Cause of : lung cancer
--- NOTE | 2024-11-23 11:51 | CDI ---
Documentation Clarification Form Date: 11/23/2024 11:36:03 AM From: Rupinder Farnsworth Phone: Admit Date: 11/12/2024 06:38:00 PM Patient Name: Dev Phillip Visit Number: [id number] Discharge Date: 11/20/2024 01:53:00 PM ATTENTION: The Clinical Documentation Specialists (CDI) and [facility] Coding Staff appreciate your assistance in clarifying documentation. Please respond to the clarification below the line at the bottom and electronically sign. The CDI & [facility] Coding staff will review the response and follow-up if needed. Please note: Queries are made part of the Legal Health Record. If you have any questions, please contact the author of this message via ITS. Doctor/Provider: Dr Aguilar Coccyx and back pressure ulcers are documented throughout the Progress Notes. Additional clarification regarding the stage of the pressure ulcer is requested. History/Risk Factors: 59yo M, Stage IV NSLClung w mets to bone & liver, AHRF, maligpleural effusion, hypoxic enceph, COPD, FTT, UTI w E coli, asymptomaticbacteriuria, hypercalcemia, dehydration, NIDDMII, coccyx and back wounds Clinical Indicators: Location: Coccyx and back Treatment: Per [facility]: Sacrum and thoracic spine cleaned with wound commercial cleaner. Apply calcium alginate and medihoney to the wound bed, Calmosepthe to periwound. Cover with border foam dressing every day and evening shift for PI. Consults: Wound care Please clarify the stage of pressure ulcer coccyx and back if known: Coccyx [ ] Stage 1 Pressure Ulcer [ ] Stage 2 Pressure Ulcer [ ] Stage 3 Pressure Ulcer [ ] Unstageable Pressure ulcer [ ] Other condition, please specify [ x] Unable to determine Back (please specify location, ex cervical, thoracic): [ ] Stage 1 Pressure Ulcer [ ] Stage 2 Pressure Ulcer [ ] Stage 3 Pressure Ulcer [ ] Unstageable Pressure ulcer [ ] Other condition, please specify [ x] Unable to determine Clinical Definitions: Stage 1 Pressure Ulcer: intact skin, non-blanching redness of local area Stage 2 Pressure Ulcer: Partial thickness, loss of dermis, pink wound bed Stage 3 Pressure Ulcer: Full thickness tissue loss Stage 4 Pressure Ulcer: Full thickness tissue loss with exposed bone, tendon, or muscle. Unstageable pressure ulcer: Full thickness tissue loss in which the base of the ulcer is covered by slough (yellow, roach, srinivasan, green or brown) and/or eschar (roach, brown or black) in the wound bed. (Template Last Revised: July 2020) MTDD
== END 2024-11-20 13:53 | disposition expired | DRG 180 ==
LOC: EC 15:40 → 3SCARD 18:38
PROVIDERS: ADMIT Family Medicine; ATTEND Family Medicine
DX: C34.11 Malignant neoplasm of upper lobe, right bronchus or lung (principal); J96.01 Acute respiratory failure with hypoxia; G93.1 Anoxic brain damage, not elsewhere classified; C78.1 Secondary malignant neoplasm of mediastinum; C79.51 Secondary malignant neoplasm of bone; C78.7 Secondary malignant neoplasm of liver and intrahepatic bile duct; E88.A Wasting disease (syndrome) due to underlying condition; Z51.5 Encounter for palliative care; Z66 Do not resuscitate; L89.109 Pressure ulcer of unspecified part of back, unspecified stage; J91.0 Malignant pleural effusion; J44.9 Chronic obstructive pulmonary disease, unspecified; E11.9 Type 2 diabetes mellitus without complications; D63.0 Anemia in neoplastic disease; Z68.1 Body mass index [BMI] 19.9 or less, adult; J98.11 Atelectasis; N39.0 Urinary tract infection, site not specified; N40.0 Benign prostatic hyperplasia without lower urinary tract symptoms; E83.52 Hypercalcemia; R54 Age-related physical debility; B96.20 Unspecified Escherichia coli [E. coli] as the cause of diseases classified elsewhere; E86.0 Dehydration; R62.7 Adult failure to thrive; L89.159 Pressure ulcer of sacral region, unspecified stage; Z79.84 Long term (current) use of oral hypoglycemic drugs; Z79.899 Other long term (current) drug therapy; Z87.891 Personal history of nicotine dependence; Z87.311 Personal history of (healed) other pathological fracture; Z98.1 Arthrodesis status; Z97.8 Presence of other specified devices; Z86.711 Personal history of pulmonary embolism
CPT/HCPCS: 36415; 71045; 71046; 80048; 80053; 80202; 81001; 82565; 83036; 83605; 83735; 83880; 84145; 85025; 85610; 85730; 87040; 87070; 87077; 87086; 87186; 87636; 93005; 94640; 94760; 96361; 96365; 96366; 96367; 96372; 99285